=== PATIENT | male | born 1930 | race Caucasian/White ===

== ENCOUNTER 2016-11-14 16:58 | Inpatient (IN) | payer MEDICARE, OTHER ==
[~2016-11-14] VITALS: Ht 170.2 cm; Wt 65.1 kg
[~2016-11-14 16:58] MED LIST: ACETAMINOPHEN325 MG PO; ASPIRIN 81 MG E81 MG PO; ASPIRIN325 MG PO; CALCIUM 600+D T1 TA1 PO; CELEXA20 MG PO; CLARITIN 10 MG10 MG PO; CLARITIN5 MG/5 ML PO; COZAAR25 MG PO; DESYREL50 MG PO; DULCOLAX10 MG/SUPP RC; DUONEB 2.5-0.5 M3 ML UPD; EFFEXOR XR150 MG PO; ELIQUIS2.5 MG PO; FLUTICASONE PRO16 GM NASAL; HYDROCHLOROTHIA25 MG PO; ICAPS AREDS1 TAB.SA PO; KLONOPIN0.5 MG PO; LIPITOR40 MG PO; MIRALAX17 GM PO; MUCUS RELIEF400 MG PO; NITROSTAT0.4 MG SL; NORCO 10/325 TA1 TA1 PO; OYSCO 500+D TAB1 TAB PO; POTASSIUM20 MEQ/11 PO; PREDNISONE5 MG PO; PROAIR HFA8.5 GM INH; PROTONIX I40 MG/VIAL IV; PULMICORT0.5 MG/21 UPD; ROBAXIN500 MG PO; SCOT-TUSSI10 MG/5 ML PO; SENNA8.6 MG PO; SOLU-CORTE100 MG/22 IV; SYMBICORT 80-10.2 GM INH; TYLENOL 325 MG325 MG PO; VITAMIN B-12500 MCG PO; ZOSYN 3.3753.375 G1 IV
[2016-11-14 17:23] LABS: BASOPHILS 0.2 % (0.0-2.0); EOSINOPHILS 0.8 % (0-7); HEMATOCRIT 30.2 % (42.0-54.0); HEMOGLOBIN 10.2 g/dL (13.5-17.5); IMMATURE GRANULOCYTES 0.8 % (0-5); LYMPHOCYTES 18.9 % (15-50); MCH 33.4 pg (26.0-34.0); MCHC 33.8 g/dL (31.0-37.0); MEAN PLATELET VOLUME 10.9 fL (7.4-10.4); MONOCYTES 11.3 % (2-11); RBC 3.05 10x6/uL (4.20-6.10); RDW 13.1 % (11.5-14.5); WBC 11.7 10x3/uL (4.8-10.8)
[2016-11-14 17:30] LABS: PLATELET COUNT 206 10x3/uL (130-400)
[2016-11-14 17:38] LABS: APTT 29.1 SECONDS (22.8-39.4); INR 1.12 (0.85-1.17); PROTIME 14.3 SECONDS (11.6-15.0)
[2016-11-14 17:39] LABS: ALBUMIN 3.1 g/dL (3.4-5.0); ALKALINE PHOSPHATASE 66 U/L (46-116); ALT (SGPT) 18 U/L (10-68); BILIRUBIN - TOTAL 0.47 mg/dL (0.2-1.3); CALC OSMOLALITY 276 mosm/kg (275-300); CALCIUM 8.8 mg/dL (8.5-10.1); CARBON DIOXIDE 26.8 mmol/L (21.0-32.0); CHLORIDE - SERUM 99 mmol/L (98-107); CREATININE - SERUM 1.1 mg/dL (0.6-1.3); GLUCOSE 96 mg/dL (74-106); SODIUM 138 mmol/L (136-145); UREA NITROGEN 14 mg/dL (7-18); eGFR NON AFRICAN AMERICAN 67 mL/min (90-120)
[2016-11-14 17:49] LABS: CKMB 0.4 U/L (0.0-3.6); CREATINE KINASE 59 UL (21-232); MAGNESIUM - SERUM 1.9 mg/dL (1.8-2.4)
[2016-11-14 17:50] LABS: TROPONIN-I < 0.017 ng/mL (0.000-0.060)
[2016-11-14 17:50] LABS: APPEARANCE CLEAR (CLEAR); BILIRUBIN NEGATIVE (NEGATIVE); COLOR YELLOW (YELLOW); GLUCOSE NEGATIVE (NEGATIVE); KETONE NEGATIVE (NEGATIVE); LEUKOCYTE ESTERASE NEGATIVE (NEGATIVE); NITRITE NEGATIVE (NEGATIVE); PROTEIN NEGATIVE (NEGATIVE); SPECIFIC GRAVITY 1.015 (1.005-1.020); UROBILINOGEN NORMAL (NORMAL)
[2016-11-14 17:57] LABS: UDS - AMPHET NEGATIVE QUAL (NEGATIVE); UDS - BARB NEGATIVE QUAL (NEGATIVE); UDS - BENZO POSITIVE QUAL (NEGATIVE); UDS - COCAINE NEGATIVE QUAL (NEGATIVE); UDS - METH NEGATIVE QUAL (NEGATIVE); UDS - OPIATE POSITIVE QUAL (NEGATIVE); UDS - PCP NEGATIVE QUAL (NEGATIVE); UDS - THC NEGATIVE QUAL (NEGATIVE)
[2016-11-14 19:00] VITALS: BP 116/55
--- NOTE | 2016-11-14 19:30 | NUR ---
RECEIVED PATIENT FROM ER VIA BED. PATIENT IS ON VENT AND SEDATED WITH PROPOFOL. SHIFT ASSESSMENT COMPLETE, SEE ASSESSMENT FOR DETAILS. PATIENTS PUPILS ARE FIXED AND 1MM. S1S2 NOTED WITH A RATE OF 77. CRACKLES HEARD IN UPPER LOBES OF LUNGS. BOWEL SOUNDS ACTIVE. YEE INSERTED IN ER WITH YELLOW URINE OUTPUT. NO KINKS NOTED. +2 PULSES BILATERAL. PIV IN RAC INFUSING NS @125 AND PROPOFOL.
[2016-11-14 20:00] VITALS: BP 126/66
[2016-11-14 21:00] VITALS: BP 128/87
--- NOTE | 2016-11-14 21:00 | NUR ---
NG TUBE INSERTED TO LIS. 20G PIV INSERTED INTO RIGHT WRIST. PT TOLERATED WELL. NGT PLACEMENT VERIFIED WITH AIR BOLUS AND AUSCULTATION OF RUQ OF ABDOMEN.
[2016-11-14 21:42] VITALS: BP 186/83; BMI 24.3
[2016-11-14 22:00] VITALS: BP 129/64
[2016-11-14 23:00] VITALS: BP 114/62
--- NOTE | 2016-11-14 23:00 | NUR ---
REASSESSMENT COMPLETE. NO CHANGES.
[2016-11-15] VITALS (24 sets, daily range): BP systolic 113–167; BP diastolic 57–82; Ht 170.2 cm; Wt 65.1 kg
--- NOTE | 2016-11-15 01:00 | NUR ---
PATIENT RESTING COMFORTABLY IN BED. VSS.
--- NOTE | 2016-11-15 03:00 | NUR ---
REASSESSMENT COMPLETE. NO CHANGES AT THIS TIME.
--- NOTE | 2016-11-15 05:00 | NUR ---
CRITICAL LOW POTASSIUM, ELECTROLYTE PROTOCOL FOLLOWED.
[2016-11-15 05:40] LABS: BASOPHILS 0.1 % (0.0-2.0); EOSINOPHILS 0.2 % (0-7); HEMATOCRIT 29.1 % (42.0-54.0); HEMOGLOBIN 9.8 g/dL (13.5-17.5); IMMATURE GRANULOCYTES 0.3 % (0-5); LYMPHOCYTES 10.8 % (15-50); MCH 32.8 pg (26.0-34.0); MCHC 33.7 g/dL (31.0-37.0); MCV 97.3 fL (80.0-100.0); MEAN PLATELET VOLUME 11.2 fL (7.4-10.4); MONOCYTES 10.8 % (2-11); NEUTROPHILS 77.8 % (40-80); PLATELET COUNT 202 10x3/uL (130-400); RBC 2.99 10x6/uL (4.20-6.10); RDW 13.1 % (11.5-14.5); WBC 11.3 10x3/uL (4.8-10.8)
[2016-11-15 06:05] LABS: ALBUMIN 2.9 g/dL (3.4-5.0); ALKALINE PHOSPHATASE 67 U/L (46-116); ALT (SGPT) 20 U/L (10-68); CALC OSMOLALITY 273 mosm/kg (275-300); CALCIUM 8.3 mg/dL (8.5-10.1); CHLORIDE - SERUM 98 mmol/L (98-107); CREATININE - SERUM 0.9 mg/dL (0.6-1.3); GLUCOSE 94 mg/dL (74-106); MAGNESIUM - SERUM 1.7 mg/dL (1.8-2.4); POTASSIUM - SERUM 2.8 mmol/L (3.5-5.1); PROTEIN - SERUM 5.9 g/dL (6.4-8.2); SODIUM 137 mmol/L (136-145); UREA NITROGEN 12 mg/dL (7-18); eGFR NON AFRICAN AMERICAN 85 mL/min (90-120)
--- NOTE | 2016-11-15 08:05 | NUR ---
RESTING QUIETLY IN BED AT THIS TIME. NO DISTRESS NOTED. PT NOTED TO HAVE POTASSIUN LEVEL OF 2.8 THIS MORNING. RECIEVING POTASSIUM RIDERS AT THIS TIME PER ORDERS. WILL CONTINUE PLAN OF CARE.
--- NOTE | 2016-11-15 08:25 | NUR ---
NOTED PT HAS LOW POTASSIUM LEVEL OF 2.8 AND LOW MAGNESIUM LEVEL OF 1.7. ELECTROLYTE PROTOCOL REPLACEMENT IN PLACE AT THIS TIME. WILL CONTINUE PLAN OF CARE.
--- NOTE | 2016-11-15 09:04 | NUR ---
NOTED PT APPEARED UNCOMFORTABLE AND RETLESS, COUGHING OVER MACHINE, MOVING ARMS AND LEGS. BLOOD PRESSURE RAISED FROM 143/65 TO 161/65. PROPIFOL INCREASED FROM 40MCG TO 45MCG. WILL CONTINUE TO OBSERVE.
--- NOTE | 2016-11-15 09:14 | NUR ---
FAMILY AT BEDSIDE AT THIS TIME. REPORT GIVEN. NO FURTHER QUESTIONS AT THIS TIME.
--- NOTE | 2016-11-15 09:23 | NUR ---
NOTED 15ML RESIDUAL TO PEG. WILL CONTINUE TO OBSERVE.
--- NOTE | 2016-11-15 11:35 | NUR ---
SPOKE TO DR EDWARDS TO NOTIFY OF PT CONSULT. DR EDWARDS REQUESTED NURSING STAFF TO CALL HIM AND NOTIFY WHEN CT OF HEAD RESULTS COME IN. WILL FOLLOW THROUGH WITH REQUEST.
--- NOTE | 2016-11-15 11:57 | NUR ---
FAMILY AT BEDSIDE AT THIS TIME SPEAKING TO DR MAHSA ZAYAS UPDATE. NO ACUTE DISTRESS NOTED. WILL CONTINUE PLAN OF CARE.
--- NOTE | 2016-11-15 13:46 | NUR ---
LYING IN BED RESTING QUIETLY, NO ACUTE DISTRESS NOTED. SUCTIONING PROVIDED, NOTED CLEAR SPUTUM WITH SOME REDNESS AT TIMES. FAMILY AT BEDSIDE. WILL CONTINUE PLAN OF CARE.
--- NOTE | 2016-11-15 15:04 | NUR ---
TURNING AND ORAL CARE PROVIDED AT THIS TIME. PROVIDED Q2H. NO ACUTE DISTRESS NOTED. WILL CONTINUE PLAN OF CARE.
--- NOTE | 2016-11-15 15:54 | NUR ---
NOTED PT FAMILY STATED CONCERN THAT PT COULD BE IN DISCOMFORT. FAMILY STATED PT HAD BEEN TAKING ROBAXIN AND NORCO PRN AT [facility] AND WAS CONCERENED PT MIGHT BE EXPERIENCING DISCOMFORT. ALSO BLOOD PRESSURE NOTED AT 160/67, NO FACIAL GRIMACING NOTED. CALLED DR BRAGG TO NOTIFY, NOTED NEW ORDER FOR 12.5MG IV DEMEROL Q6H PRN PAIN. WILL PLACE ORDERS AND NOTIFY FAMILY. WILL CONTINUE PLAN OF CARE.
--- NOTE | 2016-11-15 17:53 | NUR ---
NOTED NS RATE ORDER CHANGE FROM 125ML/HOUR TO 75 ML/HOUR. WILL FOLLOW THROUGH WITH ORDERS AT THIS TIME. NO ACUTE DISTRESS NOTED. FAMILY AT BEDSIDE. WILL CONTINUE PLAN FO CAR.E
--- NOTE | 2016-11-15 18:16 | NUR ---
TEMPORAL TEMP OF 100.0 NOTED AT THIS TIME. ROOM TEMPERATURE ADJUSTED TO A COOLER TEMP, WINDOW OPENED, BLANKETS REMOVED, SHEET IS IN PLACE. WILL CONTINUE TO OBSERVE.
--- NOTE | 2016-11-15 19:00 | NUR ---
1899: Pt rec'd resting HOB 30 degrees with eyes closed. Open briefly to painfull stimuli. Pupils DIONNE+ bilat. Unable to assess pt movement at this time. Pt remains sedated with diprivan. Pt breathing via ETT 8.0/28CM lip line with Vent as per flow sheet. Pt RR 18x with SPO2 98%. Lungs with crackles heard in upper bases and RUL. LLL decreased with auscultation. MMP and no cyanosis. Irregular heart rate. Afib with occasional PVCs seen on CM 78bpm. RUE with x2 PIV patent with Diprivan and NS infusing. ABD soft NT BS hypoactive x4. Right nares NGT to LIS with small amount of clear/yellow sx. Perez to gravity with >30 cc/hr UOP. All alarms are on and intact.
--- NOTE | 2016-11-15 21:00 | NUR ---
2100: Family at bedside. Update provided and verbalized understanding. No change in pt RESP/CV/NV status. Pt grimmaces with movement, has occasional yawning and coughs with sx. Pupils remain DIONNE+ and no seizure activity is seen.
--- NOTE | 2016-11-15 21:45 | NUR ---
2145: CT report rec'd and called to Dr. Keane at this time.
--- NOTE | 2016-11-15 23:00 | NUR ---
2300: Pt repositioned for comfort with extrem off bed with pillow supports. Oral care done per RT. No change in RESP/CV/NV status. Continue to wean Diprivan as per orders.
--- NOTE | 2016-11-15 23:45 | NUR ---
2345: Pt SBP increased at this time. Dr. Wheeler notified. New orders rec'd and noted.
[2016-11-16] VITALS (24 sets, daily range): BP systolic 106–197; BP diastolic 54–801
--- NOTE | 2016-11-16 02:15 | NUR ---
0215: Pt BP increased. SHANI MEDRANO notified and new orders rec'd. Hydralazine admin IVP at this time.
[2016-11-16 03:56] LABS: BASOPHILS 0.1 % (0.0-2.0); EOSINOPHILS 0.2 % (0-7); HEMATOCRIT 32.4 % (42.0-54.0); HEMOGLOBIN 11.1 g/dL (13.5-17.5); IMMATURE GRANULOCYTES 0.5 % (0-5); LYMPHOCYTES 14.9 % (15-50); MCH 33.8 pg (26.0-34.0); MCHC 34.3 g/dL (31.0-37.0); MCV 98.8 fL (80.0-100.0); MEAN PLATELET VOLUME 11.6 fL (7.4-10.4); MONOCYTES 10.4 % (2-11); NEUTROPHILS 73.9 % (40-80); PLATELET COUNT 114 10x3/uL (130-400); RBC 3.28 10x6/uL (4.20-6.10); RDW 13.5 % (11.5-14.5); WBC 17.5 10x3/uL (4.8-10.8)
--- NOTE | 2016-11-16 04:00 | NUR ---
0400: Pt BP 140-150 at this time. No change in IVF/UOP at this time. Pt moves bilateral lower extrem weakly vs gravity at times. Pt continues grimmace with movement or sx, but does not open eyes to verbal. Pt with occasional yawning. Pupils remains = with light stimulus. No seizure activity seen at this time.
[2016-11-16 04:12] LABS: CALC OSMOLALITY 278 mosm/kg (275-300); CALCIUM 8.6 mg/dL (8.5-10.1); CARBON DIOXIDE 28.6 mmol/L (21.0-32.0); CHLORIDE - SERUM 103 mmol/L (98-107); CREATININE - SERUM 0.9 mg/dL (0.6-1.3); GLUCOSE 97 mg/dL (74-106); PHOSPHOROUS 3.9 mg/dL (2.5-4.9); SODIUM 140 mmol/L (136-145); UREA NITROGEN 13 mg/dL (7-18); eGFR NON AFRICAN AMERICAN 85 mL/min (90-120)
[2016-11-16 04:14] LABS: MAGNESIUM - SERUM 2.3 mg/dL (1.8-2.4); POTASSIUM - SERUM 3.8 mmol/L (3.5-5.1)
--- NOTE | 2016-11-16 05:15 | NUR ---
0515: Pt reposition for comfort at this time.
--- NOTE | 2016-11-16 07:19 | NUR ---
DR EDWARDS TO ASSESS PT AT THIS TIME. SEDATION TURNED OFF MOMENTARILY PER ORDERS. PT RESTING IN BED AT THIS TIME. NO ACUTE DISTRESS NOTED. WILL CONTINUE PLAN OF CARE.
--- NOTE | 2016-11-16 07:50 | NUR ---
SEDATION, PROPIFOL, TURNED BACK ON AT THIS TIME TO 10MCG. PT AT THIS TIME MOVING ARMS AND LEGS AND PULLING ARMS UP TOWARDS TUBING. SOFT WRIST RESTRAINTS SECURED. REPOSITIONING PROVIDED. TUBING CONCEALED. WILL CONTINUE TO OBSERVE.
--- NOTE | 2016-11-16 07:55 | NUR ---
PROPIFOL TURNED UP FROM 10MCG TO 20MCG AT THIS TIME. PT NOTED MOVING ARMS AND LEGS, FACIAL GRIMACING. WILL CONTINUE TO OBSERVE.
--- NOTE | 2016-11-16 08:05 | NUR ---
LISA OF 5 STILL NOTED. PROPIFOL TURNED UP FROM 20MCG TO 30MCG. WILL CONTINUE TO OBSERVE.
--- NOTE | 2016-11-16 08:12 | NUR ---
OBSERVED PT AT THIS TIME. NOTED PT APPEARS MORE CALM AT THIS TIME. STILL MOVING ARMS AND LEGS AND TURNING HEAD, HOWEVER NO LONGER ATTEMPTING AT PULL AT LINES AND MOVEMENTS ARE MORE CALM AT THIS TIME. WILL CONTINUE TO OBSERVE.
--- NOTE | 2016-11-16 12:26 | NUR ---
NOTED AXILLARY TEMP OF 100.3. AT THIS TIME WILL DECREASE ROOM TEMP AND TAKE WARM BLANKETS OFF TO SEE IF TEMP DECREASES. WILL CONTINUE TO OBSERVE.
--- NOTE | 2016-11-16 13:53 | NUR ---
NGT PLACEMENT VERIFICATION PERFORMED VIA AUSCULATION.
--- NOTE | 2016-11-16 14:53 | NUR ---
LYING IN BED AT THIS TIME. NO ACUTE DISTRESS NOTED. TURNED Q2H. WILL CONTINUE PLAN FO CARE.
--- NOTE | 2016-11-16 15:44 | NUR ---
LYING IN BED AT THIS TIME. NO ACUTE DISTRESS NOTED. REPOSITIONING PROVIDED. TEMPERATURE 99.4 AT THIS TIME. WILL CONTINUE PLAN FO CARE.
--- NOTE | 2016-11-16 17:48 | NUR ---
Nutrition follow-up: NPO; intubated, sedated Pulmocare started @ 20 ml/hr RDN following.
--- NOTE | 2016-11-16 17:57 | NUR ---
REPOSITIONING AND SUCTIONING PROVIDED TO PT. NOTED CLEAR SECRETIONS. NO ACUTE DISTRESS NOTED. WILL CONTINUE PLAN FOCARE.
--- NOTE | 2016-11-16 21:00 | NUR ---
ASSESSMENT COMPLETE: LATE ENTRY: 192911/16/16. PT SEDATED ON VENT. FIO2 35%. CONTROLLED AFIB SHOWING ON MONITOR. RR CRACKLES BILATERALLY IN UPPER LOBES; DIMINISHED BILATERALLY IN LOWER LOBES. NGT PRESENT; PULMOCARE @ 20ML/HR. PERRLA; 3MM BRISK. YEE IN PLACE. BILATERAL ARM BRUISING. RIGHT ARM SKIN TEAR.
--- NOTE | 2016-11-16 23:15 | NUR ---
REASSESSMENT COMPLETE. NO CHANGES FROM PREVIOUS ASSESSMENT.
[2016-11-17] VITALS (24 sets, daily range): BP systolic 99–146; BP diastolic 53–86
--- NOTE | 2016-11-17 03:00 | NUR ---
REASSESSMENT COMPLETE. NO CHANGES FROM PREVIOUS ASSESSMENT OTHER THAN PT HAS INCREASE IN BOWEL SOUNDS FROM ACTIVE TO HYPERACTIVE IN ALL 4 QUADRANTS. PT ALSO PASSING FLATULANCE.
--- NOTE | 2016-11-17 04:15 | NUR ---
PT HAD MODERATE LOOSE LIGHT BROWN STOOL; DIARRHEA. PT CLEANED. COMPLETE LINEN CHANGE. YEE CARE. PT REPOSITIONED.
[2016-11-17 05:30] LABS: BASOPHILS 0.1 % (0.0-2.0); EOSINOPHILS 0 % (0-7); HEMATOCRIT 30.1 % (42.0-54.0); IMMATURE GRANULOCYTES 0.3 % (0-5); LYMPHOCYTES 6.8 % (15-50); MCH 32.9 pg (26.0-34.0); MCHC 33.2 g/dL (31.0-37.0); MEAN PLATELET VOLUME 11.9 fL (7.4-10.4); MONOCYTES 8.5 % (2-11); NEUTROPHILS 84.3 % (40-80); PLATELET COUNT 177 10x3/uL (130-400); RBC 3.04 10x6/uL (4.20-6.10); RDW 13.7 % (11.5-14.5); WBC 19.9 10x3/uL (4.8-10.8)
[2016-11-17 05:33] LABS: ANION GAP 10.3 mmol/L (8-16); CARBON DIOXIDE 27.9 mmol/L (21.0-32.0)
[2016-11-17 05:34] LABS: APTT 29.6 SECONDS (22.8-39.4); INR 1.16 (0.85-1.17); PROTIME 14.7 SECONDS (11.6-15.0)
[2016-11-17 05:35] LABS: D-DIMER-QUANTITATIVE 3.04 ug/mLFEU (0.20-0.54)
[2016-11-17 05:40] LABS: CREATININE - SERUM 1.3 mg/dL (0.6-1.3); POTASSIUM - SERUM 3.2 mmol/L (3.5-5.1)
--- NOTE | 2016-11-17 07:00 | NUR ---
REPORT RECIEVED, INITIAL ASSESSMENT COMPLETE, PLEASE SEE FLOW SHEETS FOR DETAILS. ORAL CARE AND TURNING PROVIDED. VSS AT THIS TIME, WILL CONTINUE TO MONITOR.
--- NOTE | 2016-11-17 08:04 | NUR ---
BOWEL MOVMEENT CLEANED UP. FULL LINEN CHANGE. YEE CARE PROVIDED. WILL CONTINUE TO MONITOR.
--- NOTE | 2016-11-17 09:04 | NUR ---
DAUGHTER AT BEDSIDE, ORAL CARE AND TURNING PROVIDED. VSS AT THIS TIME, WILL CONTINUE TO MONITOR.
--- NOTE | 2016-11-17 09:53 | NUR ---
INCREASED DIPRIVAN TO 32 MCG/KG/MIN BECAUSE PT COUGHING AGAINST VENT FREQUENTLY AND IS RESTLESS. WILL CONTINUE TO MONITOR.
--- NOTE | 2016-11-17 10:00 | NUR ---
TUBE FEEDING BAG CHANGED OUT. RESIDUAL CHECKED AND YEILDED 8ML, WHICH WAS RETURNED.
--- NOTE | 2016-11-17 10:43 | NUR ---
REASSESSMENT COMPLETE, PLEASE SEE FLOW SHEETS FOR DETAILS. ORAL CARE AND TURNING PROVIDED, VSS AT THIS TIME, PREPARING FOR TRANSPORT TO CT. WILL CONTINUE TO MONITOR.
--- NOTE | 2016-11-17 12:10 | NUR ---
MODERATE SMIE-FORMED STOOL CLEANED UP AND PARTIAL LINEN CHANGE. DIPRIVAN TURNED OFF FOR EEG TO BE PERFORMED. WILL CONTINUE TO MONITOR.
--- NOTE | 2016-11-17 15:41 | NUR ---
LARGE STOOL CLEANED UP. REASSESSMENT COMPLETE, PLEASE SEE FLOW SHEETS FOR DETAILS. ORAL CARE AND TURNING PROVIDED. VSS AT THIS TIME, WILL CONTINUE TO MONITOR.
--- NOTE | 2016-11-17 15:42 | NUR ---
PT RESTLESS, INCREASED DIPRIVAN TO 34 MCG/KG/MIN, WILL CONTINUE TO MONITOR.
--- NOTE | 2016-11-17 18:00 | NUR ---
ORAL CARE AND TURNING PROVIDED. LARGE BM CLEANED UP. FULL LINEN CHANGE. CALLED DR MADRID ABOUT PVC'S AND TACHYCARDIA ON PT CLOCK AND WATCH HANDS PAINTER. HE ORDERED CARDIZEM NG TID (180MG DAILY NG). WILL CONTINUE TO MONITOR.
--- NOTE | 2016-11-17 19:00 | NUR ---
ASSESSMENT COMPLETE. S1S2 IRREGULAR. CRACKLES BILATERALLY IN UPPER LOBES; DIMINISHED BILATERALLY IN LOWER LOBES. PERRLA; 3MM BRISK. PT SEDATED ON VENT. BRUISING BILATERALLY TO UPPER EXTREMITIES. CONTROLLED AFIB SHOWING ON MONITOR. YEE IN PLACE; YELLOW URINE IN COLLECTION BAG. NGT WITH PULMOCARE AT 20ML/HR.
--- NOTE | 2016-11-17 21:15 | NUR ---
FAMILY AT BEDSIDE, UPDATE GIVEN
--- NOTE | 2016-11-17 22:50 | NUR ---
REASSESSMENT COMPLETE. NO CHANGES FROM PREVIOUS ASSESSMENT.
[2016-11-18] VITALS (24 sets, daily range): BP systolic 93–146; BP diastolic 51–91
--- NOTE | 2016-11-18 | NUR ---
REPOSITIONED FOR COMFORT,
--- NOTE | 2016-11-18 02:00 | NUR ---
COMPLETE BATH AND LINEN CHANGE, PT TOLERATED WELL
--- NOTE | 2016-11-18 03:15 | NUR ---
RAD IN ROOM FOR DAILY CXR,
[2016-11-18 03:32] LABS: BASOPHILS 0.1 % (0.0-2.0); EOSINOPHILS 0.1 % (0-7); HEMATOCRIT 30.3 % (42.0-54.0); HEMOGLOBIN 9.9 g/dL (13.5-17.5); IMMATURE GRANULOCYTES 0.3 % (0-5); LYMPHOCYTES 8.8 % (15-50); MCH 32.9 pg (26.0-34.0); MCHC 32.7 g/dL (31.0-37.0); MCV 100.7 fL (80.0-100.0); MEAN PLATELET VOLUME 12.2 fL (7.4-10.4); MONOCYTES 9.1 % (2-11); NEUTROPHILS 81.6 % (40-80); PLATELET COUNT 166 10x3/uL (130-400); RBC 3.01 10x6/uL (4.20-6.10); RDW 13.6 % (11.5-14.5)
[2016-11-18 03:50] LABS: ALBUMIN 2.3 g/dL (3.4-5.0); ANION GAP 13.3 mmol/L (8-16); BILIRUBIN - TOTAL 0.75 mg/dL (0.2-1.3); CALCIUM 8.4 mg/dL (8.5-10.1); CARBON DIOXIDE 24.6 mmol/L (21.0-32.0); CREATININE - SERUM 1.3 mg/dL (0.6-1.3); MAGNESIUM - SERUM 2.2 mg/dL (1.8-2.4); PROTEIN - SERUM 5.5 g/dL (6.4-8.2)
[2016-11-18 04:08] LABS: POTASSIUM - SERUM 3.9 mmol/L (3.5-5.1)
--- NOTE | 2016-11-18 05:20 | NUR ---
REPOSITIONED FOR COMFORT, ORAL CARE PROVIDED
--- NOTE | 2016-11-18 06:10 | NUR ---
FAMILY AT BEDSIDE, UPDATE GIVEN
--- NOTE | 2016-11-18 10:41 | NUR ---
Is the patient Alert and Oriented? No 0 * PCP DR. MADRID 0 * Pharmacy [facility] PROVIDES MEDICATIONS 0 * Preadmission Environment [facility] 0 * Facility Name [facility] 0 * ADLs Independent 0 * Equipment Wheelchair 0 * Other Equipment SUPPLIED BY THE [facility] 0 * List name and contact numbers for known caregivers / representatives who currently or will assist patient after discharge: DAUGHTER: DAVID [phone] DAUGHTER: YOSI: [phone] 0 * Community resources currently utilized None 0 * Additional services required to return to the preadmission environment? No 0 * Can the patient safely return to the preadmission environment? Yes 0 * Has this patient been hospitalized within the prior 30 days at any hospital? No 0 PATIENT IS ON THE VENT AND UNABLE TO ANSWER QUESTIONS. HE LIVES AT THE [facility]. I SPOKE WITH HIS DAUGHTER, DAVID AT THE BEDSIDE. SHE STATES HER FATHER LIVES HERE AND FEELS COMFORTABLE THERE. HE IS LEGALLY BLIND AND KNOWS HIS WAY AROUND THERE. 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 SHE STATES SHE AND HER SISTER HAVE TRIED TO GET HIM TO MOVE CLOSER TO THEM BUT HE HAS NOT WANTED TO IN THE PAST. SHE STATES AFTER THIS THEY MAY TRY AGAIN. CM TO FOLLOW.
--- NOTE | 2016-11-18 14:26 | NUR ---
0800 AM ASSESMENT IS COMPLETE SEE FLOW SHEET FOR FINDINGS.. PT IS ORALLY INTUBATED AND SEDATED ON THE VENT.. 0830 DR EDWARDS IN TO SEE PT.. WITHOUT NEW ORDERES.. 0900 DAUGHTER IN AT BEDSIDE.. UPDATE GIVEN AND DR EDWARDS CALLED FOR EEG REPORT AND UPDATE INFO FOR FAMILY.. EEG NORMAL... 09 DR MARTINO IN TO SEE PT AND FAMILY.. SEDATION IS TURNED OFF AT THIS TIME.. 1000 PT MEDS GIVEN ... PT REMAINS OFF OF SEDATION.. HE IS FOLLOWING COMMANDS WHEN INSTRUCTED TO DO SO.. REMAINS RESTLESS WITH RESPIRATIONS INCREASING TO 27-30 / MIN... 1030 COMPLETE BATH AND PARTIAL LINEN CHANGE DONE PT I INCONTINENET OF DIARRHEA STOOL.. ARREOLA BROWN.. 1130 REMAINS RESTLESS.. PT PLACED BACK ON DIPRIVAN SEDATION... REMAINS ON SIMV VENT SETTINGS.. 1200 FAMILY IN TO SEE PT... UPDATE GIVEN.. 1330 RESPIRATORY TX..
--- NOTE | 2016-11-18 17:16 | NUR ---
1500 FAMILY IN TO SEE PT AND UPDATE IS GIVEN.. 1600 REPOSITIONED AND ORAL CARE DONE PT CONTINUES ON VENT AND SEDATED 1630 I AND O DONE
--- NOTE | 2016-11-18 18:20 | NUR ---
1800 FAMILY AT BEDSIDE UPDATE GIVEN .. PT IS MOVING WXTREMITIES..
--- NOTE | 2016-11-18 19:30 | NUR ---
REPORT RECIEVED, SHIFT ASSESSMENT COMPLETE, PT IS SEDATED ON VENT, AROUSES TO DEEP STIMULI, ON 35% FIO2 WITH 97% O2 SAT. LUNGS CLEAR IN B/L UPPER LOBES, DIMINISHED IN B/L LOWER LOBES, PATENT NGT WITH PULMOCARE INFUSING VIA PUMP, S1S2, CM-NSR, ABDOMEN IS ROUND WITH ACTIVE BS, PATENT F/C WITH CONCENTRATED UOP, ALL PPP, VSS, WILL CON'T TO MONITOR
--- NOTE | 2016-11-18 21:30 | NUR ---
FAMILY AT BEDSIDE, UPDATE GIVEN
--- NOTE | 2016-11-18 23:18 | NUR ---
REASSESSMENT COMPLETE, NO CHANGES NOTED, REPOSITIONED FOR COMFORT, ORAL CARE PROVIDED
[2016-11-19] VITALS (25 sets, daily range): BP systolic 113–164; BP diastolic 55–91
--- NOTE | 2016-11-19 03:27 | NUR ---
REASSESSMENT COMPLETE, NO CHANGES NOTED, PT RESTING AT THIS TIME, REPOSITIONED FOR COMFORT,
[2016-11-19 04:28] LABS: BASOPHILS 0.1 % (0.0-2.0); EOSINOPHILS 0.8 % (0-7); HEMATOCRIT 25.6 % (42.0-54.0); HEMOGLOBIN 8.9 g/dL (13.5-17.5); IMMATURE GRANULOCYTES 0.3 % (0-5); LYMPHOCYTES 9.1 % (15-50); MCH 34.2 pg (26.0-34.0); MCHC 34.8 g/dL (31.0-37.0); MEAN PLATELET VOLUME 11.8 fL (7.4-10.4); MONOCYTES 10.4 % (2-11); NEUTROPHILS 79.3 % (40-80); PLATELET COUNT 154 10x3/uL (130-400); RDW 13.5 % (11.5-14.5)
[2016-11-19 04:38] LABS: MCV 98.5 fL (80.0-100.0); WBC 9.7 10x3/uL (4.8-10.8)
[2016-11-19 04:43] LABS: ANION GAP 8.3 mmol/L (8-16); CALCIUM 8.6 mg/dL (8.5-10.1); CARBON DIOXIDE 27.6 mmol/L (21.0-32.0); CREATININE - SERUM 1.1 mg/dL (0.6-1.3); MAGNESIUM - SERUM 2.1 mg/dL (1.8-2.4)
[2016-11-19 04:44] LABS: POTASSIUM - SERUM 2.9 mmol/L (3.5-5.1)
--- NOTE | 2016-11-19 05:00 | NUR ---
REPOSITIONED FOR COMFORT, ORAL CARE PROVIDED
--- NOTE | 2016-11-19 07:00 | NUR ---
REC'D REPORT AND RESUMED CARE, ETT TO VENTILATION AND SECURED, VENT IN SIMV MOBE WITH 35% FIO2, SAT 99%, RIGTH NARE OGT WITH PULMOCARE INFUAISNG AT 20 CC/HR, RESIDUAL CHECK 0, RIGHT AC PIV WITH PROPOFAL INUSING AT 40 MCG, NS AT 5 CC/HR, YEE TO GRAVITY WITH DARK CONCENTRATED DRAINAGE TO BAG, SCD'S ON B/L, ASSESSMENT COMPLETE PER FLOWSHEET, LOCALIZES PAIN, DOSE NOT FOLLOW COMMANDS, SEDATION IN USE, ORAL CARE AND SUCTION COMPLETED, RESTRAINTS IN USE, WILL CONTINUE WITH POC
--- NOTE | 2016-11-19 08:30 | NUR ---
AM MEDS GIVEN WITHOUT DIFFICULTY
--- NOTE | 2016-11-19 08:58 | NUR ---
Nutrition follow-up: Pulmocare infusing @ 20 ml/hr; pt tolerating at this time. Labs reviewed Wt: 158# Recommend advancing TF to goal rate of 50 ml/hr RDN following.
--- NOTE | 2016-11-19 09:00 | NUR ---
FAMILY AT BEDSIDE, STATUS UPDATED VOICES NO NEEDS AT THIS TIME
--- NOTE | 2016-11-19 11:00 | NUR ---
NO AUCTE CHANGE FROM PREVIOUS ASSESSMENT, VSS, REPOSITONED TO RIGHT SIDE WITH PILLOW PROPPED TO BACK AND HEELS FLOATED, ORAL CARE AND SUCTION COMPLETED
--- NOTE | 2016-11-19 12:30 | NUR ---
FAMILY AT BEDSIDE, REQUESTED TO HAVE EYE DROPS GIVEN FOR PATIENTS MACULAR DEGENERATION, DR. MADRID AT BEDSIDE, DROPS ORDERED
[2016-11-19 12:43] LABS: HEMATOCRIT 30.1 % (42.0-54.0); HEMOGLOBIN 10.1 g/dL (13.5-17.5)
--- NOTE | 2016-11-19 15:00 | NUR ---
FAMILY AT BEDSIDE DISCUSSED LABS PER REQUEST, STATUS UPDATED, VOICES NO NEEDS AT THIS TIME, CONTINUES ON CPAP, VSS, NO ACUTE CHANGE FROM PREVIOUS ASSESSMENT
--- NOTE | 2016-11-19 16:30 | NUR ---
I AND O'S COMPLETED WITHOUT DIFFICULTY
--- NOTE | 2016-11-19 18:12 | NUR ---
MANAGER COMMUNITY DEVELOPMENT HERE FOR BLOOD DRAW OF REPEAT POTASSIUM
--- NOTE | 2016-11-19 18:16 | NUR ---
FAMILY AT BEDSIDE, STATUS UPDATED, AWAITING FOR PATIENT EXTUBATION, NO OTHER NEEDS AT THIS TIME
--- NOTE | 2016-11-19 19:00 | NUR ---
RECEIVED PATIENT IN BED WITH EYES CLOSED ON VENT. EYES PERRLA @ 3MM WITH BRISK RESPONSE, CLEAR DRAINAGE NOTED. BREATHING IS RYTHMIC AND REGULAR ON VENT R-12, V-550, 35%, P-7, PS-10. LUNG SOUNDS ARE CLEAR BILATERAL UPPER AND DIMINISHED LOWER. ETT 8.0 @ 24CM LIPLINE MID, NG-TUBE R NARE SECURED. PATIENT HAS PULMOCARE @ 40ML/HR VIA NGT, 11ML RESIDUAL RECOVERED AND RETURNED. S1/S2 NOTED WITH PAC/PVC NOTED ON TELEMETRY. ABDOMEN IS FLAT AND SOFT, NON-TENDER TO PALPATION. YEE CATH SECURED WITH STATLOCK, CONCENTRATED YELLOW URINE NOTED IN COLLECTION. ALL PULSES PALPABLE, SLIGHT WEAKNESS NOTED IN ALL EXTREMITIES. PASSIVE ROM PERFORMED, SCD IN USE. BRUISING AND SCABS NOTED BILATERAL UPPER EXTREMITIES, 18G IV NOTED R WRIST. PATIENT POTASSIUM 3.2, ELECTROLYTE REPLACEMENT PROTOCOL FOLLOWED. ORAL CARE/SUCTIONING PROVIDED, PATIENT REPOSITIONED FOR COMFORT. BEDTABLE/CALL LIGHT IN REACH, WILL CONTINUE TO MONITOR.
--- NOTE | 2016-11-19 19:10 | NUR ---
PATIENT FAMILY AT BEDSIDE, UPDATED ON PATIENT CONDITION AND ANSWERED QUESTIONS. ORAL CARE/SUCTIONING PERFORMED AND PATIENT REPOSITIONED FOR COMFORT. WILL CONTINUE TO MONITOR.
--- NOTE | 2016-11-19 20:40 | EEG ---
PATIENT:SHANDA THURMAN DATE OF SERVICE: 11/14/16 MEDICAL RECORD: [id number] DATE OF : 32 LOCATION:D.230 D.ICU ADMISSION DATE: 11/14/16 REFERRING PHYSICIAN: INTERPRETING PHYSICIAN: AMI EDWARDS MD DATE OF SERVICE: 11/17/2016 Referred by myself as an inpatient, currently in room 2308. ELECTROENCEPHALOGRAM NUMBER: [id number]. DATE OF EXAMINATION: 11/17/2016 at 12:30 p.m. TECHNICAL DATA: This electroencephalographic recording consists of approximately 25 minutes of data collection utilizing the international 10/20 system of electrode placement and both referential and non-referential montages. Sixteen channels of electrocerebral recording are accompanied by a 17th channel dedicated to the electrocardiographic rhythm and 2 channels of electromyographic recording. Recording is performed in the lethargic state utilizing activation by photic stimulation. The patient has been off a Diprivan drip for approximately 30 minutes prior to the onset of recording. ELECTROENCEPHALOGRAPHIC DATA: The entirety of the recorded electrocerebral activity is performed in the lethargic state. Electromyographic artifact remains prominent at times. Rapid eye movements are not observed. A posterior dominant background has not developed. The study demonstrates primarily 2 to 3 Hz delta slowing that is irregular in morphology, diffuse and symmetric in distribution. Also observed are vertex 15 Hz sleep spindles. Electromyographic artifact becomes progressively worse during the first half of the recording and nursing staff found it necessary to restart Diprivan drip after approximately 12 minutes of recording. This reduces electromyographic artifact. The study remains with primarily generalized irregular symmetric slowing. No focal slowing is identified. No epileptiform discharges are seen. Photic stimulation induces no change in the recorded electrocerebral activity. INTERPRETATION: Continuous slow, generalized (lethargy). This electroencephalographic recording is indicative of a moderately severe diffuse encephalopathy. TRANSINT:[id number] Voice Confirmation ID: [id number] DOCUMENT ID: [id number] AMI EDWARDS MD at 3761 CC: [id number] DICTATION DATE: 11/18/16819 OFFICE RENTAL CLERK: 11/18/16 0839 ADM IN [facility] [address] [place] [address]
--- NOTE | 2016-11-19 23:00 | NUR ---
REASSESSMENT COMPLETE, NO CHANGES FROM PREVIOUS ASSESSMENT. PATIENT IN BED WITH EYES CLOSED ON VENT, BREATHING IS REGULAR AND RYTHMIC. ORAL CARE AND REPOSITIONING PROVIDED FOR COMFORT, ALL VSS. WILL CONTINUE TO MONITOR.
[2016-11-20] VITALS (24 sets, daily range): BP systolic 113–174; BP diastolic 55–85
--- NOTE | 2016-11-20 01:05 | NUR ---
PATIENT RESTING IN BED WITH EYES CLOSED ON VENT. ORAL CARE/SUCTIONING PROVIDED, PATIENT REPOSITIONED FOR COMFORT. NO FURTHER NEEDS AT THIS TIME, WILL CONTINUE TO MONITOR.
--- NOTE | 2016-11-20 03:04 | NUR ---
REASSESSMENT COMPLETE, NO CHANGE FROM PREVIOUS ASSESSMENT. PATIENT HAD SEMI FORMED BROWN BM, SAMPLE COLLECTED AND SENT FOR OCCULT BLOOD. FULL BED BATH/LINEN CHANGE PERFORMED, PATIENT TOLERATED WELL. ALL VSS, NO FURTHER NEEDS AT THIS TIME. WILL CONTINUE TO MONITOR.
[2016-11-20 04:17] LABS: BASOPHILS 0.1 % (0.0-2.0); EOSINOPHILS 1.6 % (0-7); HEMATOCRIT 26.7 % (42.0-54.0); HEMOGLOBIN 8.9 g/dL (13.5-17.5); IMMATURE GRANULOCYTES 0.8 % (0-5); LYMPHOCYTES 14.8 % (15-50); MCH 32.7 pg (26.0-34.0); MCHC 33.3 g/dL (31.0-37.0); MCV 98.2 fL (80.0-100.0); MEAN PLATELET VOLUME 11.7 fL (7.4-10.4); NEUTROPHILS 69.7 % (40-80); RBC 2.72 10x6/uL (4.20-6.10); RDW 13.3 % (11.5-14.5)
[2016-11-20 04:37] LABS: ANION GAP 9.7 mmol/L (8-16); CALCIUM 8.7 mg/dL (8.5-10.1); CARBON DIOXIDE 28.7 mmol/L (21.0-32.0); CREATININE - SERUM 1.2 mg/dL (0.6-1.3); PLATELET COUNT 198 10x3/uL (130-400); POTASSIUM - SERUM 3.4 mmol/L (3.5-5.1)
--- NOTE | 2016-11-20 04:45 | NUR ---
DIPRIVAN D/C ORDERED, PATIENT IS RESTING IN BED WITH ALL VSS. WILL CONTINUE TO MONITOR.
--- NOTE | 2016-11-20 05:50 | NUR ---
PATIENT CAME OUT OF SEDATION VERY QUICKLY AND BEGAN TO TRY TO REMOVE NGT/ETT, WRISTS RESECURED AND PROPOFOL RESTARTED @ 9MCG TO DECREASE AGITATION. WILL NOTIFY DAY SHIFT RN AND CONTINUE TO MONITOR.
--- NOTE | 2016-11-20 07:15 | NUR ---
REPORT RECIEVED FROM CUP TRIMMING MACHINE OPERATOR NURSE. PT RESTING IN BED QUIETLY. FAMILY AT BEDSIDE. PT IS OFF OF SEDATION UNDERGOING CPAP TRIALS FOR EXTUBATION. SOME ANXIETY NOTED. PT REMAINED COOPERATIVE ONCE INSTRUCTED ON WHAT WAS GOING TO OCCUR. WILL LET DAUGHTERS REMAIN AT BEDSIDE TO ASSIST IN KEEPING PT CALM UNTIL EXTUBATION. CALL LIGHT IN REACH. BED IN LOW POSITION. ASSESSMENT COMPLETE PER FLOWSHEET. WILL CONTINUE TO MONITIOR FOR CHANGES.
--- NOTE | 2016-11-20 08:40 | NUR ---
EXTUBATED TO 3LNC. O2 SAT 98%. THICK GONZALEZ SPUTUM NOTED AND SUCTIONED USING YAUNKER. TOLERATED WELL WITH NO SIGNS OF DISTRESS. WILL MONITOR.
--- NOTE | 2016-11-20 10:00 | NUR ---
REPOSITIONED FOR COMFORT. F/C PROVIDED.
--- NOTE | 2016-11-20 12:00 | NUR ---
DAUGHTERS AT BEDSIDE. UPDATE PROVIDED.
--- NOTE | 2016-11-20 14:00 | NUR ---
NO CHANGES NOTED AT THIS TIME, WILL CONTINUE TO ASSESS.
--- NOTE | 2016-11-20 19:00 | NUR ---
RECEIVED PATIENT AWAKE IN BED MOANING AND GRUNTING. PATIENT IS DISORIENTED TO TIME/PLACE/SITUATION. EYES PERRLA @ 4MM WITH BRISK RESPONSE, SCLERA IS REDDENED. PATIENT IS 96% SAT ON RA, ORAL NASAL MUCOSA IS MOIST AND INTACT. S1/S2 NOTED WITH IRREGULAR RYTHM AND PAC/PVC NOTED ON TELEMETRY. BREATHING IS SHALLOW AND IRREGULAR, LUNG SOUNDS ARE CLEAR UPPER LOBES WITH DIMINISHED LOWER LOBES. ABDOMEN IS FLAT AND SOFT, NONTENDER TO PALPATION WITH BOWEL SOUNDS ACTIVE X4. 16FR YEE SECURED BY STATLOCK WITH YELLOW/GREYSON URINE NOTED IN COLLECTION BAG. ALL PULSES PALPABLE WITH WEAKNESS NOTED IN ALL EXTREMITIES. 18G IV NOTED IN R WRIST, SEE FLOW SHEET FOR FLUIDS. PATIENT STATES PAIN 8/10, HURTING "ALL OVER". PRN PAIN MEDS GIVEN, WILL REASSESS. PATIENT REPOSITIONED FOR COMFORT. ALL VSS, WILL CONTINUE TO MONITOR.
--- NOTE | 2016-11-20 21:00 | NUR ---
PATIENT RESTING IN BED WITH EYES OPEN, FAMILY AT BEDSIDE FOR VISITATION. FAMILY STATES THAT "DAD CAN BE A LITTLE DRAMATIC" AND "LIKES ATTENTION" TO EXPLAIN PATIENT GROANING, PATIENT CONTINUES TO DENY PAIN WHEN ASKED. DENIES OTHER NEEDS AT THIS TIME, WILL CONTINUE TO MONITOR.
--- NOTE | 2016-11-20 23:00 | NUR ---
REASSESSMENT COMPLETE, PATIENT LAYING IN BED WITH EYES CLOSED BREATHING SLIGHTLY SHALLOW AND REGULAR. LUNG SOUNDS ARE CLEAR BILATERAL UPPER WITH SLIGHTLY DIMINISHED LOWER. PATIENT DISORIENTED TO PLACE/TIME/SITUATION, BUT RESPONDS APPROPRIATELY TO QUESTIONS. ALL VSS, BED TABLE/CALL LIGHT IN REACH. NO OTHER NEEDS AT THIS TIME, WILL CONTINUE TO MONITOR.
[2016-11-21] VITALS (24 sets, daily range): BP systolic 111–148; BP diastolic 55–78
--- NOTE | 2016-11-21 03:00 | NUR ---
REASSESSMENT COMPLETE, PATIENT RESTING IN BED WITH EYES CLOSED. BREATHING IS SHALLOW AND REGULAR, LUNG SOUNDS ARE CLEAR BILATERAL UPPER WITH DIMINISHED LOWER. PAC/PVC NOTED ON TELEMETRY, RATE IS IRREGULAR. PATIENT REPOSITIONED IN BED FOR COMFORT, ORAL CARE PROVIDED. DARK GREYSON URINE NOTED IN YEE, WILL CONTINUE TO MONITOR FOR WORSENING. PATIENT STATES PAIN 1/10, DOESN'T "NEED ANYTHING RIGHT NOW". VSS AND WILL CONTINUE TO MONITOR.
--- NOTE | 2016-11-21 05:00 | NUR ---
PATIENT RESTING IN BED WITH EYES CLOSED, BREATHING IS SHALLOW AND RYTHMIC. LUNG SOUNDS CLEAR BILATERAL UPPER AND SLIGHTLY DIMINISHED LOWER. PATIENT REPOSITIONED FOR COMFORT, ORAL CARE PROVIDED. DENIES PAIN OR OTHER NEEDS AT THIS TIME, WILL CONTINUE TO MONITOR.
[2016-11-21 05:14] LABS: BASOPHILS 0.3 % (0.0-2.0); EOSINOPHILS 0.8 % (0-7); HEMOGLOBIN 9.5 g/dL (13.5-17.5); IMMATURE GRANULOCYTES 0.8 % (0-5); MCH 32.8 pg (26.0-34.0); MCHC 32.8 g/dL (31.0-37.0); MEAN PLATELET VOLUME 11.6 fL (7.4-10.4); NEUTROPHILS 71.1 % (40-80); PLATELET COUNT 227 10x3/uL (130-400); WBC 7.6 10x3/uL (4.8-10.8)
[2016-11-21 05:22] LABS: ANION GAP 8.5 mmol/L (8-16); CALCIUM 9.4 mg/dL (8.5-10.1); CARBON DIOXIDE 33.1 mmol/L (21.0-32.0); CREATININE - SERUM 1.2 mg/dL (0.6-1.3); MAGNESIUM - SERUM 1.9 mg/dL (1.8-2.4); POTASSIUM - SERUM 3.6 mmol/L (3.5-5.1)
--- NOTE | 2016-11-21 07:20 | NUR ---
LYING IN BED AWAKE AT THIS TIME. NO ACUTE DISTRESS NOTED. NOTED SPOKE WITH PT FAMILY STATING CONCERN THAT PT APPEARS TO BE MORE CONFUSED TODAY THAN WAS YESTERDAY. FAMILY ALSO REQUESTS TO SPEAK WITH DR EDWARDS WHEN HE ROUNDS TODAY. WILL NOTIFY DR EDWARDS AND WILL CONTINUE PLAN OF CARE.
--- NOTE | 2016-11-21 08:00 | NUR ---
PT FAMILY IN ROOM SPEAKING WITH DR EDWARDS AT THIS TIME. NO FURTHER QUESTIONS OR CONCERNS BY FAMILY NOTED. WILL CONTINUE PLAN FO CARE.
--- NOTE | 2016-11-21 09:10 | NUR ---
IV TO RIGHT FOREARM NOTED LEAKING AND NO LONGER USABLE, DC, CATHETER TIP INTACT. NEW IV PLACED TO RIGHT FOREARM TIMES ONE ATTEMPT, 20G. FLUSHES WELL. WILL CONTINUE TO OBSERVE.
--- NOTE | 2016-11-21 09:37 | NUR ---
NOTED OXYGEN SATURATION AT 86% AT ROOM AIR. OXYGEN PLACED TO PT AT 2L NC. OXYGEN SATURATION NOW AT 93%. WILL CONTINUE TO OBSERVE.
--- NOTE | 2016-11-21 10:16 | NUR ---
RESTING QUIETLY AT THIS TIME. RESPIRATIONS AT STEADY AND UNLABORED RATE. NO ACUTE DISTRESS NOTED. IV TO RIGHT FOREARM FLUSHES WELL. WILL CONTINUE TO OBSERVE.
--- NOTE | 2016-11-21 10:36 | NUR ---
Nutrition Follow Up: Pt was sleeping soundly at the time of RD visit. Interview deferred at this time. Chart reviewed. Pt is extubated and diet has advanced to clear liquids. I<O +BM 11/18/16 Wt loss 10# since admit Labs noted - BUN elevated Meds: Lasix Rec continue advancing diet as tolerated. Will send Ensure Clear with meals. RD following.
--- NOTE | 2016-11-21 11:30 | NUR ---
NOTED EPISODES OF AFIB TODAY. VIEWED IN H&P THAT THERE WAS A NOTE WITH INTENTIONS TO CONSULT CARDIOLOGY, BUT WAS NOT DONE. WILL VERIFY FROM DR MADRID WHEN HE ROUNDS IF HE WANTS CARDIOLOGY TO BE CONSULTED OR NOT TODAY. WILL CONTINUE PLAN OF CARE.
--- NOTE | 2016-11-21 13:28 | NUR ---
LYING IN BED RESTING PEACEFULLY AT THIS TIME. NO ACUTE DISTRESS NOTED. PT AWAKENS EASILY TO STAFF VOICE. WILL CONTINUE PLAN OF CARE.
--- NOTE | 2016-11-21 13:29 | NUR ---
SPOKE WITH PRIMARY PHYSICIAN ABOUT NOTE IN H&P BY DR BRAGG TO CONSULY CARDIOLOGY TO SEE IF ROUNDING PHYSICIAN FOR DR BRAGG, DR MADRID, WOULD LIKE CARDIOLOGY CONSULTED. NO NEW ORDERS NOTED. WILL CONTINUE TO OBSERVE.
--- NOTE | 2016-11-21 14:43 | NUR ---
REPOSITIONING PROVIDED TO PT AFTER PHYSICAL THERAPY. PT STATED COMFORT. PT NOTED AWAKE. NO ACUTE DISTRESS NOTED. WILL CONTINUE PLAN OF CARE.
--- NOTE | 2016-11-21 17:05 | NUR ---
LYING IN BED RESTING AT THIS TIME. AWAKENS EASILY WHEN STAFF STATES PT NAME. FOLLOWS SIMPLE COMMANDS. NO ACUTE DISTRESS NOTED. WILL CONTINUE PLAN OF CARE.
--- NOTE | 2016-11-21 19:00 | NUR ---
PT RESTING QUIETLY, VSS, SHALLOW AND EVEN RESPIRATIONS. NASAL CANNULA @ 2L. PERIODS OF CONFUSION NOTED, ABLE TO FOLLOW SIMPLE COMMANDS. PT REPOSITIONED FOR COMFORT. ORAL CARE ADM. PRODUCTIVE COUGH, YELLOW THICK SPUTUM. NO S/S OF ACUTE DISTRESS NOTED. BED ALARM ON. ROOM VISIBLE FROM NURSES STATION. CPOC.
--- NOTE | 2016-11-21 21:05 | NUR ---
NO VISITORS AT THIS TIME. PT REPOSITIONED FOR COMFORT. PARTIAL LINEN CHANGE. FRESH WATER TO BEDSIDE. VOICES NO FURTHER NEEDS AT THIS TIME. BED ALARM ON, ROOM VISIBLE FROM NURSES STATION. CPOC.
--- NOTE | 2016-11-21 23:00 | NUR ---
REASSESSMENT COMPLETE, SEE FLOWSHEET FOR ALL FINDINGS. NO ACUTE CHANGES NOTED AT THIS TIME. PT RESTING QUIETLY WITH VSS. PT REPOSITIONED IN BED WITH BONY PROMINENCES BRIDGED. REMAINS DISORIENTED, REORIENTATION PROVIDED. VOICES NO FURTHER NEEDS AT THIS TIME. BED ALARM ON, ROOM VISIBLE FROM NURSES STATION. CPOC.
[2016-11-22] VITALS (24 sets, daily range): BP systolic 115–156; BP diastolic 49–92
--- NOTE | 2016-11-22 03:00 | NUR ---
REASSESSMENT COMPLETE, SEE FLOWHSEET FOR ALL FINDINGS. PT SLEEPING QUIETLY WITH VSS, NO S/S ACUTE DISTRESS. REPOSITIONED FOR COMFORT. DENIES NEEDS AT THIS TIME. BED ALARM ON, ROOM VISIBLE FROM NURSES STATION. CPOC.
[2016-11-22 04:40] LABS: BASOPHILS 0.3 % (0.0-2.0); EOSINOPHILS 3.5 % (0-7); HEMATOCRIT 31.7 % (42.0-54.0); HEMOGLOBIN 10.4 g/dL (13.5-17.5); IMMATURE GRANULOCYTES 0.8 % (0-5); LYMPHOCYTES 16.9 % (15-50); MCH 32.7 pg (26.0-34.0); MCHC 32.8 g/dL (31.0-37.0); MCV 99.7 fL (80.0-100.0); MEAN PLATELET VOLUME 11.7 fL (7.4-10.4); MONOCYTES 10.1 % (2-11); NEUTROPHILS 68.4 % (40-80); RBC 3.18 10x6/uL (4.20-6.10); RDW 12.9 % (11.5-14.5); WBC 9.3 10x3/uL (4.8-10.8)
[2016-11-22 04:46] LABS: PLATELET COUNT 279 10x3/uL (130-400)
[2016-11-22 04:48] LABS: ANION GAP 7.9 mmol/L (8-16); CALCIUM 9.8 mg/dL (8.5-10.1); CARBON DIOXIDE 34.5 mmol/L (21.0-32.0); CREATININE - SERUM 1.2 mg/dL (0.6-1.3); MAGNESIUM - SERUM 1.9 mg/dL (1.8-2.4); POTASSIUM - SERUM 3.4 mmol/L (3.5-5.1)
--- NOTE | 2016-11-22 05:48 | NUR ---
PT GIVEN PRN PAIN MEDICATION PER REQUEST. REPOSITIONED IN BED FOR COMFORT. VSS. DENIES FURTHER NEEDS. BED ALARM ON, ROOM VISIBLE FROM NURSES STATION. CPOC.
--- NOTE | 2016-11-22 07:56 | NUR ---
LYING IN BED AWAKE AT THIS TIME. NO ACUTE DISTRESS NOTED. PT NOTED TO SAY "OH ME" AND SAY HE IS IN PAIN. WILL SEE WHEN PT CAN HAVE NEXT DOSE OF PRN PAIN MED. OXYGEN AT 2L VIA NC. NO ACUTE DISTRESS NOTED AT THIS TIME. WILL CONTINUE PLAN OF CARE.
--- NOTE | 2016-11-22 09:57 | NUR ---
ASSISTED WITH REPOSITIONING AND TOTAL LINEN CHANGE. NO ACUTE DISTRESS NOTED. WILL CONTINUE PLAN OF CARE.
--- NOTE | 2016-11-22 11:56 | NUR ---
RESTING IN BED AT THIS TIME. AWAKENS EASILY WHEN STAFF STATES PT NAME. NO LABORED BREATHING NOTED. WILL CONTINUE PLAN OF CARE.
--- NOTE | 2016-11-22 13:16 | NUR ---
UP IN CHAIR AT THIS TIME PER PHYSICAL THERAPY. PT DENIES ANY NEEDS AT THIS TIME. WILL CONTINUE PLAN OF CARE.
--- NOTE | 2016-11-22 14:00 | NUR ---
NOTED OLD IV TO RIGHT FOREARM LEAKING AND NO LONGER USABLE. IV DC, CATHETER TIP INTACT. NEW IV PLACED TO LEFT FOREARM, 22G. FLUSHES WELL. WILL CONTINUE PLAN OF CARE.
--- NOTE | 2016-11-22 15:15 | NUR ---
LYING IN BED RESTING AT THIS TIME. NO ACUTE DISTRESS NOTED. AWAKENS EASILY WHEN STAFF STATES PT NAME. RESPIRATIONS UNLABORED. WILL CONTINUE PLAN OF CARE.
--- NOTE | 2016-11-22 15:55 | NUR ---
POTASSIUM REDRAW HAS BEEN SCHEDULED TO 1800 TODAY TO SEE IF POTASSIUM IS NOW WITHIN NORMAL LIMITS AFTER RECIEVING RIDERS FOR POTASSIUM LEVEL OF 3.4 THIS MORNING. WILL CONTINUE PLAN OF CARE.
--- NOTE | 2016-11-22 17:40 | NUR ---
LYING IN BED RESTING AT THIS TIME. AWAKENS EASILY WHEN STAFF STATES PT NAME. NO ACUTE DISTRESS NOTED. WILL CONTINUE PLAN OF CARE.
--- NOTE | 2016-11-22 18:06 | NUR ---
SMALL SKIN TARE NOTED TO RIGHT FORARM, 4X4 GAUZE AND TAPE PLACED. WILL CONTINUE PLAN OF CARE.
--- NOTE | 2016-11-22 18:39 | NUR ---
RESTING QUIETLY AT THIS TIME. AWAKENS EASILY TO STAFF VOICE. NO ACUTE DISTRESS NOTED. WILL CONTINUE PLAN OF CARE.
--- NOTE | 2016-11-22 19:00 | NUR ---
PT CONFUSED, FOLLOWS SOME COMMANDS. ATTEMPTS TO PULL AT LINES/TUBES. REORIENTATION PROVIDED. SHALLOW RESPIRATIONS, NC @ 4L, SPO2 95. DENIES PAIN AT THIS TIME. PT REPOSITIONED IN BED WITH BONY PROMINENCES BRIDGED. VOICES NO FURTHER NEEDS AT THIS TIME. BED ALARM ON, ROOM VISIBLE FROM NURSES STATION. CPOC.
--- NOTE | 2016-11-22 21:40 | NUR ---
PT CONFUSED AND RESTLESS. ATTEMPTING TO PULL YEE OUT, AND PULLING NASAL CANNULA OFF. REORIENTED X 3, UNSUCCESSFUL. BILATERAL WRIST RESTRAINTS PLACED PER ORDER.
--- NOTE | 2016-11-22 23:00 | NUR ---
REASSESSMENT COMPLETE, SEE FLOWSHEET FOR ALL FINDINGS. NO ACUTE CHANGES AT THIS TIME. REMAINS CONFUSED AND RESTLESS. BILATERAL WRIST RESTRAINTS IN PLACE. PT REPOSITIONED IN BED FOR COMFORT. BED ALARM ON, ROOM VISIBLE FROM NURSES STATOIN. CPOC.
[2016-11-23] VITALS (24 sets, daily range): BP systolic 116–178; BP diastolic 53–90
[2016-11-23 05:46] LABS: BASOPHILS 0.3 % (0.0-2.0); EOSINOPHILS 1.9 % (0-7); HEMOGLOBIN 10.4 g/dL (13.5-17.5); IMMATURE GRANULOCYTES 0.7 % (0-5); LYMPHOCYTES 11.5 % (15-50); MCHC 33.5 g/dL (31.0-37.0); MCV 98.4 fL (80.0-100.0); MEAN PLATELET VOLUME 11.4 fL (7.4-10.4); MONOCYTES 10.5 % (2-11); NEUTROPHILS 75.1 % (40-80); RBC 3.15 10x6/uL (4.20-6.10); RDW 12.8 % (11.5-14.5)
[2016-11-23 05:49] LABS: PLATELET COUNT 358 10x3/uL (130-400); WBC 11.8 10x3/uL (4.8-10.8)
[2016-11-23 05:57] LABS: ANION GAP 7.3 mmol/L (8-16); CARBON DIOXIDE 33.8 mmol/L (21.0-32.0); CREATININE - SERUM 1.1 mg/dL (0.6-1.3); MAGNESIUM - SERUM 1.7 mg/dL (1.8-2.4); POTASSIUM - SERUM 3.1 mmol/L (3.5-5.1)
--- NOTE | 2016-11-23 07:53 | NUR ---
PT LYING IN BED AT THIS TIME. RESPIRATIONS UNLABORED. NO ACUTE DISTRESS NOTED. REPOSITIONING PROVIDED TO PT. NOTED PT IS IN SOFT WRIST RESTRAINTS TO HELP NOT PULL AT LINES AND TUBING. PT CONFUSED, ORIENTED TO SELF ONLY. REORIENTATION PROVIDED. WILL CONTINUE PLAN OF CARE.
--- NOTE | 2016-11-23 08:33 | NUR ---
RESTRAINTS DC AT THIS TIME. PT NOT NOTED PULLING AT TUBING OR LINES.
--- NOTE | 2016-11-23 11:09 | NUR ---
SITTING UP IN CHAIR IN ROOM AT THIS TIME. TORRI BARNETT YNECYNTHIA. NO ACUTE DISTRESS NOTED. WILL CONTINUE PLAN OF CARE.
--- NOTE | 2016-11-23 15:11 | NUR ---
REPOSITIONING PROVIDED TO PT. PT FREQUENTLY MOVES AROUND IN BED WHICH REQUIRES REPOSITIONING. PT DENIES ANY NEEDS. NO ACUTE DISTRESS NOTED. WILL CONTINUE PLAN OF CARE.
--- NOTE | 2016-11-23 18:46 | NUR ---
LYING IN BED AT THIS TIME RESTING WITH EYES CLOSED. AWAKENS EASILY TO STAFF VOICE. NO ACUTE DISTRESS NOTED. WILL CONTINUE PLAN FO CARE.
--- NOTE | 2016-11-23 21:00 | NUR ---
ASSESSMENT COMPLETE. S1S2. LUNGS CLEAR BILATERALLY IN UPPER LOBES; DIMINISHED BILATERALLY IN LOWER LOBES. PT CONFUSED; DISORIENTED TO PLACE, TIME, AND SITUATION. LEFT FOREARM PIV; PATENT. NSR SHOWING ON MONITOR WITH PAC/PVC. RADIAL AND PEDAL PULSES PALPATED. PERRLA 4MM; BRISK. PT ABLE TO FOLLOW COMMANDS. SPEECH GARBLED. DENIES PAIN. BOWEL SOUNDS HYPERACTIVE. DENIES ANY FURTHER NEEDS AT THIS TIME.
--- NOTE | 2016-11-23 23:05 | NUR ---
REASSESSMENT COMPLETE. NO CHANGES FROM PREVIOUS ASSESSMENT.
[2016-11-24] VITALS (16 sets, daily range): BP systolic 111–169; BP diastolic 54–111
--- NOTE | 2016-11-24 01:43 | NUR ---
PT RESTING; EYES CLOSED. VSS. NO DISTRESS NOTED. CALL LIGHT IN REACH. WILL CONTINUE TO MONITOR.
--- NOTE | 2016-11-24 02:45 | NUR ---
REASSESSMENT COMPLETE. NO CHANGES FROM PREVIOUS ASSESSMENT. WILL CONTINUE TO MONITOR.
[2016-11-24 05:53] LABS: BASOPHILS 0.2 % (0.0-2.0); EOSINOPHILS 2.1 % (0-7); HEMATOCRIT 31.6 % (42.0-54.0); HEMOGLOBIN 10.5 g/dL (13.5-17.5); IMMATURE GRANULOCYTES 0.8 % (0-5); LYMPHOCYTES 12.3 % (15-50); MCH 32.5 pg (26.0-34.0); MCHC 33.2 g/dL (31.0-37.0); MCV 97.8 fL (80.0-100.0); MEAN PLATELET VOLUME 11.4 fL (7.4-10.4); MONOCYTES 9.7 % (2-11); NEUTROPHILS 74.9 % (40-80); PLATELET COUNT 412 10x3/uL (130-400); RBC 3.23 10x6/uL (4.20-6.10); RDW 12.7 % (11.5-14.5)
[2016-11-24 06:32] LABS: ALBUMIN 2.7 g/dL (3.4-5.0); ANION GAP 7.8 mmol/L (8-16); BILIRUBIN - TOTAL 0.74 mg/dL (0.2-1.3); CALCIUM 9.7 mg/dL (8.5-10.1); CARBON DIOXIDE 33.4 mmol/L (21.0-32.0); CHOL - HDL RATIO 3.4 ratio (2.3-4.9); CREATININE - SERUM 1.1 mg/dL (0.6-1.3); LDL-HDL RATIO 2.1 ratio (1.5-3.5); POTASSIUM - SERUM 3.2 mmol/L (3.5-5.1); PROTEIN - SERUM 6.9 g/dL (6.4-8.2); T4 THYROXIN - FREE 1.26 ng/dL (0.76-1.46); THYROID STIMULATING HORMONE 1.01 uIU/mL (0.36-3.74)
--- NOTE | 2016-11-24 08:36 | NUR ---
0745 LYING IN BED, NC IN PLACE AT 4L. ALL VITALS WNL. INITIAL ASSESSMENT COMPLETED PER FLOWSHEET. BUTTOCK REDDENED BUT INTACT. BEAUDREOUX APPLIED AND ROLLLED TO R HIP WITH PILLOW UNDER BOTTOM. HEELS BRIDGED WITH PILLLOW. 0800 OOB TO BEDSIDE CHAIR WITH ASSIST FROM INGE WITH PT.
--- NOTE | 2016-11-24 09:46 | NUR ---
ALL AM MEDS GIVEN PER MAR. CONTINUES AT BEDSIDE WITH ALL VITALS WNL.
--- NOTE | 2016-11-24 10:04 | NUR ---
Nutrition Follow Up: Chart reviewed. Pt with MS changes. Diet: Clear Liquid; Ensure Clear with meals PO Intake: 26% (7 meal avg) I<O No BM x 5 days Wt loss of 12# since admit Meds: Lasix Labs noted Pt with poor po intake at this time. Pt is not meeting est nutritional needs. Rec advancing diet as tolerated. RD following.
--- NOTE | 2016-11-24 11:12 | NUR ---
BACK TO BED WITH ASSIST FROM PT. INGE LINENS CHANGED. VITALS ALL WNL. DR. MONROY AT BEDSIDE, CALLED AND SPOKE TO PATIENT OLDEST DAUGHTER TERESE REGARDING CT RESULTS FROM THURSDAY. PER DR. MONROY, OK TO TRANSFER TO FLOOR.
--- NOTE | 2016-11-24 11:50 | NUR ---
SPOKE WITH JUAN RAMON ASHLEY APN REGARDING REINSERTING PIV AFTER HE PULLED OUT. ALL MEDS CHANGED TO PO SO NO NEED FOR PIV REINSERTION.
--- NOTE | 2016-11-24 13:03 | NUR ---
ASSISTED PATIENT WITH CLEAR LIQUID LUNCH. CONSUMED APPROX 25% OF LUNCH TRAY.
--- NOTE | 2016-11-24 13:29 | NUR ---
REPORT CALLED TO FRANCES PURVIS ON MED II. TRANSFERRED VIA BED.
--- NOTE | 2016-11-24 13:44 | NUR ---
TRANSFER FROM ICU BY BED. OREINTED TO ROOM. CALL LIGHT IN REACH. BED ALRM ON. WILL CONT. PLAN OF CARE.
--- NOTE | 2016-11-25 03:35 | NUR ---
REC'D. AT [facility]. OF SHIFT LYING ON LEFT SIDE.RESPONDS TO VERBAL STIMULI VERBALLY WHEN NAME CALLED.2/3+ PITTING EDEMA NOTED.ALL 4 EXT. AND ENTIRE BODY.SCD'S ON WELL EGG CRATE MATTRESS.YEE PATENT AND DRAINING DK GREYSON COLORED URINE.BED ARMED WILL CONTINUE TO MONITOR FOR ANY CHGES.AND FOLLOW CURRENT PLAN OF CARE.
[2016-11-25 05:35] VITALS: BP 174/63
[2016-11-25 07:25] VITALS: BP 141/79
[2016-11-25 08:50] LABS: BASOPHILS 0.3 % (0.0-2.0); HEMATOCRIT 29.8 % (42.0-54.0); HEMOGLOBIN 10.2 g/dL (13.5-17.5); IMMATURE GRANULOCYTES 0.8 % (0-5); LYMPHOCYTES 12.1 % (15-50); MCH 33.2 pg (26.0-34.0); MCHC 34.2 g/dL (31.0-37.0); MCV 97.1 fL (80.0-100.0); MEAN PLATELET VOLUME 11.2 fL (7.4-10.4); MONOCYTES 8.8 % (2-11); PLATELET COUNT 401 10x3/uL (130-400); RBC 3.07 10x6/uL (4.20-6.10); RDW 12.9 % (11.5-14.5)
[2016-11-25 09:11] LABS: CALCIUM 9.4 mg/dL (8.5-10.1); CARBON DIOXIDE 33.2 mmol/L (21.0-32.0); CREATININE - SERUM 1.2 mg/dL (0.6-1.3); POTASSIUM - SERUM 3.2 mmol/L (3.5-5.1)
--- NOTE | 2016-11-25 10:00 | NUR ---
ALERT. ORIENTED TO PERSON. REORIENT TO PLACE AND TIME. REPLACE POTASSIUM 3.2 ORALLY PER ELECTROLYTE PROTOCOL. SITTING UP IN CHAIR. SITTER AT BEDSIDE. YEE DRAINING BY GRAVITY SECURED TO LEG WITH STATLOCK. SINUS RHYTHM 67bpm WITH PACs ON TELEMETRY. CONTINUE PLAN OF CARE. CHAIR LOCKED. CALL LIGHT IN REACH. RECIECVES ELIQUIS. NO SCDs.
[2016-11-25 11:21] VITALS: BP 134/82
--- NOTE | 2016-11-25 15:00 | NUR ---
Rehab Note- Prescreen order received. Patient medical record reviewed at this time. Patient with decreased physical mobility noted according to Physical therapy note. Will follow the patient at this time and reeval patient when increased mobility and the patient has the potential to tolerate the required therapy during IRF stay. Thank you for this referral! Medina Maldonado RN Clinical Liaison, [facility]
[2016-11-25 15:33] VITALS: BP 119/77
--- NOTE | 2016-11-25 16:44 | NUR ---
Patient Name: SHANDA THURMAN Encounter No: [id number] : 1930 Primary Insurance: MEDICARE A & B Anticipated DC Date: 11-26-2016 Planned Disposition: Inpatient Rehab External Planned Provider: [facility] INPATIENT [facility] DCP follow-up note: CM MET WITH PT AND CAREGIVER IN THE ROOM AND DISCUSSED INPATIENT REHAB OPTIONS AND PRESCREEN ORDER. PT UNSURE OF WHAT TO DO, CAREGIVER REPORTS PT HAS DEMENTIA AND DIRECTED CM TO CALL PT'S DAUGHTER. CM CALLED YOSI MANCILLA, PT'S DAUGHTER, , WHO REQUESTED PT BE SCREENED FOR INPATIENT REHAB, REPORTS PT HAS HAD INPATIENT LAST YEAR AT [place] WHICH BENEFITED PT GREATLY. PT'S DAUGHTER THINKS PT HAD A STROKE WHILE IN ICU AND WOULD BENEFIT GREATLY AGAIN PRIOR TO RETURNING TO RETIREMENT CARE AT THE [facility]. CM PROVIDED CM CONTACT INFORMATION WELL DISCUSSED IMPORTANT MESSAGE FROM MEDICARE AND PROVIDED MEDICARE CONTACT PHONE NUMBER. YOSI MANCILLA, DAUGHTER, , WOULD LIKE TO BE CONTACTED BY THE [facility] INPATIENT SCREENER. CM WAITING INPATIENT PRESCREENING RESULTS FROM [facility] INPATIENT [facility]. Dmitriy Powell, CASE MANAGEMENT
--- NOTE | 2016-11-25 19:05 | NUR ---
Received patient resting quietly in bed with sitter @bedside. Oxygen on @3L/min, Drowsy but arousable, oriented to person only at this time. Repositioned in bed by sitter and service writer advisor, no voiced complaints at this time and denies any pain or discomfort.
--- NOTE | 2016-11-25 21:53 | NUR ---
Continues resting, turned and repositioned per protocol, complaint with HS medications. security specialist on showing sinus rhythm with occasional PACs. Restless at times, moving frequently in bed. Sitter remains at bedside.
[2016-11-25 22:28] VITALS: BP 144/90
[2016-11-26 00:59] VITALS: BP 130/66
--- NOTE | 2016-11-26 01:20 | NUR ---
Sitter remains at bedside, patient has pulled oxygen off a few times and same reattached via nasal cannula. Perez cath in place and draining well.
--- NOTE | 2016-11-26 02:38 | NUR ---
Extremely restless, pulling off oxygen repeatedly, pulling off linens, moving about frequently changing position in bed. Given Tylenol 65omg po PRN for generalized aches and pains @0231. Given Librium 10mg po PRN for anxiety and restlessness @0231. Sitter remains at bedside.
--- NOTE | 2016-11-26 02:41 | NUR ---
Reports he had a large BM about 20 minutes ago. Mag Citrate effective. States he feels alot better, much less discomfort.
[2016-11-26 05:21] VITALS: BP 130/66
--- NOTE | 2016-11-26 06:25 | NUR ---
Patient has slept for one hour and again for one hour and twenty mins following PRNs of Tylenol and Librium given. Sitter at bedside states patient was less restless after PRNs. Perez output low, only 300mls this shift.
[2016-11-26 07:26] LABS: ANION GAP 9.9 mmol/L (8-16); CALCIUM 8.8 mg/dL (8.5-10.1); CREATININE - SERUM 1.2 mg/dL (0.6-1.3); MAGNESIUM - SERUM 1.6 mg/dL (1.8-2.4); PHOSPHOROUS 3.8 mg/dL (2.5-4.9)
[2016-11-26 07:34] LABS: POTASSIUM - SERUM 3.9 mmol/L (3.5-5.1)
--- NOTE | 2016-11-26 07:54 | NUR ---
Given Magnesium supplement per electrolyte protocol. Mag = 1.6
[2016-11-26 08:00] VITALS: BP 99/55
--- NOTE | 2016-11-26 11:37 | NUR ---
Patient Name: SHANDA THURMAN Encounter No: [id number] : 1930 Primary Insurance: MEDICARE A & B Anticipated DC Date: 11-26-2016 Planned Disposition: Inpatient Rehab External Planned Provider: [facility] INPATIENT REH[facility] DCP follow-up note: CM SPOKE TO KAREN OF INPATIENT REHAB, SHE HAS EVALUATED PT AND SPOKEN TO PT'S DAUGHTER VIA PHONE TODAY WHO IS STILL IN AGREEMENT WITH PT DISCHARGING TO INPATIENT REHAB. INPATIENT REHAB PLANS TO ACCEPT PT TODAY FOR REHAB. CHARLOTTE ASHLEY NOTIFIED. [facility] INPATIENT REHAB TO CONTACT MED 2 NURSE WITH ROOM NUMBER WHEN READY TO ACCEPT PT AND NURSE REPORT. Dmitriy Powell, CASE MANAGEMENT
[2016-11-26 12:00] VITALS: BP 103/50
[2016-11-26] MEDS ORDERED: XOPENEX 0.0.63 MG/3 UPD (14:50)
[2016-11-26] MEDS ORDERED: ATROVENT 0.02%2.5 ML UPD (14:50)
[2016-11-26] MEDS ORDERED: CATAPRES TTS-10.1 MG TRANSDERM (14:51)
[2016-11-26] MEDS ORDERED: CARDIZEM60 MG NG (14:51)
[2016-11-26] MEDS ORDERED: KEPPRA500 MG PO (14:52)
[2016-11-26] MEDS ORDERED: LIBRIUM5 MG PO (14:52)
[2016-11-26] MEDS ORDERED: LASIX40 MG PO (14:53)
[2016-11-26 16:00] VITALS: BP 108/58
--- NOTE | 2016-11-26 16:43 | NUR ---
PER PATIENT FAMILY, FLU VACCINE GIVEN . UNABLE TO EDIT ADMISSION HISTORY
--- NOTE | 2016-11-26 18:05 | NUR ---
SITTING UP IN BED. FAMILY AT BEDSIDE. DISCHARGE PAPERS SIGNED ON CHART. GOING TO REHAB ROOM 8493L. REPORT CALLED TO [facility]. TRANSPORT VIA WHEELCHAIR. YEE DC BULB INTACT. ABLE TO FEEL BLADDER FULL WHEN YEE TUBING CLAMPED.
--- NOTE | 2016-11-27 14:45 | EC ---
PATIENT:SHANDA THURMAN DATE OF SERVICE: 11/14/16 SEX: M MEDICAL RECORD: [id number] DATE OF : [birth year] LOCATION:D.M2 D.211 AGE OF PATIENT: 86 ADMISSION DATE: 11/14/16 REFERRING PHYSICIAN: INTERPRETING PHYSICIAN: BRENNA RODNEY MD ECHOCARDIOGRAM REPORT ECHO CHARGES 4 ECHO COMPLETE CLINICAL DIAGNOSIS: CVA ECHOCARDIOGRAPHIC MEASUREMENTS (adult normal given) AC root (d.<3.7cm) 4.2 LV Septum d (<1.2 cm> 1.2 Valve Excursion 1.6 LV Septum (systole) 1.4 Left Atria (s.<4.0cm> 3.4 LVPW d(<1.2cm) 1.4 RV (d.<2.3cm) 3.4 LVPW (sytole) 1.6 LV diastole(<5.6CM) 5.4 MV E-F(>70mm/sec) LV systole 3.5 LVOT Diameter 2.1 MV exc.(>10mm) 1.0 Est.ejection fraction (50-75%) Pericardial Effusion N DOPPLER: LVIT A 124 E 46.0 LA RVSP 24 LVOT 128 AOP1/2T 314 Asc. Ao 134 RVOT 99 RA PA AV Gradient Peak 7.14 AV Mean 3.6 AV Area 2.9 MV Gradient Peak 6.54 MV Mean 1.8 MV Area COMMENTS: Psychiatric Nurse Practitioner: Siva GUO Pharmacy Operations Specialist:Mervat Burrell TAPE# PACS DATE OF SERVICE: 11/23/2016 Adequate 2D echo, color flow, spectral Doppler and M-Mode. No LVH. LV internal dimensions are normal. Wall motion is normal. EF is greater than 55%. Aortic valve sclerosis without stenosis by Doppler interrogation. Mild AI by color flow imaging. The left atrium is normal at 3.4 cm. Mitral valve shows no prolapse. Trace MR. Right-sided chamber is grossly normal. Trace TR. TRANSINT:[id number] Voice Confirmation ID: [id number] DOCUMENT ID: [id number] 11/27/2016 Edited to correct date of service, dmm. ECHOCARDIOGRAM REPORT [id number] SHANDA THURMAN BRENNA RODNEY MD at [id number] CC: [id number] DICTATION DATE: 11/24/16 0952 MEDICAL TECHNOLOGIST HEMATOLOGY: 11/24/16 1136 DIS IN 11/26/16 [facility] [address] [facility] [facility] [address] [place], [facility]
--- NOTE | 2016-12-23 10:28 | DS ---
PATIENT:SHANDA THURMAN :32 MEDICAL RECORD: [id number] DISCHARGE SUMMARY ADMISSION DATE: 11/14/16 DISCHARGE DATE: 11/26/16 DATE OF ADMISSION: 11/14/2016 DATE OF DISCHARGE: 11/26/2016 DISCHARGE DIAGNOSES: 1. Acute hypoxic respiratory failure. 2. Loss of consciousness. 3. Acute exacerbation of chronic obstructive pulmonary disease. 4. Wgwzo-dz-gtgvevt bronchiectasis. 5. Tracheomalacia. 6. Lower lobe aspiration pneumonia. 7. Coronary artery disease. 8. Hypertension. 9. Hypokalemia. 10. Hypomagnesemia. 11. Hypophosphatemia. 12. Hyperlipidemia. 13. KAREN. 14. Anemia. 15. Chronic atrial fibrillation. CONSULTS: 1. Dr. Salinas. 2. Dr. Keane. IMAGING STUDIES: 1. X-ray of chest which shows persistent bibasilar airspace disease consistent with atelectasis or pneumonia and a small bilateral pleural effusion. 2. CT of the head which shows an old right temporoparietal lobe infarct. There is some left temporal occipital lobe infarct. 3. Ultrasound of the carotids which shows no significant flow-limiting stenosis. 4. CT of the head which shows chronic ischemic changes, but no acute intracranial pathology. 5. A 2D echo which shows an EF of 55% with aortic valve sclerosis without stenosis, mild aortic insufficiency, some trace tricuspid regurgitation. HOSPITAL COURSE: An 86-year-old shelter patient who apparently was found unresponsive and with a presumed seizure. He was noted to be in full arrest. By the time EMS arrived, he was resuscitated, intubated and brought in to our facility. He was placed in the intensive care unit on mechanical ventilation. He had DVT and GI prophylaxis. Several consultations were obtained during this hospitalization, see those above. He required correction of his electrolytes as well as ambulatory support, antibiotic coverage and nutritional support. His CT showed an old right temporal infarct. The patient was successfully weaned off of mechanical ventilation. His antibiotic therapy was deescalated. He did move out to the floor, worked with physical therapy and was thought to be stable for inpatient rehab for strengthening and training. See med rec. TRANSINT:[id number] Voice Confirmation ID: [id number] DOCUMENT ID: [id number] DISCHARGE SUMMARY REPORT [id number] SHANDA THURMAN Dictated By: LEX WEBBER I have interviewed/examined the above patient and agree with these documented findings. ROSE MONROY MD at 1028 at 0948 CC: [id number] DICTATION DATE: 12/18/16 0844 ASSISTANT PROFESSOR OF ECONOMICS: 12/18/162002 DIS IN 11/26/16 [facility] [address] [place] [address]
== END 2016-11-26 18:29 | DRG 207 ==
LOC: D.ER 16:58 → D.ICU 18:38 → D.M2 11-24 13:38
PROVIDERS: Emergency Medicine; Family Medicine; Family Medicine Adult Medicine; Internal Medicine Pulmonary Disease; ADMIT Emergency Medicine
PROC: 0T9B70Z Drainage of Bladder with Drainage Device, Via Natural or Artificial Opening (ICD-10-PCS; principal; 2016-11-14)
PROC: 5A1955Z Respiratory Ventilation, Greater than 96 Consecutive Hours (ICD-10-PCS; 2016-11-14)
DX: J96.01 Acute respiratory failure with hypoxia (principal); I46.9 Cardiac arrest, cause unspecified; J69.0 Pneumonitis due to inhalation of food and vomit; G93.40 Encephalopathy, unspecified; J44.1 Chronic obstructive pulmonary disease with (acute) exacerbation; J47.1 Bronchiectasis with (acute) exacerbation; J98.11 Atelectasis; I50.32 Chronic diastolic (congestive) heart failure; I11.0 Hypertensive heart disease with heart failure; I25.10 Atherosclerotic heart disease of native coronary artery without angina pectoris; E87.6 Hypokalemia; E83.42 Hypomagnesemia; E83.39 Other disorders of phosphorus metabolism; R56.9 Unspecified convulsions; E78.5 Hyperlipidemia, unspecified; N40.0 Benign prostatic hyperplasia without lower urinary tract symptoms; H35.30 Unspecified macular degeneration; H54.0 Blindness, both eyes; D64.9 Anemia, unspecified; I48.2 Chronic atrial fibrillation; D69.6 Thrombocytopenia, unspecified; J32.9 Chronic sinusitis, unspecified; Z85.47 Personal history of malignant neoplasm of testis

== ENCOUNTER 2016-11-26 18:35 | Inpatient (IN) | payer MEDICARE, OTHER ==
[~2016-11-26] VITALS: Ht 170.2 cm; Wt 77.1 kg
[~2016-11-26 18:35] MED LIST changes: +ATROVENT 0.02%2.5 ML UPD; +CARDIZEM60 MG NG; +CATAPRES TTS-10.1 MG TRANSDERM; +KEPPRA500 MG PO; +LASIX40 MG PO; +LIBRIUM5 MG PO; +XOPENEX 0.0.63 MG/3 UPD
--- NOTE | 2016-11-26 19:30 | NUR ---
PT. IN BED WITH HOB UP FOR COMFORT WITH EYES CLOSED AND RESP. EVEN. PT. HAS 24 HOUR SITTERS FROM [facility]. ASSESSMENT COMPLETED. PT. HAS NO VOICED NEEDS AT THIS TIME AND CALL LIGHT IS WITHIN REACH OF PT. AND SITTER.
[2016-11-26 19:45] VITALS: BP 141/53
--- NOTE | 2016-11-27 01:51 | NUR ---
PT. ADMITTED EARLIER AND IS LYING IN BED ON HIS LEFT SIDE WITH EYES CLOSED AND RESP. EVEN. SITTER FROM [facility] PRESENT IN ROOM ALSO. NO VOICED NEEDS AT THIS TIME AND CALL LIGHT IS WITHIN REACH.
[2016-11-27 03:53] VITALS: BP 142/69; BMI 26.7
[2016-11-27 07:47] LABS: BASOPHILS 0.1 % (0.0-2.0); EOSINOPHILS 0.1 % (0-7); HEMATOCRIT 30.9 % (42.0-54.0); HEMOGLOBIN 10.4 g/dL (13.5-17.5); IMMATURE GRANULOCYTES 0.4 % (0-5); LYMPHOCYTES 14.6 % (15-50); MCH 32.8 pg (26.0-34.0); MCHC 33.7 g/dL (31.0-37.0); MCV 97.5 fL (80.0-100.0); MEAN PLATELET VOLUME 11.4 fL (7.4-10.4); MONOCYTES 5.8 % (2-11); PLATELET COUNT 455 10x3/uL (130-400); RBC 3.17 10x6/uL (4.20-6.10); RDW 12.9 % (11.5-14.5); WBC 11.5 10x3/uL (4.8-10.8)
[2016-11-27 07:55] LABS: ANION GAP 8.2 mmol/L (8-16); CALCIUM 8.7 mg/dL (8.5-10.1); CARBON DIOXIDE 33.9 mmol/L (21.0-32.0); CREATININE - SERUM 1.2 mg/dL (0.6-1.3); POTASSIUM - SERUM 4.1 mmol/L (3.5-5.1)
[2016-11-27 08:00] VITALS: BP 150/67
[2016-11-27 10:02] VITALS: Ht 170.2 cm; Wt 77.1 kg
--- NOTE | 2016-11-27 11:00 | NUR ---
PATIENT IN REHAB ROOM. WORKING WITH PHYSICAL THERAPIST. DENIES ANY PAIN/DISC
--- NOTE | 2016-11-27 13:52 | NUR ---
PATIENT BACK IN REHAB ROOM. 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
--- NOTE | 2016-11-27 17:00 | NUR ---
PATIENTS PIE DOUGH ROLLER HERE IN PATIENTS ROOM. HELPING PATIENT EAT SUPPER.
--- NOTE | 2016-11-27 19:00 | NUR ---
PATIENT IN BED, AWAKE. EXTREMELY [place]. CAREGIVER/SITTER AT BEDSIDE WITH PATIENT.
[2016-11-27 21:10] VITALS: BP 124/54
--- NOTE | 2016-11-27 21:15 | NUR ---
IN BED, AWAKE. HIRED SITTER PRESENT WITH PATIENT. PATIENT DENIES NEEDS.
--- NOTE | 2016-11-27 23:00 | NUR ---
ASSESSMENT AND HS MEDS COMPLETE. PATIENT NEEDED TO BE CUED TO TAKE EACH TABLET OF HIS MEDS. APPEARS TO BE UNABLE TO SEQUENCE THE ACTIVITY OF SWALLOWING MEDICATIONS WITH WATER WITHOUT EXTENSIVE CUEING. IN ADDITION PATIENT IS ORIENTED X1 ONLY AND EXTEREMELY LOWER BRULE WHICH FURTHER COMPLICATES THE EFFORT.
--- NOTE | 2016-11-28 00:20 | NUR ---
RESTING IN BED, EYES CLOSED.
--- NOTE | 2016-11-28 02:30 | NUR ---
FOUND PATIENT WITH T-SHIRT PULLED OFF, NASAL CANNULA OUT OF HIS NARES, PLAYING WITH OXYGEN LINE. SITTER AWOKE AND SAID SHE WOULD REDRESS PATIENT AND EMPLACE HIS NASAL CANNULA.
--- NOTE | 2016-11-28 04:25 | NUR ---
RESTING IN BED, EYES CLOSED.
[2016-11-28 07:04] LABS: BASOPHILS 0.1 % (0.0-2.0); EOSINOPHILS 0 % (0-7); HEMOGLOBIN 10.4 g/dL (13.5-17.5); IMMATURE GRANULOCYTES 0.5 % (0-5); LYMPHOCYTES 7.5 % (15-50); MCH 32.8 pg (26.0-34.0); MCHC 33.5 g/dL (31.0-37.0); MCV 97.8 fL (80.0-100.0); MEAN PLATELET VOLUME 11.1 fL (7.4-10.4); MONOCYTES 3.4 % (2-11); NEUTROPHILS 88.5 % (40-80); PLATELET COUNT 484 10x3/uL (130-400); RBC 3.17 10x6/uL (4.20-6.10); RDW 13.1 % (11.5-14.5); WBC 12.5 10x3/uL (4.8-10.8)
[2016-11-28 07:17] LABS: ANION GAP 10.2 mmol/L (8-16); CALCIUM 9.5 mg/dL (8.5-10.1); CREATININE - SERUM 1.3 mg/dL (0.6-1.3); POTASSIUM - SERUM 4.2 mmol/L (3.5-5.1)
--- NOTE | 2016-11-28 07:58 | NUR ---
CAREGIVER HERE WITH PATIENT. HELPING PATIENT EAT BREAKFAST.
[2016-11-28 09:51] VITALS: BP 145/64
--- NOTE | 2016-11-28 10:21 | NUR ---
DR. Dinorah BRAGG INTO SEE PATIENT. NEW ORDERS RECEIVED. PATIENT CONFUSED. ORIENT. TO SELF ONLY. TOOK AM MEDICATIONS CRUSHED WITH APPLESAUCE
--- NOTE | 2016-11-28 13:44 | NUR ---
Pt. was received in room sitting in wheelchair with sitter present. No signs of any discomfort or distress. Alert and oriented to person only. Very hard of hearing. 02 per nc going at 2L/min. Will be monitoring throughout this shift and assisting prn with adl's.
[2016-11-28 19:23] VITALS: BP 146/70
--- NOTE | 2016-11-28 23:54 | NUR ---
PT AWAKE, WATCHING TV, DENIES THE NEED TO GO TO BATHROOM. SITTER PRESENT.
--- NOTE | 2016-11-29 01:41 | NUR ---
pt awake resting, eyes open, watching tv, sitter in room, denies need to urinate.
--- NOTE | 2016-11-29 04:04 | NUR ---
pt missed urinal, partial linen changed, brianne care. buttock no s/s of redness. pt awake, turned off tv to promote sleep. sitter in room.
--- NOTE | 2016-11-29 05:26 | NUR ---
ASSISTED PATIENT TO SIDE OF BED TO USE URINAL, VOIDED 100 CC'S.
--- NOTE | 2016-11-29 06:59 | NUR ---
hospital receptionist left, new sitter arrived, pt resting with eyes closed.
--- NOTE | 2016-11-29 08:15 | NUR ---
PT RESTING IN BED WITH EYES OPEN CAREGIVER AT BEDSIDE ASSISTING PT WITH MEAL NO PROBLEMS WILL MONITER
--- NOTE | 2016-11-29 15:48 | NUR ---
PT RESTING IN BED WITH EYES OPEN CALL LIGHT IN REACH WILL MONITER
--- NOTE | 2016-11-29 17:33 | NUR ---
PT RESTING IN BED WITH EYES OPEN CALL LIGHT IN REACH NO PROBLEMS WILL MONITER
[2016-11-29 19:16] VITALS: BP 121/48
--- NOTE | 2016-11-29 19:20 | NUR ---
CANDY PRESENT, HAS CONCERN THAT PATIENT HAS HIS DAYS AND NIGHTS AND MIXED UP, STATED HAD TO BE REALLY PRODDED TO EAT. AT THE [facility] IS SLEEP PATTERN IS WHERE HE SLEEPS AT 7P THROUGH THE NIGHT AND IS AWAKE DURING THE DAY HOURS.
--- NOTE | 2016-11-30 03:00 | NUR ---
PT STATED HE HAD TO VOID, SCANT AMOUNT OF URINE OUTPUT, DIFFICULTY STARTING STREAM. PT STATES HE COULDN'T VOID, SECOND TIME OF MINIMAL OUTPUT WITH VOID ATTEMPT. SCANNED 518 OUTPUT, IN AND OUT CATH, DIFFICULT TO CATH, URINE SPEWED OUT EXTERNAL CATH AFTER RETURN OBSERVED IN BAG. CLEANED PATIENT READY BATH, CHANGED LINEN. PROVIDED WARM BLANKET AND PT CLOSED EYES.
--- NOTE | 2016-11-30 05:21 | NUR ---
RESTING QUIETLY WITH EYES CLOSED.
--- NOTE | 2016-11-30 08:05 | NUR ---
INTRODUCED SELF TO PT, BREAKFAST SERVED, PT STATES NO NEW NEEDS, STEVE CONTINUE TO MONITOR, CALL LIGHT WITHIN REACH.
[2016-11-30 08:39] VITALS: BP 157/80
--- NOTE | 2016-11-30 10:13 | NUR ---
MORNING MEDICATONS GIVEN, PT TOLERATED WELL, SITTER AT BEDSIDE, NO NEW NEEDS NOTED, WILL CONTINUE TO MONITOR, CALL LIGHT WITHIN REACH.
--- NOTE | 2016-11-30 13:37 | NUR ---
PT EATING LUNCH IN BED, SITTER ASSISTING PT, STATES NO NEW NEEDS AT THIS TIME, WILL CONTINUE TO MONITOR, CALL LIGHT WITHIN REACH.
--- NOTE | 2016-11-30 15:19 | NUR ---
SHAILATER STATED GAVE PT A SHOWER, LINEN CHANGED, GOWN CHANGED, HAIR TRIMMED, PT NOW RESTING IN BED, RESPIRATIONS EVEN. CALL LIGHT WITHIN REACH.
--- NOTE | 2016-11-30 15:21 | NUR ---
NEW SITTER AT BED SIDE, PT STATES NO NEW NEEDS AT THIS TIME, WILL CONTINUE TO MONITOR, CALL LIGHT WITHIN REACH.
--- NOTE | 2016-11-30 17:32 | NUR ---
PT SITTING UP IN BED EATING DINNER WITH SITTER ASSISTANCE, PT STATES NO NEW NEEDS AT THIS TIME, WILL CONTINUE TO MONITOR, CALL LIGHT WITHIN REACH.
--- NOTE | 2016-11-30 17:51 | NUR ---
RESTING QUIETLY IN BED. CALL LIGHT IN REACH
--- NOTE | 2016-11-30 18:36 | NUR ---
PT STATES PAIN AT A 8 IN HIS SHOULDERS, PAIN MEDICATION GIVEN, PT TOLERATED WELL, WILL CONTINUE TO MONITOR, CALL LIGHT WITHIN REACH.
--- NOTE | 2016-11-30 19:20 | NUR ---
PT. IN BED WITH HOB UP FOR COMFORT WITH EYES CLOSED AND RESP. EVEN. BRIGHT STAR SITTER WITH PT. AND ASSISTS HIM NEEDED. ASSESSMENT COMPLETED. PT. VERY YOMBA SHOSHONE. CALL LIGHT IS WITHIN REACH.
[2016-11-30 20:00] VITALS: BP 123/60
--- NOTE | 2016-11-30 22:58 | NUR ---
PT. IN BED WITH HOB UP FOR COMFORT WITH EYES CLOSED AND RESP. EVEN. 24HR PRIVATE CG IN ROOM WITH PT. AND HELPS HIM NEEDED. NO VOICED NEEDS AT THIS TIME. CALL LIGHT WITHIN REACH.
[2016-12-01 06:35] LABS: BASOPHILS 0 % (0.0-2.0); EOSINOPHILS 0 % (0-7); HEMOGLOBIN 10.7 g/dL (13.5-17.5); IMMATURE GRANULOCYTES 0.3 % (0-5); MCH 32.7 pg (26.0-34.0); MCHC 33.4 g/dL (31.0-37.0); MCV 97.9 fL (80.0-100.0); MEAN PLATELET VOLUME 11.5 fL (7.4-10.4); MONOCYTES 5.7 % (2-11); PLATELET COUNT 398 10x3/uL (130-400); RBC 3.27 10x6/uL (4.20-6.10); RDW 13.3 % (11.5-14.5); WBC 14.8 10x3/uL (4.8-10.8)
[2016-12-01 06:57] LABS: ANION GAP 9.6 mmol/L (8-16); CALCIUM 9.1 mg/dL (8.5-10.1); CARBON DIOXIDE 33.6 mmol/L (21.0-32.0); CREATININE - SERUM 1.2 mg/dL (0.6-1.3); POTASSIUM - SERUM 4.2 mmol/L (3.5-5.1)
[2016-12-01 09:42] VITALS: BP 143/70
--- NOTE | 2016-12-01 09:45 | NUR ---
PATIENT HAS A CAREGIVER IN ROOM. PATIENT IS WET DUE TO INCONT OF URINE. OUR NURSE ASST CHANGED PATIENT, AND GAVE OZZIE CARE.
--- NOTE | 2016-12-01 09:57 | NUR ---
PATIENT IN REHAB ROOM. 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 PATIENT IS ALERT/ORIET TO SELF ONLY.
--- NOTE | 2016-12-01 12:30 | NUR ---
PATIENT HELPED INTO BATHROOM BY NURSE ASST. AND CAREGIVER. MAX ASST OF ONE FROM WHEELCHAIR ONTO TOILET. PATIENT UNABLE TO PULL UP PANTS OR DO ANY OZZIE CARE.
--- NOTE | 2016-12-01 14:00 | NUR ---
FAMILY TALKED WITH THIS NURSE. FEELS LIKE PATIENT HAS MORE CONFUSION. STRONG ODOR NOTED WITH URINE. THIS NURSE TALKED WITH DR. BRAGG. NEW ORDER TO OBTAIN URINE FOR POSSIBLE UTI
--- NOTE | 2016-12-01 14:44 | RHP ---
PATIENT: SHANDA THURMAN MEDICAL RECORD: [id number] ACCOUNT: [id number] [facility] [id number] : 31 ADMISSION DATE: 11/26/16 REHABILITATION HISTORY AND PHYSICAL EXAMINATION POST ADMISSION PHYSICIAN EXAMINATION Post-admission Physical Exam and History and Physical DATE OF ADMISSION: 11/26/2016 HISTORY OF PRESENT ILLNESS: The patient is an 86-year-old gentleman who is admitted to the rehab with a working diagnosis of critical illness myopathy complicated by acute hypoxic respiratory failure and exacerbation of COPD. The patient is admitted to the inpatient rehab to critical illness myopathy. He is an 86-year-old gentleman who apparently has been very functional at the care home. Apparently, had loss of consciousness, was found to be unresponsive. The patient had a seizure. EMS was dispatched and the patient was intubated and CPR performed and brought to the Emergency Room. He was placed on mechanical ventilator. He had a prior right temporal infarct, chronic atrial fibrillation, and COPD. He has been placed on Eliquis for this atrial fibrillation in the past, hypertension, coronary artery disease. He spent 6 days on a mechanical ventilator, was in ICU for 11 days. Due to his prolonged immobility, has muscle weakness and difficulty rising from the chair to bed. He is a new O2 patient. He is currently on Keppra, which is a new medication for him to control seizures. Dr. Keane had seen him briefly back in 2014 and again in September 2015. 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 He has been in a wheelchair, but primarily due to unsafe behaviors and falls at the care home. He walks well per family when out in public and under their supervision. In September 2015, he had suffered several episodes of becoming limp and having syncope. He also had some jerking movements while unconscious, but on one with prolonged loss of consciousness due to sitting upright. He had a more generalized seizure once placed on these medications. He was found by nursing staff to be somewhat unresponsive, sitting up in his wheelchair. His vital signs at that time were not available. They thought that he had a seizure per the care home. CT of his head shows his right old temporal infarction. He is doing well and should be placed in rehab, hopefully get him back out to the care home and back to his prior level of functioning. COMORBIDITIES: Include status post cardiac arrest, history of previous CVA, arrhythmia, electrolyte abnormalities, atrial fibrillation, chronic bronchiectasis, tracheomalacia, pneumonia, coronary artery disease, hypertension, hypokalemia, electrolyte abnormalities, history of testicular cancer, BPH, macular degeneration, anemia, and CHF. PAST MEDICAL HISTORY: Significant for chronic atrial fibrillation, tracheomalacia, pneumonia, hypertension, electrolyte abnormalities, history of testicular cancer and BPH. He has also got a history of chronic anxiety, frequent falls, urinary retention, COPD, chronic pain and insomnia. PAST SURGICAL HISTORY: Includes a PTCA in 2008, a right carotid endarterectomy in 1998, prostatectomy in 1981. He has had a TURP in the past and orchiectomy in 2002, coronary artery bypass grafting in 1996. ALLERGIES: ADVAIR. HE IS ALSO ALLERGIC TO AMIODARONE. HE IS ALSO ALLERGIC TO HISTORY AND PHYSICAL [id number] SHANDA THURMAN DRONEDARONE. CURRENT MEDICATIONS: Include a Catapres patch TTS 2. He is on prednisone. He we will be on 20 mg b.i.d., Effexor 150 mg daily, potassium 20 mEq daily, polyethylene glycol 17 grams in 8 ounce of water daily, Protonix 40 mg daily, Cozaar 25 mg daily, Kenzie 60 mg daily, furosemide 40 mg daily, Flonase nasal spray daily. He is on Pulmicort 0.5 mg b.i.d., aspirin 325 mg daily, Senna 1 tab b.i.d., Nitrostat p.r.n., Keppra 500 mg b.i.d., Xopenex p.r.n. shortness of breath. He is on guaifenesin 1200 mg b.i.d., diltiazem 60 mg t.i.d., Librium 10 mg t.i.d. He is on Os-Tre with D daily. He is on Dulcolax p.r.n., Lipitor 40 mg q.h.s., Eliquis 2.5 mg b.i.d. and Tylenol 650 q.4 hours p.r.n. HABITS: No current alcohol or tobacco use. FAMILY HISTORY: Noncontributory. SOCIAL HISTORY: The patient hopes to return back to the care home. 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 His family mostly lives down [place], would love to have him come down there, but he has grown quite fond of the care home here. REVIEW OF SYSTEMS: GENERAL: Does complain of weakness. HEENT: Denies cold, cough, or congestion. CARDIOVASCULAR: Denies chest pain. PHYSICAL EXAMINATION: VITAL SIGNS: Stable, afebrile. GENERAL: A well-developed gentleman in no acute distress, alert upon exam. HEENT: Normocephalic and atraumatic. Mucosa moist. NECK: Supple. No lymphadenopathy. LUNGS: Clear in upper reyna. HEART: Irregular rate and rhythm. ABDOMEN: Benign. EXTREMITIES: No clubbing, cyanosis or edema. NEUROLOGIC: Intact. LABORATORY DATA: His white count is 11.5, his H&H are 10 and 31 and platelet count was noted to be 455. His sodium is 132, potassium 4.1, BUN and creatinine of 24 and 1.2, and blood sugar is noted to be 61. ASSESSMENT: This is an 86-year-old gentleman who is admitted to rehab with a working diagnosis of critical illness myopathy complicated by a long stay on the vent secondary to syncope/cardiac arrest. The patient has potential to make improvement. We instituted the following multidisciplinary therapies including to, but not limited to physical, occupational, respiratory, speech, nutritional services, prosthetics and orthotics. Given his complex condition and risk for more complications, rehabilitation services cannot be provided at a low level of care such as a [place] [facility] facility. PLAN: 1. Admit to [facility] rehab for intensive inpatient therapy to include the following disciplines: A. Physical therapy to improve gait, all transfer skills and bed mobility to a modified independent level. HISTORY AND PHYSICAL [id number] SHANDA THURMAN B. Occupational therapy to improve activities of daily living to a modified independent level. C. Case management to assist with discharge planning and placement options. D. Nutrition to assist with nutritional needs. E. Rehabilitation nursing to assist in monitoring the patient's underlying medical conditions and to assist with any type of bowel or bladder management. 2. The patient's current medications and medical care will be continued. 3. The patient will be placed on standard fall precautions. 4. The patient's estimated length of stay is approximately 10-14 days. 5. Discuss this patient during care team staff meeting this week. TRANSINT:[id number] Voice Confirmation ID: [id number] DOCUMENT ID: [id number] MAINOR BRAGG MD at 1444 CC: [id number] DICTATION DATE: 11/27/16847 ASSISTANT DRAFTER: 11/27/16920 ADM IN [facility] [address] [place] [address]
--- NOTE | 2016-12-01 15:56 | NUR ---
Pt is resting in bed in room with caregiver present. Denies any pain or discomfort. Pt. is given maximum assist with adl's. No signs of any distress. Call light is in reach.
--- NOTE | 2016-12-01 17:28 | NUR ---
CLEAN CATCH URINE COLLECTED AND SENT UP TO LAB
[2016-12-01 17:32] LABS: APPEARANCE CLEAR (CLEAR); BILIRUBIN NEGATIVE (NEGATIVE); COLOR YELLOW (YELLOW); GLUCOSE NEGATIVE (NEGATIVE); KETONE NEGATIVE (NEGATIVE); LEUKOCYTE ESTERASE NEGATIVE (NEGATIVE); NITRITE NEGATIVE (NEGATIVE); PROTEIN NEGATIVE (NEGATIVE); UROBILINOGEN NORMAL (NORMAL)
--- NOTE | 2016-12-01 19:54 | NUR ---
PT IS RESTING IN BED WITH EYES OPEN. ALERT, BUT CONFUSED TO ALL ELSE. HE IS VERY AMBLER. HE HAS A 24 HR SITTER AT THE BEDSIDE. VSS. O2 IS OON @ 2LPM PER NC. PT NOTED TO BE VERY FIDGETTY. SR'S ARE UP X 3 IN BED. CALL LIGHT AND BEDSIDE TABLE ARE WITHIN EASY REACH.
[2016-12-01 20:00] VITALS: BP 136/63
--- NOTE | 2016-12-01 20:20 | NUR ---
PATIENT IN BED, AWAKE. DENIES NEEDS. CAREGIVER AT BEDSIDE.
--- NOTE | 2016-12-01 22:59 | NUR ---
PT IS RESTING IN BED WITH EYES OPEN. FIDGETING WITH HIS SHEETS. NO NEEDS VOICED. SITTER IS AT BEDSIDE. USING URINAL PRN.
--- NOTE | 2016-12-02 01:32 | NUR ---
PT IS RESTING QUIETLY IN BED WITY EYES CLOSED. NO DISTRESS NOTED.
--- NOTE | 2016-12-02 03:12 | NUR ---
RESTING IN BED WITH EYES CLOSED.
--- NOTE | 2016-12-02 07:35 | NUR ---
SLEEPING.NO SIGNS OF ACUTE DISTRESS.LAYING ON LEFT SIDE,RESP REG AND EVEN.SISTER AT BEDSIDE.WILL CONTINUE PLAN OF CARE.CL IN EASY REACH,BED IN LOW POSITION.
[2016-12-02 09:21] VITALS: BP 140/54
--- NOTE | 2016-12-02 15:05 | NUR ---
Pt. is in stable condition. Resting in bed comfortably with sitter at bedside. Call light is in reach. No signs of any discomfort or distress.
--- NOTE | 2016-12-02 21:01 | NUR ---
RESTING IN BED WITH EYES CLOSED. AROUSES TO PHYSICAL STIMULI. ALERT CONVERSANT. SITTER AT BEDSIDE. DENIES NEEDS. NO ACUTE DISTRESS NOTED.
[2016-12-02 21:53] VITALS: BP 146/81
--- NOTE | 2016-12-03 05:32 | NUR ---
ENTERED ROOM TO ADMINISTER PT MEDICATIONS. PT FOUND TO BE REMOVING ALL CLOTHING. PT ROOM WARM UPON ENTERING, ASKED PT IF HE WAS HOT. PT STATED THAT HE WAS NOT. THERMOSTAT FOUND TO BE SET AT 85+ DEGREES, TURNED DOWN TO 75. SITTER PROVIDED PER REQUEST WITH LINENS TO PREFORM BED CHANGE AFTER PROVIDING PT WITH BATH.
[2016-12-03 05:46] LABS: BASOPHILS 0 % (0.0-2.0); EOSINOPHILS 0 % (0-7); HEMATOCRIT 31.9 % (42.0-54.0); IMMATURE GRANULOCYTES 0.7 % (0-5); LYMPHOCYTES 10.8 % (15-50); MCH 33.4 pg (26.0-34.0); MCHC 34.5 g/dL (31.0-37.0); MEAN PLATELET VOLUME 11.7 fL (7.4-10.4); MONOCYTES 10.5 % (2-11); PLATELET COUNT 390 10x3/uL (130-400); RBC 3.29 10x6/uL (4.20-6.10); RDW 13.5 % (11.5-14.5)
[2016-12-03 06:00] LABS: ANION GAP 10.8 mmol/L (8-16); CALCIUM 8.5 mg/dL (8.5-10.1); CARBON DIOXIDE 32.2 mmol/L (21.0-32.0); CREATININE - SERUM 1.2 mg/dL (0.6-1.3)
[2016-12-03 06:01] LABS: WBC 9.9 10x3/uL (4.8-10.8)
--- NOTE | 2016-12-03 07:45 | NUR ---
RESTING IN BED WITH VISITOR IN THE ROOM.
[2016-12-03 07:52] VITALS: BP 148/79
--- NOTE | 2016-12-03 08:20 | NUR ---
INTRODUCED SELF TO PT, SITTER AT BED SIDE, BREAKFAST SERVED, SITTER ASSISTED PT WITH FEEDING, NO NEW NEEDS NOTED AT THIS TIME, WILL CONTINUE TO MONITOR, CALL LIGHT WITHIN REACH.
--- NOTE | 2016-12-03 09:54 | NUR ---
PT RESTING IN BED, RESPIRATIONS EVEN, SITTER AT BEDSIDE, BED IN LOW POSITION, SIDE RAILS UP X'S 2, CALL LIGHT WITHIN REACH.
--- NOTE | 2016-12-03 09:58 | NUR ---
MORNING MEDICATION GIVEN, PT TOLERATED WELL, CALL LIGHT WITHIN REACH.
--- NOTE | 2016-12-03 12:15 | NUR ---
PT SITTING UP IN BED EATING LUNCH, DAUGHTER AND SITTER ASSISTING WITH MEAL, STATES NO NEW NEEDS AT THIS TIME, WILL CONTINUE TO MONITOR, CALL LIGHT WITHIN REACH.
--- NOTE | 2016-12-03 13:30 | NUR ---
SITTING UP IN WC VISITING WITH DAUGHTER.ASSISTED TO BR.TRANSFERS WITH ASSIST OF ONE.SOFT FORMED STOOL OBSERVED .ASSISTED TO BED PER HIS REQUEST.CL PLACED IN EASY REACH.
--- NOTE | 2016-12-03 14:05 | NUR ---
Nutrition Follow Up: Spoke with pt and pt's daughter. Daughter reported that pt is eating well most meals. She said that he is drinking Ensure and prefers a variety of flavors. Diet: AHA; Ensure with meals PO Intake: 64% (9 meal avg) No new wt to assess +BM 11/30/16 Labs noted - Na low Meds noted - Prednisone, Lasix Pt with fair po intake at this time. Will continue to send Ensure with meals. RD following.
--- NOTE | 2016-12-03 17:04 | NUR ---
CARE TEAM MEETING: DAUGHTER ATTENDED MEETING. PATIENT WILL RETURN TO THE THE [place] AND TENATIVE DISCHARGE DATE IS 12/12/16. WILL CONTINUE TO FOLLOW WITH PATIENT UNTIL DISCHARGED
[2016-12-03 20:14] VITALS: BP 120/45
--- NOTE | 2016-12-03 21:27 | NUR ---
LYING IN BED RESTING AT THIS TIME. RESPIRATIONS AT STEADY AND UNLABORED RATE. NO ACUTE DISTRESS NOTED. VSS. SITTER AT BEDSIDE. WILL CONTINUE PLAN OF CARE.
--- NOTE | 2016-12-04 05:06 | NUR ---
RESTING IN BED. SITTER AT BEDSIDE. AROUSES TO VOICE, HARD OF HEARING. ADMINISTERED MEDICATIONS. NO ACUTE DISTRESS NOTED
--- NOTE | 2016-12-04 07:08 | NUR ---
RESTING QUIETLY IN BED BED. CALL LIGHT IN REACH
[2016-12-04 08:19] VITALS: BP 110/63
--- NOTE | 2016-12-04 19:45 | NUR ---
PT. IN BED WITH HOB UP FOR COMFORT LYING ON HIS LEFT SIDE WITH EYES CLOSED AND RESP. EVEN. PT. AWAKENS EASILY FOR ASSESSMENT. PRIVATE DUTY SITTER WITH PT. PT. HAS NO VOICED NEEDS AND CALL LIGHT IS WITHIN REACH.
[2016-12-04 22:54] VITALS: BP 130/62
--- NOTE | 2016-12-05 00:25 | NUR ---
PER PT'S FAMILY MEMBERS REQUEST HIS 0045 ROBAXIN NOT GIVEN PT. IS ASLEEP.
--- NOTE | 2016-12-05 01:17 | NUR ---
PT. IN BED WITH HOB UP FOR COMFORT WITH EYES CLOSED AND RESP. EVEN. PRIVATE PAID CG WITH PT. AND ASSISTS NEEDED. CALL LIGHT WITHIN REACH.
--- NOTE | 2016-12-05 06:23 | NUR ---
PT. HAD AN UNEVENUAL NIGHT AND SLEPT THE ENTIRE NIGHT UNTIL HE SOILED HIS BREIF AND CG BATHED/CHANGED LINENS. CALL LIGHT REMAINS WITHIN REACH AND CG REMAINS WITH PT. AT ALL TIMES TO ASSIST NEEDED.
--- NOTE | 2016-12-05 07:40 | NUR ---
RESTING QUIETLY IN BED.DENIES NEEDS.NO SIGNS OF ACUTE DISTRESS.ASSESSMENT COMPLETED.SITTER AT BEDSIDE.CL IN EASY REACH,BED IN LOW POSITION.
[2016-12-05 08:16] LABS: BASOPHILS 0 % (0.0-2.0); EOSINOPHILS 0 % (0-7); HEMATOCRIT 33.3 % (42.0-54.0); HEMOGLOBIN 11.1 g/dL (13.5-17.5); IMMATURE GRANULOCYTES 0.4 % (0-5); LYMPHOCYTES 9.1 % (15-50); MCH 32.9 pg (26.0-34.0); MCHC 33.3 g/dL (31.0-37.0); MCV 98.8 fL (80.0-100.0); MONOCYTES 7.5 % (2-11); RBC 3.37 10x6/uL (4.20-6.10); RDW 13.8 % (11.5-14.5); WBC 9.7 10x3/uL (4.8-10.8)
[2016-12-05 08:23] LABS: PLATELET COUNT 294 10x3/uL (130-400)
[2016-12-05 08:36] LABS: ANION GAP 9.4 mmol/L (8-16); CALCIUM 9.2 mg/dL (8.5-10.1); CREATININE - SERUM 1.2 mg/dL (0.6-1.3); POTASSIUM - SERUM 4.4 mmol/L (3.5-5.1)
[2016-12-05 10:36] VITALS: BP 147/71
--- NOTE | 2016-12-05 19:42 | NUR ---
PT RESTING, EYES CLSOED. BED LOW. CL IN REACH.
[2016-12-05 21:37] VITALS: BP 126/55
--- NOTE | 2016-12-05 22:15 | NUR ---
PT TOOK HS MEDS WITHOUT DIFFICULYT. PT REQ AND REC'D PRN PAIN MED FOR SHOULDER PAIN. PT CAREGIVER AT BEDSIDE ASSISTING WITH NEEDS. WCTM. BED LOW. CLIN REAHC.
--- NOTE | 2016-12-06 00:45 | NUR ---
PT RESTING, EYES CLOSED. BED LOW. CLIN REACH. CAREGIVER AT BEDSIDE ASSISTING WITH NEEDS.
--- NOTE | 2016-12-06 04:05 | NUR ---
PT RESTING, EYES CLOSED. BED LOW. CLIN REAHC .
[2016-12-06 08:00] VITALS: BP 127/60
--- NOTE | 2016-12-06 08:00 | NUR ---
CAREGIVER IN ROOM WITH PATIENT. HELPED PATIENT WITH BREAKFAST. PATIENT AWAKE/ALERT WITH CONFUSION.
--- NOTE | 2016-12-06 10:00 | NUR ---
PATIENT IN REHAB ROOM. WORKING WITH PHYSICAL THERAPIST. DENIES ANY PAIN/DISC AT THIS TIME
--- NOTE | 2016-12-06 10:07 | NUR ---
PATIENT IN REHAB ROOM. WORKING WITH PHYSICAL THERAPIST. DENIES ANY PAIN/DISC.
--- NOTE | 2016-12-06 13:00 | NUR ---
PATIENT HAS FAMILY IN ROOM. RESTING AFTER THERAPY. CALL LIGHT WITHIN REACH. POSIEY ALARM ON WHILE PATIENT IN BED.
--- NOTE | 2016-12-06 15:20 | NUR ---
PATIENT STATED THAT HE HAD TO USE THE BATHROOM. HELPED UP TO THE BEDSIDE COMMODE. MOD ASST OF ONE.
--- NOTE | 2016-12-06 17:45 | NUR ---
CAREGIVER IN ROOM. HELPED PATIENT WITH SUPPER. PATIENT AT ABOUT 25%.
--- NOTE | 2016-12-06 19:30 | NUR ---
PT IS RESTING IN BED WITH EYES OPEN. ALERT TO SELF. CONFUSED TO ALL ELSE. UNABLE TO ANSWER ORIENTATION QUESTIONS, BUT WILL ANSWER QUESTIONS ABOUT HIMSELF CORRECTLY. VSS. O2 IS ON @ 2LPM PER NC. NO SOB NOTED. SITTER IS AT BEDSIDE. SR'S ARE UP X 3 IN BED. CALL LIGHT AND BEDSIDE TABLE ARE WITHIN EASY REACH.
[2016-12-06 20:30] VITALS: BP 126/58
--- NOTE | 2016-12-06 21:36 | NUR ---
PT IS RESTING IN BED WITH EYES OPEN. NO ACUTE DISTRESS NOTED. NO NEEDS VOICED.
--- NOTE | 2016-12-07 00:01 | NUR ---
RESTING QUIETLY IN BED WITH EYES CLOSED. RESPS ARE EVEN AND UNLABORED. NO ACUTE DISTRESS NOTED.
--- NOTE | 2016-12-07 03:07 | NUR ---
PT IS RESTING IN BED WITH EYES CLOSED.
--- NOTE | 2016-12-07 05:00 | NUR ---
urinal emptied, incontinent or urine, pleasantly confused, is apologetic for incontinence. respirations regular and unlabored. no s/s of acute distress.
--- NOTE | 2016-12-07 05:24 | NUR ---
pt resting, sitter in room, respirations regular and unlabored, no s/s of acute distress.
[2016-12-07 07:00] VITALS: BP 127/60
--- NOTE | 2016-12-07 07:53 | NUR ---
PATIENT SITTING UP IN BED TO EAT BREAKFAST. CAREGIVER IN PATIENTS ROOM. HELPING PATIENT WITH BREAKFAST.
--- NOTE | 2016-12-07 10:34 | NUR ---
PATIENT HELPED UP TO WHEELCHAIR FROM BED. MOD-MAX ASST OF ONE. FAMILY VISITING IN ROOM
--- NOTE | 2016-12-07 12:38 | NUR ---
PATIENTS FAMILY BROUGHT IN FOOD FOR PATIENT FROM HOME. PATIENT AT 50% OF HIS LUNCH.
--- NOTE | 2016-12-07 13:47 | NUR ---
Pt is stable this shift. Family has been in to visit as well as caregiver. No signs of any discomfort or distress. [place] 10mg was given to pt. around 11:55am for shoulder pain while pt was eatting his lunch. Will continue to monitor and assist with adl's.
--- NOTE | 2016-12-07 14:01 | NUR ---
DR. Dinorah BRAGG IN. NEW ORDERS RECEIVED
--- NOTE | 2016-12-07 16:28 | NUR ---
PATIENT HELPED BACK INTO BED. DAUGHTER IN ROOM VISITING
--- NOTE | 2016-12-07 20:15 | NUR ---
PT IS RESTING QUIETLY IN BED WITH EYES OPEN. DENIES ACUTE PAIN OR DISCOMFORT. PT ASSISTED TO REPOSITION IN BED. NO NEEDS VOICED. PTS DAUGHTER IS AT BEDSIDE. SR'S ARE UP X 3 IN BED. CALL LIGHT AND BEDSIDE TABLE ARE WITHIN EASY REACH.
--- NOTE | 2016-12-07 21:56 | NUR ---
PT IS RESTING QUIETLY IN BED. NO DISTRESS NOTED. SITTER IS AT BEDSIDE.
[2016-12-07 22:05] VITALS: BP 170/73
--- NOTE | 2016-12-08 03:59 | NUR ---
RESTING IN BED WITH EYES CLOSED. SITTER AT BEDSIDE.
--- NOTE | 2016-12-08 03:59 | NUR ---
PT IS RESTING QUIETLY IN BED WITH EYES CLOSED. NO ACUTE DISTRESS NOTED.
--- NOTE | 2016-12-08 05:34 | NUR ---
SITTER PRESENT IN ROOM, PT RESTING WITH EYES CLOSED, NO S/S OF ACUTE DISTRESS.
[2016-12-08 06:24] LABS: BASOPHILS 0 % (0.0-2.0); EOSINOPHILS 0 % (0-7); HEMATOCRIT 32.3 % (42.0-54.0); HEMOGLOBIN 10.7 g/dL (13.5-17.5); IMMATURE GRANULOCYTES 0.5 % (0-5); LYMPHOCYTES 6.6 % (15-50); MCH 32.8 pg (26.0-34.0); MCHC 33.1 g/dL (31.0-37.0); MCV 99.1 fL (80.0-100.0); MEAN PLATELET VOLUME 12.2 fL (7.4-10.4); MONOCYTES 5.6 % (2-11); NEUTROPHILS 87.3 % (40-80); RBC 3.26 10x6/uL (4.20-6.10); RDW 14.1 % (11.5-14.5); WBC 9.2 10x3/uL (4.8-10.8)
[2016-12-08 06:33] LABS: CALCIUM 8.2 mg/dL (8.5-10.1); CARBON DIOXIDE 35.2 mmol/L (21.0-32.0); CREATININE - SERUM 1.1 mg/dL (0.6-1.3); POTASSIUM - SERUM 4.2 mmol/L (3.5-5.1)
[2016-12-08 06:37] LABS: PLATELET COUNT 212 10x3/uL (130-400)
--- NOTE | 2016-12-08 07:49 | NUR ---
RESTING QUIETLY IN BED ON HIS SIDE. NO S/S DISTRESS. CALL LIGHT IN REACH
[2016-12-08 09:04] VITALS: BP 163/74
--- NOTE | 2016-12-08 10:44 | NUR ---
DTR IN ROOM WITH PT. HE IS IN W/C
--- NOTE | 2016-12-08 13:08 | NUR ---
DTR IN ROOM WITH PT.
--- NOTE | 2016-12-08 15:32 | NUR ---
RESTING QUIETLY IN BED WHILE LAYING ON SIDE. APPETITE [employer]. NEEDS PROMPTING TO EAT AT TIMES. DTR STILL WITH PT. HE IS [place]
--- NOTE | 2016-12-08 15:46 | NUR ---
WITH WITH MOD ASST TO BATHROOM. DTR STILL WITH PT
--- NOTE | 2016-12-08 21:48 | NUR ---
PT IS RESTING IN BED WATCHING TV. NO NEEDS VOICED. SITTER AT BEDSIDE.
--- NOTE | 2016-12-08 23:20 | NUR ---
PT. IN BED LYING ON HIS BACK WITH EYES CLOSED AND RESP. EVEN. CG PRESENT AND DENIES ANY NEEDS OR PROBLEMS AT THIS TIME. CALL LIGHT IS WITHIN REACH.
--- NOTE | 2016-12-09 01:30 | NUR ---
PT IS RESTING QUIETLY IN BED WITH EYES CLOSED. RESPS ARE EVEN AND UNLABORED. NO ACUTE DISTRESS NOTED.
--- NOTE | 2016-12-09 03:53 | NUR ---
PT RESTING IN BED WITH EYES CLOSED.
--- NOTE | 2016-12-09 06:24 | NUR ---
PT RESTING IN BED WITH EYES OPEN. NO ACUTE DISTRESS NOTED. TOLERATED AM MEDS WITHOUT DIFFICULTY. HIS SITTER STATED SHE HAD JUST CHANGED HIS BED PAD FROM [facility]. URINE EPISODE.
[2016-12-09 08:37] VITALS: BP 129/58
--- NOTE | 2016-12-09 11:45 | NUR ---
SITTING IN WHEELCHAIR WITHOUT ANY FALLS. PT BLIND.
--- NOTE | 2016-12-09 12:53 | NUR ---
Nutrition Follow Up: Chart reviewed. Pt is eating 48% of AHA diet. Pt is receiving Ensure with meals. +BM 12/08/16. No new wt to assess. Labs noted - Na low; BUN, Glucose elevated. Meds: Prednisone, Lasix. Rec liberalizing diet to encourage po intake. Rec continue Ensure with meals. RD following.
--- NOTE | 2016-12-09 13:29 | NUR ---
SITTING IN WHEELCHAIR IN GYM AMBULATING A SHORT DISTANCE WITH GREGORIA THERAPIST.
--- NOTE | 2016-12-09 15:34 | NUR ---
SLEEPING IN BED WITH DAUGHTER IN THE ROOM. DAUGHTER ASKED ABOUT RESTARTED PT ON ARTIFICIAL TEARS AND ORDER RESTARTED.
--- NOTE | 2016-12-09 17:12 | NUR ---
RESTING IN BED WITH SIDERAILS UP X3. DAUGHTER IN THE ROOM.
--- NOTE | 2016-12-09 19:00 | NUR ---
INTRODUCED SELF TO PT AND SITTER, PT STATES NO NEW NEEDS AT THIS TIME, WILL CONTINUE TO MONITOR, CALL LIGHT WITHIN REACH.
--- NOTE | 2016-12-09 20:20 | NUR ---
PT STATES PAIN AT A 10 IN SHOULDER, PAIN MEDICATION GIVEN, WILL CONTINUE TO MONITOR, CALL LIGHT WITHIN REACH.
[2016-12-09 20:21] VITALS: BP 124/57
--- NOTE | 2016-12-09 21:25 | NUR ---
PT RESTING QUIETLY, RESPIRATIONS EVEN, SITTER AT BED SIDE, BED IN LOW POSITION, SIDE RAILS UP X'S 2, CALL LIGHT WITHIN REACH.
--- NOTE | 2016-12-09 23:26 | NUR ---
SITTER AT BEDSIDE.
--- NOTE | 2016-12-09 23:26 | NUR ---
PT RESTING QUIETLY, RESPIRATIONS EVEN, BED IN LOW POSITION, SIDE RAILS UP X'S 2, CALL LIGHT WITHIN REACH.
--- NOTE | 2016-12-10 00:44 | NUR ---
PT RESTING QUIETLY, RESPIRATIONS EVEN, WILL CONTINUE TO MONITOR, CALL LIGHT WITHIN REACH.
--- NOTE | 2016-12-10 02:15 | NUR ---
RESTING IN BED, EYES CLOSED. SITTER REPORTS PATIENT HAS BEEN RESTING QUIETLY.
--- NOTE | 2016-12-10 04:22 | NUR ---
PT RESTING QUIETLY, RESPIRATIONS EVEN, SITTER AT BEDSIDE, WILL CONTINUE TO MONITOR, CALL LIGHT WITHIN REACH.
--- NOTE | 2016-12-10 06:00 | NUR ---
MORNING MEDICATION GIVEN, PT TOLERATED WELL, SITTER INFORMED ME THAT SHE WAS LEAVING, BED ALARM SET, WILL CONTINUE TO MONITOR, CALLL LIGHT WITHIN REACH.
--- NOTE | 2016-12-10 07:00 | NUR ---
Received pt. at the beginnning of this shift. He was in bed awake and oriented to self only. 02 per nc going at 2L/min. Stable condition observed. Vital signs: Temp. 97.7, pulse 79, resp. 15, b/p 132/67, 02Sat. 95%. Pt. is very hard of hearing. Cooperative with staff. Denies any pain or discomfort. Pt. requires total care with all adl's. Will be monitoring him throughout this shift and assisting prn as needed.
[2016-12-10 08:28] VITALS: BP 132/67
--- NOTE | 2016-12-10 16:47 | NUR ---
CARE TEAM MEETING: NETO ATTENDED MEETING AND PATIENT WILL DISCHARGE BACK TO THE [facility] ON 12/12/16 WHERE HE LIVES. WILL CONTINUE TO FOLLOW WITH PATIENT UNTIL DISCHARGED
--- NOTE | 2016-12-10 18:36 | NUR ---
Pt had an uneventful day. His daughter was here most of the day. His sitter is here at this time. His daughter requested pain medication for his shoulder hurting around 2:45pm and he received a [place] 10mg at that time. He had been to therapy and then went back and forth to the bathroom 2 or 3 times having bm's. He is resting in bed comfortably watching tv at this time. No signs of any discomfort or distress.
--- NOTE | 2016-12-10 20:52 | NUR ---
RESTING IN BED. AROUSES TO VOICE. DISORIENTED. PROVIDED PM MEDICATIONS PT DEMONSTRATED NO DIFFICULTY SWALLOWING. SITTER AT BEDSIDE
[2016-12-10 23:00] VITALS: BP 130/58
--- NOTE | 2016-12-11 01:20 | NUR ---
RESTING IN BED EYES CLOSED RESPIRATIONS OBSERVED. EVEN AND UNLABORED. SITTER AT BEDSIDE
--- NOTE | 2016-12-11 02:25 | NUR ---
IN BED, EYES CLOSED. APPEARS COMFORTABLE. SITTER SLEEPING IN RECLINER IN ROOM.
--- NOTE | 2016-12-11 07:56 | NUR ---
PATIENT HAS CAREGIVER IN ROOM. HELPING PATIENT WITH BREAKFAST. PATIENT VERY CONFUSED. ORIENT TO SELF ONLY
[2016-12-11 09:33] VITALS: BP 134/63
--- NOTE | 2016-12-11 10:00 | NUR ---
PATIENT UP IN WHEELCHAIR AND IN REHAB ROOM. 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 VOICES NO PAIN/DISC AT THIS TIME
--- NOTE | 2016-12-11 12:23 | NUR ---
PATIENT SITTING UP IN WHEELCHAIR BY BEDSIDE. OXYGEN ON AT 2L PER N/C. CAREGIVER IN ROOM WITH PATIENT
--- NOTE | 2016-12-11 14:18 | NUR ---
PATIENT UNABLE TO WALK BY SELF. CAN AMBULATE WITH THERAPY A FEW STEPS. MAX ASST OF ONE TRANSFER FROM BED INTO WHEELCHAIR.
--- NOTE | 2016-12-11 15:10 | NUR ---
PATIENT DISCHARGING TO THE [place] (WHERE HE LIVES) [facility]IA [facility] ON 12/12/16. NO HOME HEALTH OR DME NEEDED AT THIS TIME. FAMILY NOTIFIED . WILL CONTNIUE TO FOLLOW WITH PATIENT UNTIL DISCHARGED IN AM. [facility] WILL BE HERE AT 9:00AM
--- NOTE | 2016-12-11 16:25 | NUR ---
RESTING QUIETLY IN BED.CL IN REACH.
--- NOTE | 2016-12-11 16:32 | NUR ---
PATIENT TO BE DISCHARGED TO [facility] TOMORROW. Jose MCFARLANE HAS COMPLETED PATIENTS DISCHARGE PLAN
[2016-12-11 19:00] VITALS: BP 121/60
--- NOTE | 2016-12-11 20:11 | NUR ---
PT TOOK HS MEDS WITHOUT DIFFICULTY. CAREGIVER AT BEDSIDE. DENIES NEEDS AT THIS TIME. BED LOW. CL IN REACH. WCTM.
--- NOTE | 2016-12-11 21:56 | NUR ---
PT RESTING, EYES CLOSED. CAREGIVER AT BEDSIDE ASSISTING WITH NEEDS. WCTM. BED LOW. CL IN REACH.
--- NOTE | 2016-12-12 04:14 | NUR ---
PT RESTING, EYES CLOSED. BED LOW. CL IN REACH. WCTM.
--- NOTE | 2016-12-12 08:00 | NUR ---
RESTING QUIETLY IN BED.
[2016-12-12] MEDS ORDERED: K-DUR20 MEQ PO (08:07)
[2016-12-12] MEDS ORDERED: PROTONIX40 MG PO (08:08)
--- NOTE | 2016-12-12 09:30 | NUR ---
D/C WITH ALL PERSONAL BELONGINGS. DTR AT BEDSIDE. PT MOVED TO W/C FOR TRANSPORT TO [place]. HE REMAINS CONFUSED BUT PLEASANT. DTR DENIES NEEDS OR QUESTIONS AT TIME OF D/C.
[2016-12-12 10:27] VITALS: BP 134/56
== END 2016-12-12 09:30 | DRG 91 ==
LOC: D.REHAB 18:35
PROVIDERS: ADMIT Emergency Medicine
DX: G72.81 Critical illness myopathy (principal); J96.01 Acute respiratory failure with hypoxia; J18.9 Pneumonia, unspecified organism; J44.1 Chronic obstructive pulmonary disease with (acute) exacerbation; I49.9 Cardiac arrhythmia, unspecified; E87.8 Other disorders of electrolyte and fluid balance, not elsewhere classified; I48.91 Unspecified atrial fibrillation; J39.8 Other specified diseases of upper respiratory tract; I25.10 Atherosclerotic heart disease of native coronary artery without angina pectoris; I10 Essential (primary) hypertension; E87.6 Hypokalemia; Z85.47 Personal history of malignant neoplasm of testis; N40.0 Benign prostatic hyperplasia without lower urinary tract symptoms; H35.30 Unspecified macular degeneration; D64.9 Anemia, unspecified; I50.9 Heart failure, unspecified; E83.42 Hypomagnesemia; Z86.74 Personal history of sudden cardiac arrest

== ENCOUNTER 2016-12-18 12:57 | Emergency (ER) | payer MEDICARE, OTHER ==
[2016-11-27 10:02] VITALS: BMI 26.6
[~2016-12-18 12:57] MED LIST changes: +K-DUR20 MEQ PO; +PROTONIX40 MG PO
[2016-12-18 14:25] LABS: BASOPHILS 0.1 % (0.0-2.0); EOSINOPHILS 0.4 % (0-7); HEMATOCRIT 31.7 % (42.0-54.0); HEMOGLOBIN 10.4 g/dL (13.5-17.5); IMMATURE GRANULOCYTES 0.6 % (0-5); LYMPHOCYTES 6.8 % (15-50); MCH 33.1 pg (26.0-34.0); MCHC 32.8 g/dL (31.0-37.0); MONOCYTES 6.8 % (2-11); NEUTROPHILS 85.3 % (40-80); RBC 3.14 10x6/uL (4.20-6.10); RDW 14.6 % (11.5-14.5); WBC 9.3 10x3/uL (4.8-10.8)
[2016-12-18 14:26] LABS: PLATELET COUNT 147 10x3/uL (130-400)
[2016-12-18 14:39] LABS: ANION GAP 10.1 mmol/L (8-16); CALCIUM 8.4 mg/dL (8.5-10.1); CARBON DIOXIDE 32.5 mmol/L (21.0-32.0); CREATININE - SERUM 1.2 mg/dL (0.6-1.3); POTASSIUM - SERUM 3.6 mmol/L (3.5-5.1)
== END 2016-12-18 17:39 | disposition home or self-care (01) ==
LOC: D.ER 12:57
PROVIDERS: Emergency Medicine
DX: G40.909 Epilepsy, unspecified, not intractable, without status epilepticus (principal); F41.9 Anxiety disorder, unspecified; I10 Essential (primary) hypertension; E78.5 Hyperlipidemia, unspecified; G47.00 Insomnia, unspecified; K21.9 Gastro-esophageal reflux disease without esophagitis; N40.0 Benign prostatic hyperplasia without lower urinary tract symptoms; G89.29 Other chronic pain; Z86.73 Personal history of transient ischemic attack (TIA), and cerebral infarction without residual deficits

== ENCOUNTER 2017-01-23 13:20 | Inpatient (IN) | payer MEDICARE, OTHER ==
[~2017-01-23] VITALS: Ht 170.2 cm; Wt 65.8 kg
[2017-01-23 14:21] LABS: HEMATOCRIT 30.2 % (42.0-54.0); HEMOGLOBIN 9.9 g/dL (13.5-17.5); MCH 33.8 pg (26.0-34.0); MCHC 32.8 g/dL (31.0-37.0); MCV 103.1 fL (80.0-100.0); MEAN PLATELET VOLUME 10.8 fL (7.4-10.4); PLATELET COUNT 276 10x3/uL (130-400); RBC 2.93 10x6/uL (4.20-6.10); WBC 20.9 10x3/uL (4.8-10.8)
[2017-01-23 14:46] LABS: LYMPHOCYTES 3 % (15-50); MONOCYTES 4 % (2-11); NEUTROPHILS 93 % (40-80)
[2017-01-23 14:47] LABS: PLATELET ESTIMATE NORMAL
[2017-01-23 14:51] LABS: ALBUMIN 2.6 g/dL (3.4-5.0); ALKALINE PHOSPHATASE 86 U/L (46-116); ALT (SGPT) 18 U/L (10-68); BILIRUBIN - TOTAL 0.74 mg/dL (0.2-1.3); CALC OSMOLALITY 278 mosm/kg (275-300); CALCIUM 8.5 mg/dL (8.5-10.1); CARBON DIOXIDE 32.8 mmol/L (21.0-32.0); CHLORIDE - SERUM 99 mmol/L (98-107); CREATININE - SERUM 1.1 mg/dL (0.6-1.3); GLUCOSE 148 mg/dL (74-106); POTASSIUM - SERUM 3.5 mmol/L (3.5-5.1); PROTEIN - SERUM 6.8 g/dL (6.4-8.2); SODIUM 137 mmol/L (136-145); UREA NITROGEN 18 mg/dL (7-18); eGFR NON AFRICAN AMERICAN 67 mL/min (90-120)
[2017-01-23 15:01] LABS: CREATINE KINASE 36 UL (21-232); MAGNESIUM - SERUM 1.8 mg/dL (1.8-2.4); PRO BNP 2477 pg/mL (0-450)
[2017-01-23 15:03] LABS: TROPONIN-I < 0.017 ng/mL (0.000-0.060)
[2017-01-23 15:09] LABS: APPEARANCE CLEAR (CLEAR); BILIRUBIN NEGATIVE (NEGATIVE); COLOR YELLOW (YELLOW); GLUCOSE NEGATIVE (NEGATIVE); KETONE NEGATIVE (NEGATIVE); LEUKOCYTE ESTERASE TRACE (NEGATIVE); NITRITE NEGATIVE (NEGATIVE); PROTEIN TRACE mg/dL (NEGATIVE); UROBILINOGEN NORMAL (NORMAL)
[2017-01-23 15:10] LABS: BACTERIA MODERATE /hpf (NONE SEEN); EPITHELIAL CELLS 0-5 /hpf (0-5); HYALINE CAST 0-5 /lpf (NONE SEEN); MUCUS <1+ /lpf (NONE SEEN); RED CELLS - URINE 0-5 /hpf (0-5); WHITE CELLS - URINE 0-5 /hpf (0-5)
--- NOTE | 2017-01-23 16:24 | NUR ---
Patient Name: SHANDA THURMAN Admission Status: ER Accout number: [id number] Admission Date: 01-23-2017 : 1930 Admission Diagnosis: CHF, Weakness Attending: RUDOLPH Current LOS: 1 Anticipated DC Date: 01/27/17 Planned Disposition: Long Term Facility Primary Insurance: MEDICARE A & B Discharge Planning Comments: CM met with patient who is not oriented. Patient is a resident at [facility]. He will return there upon discharge. He does not have a PCP. CM spoke to Dr. Nino's office who stated he has never been seen there before as a patient. CM will continue to follow and will assist with dc plans/needs. Paint Mixer: Opal Armstrong RN, [facility] [phone] Is the patient Alert and Oriented? No * How many steps to enter\exit or inside your home? 0 * PCP [facility] * Pharmacy [facility] * Preadmission Environment [facility] * Facility Name [facility] * ADLs Partial Dependent * Partial ADLs (Assistance needed) Medication Management Toileting Transfers * List name and contact numbers for known caregivers / representatives who currently or will assist patient after discharge: Tita Thurman - Daughter - [phone] * Community resources currently utilized None * Additional services required to return to the preadmission environment? No * Can the patient safely return to the preadmission environment? Yes * Has this patient been hospitalized within the prior 30 days at any hospital? No
--- NOTE | 2017-01-23 17:06 | NUR ---
Patient Name: SHANDA THURMAN Admission Status: ER Accout number: [id number] Admission Date: 01-23-2017 : 1930 Admission Diagnosis: CHF, Weakness Attending: RUDOLPH Current LOS: 1 Anticipated DC Date: 01/27/17 Planned Disposition: [facility] Facility Primary Insurance: MEDICARE A & B Discharge Planning Comments: CM met with patient who is not oriented. Patient is a resident at [facility]. He will return there upon discharge. He does not have a PCP. CM spoke to Dr. Nino's office who stated he has never been seen there before as a patient. CM will continue to follow and will assist with dc plans/needs. Loom Doffer: Opal Armstrong RN, [facility] [phone] Is the patient Alert and Oriented? No * How many steps to enter\exit or inside your home? 0 * PCP [facility] * Pharmacy [facility] * Preadmission Environment [facility] * Facility Name [facility] * ADLs Partial Dependent * Partial ADLs (Assistance needed) Medication Management Toileting Transfers * List name and contact numbers for known caregivers / representatives who currently or will assist patient after discharge: Tita Thurman - Daughter - [phone] * Community resources currently utilized None * Additional services required to return to the preadmission environment? No * Can the patient safely return to the preadmission environment? Yes * Has this patient been hospitalized within the prior 30 days at any hospital? No
--- NOTE | 2017-01-23 17:17 | NUR ---
Patient Name: SHANDA THURMAN Admission Status: ER Accout number: [id number] Admission Date: 01-23-2017 : 1930 Admission Diagnosis: CHF, Weakness Attending: RUDOLPH Current LOS: 1 Anticipated DC Date: 01/27/17 Planned Disposition: Long Term Facility Primary Insurance: MEDICARE A & B Discharge Planning Comments: Patient is a resident at [facility]. He will return there upon discharge. He does not have a PCP. CM spoke to Dr. Nino's office who stated he has never been seen there before as a patient. CM will continue to follow and will assist with dc plans/needs. Digester Capper: Opal Armstrong RN, [facility] [phone] Is the patient Alert and Oriented? No * How many steps to enter\exit or inside your home? 0 * PCP [facility] * Pharmacy [facility] * Preadmission Environment [facility] * Facility Name [facility] * ADLs Partial Dependent * Partial ADLs (Assistance needed) Medication Management Toileting Transfers * List name and contact numbers for known caregivers / representatives who currently or will assist patient after discharge: Tita Thurman - [facility] - [phone] * Community resources currently utilized None * Additional services required to return to the preadmission environment? No * Can the patient safely return to the preadmission environment? Yes * Has this patient been hospitalized within the prior 30 days at any hospital? No
[2017-01-23 20:00] VITALS: BP 148/64
[2017-01-23 20:11] VITALS: BP 136/77; BMI 22.7
--- NOTE | 2017-01-23 23:18 | NUR ---
ASSESSED AT THE BEGINNING OF THE SHIFT. PT IS ALERT AND ORIENTED, KEEPS HIS EYES CLOSED BUT ANSWERS QUESTIONS APPROPRIATELY. DAUGHTER REMAINS AT THE BEDSIDE. AT THE FIRST OF SHIFT A YEE CATH WAS PLACED ORDERED AND WAS TOLERATED WELL. ALL BEDTIME MEDS WERE TAKEN ORDERED AND NO PROBLEMS NOTED WITH SWALLOWING. THE DAUGHTER IS SPENDING THE NIGHT AND HE HAS A BED ALARM ON THE BED WITH THE BED LOW, RAILS UP X'S 2 AND CALL LIGHT AT HAND.
[2017-01-24] VITALS: BP 136/62
[2017-01-24 04:00] VITALS: BP 143/69
[2017-01-24 06:45] LABS: BASOPHILS 0.1 % (0.0-2.0); EOSINOPHILS 0 % (0-7); HEMATOCRIT 28.1 % (42.0-54.0); HEMOGLOBIN 9.2 g/dL (13.5-17.5); IMMATURE GRANULOCYTES 0.4 % (0-5); LYMPHOCYTES 6.5 % (15-50); MCH 33.3 pg (26.0-34.0); MCHC 32.7 g/dL (31.0-37.0); MCV 101.8 fL (80.0-100.0); MEAN PLATELET VOLUME 10.7 fL (7.4-10.4); MONOCYTES 7.2 % (2-11); NEUTROPHILS 85.8 % (40-80); PLATELET COUNT 241 10x3/uL (130-400); RBC 2.76 10x6/uL (4.20-6.10); WBC 19.2 10x3/uL (4.8-10.8)
[2017-01-24 07:18] LABS: CALC OSMOLALITY 268 mosm/kg (275-300); CALCIUM 8.6 mg/dL (8.5-10.1); CARBON DIOXIDE 32.3 mmol/L (21.0-32.0); CHLORIDE - SERUM 95 mmol/L (98-107); GLUCOSE 108 mg/dL (74-106); POTASSIUM - SERUM 3.1 mmol/L (3.5-5.1); SODIUM 133 mmol/L (136-145); UREA NITROGEN 17 mg/dL (7-18); eGFR NON AFRICAN AMERICAN 75 mL/min (90-120)
[2017-01-24 08:50] VITALS: BP 152/62
[2017-01-24 09:49] VITALS: Ht 170.2 cm; Wt 65.8 kg
[2017-01-24 12:48] VITALS: BP 133/48
[2017-01-24 16:49] VITALS: BP 136/66
--- NOTE | 2017-01-24 20:15 | NUR ---
REC'D IN BED WITH EYES CLOSED EASILY TO AROUSED WHEN NAME IS CALLED. RESP EVEN AND UNLABORED WITH NO DISTRESS NOTED. ASSESSMENT COMPLETED. C/L IN REACH AT BEDSIDE.
[2017-01-24 20:59] VITALS: BP 136/57
[2017-01-25] VITALS: BP 134/63
--- NOTE | 2017-01-25 03:25 | NUR ---
PATIENT SLEEPING WITH FAMILY AT BEDSIDE. NO VISIBLE SIGNS OF DISTRESS. BED IN LOWEST POSITION AND CALL LIGHT WITHIN REACH.
[2017-01-25 04:00] VITALS: BP 142/61
[2017-01-25 06:09] LABS: BASOPHILS 0 % (0.0-2.0); EOSINOPHILS 0 % (0-7); HEMATOCRIT 27.2 % (42.0-54.0); HEMOGLOBIN 8.9 g/dL (13.5-17.5); IMMATURE GRANULOCYTES 0.3 % (0-5); LYMPHOCYTES 5.8 % (15-50); MCH 33.3 pg (26.0-34.0); MCHC 32.7 g/dL (31.0-37.0); MCV 101.9 fL (80.0-100.0); MEAN PLATELET VOLUME 10.9 fL (7.4-10.4); NEUTROPHILS 86.9 % (40-80); PLATELET COUNT 229 10x3/uL (130-400); RBC 2.67 10x6/uL (4.20-6.10); WBC 21.8 10x3/uL (4.8-10.8)
[2017-01-25 06:18] LABS: ANION GAP 6.9 mmol/L (8-16); CALCIUM 8.5 mg/dL (8.5-10.1); CARBON DIOXIDE 35.1 mmol/L (21.0-32.0); CREATININE - SERUM 1.2 mg/dL (0.6-1.3); MAGNESIUM - SERUM 1.6 mg/dL (1.8-2.4); PHOSPHOROUS 3.3 mg/dL (2.5-4.9)
[2017-01-25 07:48] VITALS: BP 126/74
--- NOTE | 2017-01-25 09:38 | HP ---
PATIENT: SHANDA THURMAN MEDICAL RECORD: [id number] ACCOUNT: [id number] LOCATION:D.[id number] : [birth year] ADMISSION DATE: 01/23/17 HISTORY AND PHYSICAL EXAMINATION REASON FOR ADMISSION: Cough, shortness of breath, and confusion. 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 He is a half-way resident, who has been hospitalized here for an extended period of time in November. His daughter states that he was treated for an outpatient pneumonia, right upper lobe pneumonia with Augmentin at the half-way this week. The chest x-ray yesterday showed him to be somewhat improved, but he was transferred to the Emergency Room this afternoon because of a drop in the sat to 85% on 2 liters. Nursing concerns the patient was jittery, coughing more, that was productive, and congested. PAST MEDICAL HISTORY: CAD post CABG, history of carotid artery disease. He has had multiple strokes, the last 1994, questionable history of seizure in November 2016, essential hypertension, hyperlipidemia, COPD, bronchiectasis, obstructive sleep apnea, tracheomalacia, history of renal artery stenosis, hypertension, testicular cancer, prostate cancer, macular degeneration causing blindness, chronic atrial fibrillation, anxiety, history of CHF, and left lower extremity postherpetic neuralgia. PAST SURGICAL HISTORY: CABG in 1996, left orchiectomy in 2002, TURP, prostatectomy in 1981. He had a right CEA in 1998, PTCA in 2008. Right femoral neck fracture and right hip ORIF. ALLERGIES: None known. SOCIAL HISTORY: He is 2 years ago. 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 He is a nonsmoker, nondrinker, but used to smoke in the past. FAMILY HISTORY: Both of his parents had diabetes. REVIEW OF SYSTEMS: GENERAL: He has been more fatigued and confused in the last 24 hours. He had fever to 103 reported today. HEENT: He has chronic blindness and deafness. Denied headache. RESPIRATORY: He has had increasing cough, congestion with yellow-green sputum for the last week and a half. CARDIAC: Denies chest pain. He has chronic AFib, no recent increasing palpitations or edema. GASTROINTESTINAL: No nausea, vomiting, change in stools or blood per rectum. GENITOURINARY: He has nocturia 2-3 times nightly with small voiding volumes. MUSCULOSKELETAL: Has arthralgias in the lumbar spine and knees. NEUROLOGIC: Has questionable history of seizures, on Keppra currently. Remote history of right posterior cerebral artery CVA. No recent seizures mentioned by the family. INTEGUMENT: No rash or itching. PSYCHIATRIC: Denies depressed mood. PHYSICAL EXAMINATION: GENERAL: An 86-year-old male who appears older than stated age. HISTORY AND PHYSICAL [id number] SHANDA THURMAN VITAL SIGNS: Blood pressure 120/59, temperature 99.7, respirations are 16, and heart rate is 54-60 and irregular. HEENT: Normocephalic. Eyes: Show pinpoint pupils and poor vision. Ears unremarkable. He has poor hearing. Oropharynx unremarkable, he is missing some teeth. NECK: No adenopathy or bruits. CHEST: He has ____ wheezes bilaterally without crackles. Chest shows healed sternotomy scar. HEART: Irregular rate and rhythm without murmur or rub. ABDOMEN: Soft and nontender. 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 EXTREMITIES: No CC and E. NEUROLOGIC: The patient is oriented to person, not to place and time. He can stand and walk with assistance. No localizing neurologic deficits were appreciated. MEDICATIONS: Claritin 10 mg a day, Atrovent updraft 0.5 mg q.4 hours, Xopenex 0.63 mg q.8 hours, Eliquis 2.5 mg p.o. b.i.d., Lipitor 40 mg at bedtime, Cardizem 60 mg p.o. t.i.d., losartan 25 mg daily, Nitrostat 0.4 sublingual p.r.n. chest pain, clonidine transderm TTS 1 patch to skin q. week, Tylenol 325 q.6 hours p.r.n., aspirin 325 mg a day, Effexor XR 150 daily, Keppra 500 mg p.o. b.i.d., calcium carbonate with vitamin D 600 mg p.o. b.i.d., Lasix 40 mg p.o. q.a.m., K-Dur 20 mEq p.o. daily, Pulmicort 0.5 updrafts q.12 hours, guaifenesin 400 mg 2 tabs daily, Flonase nasal spray 1 spray each nostril daily, Dulcolax 10 mg suppository p.r.n. constipation, Protonix 40 mg p.o. daily, MiraLax 17 grams p.o. daily, Senokot 8.6 mg p.o. b.i.d., and prednisone 5 mg p.o. daily. ASSESSMENT: 1. Hospital-acquired pneumonia, currently febrile. 2. Possible sepsis. 3. Chronic atrial fibrillation. 4. Hypertension. 5. History of bronchiectasis. 6. Chronic obstructive pulmonary with exacerbation. 7. History of prostate cancer with bacteriuria. 8. Anemia of chronic disease. 9. Hypoxemia. 10. Positive lactic acidosis. 11. History of congestive heart failure. PLAN: The patient received Rocephin in the ER. Due to his potential hospital-acquired pneumonia, we will place him on vancomycin and broad-spectrum antibiotics. Pulmonary consult as indicated. I discussed his clinical course with his daughter in healthcare associating. TRANSINT:[id number] Voice Confirmation ID: [id number] DOCUMENT ID: [id number] HISTORY AND PHYSICAL [id number] SHANDA THURMAN TIMOTHY MD at 0938 CC: [id number] DICTATION DATE: 01/23/171739 PLASTIC PRESS OPERATOR: 01/23/172019 [facility] [address] [place] [address]
--- NOTE | 2017-01-25 11:40 | NUR ---
AWAKE AND ALERT AT THIS TIME. OXYGEN ON 4L VIA NC. YEE CATHETER PATENT AND DRAINING TO GRAVITY. RESPIRATIONS EVEN AND NON LABORED. CALL LIGHT IN REACH WILL CONTINUE WITH PLAN OF CARE.
[2017-01-25 12:22] VITALS: BP 138/65
[2017-01-25 15:42] VITALS: BP 121/55
[2017-01-25 19:01] LABS: MAGNESIUM - SERUM 1.8 mg/dL (1.8-2.4); POTASSIUM - SERUM 3.4 mmol/L (3.5-5.1)
--- NOTE | 2017-01-25 19:53 | NUR ---
REC'D IN BED AWAKE AND ALERT WITH NOTED CONFUSION. RESP EVEN AND UNLABORED WITH NO DISTRESS NOTED. CAN EXPRESS NEEDS AND WANTS. NO C/O NOTED OR VOICED AT THIS TIME. ASSESSMENT COMPLETED. C/L IN REACHAT BESIDE.
[2017-01-25 21:00] VITALS: BP 106/60
[2017-01-26 04:00] VITALS: BP 141/66
--- NOTE | 2017-01-26 04:30 | NUR ---
EYES CLOSED RESPIRATIONS WITH EASE AND UNLABORED. SR UP X2 CALL LIGHT WITHIN REACH.
[2017-01-26 05:11] LABS: BASOPHILS 0.2 % (0.0-2.0); EOSINOPHILS 0.6 % (0-7); HEMATOCRIT 23.6 % (42.0-54.0); HEMOGLOBIN 7.7 g/dL (13.5-17.5); IMMATURE GRANULOCYTES 0.4 % (0-5); LYMPHOCYTES 9.4 % (15-50); MCHC 32.6 g/dL (31.0-37.0); MCV 101.3 fL (80.0-100.0); MEAN PLATELET VOLUME 11.1 fL (7.4-10.4); MONOCYTES 10.7 % (2-11); NEUTROPHILS 78.7 % (40-80); PLATELET COUNT 222 10x3/uL (130-400); RBC 2.33 10x6/uL (4.20-6.10); RDW 14.7 % (11.5-14.5)
[2017-01-26 05:27] LABS: ANION GAP 7.3 mmol/L (8-16); CALCIUM 8.2 mg/dL (8.5-10.1); CARBON DIOXIDE 34.9 mmol/L (21.0-32.0); CREATININE - SERUM 1.1 mg/dL (0.6-1.3); POTASSIUM - SERUM 3.2 mmol/L (3.5-5.1)
--- NOTE | 2017-01-26 07:30 | NUR ---
PATIENT IS RESTING QUIETLY WITH EYES CLOSED. HE DID NOT AWAKEN TO MY ENTRY OR TO MY CONVERSATION WITH HIS DAUGHTER. HIS RESPIRATIONS ARE EVEN AND UNLABORED. FACE I RELAXED. DAUGHTER DENIES NEEDS. INSTRUCTED HER TO CALL FOR ANY NEEDS/ QUESTIONS.
[2017-01-26 08:38] LABS: % SATURATION 21 % (15-55); IRON 27 ug/dl (35-150); TOTAL IRON BIND CAPACITY 123 ug/dl (260-445); UNSAT IRON BIND CAPACITY 96 ug/dl (150-375)
[2017-01-26 08:40] VITALS: BP 141/65
[2017-01-26 09:02] LABS: FERRITIN 372 ng/mL (3-244); LDH 219 U/L (85-227)
--- NOTE | 2017-01-26 10:30 | NUR ---
PATIENT TOOK MEDICATIONS 1-2 AT A TIME. HE IS PLEASANT, VERY CONFEDERATED SALISH AND BLIND. HE IS ABLE TO SEE SHADOWS THOUGH. HE HAS A VERY LOOSE COUGH THAT IS CURRENTLY UNPRODUCTIVE. ENCOURAGED STRONG COUGHS. KLEENEX AND CUP PROVIDED TO EXPACTORATE IN. SCD'S ARE ON AND PUMPING. DAUGHTER REMAINS AT THE BEDSIDE, PARTICIPATES IN CARE. SHE IS AWARE THAT HE WILL RECEIVE A UNIT OF PRBC THIS MORNING.
[2017-01-26 12:23] VITALS: BP 120/63
[2017-01-26 16:38] VITALS: BP 129/65
--- NOTE | 2017-01-26 18:28 | NUR ---
PRBC INFUSION CONTINUES WITHOUT EVIDENCE OF ADVERSE REACTIONS.
--- NOTE | 2017-01-26 18:41 | NUR ---
PATIENT'S PRBC ALMOST COMPLETE. DAUGHTER REMAINS AT THE BEDSIDE.
--- NOTE | 2017-01-27 03:30 | NUR ---
PATIENT IS LYING IN BED RESTING. WILL WAKE UP AT PERIODS. IS VERY CONFUSED. DAUGHTER IS IN ROOM. WIGGLES AROUND IN BED AND HIS IV IN HIS LEFT AC KEEPS GETTING OCCULDED. TRY TO MAKE SURE HE IS COMFORTABLE POSSIBLE. INSTRUCTED TO CALL IF NEEDED ANYTHING. BED LOW, LOCKED, CALL LIGHT IN REACH.
[2017-01-27 04:00] VITALS: BP 129/59
[2017-01-27 05:37] LABS: BASOPHILS 0.2 % (0.0-2.0); EOSINOPHILS 0.7 % (0-7); IMMATURE GRANULOCYTES 0.5 % (0-5); LYMPHOCYTES 12.2 % (15-50); MCHC 33.6 g/dL (31.0-37.0); MEAN PLATELET VOLUME 11.1 fL (7.4-10.4); MONOCYTES 12.3 % (2-11); NEUTROPHILS 74.1 % (40-80); PLATELET COUNT 241 10x3/uL (130-400); RDW 16.1 % (11.5-14.5); WBC 9.4 10x3/uL (4.8-10.8)
[2017-01-27 05:42] LABS: HEMATOCRIT 28.9 % (42.0-54.0); HEMOGLOBIN 9.7 g/dL (13.5-17.5); MCV 98.3 fL (80.0-100.0); RBC 2.94 10x6/uL (4.20-6.10)
--- NOTE | 2017-01-27 06:14 | NUR ---
PATIENT IS NOW SLEEPING SOUNDLY. TRIED TO WAKE HIM UP FOR HIS MORNING MEDS AND HE REFUSED THEM. DAUGHTER IS STILL IN ROOM WITH HIM INSTRUCTED TO CALL IF NEEDED ANYTHING. BED LOW, LOCKED, CALL LIGHT IN REACH, BED ALARM ON.
--- NOTE | 2017-01-27 07:15 | NUR ---
PATIENT RESTING QUIETLY WITH EYES CLOSED. NO SIGNS OF DISTRESS NOTED. DAUGHTER AT BEDSIDE. BED ALARM ON.
[2017-01-27 08:13] VITALS: BP 139/70
[2017-01-27 09:19] LABS: FOLATE (FOLIC ACID) - SERUM 19.4 ng/mL (>3.0)
[2017-01-27 12:16] LABS: IMMUNOGLOBULIN A 200 mg/dL (61-437); IMMUNOGLOBULIN G 1144 mg/dL (700-1600)
[2017-01-27 12:23] VITALS: BP 136/63
--- NOTE | 2017-01-27 13:00 | NUR ---
NUTRITION MONITORING & EVAL [facility] SOFT DIET. 75% INTAKE RECENT MEALS. WILL CONTINUE TO PROVIDE DIET, MONITOR PO INTAKE. RD FOLLOWING
[2017-01-27 15:28] VITALS: BP 141/75
--- NOTE | 2017-01-27 18:30 | NUR ---
YEE CARE COMPLETED AT THIS TIME.
[2017-01-27 19:00] VITALS: BP 137/74
[2017-01-28 04:00] VITALS: BP 117/62
[2017-01-28 06:36] LABS: BASOPHILS 0.1 % (0.0-2.0); EOSINOPHILS 0.4 % (0-7); HEMATOCRIT 30.9 % (42.0-54.0); HEMOGLOBIN 10.6 g/dL (13.5-17.5); IMMATURE GRANULOCYTES 0.4 % (0-5); LYMPHOCYTES 6.4 % (15-50); MCH 34.2 pg (26.0-34.0); MCHC 34.3 g/dL (31.0-37.0); MCV 99.7 fL (80.0-100.0); MONOCYTES 7.4 % (2-11); NEUTROPHILS 85.3 % (40-80); RDW 15.5 % (11.5-14.5)
[2017-01-28 06:40] LABS: PLATELET COUNT 293 10x3/uL (130-400); WBC 19.6 10x3/uL (4.8-10.8)
[2017-01-28 06:51] LABS: ANION GAP 7.4 mmol/L (8-16); CALCIUM 9.5 mg/dL (8.5-10.1); CARBON DIOXIDE 36.2 mmol/L (21.0-32.0); CREATININE - SERUM 1.2 mg/dL (0.6-1.3); POTASSIUM - SERUM 3.6 mmol/L (3.5-5.1)
[2017-01-28 08:13] VITALS: BP 110/89
--- NOTE | 2017-01-28 10:47 | NUR ---
PATIENT IS SLEEPING, PATIENT AROUSED TO VOCAL STIMULI. VERY DROWSY. HAS BEEN SLEEPING ALL MORNING EXCEPT WHEN WOKE UP, WHICH HE GOES RIGHT BACK TO SLEEP. UNABLE TO GIVE PATIENT PO MEDS AT THIS TIME BECAUSE PATIENT IS NOT ALERT ENOUGH. BED ALARM IS ON.
[2017-01-28 12:10] VITALS: BP 133/60
--- NOTE | 2017-01-28 12:12 | NUR ---
CALLED 'S OFFICE. SPOKE WITH HIS NURSE. GAVE HER THE ABG LAB VALUES. ALSO ASKED HER TO ASK HIM ABOUT D/C THE YEE CATHETER. SHE SAID SHE WILL GIVE THE INFORMATION TO HIM.
[2017-01-28 14:27] LABS: BASOPHILS 0.1 % (0.0-2.0); EOSINOPHILS 0 % (0-7); HEMATOCRIT 29.8 % (42.0-54.0); HEMOGLOBIN 9.7 g/dL (13.5-17.5); IMMATURE GRANULOCYTES 0.6 % (0-5); LYMPHOCYTES 5.5 % (15-50); MCH 33.1 pg (26.0-34.0); MCHC 32.6 g/dL (31.0-37.0); MCV 101.7 fL (80.0-100.0); MEAN PLATELET VOLUME 10.9 fL (7.4-10.4); MONOCYTES 7.1 % (2-11); NEUTROPHILS 86.7 % (40-80); PLATELET COUNT 285 10x3/uL (130-400); RBC 2.93 10x6/uL (4.20-6.10); RDW 15.6 % (11.5-14.5)
[2017-01-28 14:48] LABS: ALBUMIN 1.9 g/dL (3.4-5.0); BILIRUBIN - DIRECT 0.2 mg/dL (0.00-0.30); BILIRUBIN - INDIRECT 0.4 mg/dL (0.00-1.00); BILIRUBIN - TOTAL 0.6 mg/dL (0.2-1.3); PROTEIN - SERUM 5.7 g/dL (6.4-8.2)
--- NOTE | 2017-01-28 16:00 | NUR ---
TEMP 102.5
[2017-01-28 16:36] VITALS: BP 161/87
--- NOTE | 2017-01-28 18:22 | NUR ---
PATIENT IS EXPRESSING PAIN, MOANING. HE IS STILL VERY DROWSY. BUT WAKING UP EASIER. THE SITTER STATED "I KNOW YOU DO NOT WANT TO GIVE HIM PAIN MEDICATION BECAUSE HE IS SO SLEEPY, BUT I DO NOT WANT HIM IN PAIN AND KEEPS WAKING UP AND MOANING." I STATED "OKAY YEAH I UNDERSTAND. I WILL GIVE HIM SOMETHING FOR PAIN." THE ONLY PAIN MEDICATION, OTHER THEN TYLENOL IS NORCO-10. PAGED .
--- NOTE | 2017-01-28 18:36 | NUR ---
WALKED INTO THE ROOM. PATIENT HAS HIS EYES OPEN. SAID HELLO TO HIM AND HE STATED "HEAldo CHEN!"
[2017-01-28 19:00] VITALS: BP 135/65
[2017-01-29] VITALS: BP 124/69
[2017-01-29 04:00] VITALS: BP 170/86
[2017-01-29 06:30] LABS: HEMATOCRIT 30.4 % (42.0-54.0); HEMOGLOBIN 10.3 g/dL (13.5-17.5); MCH 33.9 pg (26.0-34.0); MCHC 33.9 g/dL (31.0-37.0); MEAN PLATELET VOLUME 11.2 fL (7.4-10.4); PLATELET COUNT 297 10x3/uL (130-400); RBC 3.04 10x6/uL (4.20-6.10); RDW 15.4 % (11.5-14.5); WBC 30.8 10x3/uL (4.8-10.8)
[2017-01-29 06:35] LABS: ANION GAP 6.9 mmol/L (8-16); CALCIUM 9.1 mg/dL (8.5-10.1); CARBON DIOXIDE 34.1 mmol/L (21.0-32.0); CREATININE - SERUM 1.1 mg/dL (0.6-1.3)
[2017-01-29 07:42] LABS: LYMPHOCYTES 7 % (15-50); MONOCYTES 1 % (2-11); NEUTROPHILS 90 % (40-80)
[2017-01-29 07:43] LABS: PLATELET ESTIMATE NORMAL
[2017-01-29 07:44] LABS: POLYCHROMASIA OCC
[2017-01-29 07:46] LABS: TEAR DROP CELLS OCC
[2017-01-29 07:48] LABS: SPHEROCYTES 1+
--- NOTE | 2017-01-29 07:55 | NUR ---
PATIENT ALERT IN HIGH GONZALES POSITION WITH FAMILY AT BEDSIDE. RESPIRATIONS EVEN AND UNLABORED. SIDE RAILS UP X2. BED IN LOW POSITION. CALL LIGHT IN REACH.
--- NOTE | 2017-01-29 08:07 | NUR ---
RECIEVED ON WALKING ROUNDS RESTING QUIETLY IN BED NO ACUTE DISTRESS NTOED CAREGIVER AT BEDSIDE. RECIEVING UPDRAFT FROM RESPIRATORY AT THIS TIME. LUNDS NOTED TO HAVE DIMINSHED BASES WITH SPARSE INSIRATORY WHEEZES NOTED TO UPPER LOBES BILATERALLY. BSA X 4 QUADS BUT VERY HYPOACTIVE. YEE PATENT TO CLEAR YELOW URINE TO GRAVITY FLOW. CALL IGHT INREACH SIDE RAILS UP X 2 BED ALARM ON AND ACTIVE SCDS NOTED TO BILATERAL LEGS.
[2017-01-29 08:47] VITALS: BP 170/81
--- NOTE | 2017-01-29 10:30 | NUR ---
PT TO GO FOR CT OF ABD AND PELVIS NPO
[2017-01-29 13:06] VITALS: BP 165/70
--- NOTE | 2017-01-29 15:00 | NUR ---
PT BACK FROM CT SCAN VERBAL REPORT WAS CONSTIPATION, WILL TREAT.
[2017-01-29 16:23] VITALS: BP 154/71
[2017-01-29 17:13] LABS: APPEARANCE CLEAR (CLEAR); BILIRUBIN NEGATIVE (NEGATIVE); COLOR DK YELLOW (YELLOW); GLUCOSE NEGATIVE (NEGATIVE); KETONE NEGATIVE (NEGATIVE); LEUKOCYTE ESTERASE NEGATIVE (NEGATIVE); NITRITE NEGATIVE (NEGATIVE); PROTEIN 1+ mg/dL (NEGATIVE); SPECIFIC GRAVITY 1.015 (1.005-1.020); UROBILINOGEN NORMAL (NORMAL)
[2017-01-29 17:16] LABS: BACTERIA FEW /hpf (NONE SEEN); GRANULAR CAST 0-5 /lpf (NONE SEEN); WHITE CELLS - URINE 0-5 /hpf (0-5)
[2017-01-29 18:46] LABS: CKMB 0.3 U/L (0.0-3.6); CREATINE KINASE 7 UL (21-232); TROPONIN-I 0.016 ng/mL (0.000-0.060)
--- NOTE | 2017-01-29 19:00 | NUR ---
NEW ORDER PER DR EL FOR SS ENEMA AND MAGNESIUM CITRATE.
[2017-01-29 20:00] VITALS: BP 130/62
--- NOTE | 2017-01-29 20:00 | NUR ---
PATIENT RESTING WITH EYES CLOSED. AROUSES TO VOICE. DENIES PAIN. RR EVEN AND UNLABORED. O2 @ 5L VIA NC. 0 S/S OF DISTRESS. IV TO LEFT FA PATENT WITH NO REDNESS OR SWELLING. YEE SECURED WITH STATLOCK AND DRAINING TO GRAVITY. TELEMETRY ON. B/A ON. SITTER AT BEDSIDE. SRX2. BED LOW. CALL LIGHT WITHIN REACH.
--- NOTE | 2017-01-29 21:00 | NUR ---
ASSESSMENT COMPLETE. NIGHTTIME MEDS GIVEN. SITTER ASSISTING PATIENT TO DRINK MAG CITRATE.
[2017-01-29 23:19] LABS: CREATINE KINASE 12 UL (21-232); TROPONIN-I 0.043 ng/mL (0.000-0.060)
[2017-01-30] VITALS (8 sets, daily range): BP systolic 123–164; BP diastolic 66–90
--- NOTE | 2017-01-30 00:05 | NUR ---
PATIENT VERY FIDGETY AND PULLING AT LINES. XANAX GIVEN PER ORDER.
--- NOTE | 2017-01-30 02:30 | NUR ---
INITIATED SOAP SUDS ENEMA PER ORDER. USED 3/4 OF THE BAG. PATIENT HAD VERY LARGE BM. SAMPLE OBTAINED.
[2017-01-30 05:14] LABS: BASOPHILS 0.1 % (0.0-2.0); EOSINOPHILS 0 % (0-7); HEMATOCRIT 29.5 % (42.0-54.0); HEMOGLOBIN 9.8 g/dL (13.5-17.5); IMMATURE GRANULOCYTES 0.7 % (0-5); LYMPHOCYTES 4.9 % (15-50); MCH 33.1 pg (26.0-34.0); MCHC 33.2 g/dL (31.0-37.0); MCV 99.7 fL (80.0-100.0); MEAN PLATELET VOLUME 11.7 fL (7.4-10.4); MONOCYTES 4.7 % (2-11); NEUTROPHILS 89.6 % (40-80); PLATELET COUNT 286 10x3/uL (130-400); RBC 2.96 10x6/uL (4.20-6.10); RDW 15.3 % (11.5-14.5); WBC 30.8 10x3/uL (4.8-10.8)
[2017-01-30 05:59] LABS: ALBUMIN 1.8 g/dL (3.4-5.0); ALKALINE PHOSPHATASE 579 U/L (46-116); BILIRUBIN - INDIRECT 0.49 mg/dL (0.00-1.00); BILIRUBIN - TOTAL 1.29 mg/dL (0.2-1.3); CALCIUM 9.4 mg/dL (8.5-10.1); CARBON DIOXIDE 32.2 mmol/L (21.0-32.0); CHLORIDE - SERUM 95 mmol/L (98-107); CKMB 0.5 U/L (0.0-3.6); CREATINE KINASE 36 UL (21-232); PROTEIN - SERUM 6.9 g/dL (6.4-8.2); SODIUM 132 mmol/L (136-145); UREA NITROGEN 24 mg/dL (7-18); eGFR NON AFRICAN AMERICAN 75 mL/min (90-120)
--- NOTE | 2017-01-30 07:00 | NUR ---
REPORT RECIEVED ASSUMED CARE. PATIENT IN BED WITH IV INTACT. NO COMPLAINTS AT THIS TIME. CALL LIGHT WITHIN REACH.
[2017-01-30 07:05] LABS: ALT (SGPT) 496 U/L (10-68); CALC OSMOLALITY 268 mosm/kg (275-300); GLUCOSE 106 mg/dL (74-106)
[2017-01-30 11:23] LABS: INR 1.29 (0.85-1.17)
--- NOTE | 2017-01-30 13:58 | NUR ---
Nutrition Follow Up: Pt was asleep at the time of RD visit. Chart reviewed. Pt is eating 42% meal avg on a regular mech soft with thin liquids. +BM 01/30/17. Labs noted - Na low. Meds noted including Lasix, D5 1/2 NS KCl @ 75 ml/hr. Pt with poor po intake at this time. Rec continue current diet. Will send Ensure with meals. RD following.
--- NOTE | 2017-01-30 16:15 | NUR ---
PATIENT BACK TO ROOM AT THSI TIME. VS STABLE BILI DRAIN INTACT. NO COMPLAINTS OR SIGNS OF DISTRESS. SITTER AT BEDSIDE. CALL LIGHTW ITHIN REACH.
--- NOTE | 2017-01-30 16:30 | NUR ---
PATIENT IV LEAKING. REMOVED WITH CATH TIP INTACT. NEW IV STARTED IN RIGHT HAND X 1 STICK. 22 G. TOLERATED WITH SMALL AMOUNT OF PAIN. CALL LIGHT WITHIN REACH.
--- NOTE | 2017-01-30 18:45 | NUR ---
PATIENT IN BED WITH IV INTACT. NO COMPLAINTS. VS STABLE. SITTER AT BEDSIDE, CALL LIGHTW ITHIN REACH.
--- NOTE | 2017-01-30 20:48 | NUR ---
PATIENT RESTING IN BED WITH EYES CLOSED. NO SIGNS OF DISTRESS NOTED. RESPIRATIONS EVEN AND UNLABORED. AROUSES TO VOICE. CAREGIVER AT BEDSIDE. SCHEDULED MEDS GIVEN AND ASSESSMENT COMPLETED. DENIES ANY NEEDS AT THIS TIME. BED LOW. CALL LIGHT IN REACH
[2017-01-31] VITALS: BP 150/70
--- NOTE | 2017-01-31 02:25 | NUR ---
RESTING WITH EYES CLOSED, NO DISTRESS NOTED, FALL PRECAUTIONS IN PLACE, CL IN REACH
[2017-01-31 04:00] VITALS: BP 163/78
--- NOTE | 2017-01-31 07:00 | NUR ---
REPORT RECIEVED ASSUMED CARE. PATIENT IN BED WITH IV INTACT. NO COMPLAINTS AT THIS TIME. SITTER AT BEDSIDE. BA ON. CALL LIGHT WITHIN REACH.
[2017-01-31 07:27] LABS: BASOPHILS 0.1 % (0.0-2.0); EOSINOPHILS 0.8 % (0-7); HEMATOCRIT 29.6 % (42.0-54.0); HEMOGLOBIN 9.7 g/dL (13.5-17.5); IMMATURE GRANULOCYTES 0.7 % (0-5); LYMPHOCYTES 10.8 % (15-50); MCH 32.6 pg (26.0-34.0); MCHC 32.8 g/dL (31.0-37.0); MCV 99.3 fL (80.0-100.0); MEAN PLATELET VOLUME 11.2 fL (7.4-10.4); MONOCYTES 5.6 % (2-11); PLATELET COUNT 340 10x3/uL (130-400); RBC 2.98 10x6/uL (4.20-6.10); RDW 15.1 % (11.5-14.5)
[2017-01-31 07:30] LABS: WBC 12.4 10x3/uL (4.8-10.8)
[2017-01-31 07:53] LABS: ALBUMIN 1.7 g/dL (3.4-5.0); ALKALINE PHOSPHATASE 847 U/L (46-116); CALC OSMOLALITY 265 mosm/kg (275-300); CALCIUM 8.7 mg/dL (8.5-10.1); CARBON DIOXIDE 35.2 mmol/L (21.0-32.0); CHLORIDE - SERUM 96 mmol/L (98-107); CREATININE - SERUM 0.9 mg/dL (0.6-1.3); GLUCOSE 86 mg/dL (74-106); POTASSIUM - SERUM 3.5 mmol/L (3.5-5.1); PROTEIN - SERUM 6.6 g/dL (6.4-8.2); SODIUM 132 mmol/L (136-145); UREA NITROGEN 19 mg/dL (7-18); eGFR NON AFRICAN AMERICAN 85 mL/min (90-120)
[2017-01-31 08:18] LABS: ALT (SGPT) 657 U/L (10-68)
[2017-01-31 09:32] VITALS: BP 164/63
[2017-01-31 13:46] VITALS: BP 135/69
--- NOTE | 2017-01-31 18:45 | NUR ---
PATIENT IN BED WITH IV INTACT. NO COMPLAINTS. DRAINS INTACT. YEE INTACT. BSCDS ON AND WORKING. SITTER AT BEDSIDE. BA ON. CALL LIGHT WITHIN REACH.
[2017-01-31 19:18] VITALS: BP 129/56
[2017-01-31 20:00] VITALS: BP 138/86
--- NOTE | 2017-01-31 23:40 | NUR ---
PT LAYING IN BED NO DISTRESS OBSERVED CALL LIGHT IN REACH SRX2 BED LOW AND LOCKED RESPERATIONS EVEN AND UNLABORED SITTER IN ROOM AT BED SIDE WILL MONITOR
[2017-02-01] VITALS: BP 155/88
[2017-02-01 04:00] VITALS: BP 139/79
[2017-02-01 06:58] LABS: BASOPHILS 0.2 % (0.0-2.0); EOSINOPHILS 0.6 % (0-7); HEMATOCRIT 31.3 % (42.0-54.0); HEMOGLOBIN 10.1 g/dL (13.5-17.5); IMMATURE GRANULOCYTES 1.3 % (0-5); LYMPHOCYTES 10.2 % (15-50); MCH 32.3 pg (26.0-34.0); MCHC 32.3 g/dL (31.0-37.0); MEAN PLATELET VOLUME 11.2 fL (7.4-10.4); MONOCYTES 7.1 % (2-11); NEUTROPHILS 80.6 % (40-80); PLATELET COUNT 404 10x3/uL (130-400); RBC 3.13 10x6/uL (4.20-6.10); RDW 15.1 % (11.5-14.5); WBC 12.5 10x3/uL (4.8-10.8)
[2017-02-01 07:26] LABS: ALBUMIN 1.9 g/dL (3.4-5.0); ALKALINE PHOSPHATASE 734 U/L (46-116); BILIRUBIN - DIRECT 0.18 mg/dL (0.00-0.30); BILIRUBIN - INDIRECT 0.51 mg/dL (0.00-1.00); BILIRUBIN - TOTAL 0.69 mg/dL (0.2-1.3); CALC OSMOLALITY 272 mosm/kg (275-300); CALCIUM 9.2 mg/dL (8.5-10.1); CARBON DIOXIDE 36.4 mmol/L (21.0-32.0); CHLORIDE - SERUM 96 mmol/L (98-107); CREATININE - SERUM 0.9 mg/dL (0.6-1.3); GLUCOSE 98 mg/dL (74-106); POTASSIUM - SERUM 3.7 mmol/L (3.5-5.1); PROTEIN - SERUM 7.1 g/dL (6.4-8.2); SODIUM 135 mmol/L (136-145); UREA NITROGEN 20 mg/dL (7-18); eGFR NON AFRICAN AMERICAN 85 mL/min (90-120)
[2017-02-01 07:27] LABS: ALT (SGPT) 436 U/L (10-68)
[2017-02-01 09:00] VITALS: BP 135/76
--- NOTE | 2017-02-01 11:00 | NUR ---
SITTING UP IN CHAIR AT PRESENT.
--- NOTE | 2017-02-01 13:00 | NUR ---
INCONT OF STOOL PULLING AT TUBES AT PRESENT.
--- NOTE | 2017-02-01 15:00 | NUR ---
REPOSITIONED FOR COMFORT SITTER AT BEDSIDE.
[2017-02-01 16:34] VITALS: BP 158/74
--- NOTE | 2017-02-01 16:55 | NUR ---
SLEEPING QUIETLY AT PRESENT N/C AT PRESENT.
--- NOTE | 2017-02-01 19:25 | NUR ---
RECIEVED SHIFT REPORT. PT IS LYING IN BED. PT IS CONFUSED AT THIS TIME. IV IS PATENT AND FLUIDS ARE RUNNING PER ORDER. O2 @ 2 PER NASAL CANNULA. SCD'S ON. YEE IS DRAINING URINE BY GRAVITY. PT IS AMBULATORY WITH ASSISTANCE. PT DENIES ANY PAIN AT THIS TIME. NO NEEDS ARE VERBALIZED AT THIS TIME. WILL CONTINUE TO MONITOR. SITTER IS AT BEDSIDE. SIDE RAILS ARE UP X 2. BED IS IN LOWEST POSITION. BED ALARM IS ON FOR SAFETY. CALL LIGHT IS WITHIN REACH.
--- NOTE | 2017-02-01 21:27 | NUR ---
SHIFT ASSESSMENT COMPLETED. NIGHT MEDS GIVEN WITH NO PROBLEMS. NO NEEDS ARE VOICED. SITTER AT BEDSIDE. WILL MONITOR. SIDE RAILS X 2. BED LOW. BED ALARM ON. CALL LIGHT IN REACH.
[2017-02-01 23:13] VITALS: BP 153/60
[2017-02-02] VITALS (12 sets, daily range): BP systolic 142–170; BP diastolic 60–84
[2017-02-02 05:34] LABS: BASOPHILS 0.2 % (0.0-2.0); HEMATOCRIT 28.3 % (42.0-54.0); HEMOGLOBIN 9.2 g/dL (13.5-17.5); IMMATURE GRANULOCYTES 2.3 % (0-5); MCH 32.2 pg (26.0-34.0); MCHC 32.5 g/dL (31.0-37.0); MEAN PLATELET VOLUME 11.3 fL (7.4-10.4); MONOCYTES 8.1 % (2-11); NEUTROPHILS 76.4 % (40-80); PLATELET COUNT 416 10x3/uL (130-400); RBC 2.86 10x6/uL (4.20-6.10); RDW 14.8 % (11.5-14.5); WBC 13.2 10x3/uL (4.8-10.8)
[2017-02-02 05:55] LABS: ALBUMIN 1.8 g/dL (3.4-5.0); ALKALINE PHOSPHATASE 614 U/L (46-116); BILIRUBIN - TOTAL 0.74 mg/dL (0.2-1.3); CALC OSMOLALITY 267 mosm/kg (275-300); CALCIUM 8.7 mg/dL (8.5-10.1); CARBON DIOXIDE 31.9 mmol/L (21.0-32.0); CHLORIDE - SERUM 96 mmol/L (98-107); GLUCOSE 88 mg/dL (74-106); POTASSIUM - SERUM 4.3 mmol/L (3.5-5.1); PROTEIN - SERUM 6.1 g/dL (6.4-8.2); SODIUM 133 mmol/L (136-145); UREA NITROGEN 20 mg/dL (7-18); eGFR NON AFRICAN AMERICAN 75 mL/min (90-120)
[2017-02-02 05:56] LABS: ALT (SGPT) 315 U/L (10-68)
--- NOTE | 2017-02-02 07:30 | NUR ---
REPORT RECEIVED FROM AUTO REPAIR SHOP MANAGER NURSE. CALL LIGHT IN REACH.
--- NOTE | 2017-02-02 09:17 | NUR ---
CONSENT FORMS FOR SURGERY SIGNED PER DAUGHTER AND WITNESSED.
--- NOTE | 2017-02-02 10:48 | NUR ---
ASSESSMENT COMPLETED. KEPPRA AND HEART MEDS ADMINISTERED. SCDs TO BLE. BED ALARM ON. VISITOR IN ROOM. CALL LIGHT IN REACH. WILL CONTINUE WITH PLAN OF CARE.
--- NOTE | 2017-02-02 11:42 | NUR ---
AWAKE AND ALERT. ORIENTED TO SELF ONLY. LUNGS HAVE CRACKLES AND WHEEZES, NO COUGH NOTED. SKIN IS INTACT WITHOUT REDNESS. GIVEN PREOP MEDS. OFF FLOOR VIA BED TO SURGERY.
--- NOTE | 2017-02-02 12:56 | NUR ---
PT HAD DRAIN PLACED IN GALLBLADDER IN RADIOLOGY 01/29/17.
--- NOTE | 2017-02-02 13:05 | NUR ---
STILL IN OR AT THIS TIME.
--- NOTE | 2017-02-02 14:05 | NUR ---
ANESTHESIA ADVISED THE PATIENT WAS CONFUSED PROIR TO PROCEEDURE. THE PATIENT IS NOW AROUSABLE BUT FALLS BACK TO SLEEP
--- NOTE | 2017-02-02 14:35 | NUR ---
RECEIVED BACK TO ROOM FROM RECOVERY ROOM. OXYMIZER @ 12L. CALL LIGHT IN REACH.
--- NOTE | 2017-02-02 14:57 | NUR ---
MEDS ADMINISTERED PER ORDERS. WILL GIVE BLOOD AFTER IV ABX COMPLETED.
--- NOTE | 2017-02-02 16:38 | NUR ---
PRBC UNIT 1 INITIATED @ 125 CC/HR VIA PUMP. VSS. CALL LIGHT IN REACH.
--- NOTE | 2017-02-02 16:40 | NUR ---
OXYMIZER DECREASED TO 11 LITERS. O2 SAT 96%. WILL CONTINUE TO MONITOR.
--- NOTE | 2017-02-02 17:53 | NUR ---
IV TO RIGHT HAND LEAKING. DC'D WITH TIP INTACT. RESITED TO LEFT ARM WITH 22 GA X1 STICK.
--- NOTE | 2017-02-02 18:50 | NUR ---
NO CHANGES IN INITIAL ASSESSMENT. SCDs TO BLE. BED ALARM ON. SITTER AT BEDSIDE. CALL LIGHT IN REACH. WILL CONTINUE WITH PLAN OF CARE.
--- NOTE | 2017-02-02 19:52 | NUR ---
UNIT OF BLOOD COMPLETED. VSS. DAUGHTERS IN ROOM. CALL LIGHT IN REACH.
[2017-02-03] VITALS: BP 184/87
[2017-02-03 04:00] VITALS: BP 158/86
--- NOTE | 2017-02-03 06:35 | NUR ---
PATIENT IS RESTING IN BED. PATIENT IS RESTLESS. WAS PULLING ON CATHETER EARLIER AND STRIPPING OUT OF CLOTHES WHILE ASLEEP, HELPED STRAIGHTEN HIM UP. DAUGHTERS ARE IN THE ROOM. PATIENT REFUSED SOME PO MEDS SPIT THEM BACK OUT AT ME. DAUGHTER IS WANTING TO SEE IF WE CAN GET PILLS CRUSHED INTO APPLESAUCE. TOLD HER I WOULD TELL THE ONCOMING NURSE. BED LOW, LOCKED, BED ALARM ON, CALL LIGHT IN REACH.
[2017-02-03 07:04] LABS: ALBUMIN 1.9 g/dL (3.4-5.0); ALKALINE PHOSPHATASE 550 U/L (46-116); ALT (SGPT) 241 U/L (10-68); CALC OSMOLALITY 264 mosm/kg (275-300); CALCIUM 8.3 mg/dL (8.5-10.1); CARBON DIOXIDE 25.6 mmol/L (21.0-32.0); CHLORIDE - SERUM 93 mmol/L (98-107); GLUCOSE 110 mg/dL (74-106); MAGNESIUM - SERUM 1.8 mg/dL (1.8-2.4); PHOSPHOROUS 4.5 mg/dL (2.5-4.9); POTASSIUM - SERUM 4.2 mmol/L (3.5-5.1); PROTEIN - SERUM 6.4 g/dL (6.4-8.2); SODIUM 130 mmol/L (136-145); UREA NITROGEN 21 mg/dL (7-18); eGFR NON AFRICAN AMERICAN 75 mL/min (90-120)
[2017-02-03 07:56] LABS: HEMATOCRIT 35.5 % (42.0-54.0); HEMOGLOBIN 11.8 g/dL (13.5-17.5); MCHC 33.2 g/dL (31.0-37.0); MCV 96.2 fL (80.0-100.0); MEAN PLATELET VOLUME 10.9 fL (7.4-10.4); PLATELET COUNT 487 10x3/uL (130-400); RBC 3.69 10x6/uL (4.20-6.10); RDW 16.7 % (11.5-14.5); WBC 38.7 10x3/uL (4.8-10.8)
[2017-02-03 08:10] LABS: ANISOCYTOSIS OCC; ELLIPTOCYTES 1+; LYMPHOCYTES 6 % (15-50); MONOCYTES 2 % (2-11); NEUTROPHILS 90 % (40-80); SPHEROCYTES OCC
[2017-02-03 08:11] LABS: PLATELET ESTIMATE INCREASED; TEAR DROP CELLS OCC
[2017-02-03 08:20] VITALS: BP 131/83
--- NOTE | 2017-02-03 10:20 | NUR ---
SCHEDULED MEDICATIONS ADMINSITERED CRUSHED IN APPLESAUCE AT THIS TIME WELL PRN NORCO FOR PAIN. PT HAD MODERATE DIFFICULTY WITH INITIATING SWALLOW. FAMILY AND SITTER AT BEDSIDE. ASSESSMENT PERFORMED PER FLOWSHEET. CALL LIGHT IN REACH AND SCD'S ON. BED ALARM ON. WILL CONTINUE WITH PLAN OF CARE.
[2017-02-03 12:30] VITALS: BP 139/81
--- NOTE | 2017-02-03 13:50 | NUR ---
UP TO CHAIR PER PHYSICAL THERAPY AT THIS TIME. CALLED TO ROOM BY MERNA BURKETT. INITIATED RAPID RESPONSE. BP 123/71, PULSE 89 NORMAL SINUS RHYTHM. PT TRANSFERRED BACK TO BED. HE IS UNRESPONSIVE AND FLACCID X4 EXTREMETIES. PUPILS ARE 3MM AND FIXED. RESPIRATIONS LABORED AND SHALLOW. OXYGEN ON 10L VIA OXYMIZER. ICU NURSES AT BEDSIDE. DAUGHTERS NOTIFIED BY PT'S PRIVATE SITTER AND FAMILY WANTS TO KEEP FULL CODE STATUS.
--- NOTE | 2017-02-03 14:00 | NUR ---
BP 137/79 AND HEART RATE 101. PT REMAINS NON RESPONSIVE AND FLACCID.
--- NOTE | 2017-02-03 14:05 | NUR ---
DR TINAJERO AND DR EL PAGED AND NOTIFIED AT THIS TIME. WILL TRANSPORT PT TO CT FOR AR SAVES.
--- NOTE | 2017-02-03 14:15 | NUR ---
IN CT AT THIS TIME. PT DISPLAYING JERKING MOVEMENTS OF BILATERAL UPPER EXTREMETIES. LOWER EXTREMETIES REMAIN FLACCID. PT MOANING AT THIS TIME, BUT UNABLE TO FORM WORDS. WILL CONTINUE TO MONITOR PT.
--- NOTE | 2017-02-03 14:20 | NUR ---
PT TRANSPORTED TO ER AT THIS TIME. VITAL SIGNS REMAIN STABLE. WILL REMAINS WITH PT UNTIL A DECISION IS DETERMINED REGARDING PLAN OF CARE.
--- NOTE | 2017-02-03 15:35 | NUR ---
TRANSFERRED BACK TO ROOM 2228 AT THIS TIME VIA BED. FAMILY AT BEDSIDE, WILL CONTINUE WITH PLAN OF CARE.
[2017-02-03 16:36] VITALS: BP 177/95
--- NOTE | 2017-02-03 19:15 | NUR ---
RECIEVED SHIFT REPORT. PT IS LYING IN BED. ALERT BUT PT IS CONFUSED. O2 @ 10 PER OXIMIZER. SCD'S ON. IV IS PATENT AND FLUIDS ARE RUNNING PER ORDER. LAP SITES TO ABDOMEN C/D/I. DRESSING TO RIGHT SIDE C/D/I. PT FACE SHOW GRIMACING 4/10 ON FARIA SUERO SCALE. PT REQUIRES ASSISTANCE TURNING IN BED FOR COMFORT AND SKIN CARE. NO NEEDS ARE VERBALIZED AT THIS TIME. VISITOR AND SITTER AT BEDSIDE. WILL CONTINUE TO MONITOR. SIDE RAILS ARE UP X 2. BED IS IN LOWEST POSITION. BED ALARM IS ON FOR SAFETY. CALL LIGHT IS WITHIN REACH.
[2017-02-03 20:00] VITALS: BP 148/76
--- NOTE | 2017-02-03 21:34 | NUR ---
SHIFT ASSESSMENT COMPLETED. NIGHT MEDS GIVEN CRUSHED WITH NO PROBLEMS. NO NEEDS ARE VOICED. SITTER AT BEDSIDE. WILL MONITOR. SIDE RAILS X 2. BED LOW. BED ALARM ON. CALL LIGHT IN REACH.
[2017-02-04] VITALS (7 sets, daily range): BP systolic 119–169; BP diastolic 62–86
[2017-02-04 06:14] LABS: HEMATOCRIT 30.5 % (42.0-54.0); HEMOGLOBIN 10.3 g/dL (13.5-17.5); MCH 32.5 pg (26.0-34.0); MCHC 33.8 g/dL (31.0-37.0); MCV 96.2 fL (80.0-100.0); MEAN PLATELET VOLUME 11.3 fL (7.4-10.4); PLATELET COUNT 466 10x3/uL (130-400); RBC 3.17 10x6/uL (4.20-6.10); RDW 16.5 % (11.5-14.5)
[2017-02-04 06:57] LABS: ALBUMIN 1.8 g/dL (3.4-5.0); ALKALINE PHOSPHATASE 407 U/L (46-116); ALT (SGPT) 170 U/L (10-68); BILIRUBIN - DIRECT 0.29 mg/dL (0.00-0.30); BILIRUBIN - INDIRECT 0.52 mg/dL (0.00-1.00); BILIRUBIN - TOTAL 0.81 mg/dL (0.2-1.3); CALC OSMOLALITY 271 mosm/kg (275-300); CALCIUM 8.4 mg/dL (8.5-10.1); CARBON DIOXIDE 30.2 mmol/L (21.0-32.0); CHLORIDE - SERUM 96 mmol/L (98-107); GLUCOSE 152 mg/dL (74-106); POTASSIUM - SERUM 3.5 mmol/L (3.5-5.1); PROTEIN - SERUM 6.1 g/dL (6.4-8.2); SODIUM 133 mmol/L (136-145); UREA NITROGEN 22 mg/dL (7-18); eGFR NON AFRICAN AMERICAN 75 mL/min (90-120)
--- NOTE | 2017-02-04 07:15 | NUR ---
ASLEEP AT THIS TIME. FAMILY AND CAREGIVER AT BEDSIDE. RESPIRATIONS EVEN AND NON LABORED. SCD'S OFF AT THIS TIME. BED ALARM ON AND CALL LIGHT IN REACH, WILL CONTINUE WITH PLAN OF CARE.
[2017-02-04 08:09] LABS: LYMPHOCYTES 4 % (15-50); MONOCYTES 6 % (2-11); NEUTROPHILS 89 % (40-80)
[2017-02-04 08:11] LABS: ANISOCYTOSIS 1+; ELLIPTOCYTES OCC
[2017-02-04 08:12] LABS: HYPOCHROMASIA OCC
[2017-02-04 08:14] LABS: PLATELET ESTIMATE INCREASED
--- NOTE | 2017-02-04 10:30 | NUR ---
MEDICATIONS GIVEN WHOLE AT THIS TIME. PT DID WELL WITH THIS, HOWEVER D/T THE AMOUNT OF MEDICATIONS IT APPEARS THAT PATIENT BECOMES TIRED. LAST FEW MEDICATIONS CRUSHED AND PROVIDED TO PT IN APPLESAUCE. PT DID WELL WITH THIS WELL. SPEECH THERAPY AT BEDSIDE TO EVALUATE. CALL LIGHT IN REACH, FAMILY REMAINS AT BEDSIDE. WILL CONTINUE WITH PLAN OF CARE.
--- NOTE | 2017-02-04 11:00 | NUR ---
PHYSICAL THERAPY AT BEDSIDE WITH PT. WAS DECIDED THAT SINCE PT HAD AN EPISODE WITH THERAPY YESTERDAY WE WOULD MONITOR ORTHOSTATIC VITAL SIGNS ON PT. PT ASSISTED TO SITTING POSITION ON BEDSIDE. OXYGEN SATURATION IMMEDIATELY DROPPED TO 72% ON 9L OXYMIZER. PT STARTED TO EXPERIECE TACHYPNEA AND BECAME PALE AND CLAMMY. PT ASSISTED BACK TO BED AND OXYGEN INCREASED TO 15L OXYMIZER, SO THAT HE MAY COMPENSATE. RESPIRATIONS BEGAN TO SLOW AND OXYGEN SATURATION RETURNED TO BASELINE, SO OXYGEN DECREASED TO 10L OXYMIZER. NOTIFIED DR COPELAND SHE WAS PASSING THE ROOM. WILL PAGE DR MONTEMAYOR TO NOTIFY.
--- NOTE | 2017-02-04 14:04 | NUR ---
NUTRITION MONITORING & EVAL CHART REVIEWED. PT CURRENTLY ON CLEAR LIQUID DIET. SPEECH THERAPY REC'S NOTED. WILL CONTINUE TO MONITOR DIET ADVANCEMENT, PT PROGRESS. RD FOLLOWING
--- NOTE | 2017-02-04 15:58 | NUR ---
IV ACCESS-20 GAUGE INSERTED IN RIGHT HAND AREA. Vamshi LEBLANC RN
--- NOTE | 2017-02-04 16:40 | NUR ---
TAKEN TO CT SCAN AT THIS TIME. WILL MONITOR PT WHEN HE RETURNS TO THE ROOM.
--- NOTE | 2017-02-04 17:44 | NUR ---
SCHEDULED KCL LIQUID MIXED WITH ORANGE JUICE AND PROVIDED TO PT'S CAREGIVER. PT SLEEPING AT THIS TIME, BUT INSTRUCTED PRIVATE SITTER TO ASSIST PT WITH DRINK WHEN HE WAKES UP. DAUGHTER AT BEDSIDE. CALL LIGHT IN REACH, WILL CONTINUE WITH PLAN OF CARE.
--- NOTE | 2017-02-05 01:45 | NUR ---
REC'D PATIENT LYING SEMI FOWLERS IN BED. ALERT AND ORIENTED X1. DENIED PAIN @ THIS TIME. MUCUS MEMBRANES PINK AND MOIST. EGEGIK IN BOTH EARS, POOR VISION IN BOTH EYES. HAVING DIFFCULTIES SWALLOWING MEDS. ON TELEMETRY RUNNING 92 SINUS WITH PAC/PVC. ABDOMEN IS FIRM NON DISTENDED NON TENDER TO TOUCH. HAS YEE. URINE IS CLEAR, STRAW-COLORED, DRAINING TO GRAVITY. FULL ROM IN UPPER AND LOWER EXTREMITIES. CAP REFILL <3 SECS IN UPPER AND LOWER EXTREMITIES. HAS DRESSING TO ABDOMEN FROM A LAP COL DONE 2 DAYS AGO. DAUGHTER WILL SPEND THE NIGHT WITH HIM. DENIED ANY FURTHER NEEDS. INTRUCTED TO CALL IF NEEDED ANYTHING. BED LOW, LOCKED, CALL LIGHT IN REACH.
--- NOTE | 2017-02-05 04:09 | NUR ---
EYES CLOSED RESPIRATIONS WITH EASE AND UNLABORED.
[2017-02-05 05:41] LABS: ANION GAP 8.3 mmol/L (8-16); CALCIUM 8.8 mg/dL (8.5-10.1); CARBON DIOXIDE 33.7 mmol/L (21.0-32.0); CREATININE - SERUM 1.2 mg/dL (0.6-1.3)
[2017-02-05 05:47] LABS: BASOPHILS 0 % (0.0-2.0); EOSINOPHILS 0.2 % (0-7); HEMATOCRIT 30.4 % (42.0-54.0); HEMOGLOBIN 10.1 g/dL (13.5-17.5); IMMATURE GRANULOCYTES 1.6 % (0-5); MCH 32.2 pg (26.0-34.0); MCHC 33.2 g/dL (31.0-37.0); MCV 96.8 fL (80.0-100.0); MEAN PLATELET VOLUME 11.3 fL (7.4-10.4); MONOCYTES 7.7 % (2-11); NEUTROPHILS 83.5 % (40-80); PLATELET COUNT 449 10x3/uL (130-400); RBC 3.14 10x6/uL (4.20-6.10); RDW 16.4 % (11.5-14.5); WBC 24.3 10x3/uL (4.8-10.8)
--- NOTE | 2017-02-05 06:59 | NUR ---
PATIENT IS LYING IN BED RESTING. DENIED PAIN @ THIS TIME. JUST HOOKED HER UP TO FLUIDS. STATED SHE WAS COLD, HEAT IN ROOM NOT WORKING. WILL TELL ONCOMING NURSE. BED LOW, LOCKED, CALL LIGHT IN REACH. ALERT AND ORIENT X4. SPEECH IS CLEAR. WEARS GLASSES BUT DOESNT HAVE THEM WITH HER. IS [place].
--- NOTE | 2017-02-05 08:16 | NUR ---
PT LYING IN BED RESTING, DENIES NEEDS, FAMILY AT BEDSIDE, CALL LIGHT IN REACH, BED LOWEST POSITION, WILL CONTINUE TO MONITOR
[2017-02-05 08:29] VITALS: BP 157/80
[2017-02-05 12:43] VITALS: BP 161/82
[2017-02-05 15:48] VITALS: BP 166/73
--- NOTE | 2017-02-05 16:00 | NUR ---
PATIENT IN BED WITH IV INTACT. NO COMPLAINTS AT THIS TIME. IV INTACT. SITTER AT BEDSIDE. CALL LIGHT WITHIN REACH.
--- NOTE | 2017-02-05 20:00 | NUR ---
AROUSES TO VERBAL STIMULI. PATIENT IS [place]. OXIMIZER ON AT 10 LITERS WITH NO DISTRESS NOTED. IV INTACT TO RIGHT HAND WITHOUT REDNESS OR EDEMA. CL IN REACH. SITTER AT BEDSIDE.
[2017-02-05 21:54] VITALS: BP 141/68
--- NOTE | 2017-02-06 01:55 | NUR ---
RESTING QUIETLY. NO DISTRESS NOTED. FAMILY AT BEDSIDE.
--- NOTE | 2017-02-06 02:46 | NUR ---
RN NOTE: PT LYING IN SUPINE POSITION WITH EYES CLOSED AND UNLABORED BREATHING. O2 IN USE AT 2L VIA NC. YEE CATHETER DRAINING TO GRAVITY WITH YELLOW URINE IN COLLECTION BAG. IV IN RIGHT HAND PATENT WITH D5 1/2 NS W/ 10 K INFUSING AT 75 ML / HR. CAREGIVER IN ROOM. WILL CONTINUE TO MONITOR FOR NEEDS.
--- NOTE | 2017-02-06 05:52 | NUR ---
NO CHANGE IN ASSESSMENT. SITTER REMAINS AT BEDSIDE
[2017-02-06 06:10] LABS: BASOPHILS 0.1 % (0.0-2.0); EOSINOPHILS 0.3 % (0-7); HEMATOCRIT 30.3 % (42.0-54.0); HEMOGLOBIN 9.9 g/dL (13.5-17.5); IMMATURE GRANULOCYTES 1.6 % (0-5); LYMPHOCYTES 8.7 % (15-50); MCH 31.7 pg (26.0-34.0); MCHC 32.7 g/dL (31.0-37.0); MCV 97.1 fL (80.0-100.0); MEAN PLATELET VOLUME 11.4 fL (7.4-10.4); MONOCYTES 9.9 % (2-11); NEUTROPHILS 79.4 % (40-80); PLATELET COUNT 470 10x3/uL (130-400); RBC 3.12 10x6/uL (4.20-6.10); RDW 15.9 % (11.5-14.5); WBC 18.6 10x3/uL (4.8-10.8)
[2017-02-06 06:30] LABS: CALCIUM 8.7 mg/dL (8.5-10.1); CARBON DIOXIDE 34.8 mmol/L (21.0-32.0); CREATININE - SERUM 1.2 mg/dL (0.6-1.3); MAGNESIUM - SERUM 1.8 mg/dL (1.8-2.4); PHOSPHOROUS 2.8 mg/dL (2.5-4.9)
[2017-02-06 06:32] LABS: ANION GAP 7.2 mmol/L (8-16)
--- NOTE | 2017-02-06 06:32 | NUR ---
NO CHANGE IN ASSESSMENT. CL IN REACH.
--- NOTE | 2017-02-06 07:35 | NUR ---
WALKING ROUNDS,PT WITHOUT DISTRESS.CAREGIVER AT BEDSIDE.CALL LIGHT IN REACH
--- NOTE | 2017-02-06 09:00 | NUR ---
ASSESSMENT PER FLOW SHEET.PT WITHOUT DISTRESS.CALL LIGHT IN REACH
[2017-02-06 11:49] VITALS: BP 141/78
[2017-02-06 15:37] VITALS: BP 155/76
--- NOTE | 2017-02-06 16:04 | NUR ---
REMAINS WITHOUT DISTRESS.CAREGIVER REMAINS AT BEDSIDE.DENIES NEEDS.
--- NOTE | 2017-02-06 19:04 | NUR ---
REMAINS WITHOUT NEEDS.CAREGIVER AT SIDE.PT WITHOUT DISTRESS.CONT PLAN OF CARE
--- NOTE | 2017-02-06 19:22 | NUR ---
Received patient in bed resting, caregiver at bedside, patient is alert and oriented x 4 at this time. Reported he has periods of confusion. Telemetry on, rhythm SR. One inch Lap sites x 4 covered with clear tape/steristrip are all well approximated, dry, no drainage, and scabbed over. PIV in right hand infusing IV solution as ordered at 75ml/hr. Asking to receive pain medication with HS medications to promote sleep. No other requests or complaints at this time.
--- NOTE | 2017-02-06 20:30 | NUR ---
Continues on oxygen at 2L/min. Perez catheter in place, draining well.
--- NOTE | 2017-02-06 21:02 | NUR ---
Given [place] tab PRN for complaints of bilateral shoulder pain.
--- NOTE | 2017-02-06 22:00 | NUR ---
Resting quietly at this time, analgesic effective, caregiver remains at bedside.
[2017-02-06 22:05] VITALS: BP 125/66
[2017-02-07] VITALS: BP 107/72
--- NOTE | 2017-02-07 04:40 | NUR ---
Patient restless, pulling at oxygen tubing, removing nasal cannula several times and same put back on each time by nursing staff and caregiver at bedside. Agitated, unable to state what is bothering him. Given [place] tab at this time for generalized aches and pains. Will monitor for effectiveness.
[2017-02-07 05:26] VITALS: BP 150/71
--- NOTE | 2017-02-07 05:30 | NUR ---
Resting quietly at this time, analgesic deemed effective.
[2017-02-07 06:43] LABS: BASOPHILS 0.1 % (0.0-2.0); EOSINOPHILS 1.1 % (0-7); HEMATOCRIT 29.8 % (42.0-54.0); HEMOGLOBIN 9.8 g/dL (13.5-17.5); IMMATURE GRANULOCYTES 2.5 % (0-5); LYMPHOCYTES 10.6 % (15-50); MCH 31.7 pg (26.0-34.0); MCHC 32.9 g/dL (31.0-37.0); MCV 96.4 fL (80.0-100.0); MEAN PLATELET VOLUME 11.1 fL (7.4-10.4); MONOCYTES 9.3 % (2-11); NEUTROPHILS 76.4 % (40-80); PLATELET COUNT 437 10x3/uL (130-400); RBC 3.09 10x6/uL (4.20-6.10); RDW 15.6 % (11.5-14.5)
--- NOTE | 2017-02-07 07:11 | NUR ---
BMP not resulted yet in computer for electrolyte protocol.
[2017-02-07 07:27] LABS: ALBUMIN 1.8 g/dL (3.4-5.0); ANION GAP 7.3 mmol/L (8-16); BILIRUBIN - DIRECT 0.16 mg/dL (0.00-0.30); BILIRUBIN - INDIRECT 0.35 mg/dL (0.00-1.00); BILIRUBIN - TOTAL 0.51 mg/dL (0.2-1.3); CALCIUM 8.3 mg/dL (8.5-10.1); CARBON DIOXIDE 33.9 mmol/L (21.0-32.0); CREATININE - SERUM 1.1 mg/dL (0.6-1.3); MAGNESIUM - SERUM 1.8 mg/dL (1.8-2.4); PHOSPHOROUS 2.8 mg/dL (2.5-4.9); POTASSIUM - SERUM 3.2 mmol/L (3.5-5.1)
[2017-02-07 08:57] VITALS: BP 91/70
--- NOTE | 2017-02-07 09:00 | NUR ---
ASSESSMENT PER FLOW SHEET.PT WITHOUT DISTRESS.CAREGIVER AT BEDSIDE.
[2017-02-07 12:24] VITALS: BP 154/85
[2017-02-07 16:02] VITALS: BP 129/60
--- NOTE | 2017-02-07 18:00 | NUR ---
REMAINS WITHOUT DISTRESS.WITHOUT CHANGE.CONT PLAN OF CARE
--- NOTE | 2017-02-07 19:45 | NUR ---
ASSISTED GURWINDER WITH ENEMA. PATIENT RESTING IN SEMI-FOWLERS POSITION WITH CAREGIVER AT BEDSIDE. NO VISIBLE SIGNS OF DISTRESS. BED IN LOWEST POSITION AND CALL LIGHT WITHIN REACH.
[2017-02-07 20:00] VITALS: BP 147/79
[2017-02-08 00:52] VITALS: BP 127/66
[2017-02-08 05:33] LABS: BASOPHILS 0.1 % (0.0-2.0); EOSINOPHILS 1.3 % (0-7); HEMATOCRIT 28.9 % (42.0-54.0); HEMOGLOBIN 9.5 g/dL (13.5-17.5); LYMPHOCYTES 11.2 % (15-50); MCH 31.8 pg (26.0-34.0); MCHC 32.9 g/dL (31.0-37.0); MCV 96.7 fL (80.0-100.0); MEAN PLATELET VOLUME 11.1 fL (7.4-10.4); MONOCYTES 10.1 % (2-11); NEUTROPHILS 75.3 % (40-80); PLATELET COUNT 463 10x3/uL (130-400); RBC 2.99 10x6/uL (4.20-6.10); RDW 15.4 % (11.5-14.5); WBC 15.5 10x3/uL (4.8-10.8)
[2017-02-08 05:40] VITALS: BP 148/68
[2017-02-08 05:53] LABS: ANION GAP 6.7 mmol/L (8-16); CALCIUM 8.4 mg/dL (8.5-10.1); CARBON DIOXIDE 33.7 mmol/L (21.0-32.0); CREATININE - SERUM 1.1 mg/dL (0.6-1.3); MAGNESIUM - SERUM 2.1 mg/dL (1.8-2.4); POTASSIUM - SERUM 3.4 mmol/L (3.5-5.1)
--- NOTE | 2017-02-08 08:00 | NUR ---
WALKING ROUNDS,WITHOUT DISTRESS.CAREGIVER AT BEDSIDE.FALL PREVENTION IN PLACE.
[2017-02-08 08:06] VITALS: BP 138/75
--- NOTE | 2017-02-08 09:00 | NUR ---
ASSESSMENT PER FLOW SHEET.PT WITHOUT DISTRESS.CAREGIVER AT BEDSIDE.FALL PREVENTION IN PLACE
[2017-02-08 12:40] VITALS: BP 149/73
--- NOTE | 2017-02-08 15:10 | NUR ---
IV LEFT FOREARM LEAKING.IV RESITED TO LEFT UPPER ARM X1 STICK USING ASEPTIC TECH 22G.TOLERATED WELL.IV ABX RESUMED ORDERED
[2017-02-08 16:02] VITALS: BP 114/66
--- NOTE | 2017-02-08 18:32 | NUR ---
HAS REMAINED WITHOUT CHANGE FROM INITIAL ASSESSMENT THIS AM.HE HAS BEEN TAKING MEDS TODAY AND MORE TALKATIVE.CONT PLAN OF CARE
[2017-02-08 19:00] VITALS: BP 143/96
--- NOTE | 2017-02-08 19:34 | NUR ---
CAREGIVER AT BEDSIDE. PATIENT DENIES NEEDS AT THIS TIME. BED IN LOWEST POSITION, CALL LIGHT WITHIN REACH, AND BED ALARM ON. ENCOURAGED PATIENT AND CAREGIVER TO CALL IF PATIENT HAS NEEDS.
[2017-02-09] VITALS: BP 124/65
[2017-02-09 04:00] VITALS: BP 149/74
[2017-02-09 06:41] LABS: ANION GAP 6.5 mmol/L (8-16); CALCIUM 8.8 mg/dL (8.5-10.1); CARBON DIOXIDE 35.3 mmol/L (21.0-32.0); CREATININE - SERUM 1.1 mg/dL (0.6-1.3); POTASSIUM - SERUM 3.8 mmol/L (3.5-5.1)
[2017-02-09 08:14] VITALS: BP 151/75
--- NOTE | 2017-02-09 08:54 | NUR ---
PT ASLEEP AWAKENS EASILY TO VERBAL STIMULI AND TOUCH RESP EVEN AND NONLABORED PT DENIES NEEDS AT THIS TIME WILL CONTINUE TO MONITOR BED AT LOWEST SETTING CALL LIGHT WITHIN REACH. CAREGIVER AT BEDSIDE
[2017-02-09 12:07] VITALS: BP 145/70
--- NOTE | 2017-02-09 14:22 | NUR ---
PT MOVED TO CHAIR BY PT AND DESATURATED O2 LEVELS BELOW 89% OCCURRED PT PLACED BACK IN BED BY PT AND O2 SAT 92% ON 3L/NC WILL CONTINUE TO MONITOR
--- NOTE | 2017-02-09 14:49 | NUR ---
NUTRITION MONITORING & EVAL CHART REVIEWED, PT SLEEPING. CAREGIVER REPORTS POOR PO INTAKE LUNCH. WILL CONTINUE TO PROVIDE SOFT DIET, MONITOR PT PROGRESS. RD FOLLOWING
[2017-02-09 15:29] VITALS: BP 127/62
[2017-02-10 04:00] VITALS: BP 137/70
[2017-02-10 08:41] VITALS: BP 160/78
--- NOTE | 2017-02-10 10:25 | NUR ---
Assessment complete, caregiver at bedside. No distress assessed. Perez catheter patent.Bed alarm on.
[2017-02-10 12:57] VITALS: BP 131/70
[2017-02-10 17:10] VITALS: BP 138/90
[2017-02-10 20:00] VITALS: BP 148/76
[2017-02-11] VITALS: BP 144/71
[2017-02-11 04:00] VITALS: BP 161/77; BP 161/84
[2017-02-11 09:09] VITALS: BP 138/81
[2017-02-11 13:06] VITALS: BP 114/64
[2017-02-11 16:32] VITALS: BP 140/71
[2017-02-11 19:00] VITALS: BP 130/68
--- NOTE | 2017-02-12 00:50 | NUR ---
ASSESSED AT THE BEGINNING OF THE SHIFT. PT IS ALERT AND ORIENTED, BUT VERY HARD OF HEARING. HE HAS A SITTER WITH HIM AT THE BEDSIDE WHICH SWITCHED AT 2200. ALL BEDTIME MEDS AND A PAIN PILL WERE GIVEN BEFOR BEDTIME. HE HAD NO PROBLEMS SWALLOWING ONE AT A TIME. HE IS WEARING O2 AT 3 LITERS AND HAS TELEMETRY IN PLACE. THERE IS A YEE IN PLACE AND THE SITES ON HIS LAP MOE FROM THE 13TH LOOK GOOD. THE BED IS LOW, RAILS UP X'S 2 WITH THE CALL LIGHT AND J2EE ANDROID DEVELOPER AT THE BEDSIDE.
[2017-02-12 04:00] VITALS: BP 114/55
[2017-02-12 05:34] LABS: BASOPHILS 0.4 % (0.0-2.0); EOSINOPHILS 0.9 % (0-7); HEMATOCRIT 31.8 % (42.0-54.0); HEMOGLOBIN 10.4 g/dL (13.5-17.5); IMMATURE GRANULOCYTES 2.4 % (0-5); LYMPHOCYTES 15.3 % (15-50); MCH 32.1 pg (26.0-34.0); MCHC 32.7 g/dL (31.0-37.0); MCV 98.1 fL (80.0-100.0); MEAN PLATELET VOLUME 10.9 fL (7.4-10.4); MONOCYTES 12.3 % (2-11); NEUTROPHILS 68.7 % (40-80); PLATELET COUNT 521 10x3/uL (130-400); RBC 3.24 10x6/uL (4.20-6.10); RDW 15.3 % (11.5-14.5); WBC 13.3 10x3/uL (4.8-10.8)
[2017-02-12 06:00] LABS: CALCIUM 9.1 mg/dL (8.5-10.1); CARBON DIOXIDE 36.5 mmol/L (21.0-32.0); CREATININE - SERUM 1.1 mg/dL (0.6-1.3); POTASSIUM - SERUM 3.5 mmol/L (3.5-5.1)
[2017-02-12] MEDS ORDERED: NYSTATIN ORAL SU5 ML PO (07:51)
[2017-02-12 08:46] VITALS: BP 122/69
--- NOTE | 2017-02-12 09:51 | NUR ---
AWAKE AND ALERT. ATE A GOOD BREAKFAST PER CAREGIVER. LUNGS HAVE CRACKLES THROUGHOUT LUNG BONNER, OCCASSIONAL DRY COUGH NOTED. SKIN IS INTACT WITHOUT REDNEES. IV TO LEFT UPPER ARM PATENT WITHOUT REDNESS AT INSERTION SITE. YEE PATENT WITH CLEAR YELLOW URINE. NO NEEDS NOTED.
--- NOTE | 2017-02-12 09:52 | NUR ---
02/12/2017 9:47 DCP: Discharge Planning Patient Name: SHANDA THURMAN Encounter No: [id number] : 1930 Primary Insurance: MEDICARE A & B Anticipated DC Date: 01-27-2017 Planned Disposition: [facility] Facility External Planned Provider: [facility] follow-up note: DC order rec'd. Patient and family in agreement with discharge plan. No changes to plan. Waiting warehouse order picker time from [facility]. Nursing to call report to [phone]. Riri Gallagher
[2017-02-12 11:30] VITALS: BP 127/72
--- NOTE | 2017-02-12 12:15 | NUR ---
DISCHARGE ORDERS RECEIVED. REPORT CALLED TO MAT BRANCH LPN AT THE [facility]. ALL QUESTIONS ANSWERED.
--- NOTE | 2017-02-12 12:30 | NUR ---
SL TO LEFT UPPER ARM D/C WITH CATHETER INTACT. YEE D/C WITH TIP INTACT WITHOUT DIFFICULTY PER CAREGIVERS REQUEST. DISCHARGE INSTRUCTIONS GIVEN BOTH VERBALLY AND WRITTEN TO CAREGIVER. ALL QUESTIONS ANSWRED. NO NEW PRESCRIPTIONS NEEDED. D/C PER TRANSPORT FROM THE [facility].
--- NOTE | 2017-02-15 20:25 | DS ---
PATIENT:SHANDA THURMAN :[birth year] MEDICAL RECORD: [id number] DISCHARGE SUMMARY ADMISSION DATE: 01/23/17 DISCHARGE DATE: 02/12/17 DISCHARGE DIAGNOSES: Hospital-acquired pneumonia, chronic atrial fibrillation, acute cholecystitis, abdominal pain, bronchiectasis, chronic obstructive pulmonary disease with exacerbation, anemia of chronic disease, possible lactic acidosis, kvmar-[id number] diastolic congestive heart failure, tracheomalacia, amlnl-yy-[id number] bronchiectasis, metabolic encephalopathy, seizure disorder, dementia, chronic atrial fibrillation with controlled ventricular response, essential hypertension. HOSPITAL COURSE: An 86-year-old male with history of bronchiectasis, COPD, has been hospitalized several weeks ago with respiratory issues. He resides in a [facility] where he developed increasing symptoms of cough, congestion, and altered mental status. He was admitted on January 23 for these symptoms and concern for hospital-acquired pneumonia. Initial chest x-ray revealed atelectasis in the lung bases and after hydration, subsequent x-ray revealed left pleural effusion. CT abdomen and pelvis was performed. The patient's leukocytosis initially improved on broad-spectrum antibiotics and then medically mane over 30,000. He had some trouble with constipation as well. CT showed gallbladder markedly distended, containing sludge and stones and moderate amount of ascites around the liver. He also had severe constipation. His constipation was relieved. He had surgical and ID consultation as well as pulmonary consult. Of note, the patient improved from a pulmonary standpoint. He underwent laparoscopic cholecystectomy with gangrenous gallbladder found on pathology. The patient's white count remained high at over 30,000 for 2 days and was gradually decreased now down to 13,000. He has finished 7 days of IV antibiotics for pneumonia and ID and pulmonary have signed off the case as well as surgery. The patient is now back to his baseline. He is eating with the help of his design drafter. His white count is down to 13,000; previous, it was 30,000. His H&H is 10.4 and 31.8, BUN and creatinine are 19 and 1.1, potassium 3.5. Temperature is 96.4 Fahrenheit orally, pulse 74, respirations 18, blood pressure 114/55, O2 sat 93% on 2 L. The patient will be discharged back to the [facility] today once he is accepted. He is currently off antibiotics for 48 hours without signs of fever or leukocytosis. DISCHARGE MEDICATIONS: Guaifenesin suspension 10 cc p.o. b.i.d., Voltaren gel q.i.d. topical to shoulders as needed for pain, Mcgee 5/325 one q.6 hours p.r.n. pain, Flonase nasal spray 1 spray each nostril daily, milk of magnesia 30 cc p.o. b.i.d. p.r.n. constipation, nystatin oral 5 cc p.o. a.c. and h.s. for 1 week and discontinue, Xanax 0.25 mg p.o. q.8 hours p.r.n. anxiety, potassium chloride 20 mEq p.o. daily, Lasix 20 mg p.o. daily, lactobacillus 2 tabs p.o. b.i.d., Effexor XR 150 mg p.o. daily, MiraLax 17 g p.o. daily, losartan 25 mg p.o. daily, Protonix 40 mg p.o. daily, Senokot tab 1 p.o. b.i.d., Keppra 500 mg p.o. b.i.d., Pulmicort 0.5 updrafts q.12 hours, Tylenol 650 mg q.6 hours p.r.n. fever, diltiazem 60 mg p.o. t.i.d., Zofran 4 mg tablet p.o. q.4 hours p.r.n. nausea, DuoNeb updrafts q.6 hours and q.4 p.r.n., Eliquis 2.5 mg p.o. b.i.d., NitroQuick 0.4 mg sublingual p.r.n. chest pain. DIET: Soft, mechanical. ACTIVITY: Progress as tolerated. TRANSINT:[id number] Voice Confirmation ID: [id number] DOCUMENT ID: [id number] DISCHARGE SUMMARY REPORT [id number] SHANDA THURMAN TIMOTHY MD at 2025 CC: [id number] DICTATION DATE: 02/12/17751 ADMIN ASSISTANT: 02/12/17 1546 DIS IN 02/12/17 [id number] [place] [address]
--- NOTE | 2017-02-15 20:25 | DS ---
PATIENT:SHANDA THURMAN :[birth year] MEDICAL RECORD: [id number] DISCHARGE SUMMARY ADMISSION DATE: 01/23/17 DISCHARGE DATE: 02/12/17 Addendum MEDICATIONS: Eliquis 2.5 mg p.o. b.i.d. and NitroQuick 0.4 mg sublingual p.r.n. chest pain. TRANSINT:[id number] Voice Confirmation ID: [id number] DOCUMENT ID: [id number] SIVA EL MD at 2025 CC: [id number] DICTATION DATE: 02/12/17 0753 POULTRY FARMWORKER: 02/12/17 2327 DIS IN 02/12/[address] [facility] [address] [place] [address]
--- NOTE | 2017-02-20 13:21 | OP ---
PATIENT NAME: SHANDA THURMAN MEDICAL RECORD: [id number] :31 LOCATION:D.MS [id number] ADMISSION DATE:01/23/17 SURGEON: FRENCH TINAJERO MD DATE OF OPERATION: 02/02/2017 PREOPERATIVE DIAGNOSES: 1. Acute cholecystitis. 2. Coronary artery disease. 3. Hypertension. 4. Hyperlipidemia. 5. Chronic obstructive pulmonary disease. 6. Obstructive sleep apnea. 7. Atrial fibrillation. POSTOPERATIVE DIAGNOSES: 1. Acute cholecystitis. 2. Coronary artery disease. 3. Hypertension. 4. Hyperlipidemia. 5. Chronic obstructive pulmonary disease. 6. Obstructive sleep apnea. 7. Atrial fibrillation. PROCEDURE: Laparoscopic cholecystectomy. SURGEON: French Tinajero MD. REPORT OF PROCEDURE: The patient's abdomen was prepped and draped in sterile fashion. A cutdown was made on the superior aspect of the umbilicus, 0 Vicryls were placed on the fascia bilaterally and the fascia was incised with 15-blade. I bluntly entered the peritoneal cavity and placed a 12-mm Debbie port. Under direct visualization, a 5 mm trocar was placed in the epigastrium and 2 more 5-mm trocars were placed in the right subcostal region. The gallbladder was elevated. There were a lot of inflammatory adhesions present around this and these were teased down carefully with blunt dissection. The gallbladder was diffusely distended and swollen with acute changes of inflammation. The inferior aspect of the gallbladder actually looked like it was gangrenous. We dissected down. We were able to dissect out the cystic artery and cystic duct and these structures were clipped proximally and distally and ligated in standard fashion. The cystic duct was very small like we may believe there was no chance or could have been a distal obstruction. The gallbladder was just peeled off of the liver bed. The patient had had a previous cholecystostomy tube placed. This was transected internally. The gallbladder was then placed into an EndoCatch bag. Any bleeding from the liver bed was then treated with electrocautery. After we irrigated out the right upper quadrant, we instilled a wrist into the liver bed. We do not see any sign of any surgical bleeding. At this point, the ports and insufflation were then removed and the gallbladder was taken out through the umbilicus. The umbilical fascia was closed with interrupted 0 Vicryls times 4. The wounds were irrigated out with normal saline and infused with 10 mL of 0.25% Marcaine with epinephrine. The skin incisions were all closed with subcutaneous 5-0 Monocryl and dressed appropriately. COMPLICATIONS: None. CONDITION: Stable. OPERATIVE REPORT [id number] SHANDA THURMAN ANESTHESIA: General endotracheal and local. BLOOD LOSS: 50 mL. TRANSINT:[id number] Voice Confirmation ID: [id number] DOCUMENT ID: [id number] FRENCH TINAJERO MD at 1321 CC: [id number] DICTATION DATE: 02/02/17 1338 SPINNER OPERATOR: 02/02/17 2207 DIS IN 02/12/17 [facility] [address] [place] [address]
== END 2017-02-12 12:30 | DRG 853 ==
LOC: D.ER 13:20 → D.MS 15:48
PROVIDERS: Emergency Medicine; Internal Medicine Pulmonary Disease; Student in an Organized Health Care Education/Training Program; Surgery; ADMIT Family Medicine
PROC: 0T9B70Z Drainage of Bladder with Drainage Device, Via Natural or Artificial Opening (ICD-10-PCS; 2017-01-23)
PROC: 0F9430Z Drainage of Gallbladder with Drainage Device, Percutaneous Approach (ICD-10-PCS; 2017-01-30)
PROC: 0FT44ZZ Resection of Gallbladder, Percutaneous Endoscopic Approach (ICD-10-PCS; principal; 2017-02-02 12:00)
DX: A41.9 Sepsis, unspecified organism (principal); J96.01 Acute respiratory failure with hypoxia; G93.41 Metabolic encephalopathy; I50.33 Acute on chronic diastolic (congestive) heart failure; J18.9 Pneumonia, unspecified organism; J44.1 Chronic obstructive pulmonary disease with (acute) exacerbation; E87.2 Acidosis; R18.8 Other ascites; K80.00 Calculus of gallbladder with acute cholecystitis without obstruction; I11.0 Hypertensive heart disease with heart failure; Y95 Nosocomial condition; R65.20 Severe sepsis without septic shock; E87.6 Hypokalemia; I25.10 Atherosclerotic heart disease of native coronary artery without angina pectoris; I48.2 Chronic atrial fibrillation; N40.0 Benign prostatic hyperplasia without lower urinary tract symptoms; H35.30 Unspecified macular degeneration; D75.82 Heparin induced thrombocytopenia (HIT); D63.8 Anemia in other chronic diseases classified elsewhere; G40.909 Epilepsy, unspecified, not intractable, without status epilepticus; F03.90 Unspecified dementia, unspecified severity, without behavioral disturbance, psychotic disturbance, mood disturbance, and anxiety; R40.2412 Glasgow coma scale score 13-15, at arrival to emergency department

== ENCOUNTER → 2017-02-03 | Emergency (ER) | payer MEDICARE, OTHER ==
[2017-01-24 09:49] VITALS: BMI 22.7
[~2017-02-03] MED LIST changes: +CEFUROXIME250 MG PO; +EFFEXOR XR75 MG PO; +FERROUS SULFAT325 MG PO; +FLORAJEN3 CAPS460 MG PO; +GUAIFENESI100 MG/5 M PO; +MELATONIN 3 MG1 TAB PO; +NITROQUICK0.4 MG SL; +NYSTATIN ORAL SU5 ML PO; +OS-CAL 500+D TA1 TAB PO; +VIBRAMYCIN 100100 MG PO
[2017-02-03 15:05] LABS: BASOPHILS 0.1 % (0.0-2.0); EOSINOPHILS 0 % (0-7); HEMATOCRIT 35.6 % (42.0-54.0); HEMOGLOBIN 11.7 g/dL (13.5-17.5); IMMATURE GRANULOCYTES 1.4 % (0-5); LYMPHOCYTES 6.2 % (15-50); MCH 31.7 pg (26.0-34.0); MCHC 32.9 g/dL (31.0-37.0); MCV 96.5 fL (80.0-100.0); MEAN PLATELET VOLUME 11.5 fL (7.4-10.4); MONOCYTES 5.6 % (2-11); NEUTROPHILS 86.7 % (40-80); PLATELET COUNT 548 10x3/uL (130-400); RBC 3.69 10x6/uL (4.20-6.10); WBC 46.6 10x3/uL (4.8-10.8)
[2017-02-03 15:15] LABS: APTT 31.7 SECONDS (22.8-39.4); INR 1.15 (0.85-1.17); PROTIME 14.6 SECONDS (11.6-15.0)
[2017-02-03 15:19] LABS: ANION GAP 18.3 mmol/L (8-16); BILIRUBIN - TOTAL 1.06 mg/dL (0.2-1.3); CALCIUM 8.7 mg/dL (8.5-10.1); POTASSIUM - SERUM 4.3 mmol/L (3.5-5.1); PROTEIN - SERUM 6.7 g/dL (6.4-8.2)
[2017-02-03 15:21] LABS: CREATININE - SERUM 1.3 mg/dL (0.6-1.3)
[2017-02-03 15:23] LABS: TROPONIN-I 0.057 ng/mL (0.000-0.060)
== END ==
LOC: D.ER 14:32
PROVIDERS: Family Medicine
DX: R53.1 Weakness (principal); R41.82 Altered mental status, unspecified; N40.0 Benign prostatic hyperplasia without lower urinary tract symptoms; I50.9 Heart failure, unspecified; G89.29 Other chronic pain; J44.9 Chronic obstructive pulmonary disease, unspecified; Z86.73 Personal history of transient ischemic attack (TIA), and cerebral infarction without residual deficits; K21.9 Gastro-esophageal reflux disease without esophagitis; I10 Essential (primary) hypertension; E78.5 Hyperlipidemia, unspecified; G47.00 Insomnia, unspecified; Z99.81 Dependence on supplemental oxygen

== ENCOUNTER 2017-02-14 11:34 | Inpatient (IN) | payer MEDICARE, OTHER ==
[~2017-02-14] VITALS: Ht 170.2 cm; Wt 59.0 kg
[~2017-02-14 11:34] MED LIST changes: -CEFUROXIME250 MG PO; -EFFEXOR XR75 MG PO; -FERROUS SULFAT325 MG PO; -FLORAJEN3 CAPS460 MG PO; -GUAIFENESI100 MG/5 M PO; -MELATONIN 3 MG1 TAB PO; -NITROQUICK0.4 MG SL; -OS-CAL 500+D TA1 TAB PO; -VIBRAMYCIN 100100 MG PO
[2017-02-14 12:40] LABS: BASOPHILS 0.2 % (0.0-2.0); EOSINOPHILS 0.1 % (0-7); LYMPHOCYTES 6.7 % (15-50); MCH 31.7 pg (26.0-34.0); MCHC 32.3 g/dL (31.0-37.0); MCV 98.4 fL (80.0-100.0); MEAN PLATELET VOLUME 10.8 fL (7.4-10.4); PLATELET COUNT 432 10x3/uL (130-400); RBC 3.15 10x6/uL (4.20-6.10); RDW 15.8 % (11.5-14.5); WBC 19.7 10x3/uL (4.8-10.8)
[2017-02-14 13:48] LABS: ALBUMIN 2.4 g/dL (3.4-5.0); ANION GAP 10.4 mmol/L (8-16); BILIRUBIN - TOTAL 0.5 mg/dL (0.2-1.3); CALCIUM 9.5 mg/dL (8.5-10.1); CARBON DIOXIDE 32.6 mmol/L (21.0-32.0); CREATININE - SERUM 1.2 mg/dL (0.6-1.3); PROTEIN - SERUM 7.9 g/dL (6.4-8.2)
[2017-02-14 13:56] LABS: TROPONIN-I 0.048 ng/mL (0.000-0.060)
[2017-02-14 15:19] LABS: MAGNESIUM - SERUM 2.3 mg/dL (1.8-2.4); THYROID STIMULATING HORMONE 4.08 uIU/mL (0.36-3.74)
[2017-02-14 15:41] LABS: APPEARANCE CLEAR (CLEAR); BACTERIA FEW /hpf (NONE SEEN); BILIRUBIN NEGATIVE (NEGATIVE); COLOR DK YELLOW (YELLOW); EPITHELIAL CELLS 0-5 /hpf (0-5); GLUCOSE NEGATIVE (NEGATIVE); KETONE NEGATIVE (NEGATIVE); LEUKOCYTE ESTERASE NEGATIVE (NEGATIVE); MUCUS <1+ /lpf (NONE SEEN); NITRITE NEGATIVE (NEGATIVE); PROTEIN TRACE mg/dL (NEGATIVE); RED CELLS - URINE 0-5 /hpf (0-5); UROBILINOGEN NORMAL (NORMAL); WHITE CELLS - URINE 0-5 /hpf (0-5)
[2017-02-14 20:00] VITALS: BP 167/76
[2017-02-15] VITALS (7 sets, daily range): BP systolic 124–172; BP diastolic 51–88; BMI 20.4
[2017-02-15 06:12] LABS: BASOPHILS 0.1 % (0.0-2.0); EOSINOPHILS 0.4 % (0-7); HEMATOCRIT 30.1 % (42.0-54.0); HEMOGLOBIN 9.5 g/dL (13.5-17.5); LYMPHOCYTES 10.8 % (15-50); MCH 31.4 pg (26.0-34.0); MCHC 31.6 g/dL (31.0-37.0); MCV 99.3 fL (80.0-100.0); MEAN PLATELET VOLUME 11.3 fL (7.4-10.4); MONOCYTES 9.5 % (2-11); NEUTROPHILS 78.2 % (40-80); PLATELET COUNT 416 10x3/uL (130-400); RBC 3.03 10x6/uL (4.20-6.10); RDW 15.7 % (11.5-14.5); WBC 16.2 10x3/uL (4.8-10.8)
[2017-02-15 06:23] LABS: CALC OSMOLALITY 273 mosm/kg (275-300); CALCIUM 8.9 mg/dL (8.5-10.1); CHLORIDE - SERUM 98 mmol/L (98-107); GLUCOSE 78 mg/dL (74-106); POTASSIUM - SERUM 3.5 mmol/L (3.5-5.1); SODIUM 136 mmol/L (136-145); eGFR NON AFRICAN AMERICAN 75 mL/min (90-120)
[2017-02-15 06:33] LABS: UREA NITROGEN 20 mg/dL (7-18)
--- NOTE | 2017-02-15 07:30 | NUR ---
PATIENT RESTING IN BED WITH HIS SITTER AT THE BEDSIDE. PATIENT DENIES ANY PAIN AT PRESENT TIME. PATIENT IS BLIND. PATIENT'S IV SITE IS PATENT IN HIS LEFT FOREARM WITH KERLEX WRAPPED AROUND IT TO HOLD INTO PLACE. NS INFUSING AT 100 ML/HR. OXYGEN IN PLACE AT 2.5L PER NC. PATIENT DENIES ANY NEEDS AT PRESENT TIME. CALL LIGHT IN REACH. WILL MONITOR.
--- NOTE | 2017-02-15 11:01 | NUR ---
NEW ORDERS RECEIVED. SCHEDULED MORNING MEDICATIONS GIVEN TO PATIENT. PATIENT TOLERATED WELL WITH APPLE JUICE. HAD TO PROMPT AND REMIND PATIENT TO FULLY SWALLOW ALL OF HIS MEDICATIONS. PATIENT VERBALIZED UNDERSTANDING AND SWALLOWED MEDICATIONS WITHOUT ANY PROBLEMS NOTED. CALL LIGHT I PATIENT'S REACH. SITTER AT PATIENT'S BEDSIDE.
--- NOTE | 2017-02-15 16:16 | NUR ---
PATIENT RESTING QUIETLY WITH EYES CLOSED. PATIENT AWAKENS TO VERBAL STIMULI. ASSESSMENT COMPLETED. SEE FLOWSHEET FOR DETAILS. NO COMPLAINTS OF PAIN AT PRESENT TIME. PATIENT IS BLIND AND [place]. TELEMETRY IN PLACE AND SHOWING NORMAL SINUS RHYTHM WITH A RATE OF 76. OXYGEN IN PLACE AT 2.5 L PER NC. IV SITE PATENT WITHOUT ANY S/S OF INFECTION IN PATIENT'S LEFT FOREARM. CALL LIGHT IN PATIENT'S REACH. WILL CONTINUE TO MONITOR.
--- NOTE | 2017-02-15 16:28 | NUR ---
Patient Name: SHANDA THURMAN Admission Status: ER Accout number: [id number] Admission Date: 02-14-2017 : 1930 Admission Diagnosis: Syncope, dehydration Attending: RIMA Current LOS: 1 Anticipated DC Date: 02-18-2017 Planned Disposition: [facility] Primary Insurance: MEDICARE A & B Discharge Planning Comments: Patient is a resident at the [facility]. He will return there at discharge. CM will continue to follow and assist with dc plans/needs. Physician Office Clin Asst: Opal Armstrong RN, [facility] [phone] Is the patient Alert and Oriented? Yes * How many steps to enter\exit or inside your home? none * PCP [facility] * Pharmacy [facility] * Preadmission Environment [facility] * Facility Name [facility] * ADLs Partial Dependent * Partial ADLs (Assistance needed) Ambulation Bathing Medication Management Transfers * Equipment Rolling Walker Wheelchair * List name and contact numbers for known caregivers / representatives who currently or will assist patient after discharge: Tita Thurman - daughter - [phone] * Community resources currently utilized None * Additional services required to return to the preadmission environment? No * Can the patient safely return to the preadmission environment? Yes * Has this patient been hospitalized within the prior 30 days at any hospital? Yes
--- NOTE | 2017-02-15 17:56 | NUR ---
PATIENT'S SITTER STATES THAT PATIENT IS IN PAIN. PATIENT UNABLE TO VERBALIZE HIS PAIN LEVEL. PRN TYLENOL GIVEN TO PATIENT FOR GENERALIZED PAIN. PATIENT TOLERATED WELL WITH HIS VANILLA ENSURE. PATIENT INCONTINENT OF BOWEL AND BLADDER. BED LINENS CHANGED WITHOUT ANY DIFFICULTIES. NO SKIN BREAKDOWN NOTED. CALL LIGHT IN REACH. SITTER (ROCÍO) AT PATIENT'S BEDSIDE. WILL CONTINUE TO MONITOR.
--- NOTE | 2017-02-15 19:26 | NUR ---
REC'D IN BED LYING ON LEFT SIDE.EYES CLOSED RESP' DEEP AND EVEN. SITTER AT BEDSIDE.WILL CONTINUE TO MONITOR FOR ANY CHGES. AND FOLLOW CURRENT PLAN OF CARE.
--- NOTE | 2017-02-16 00:30 | NUR ---
PT IN BED WITH NO DISTRESS. RESPIRATIONS EVEN AND UNLABORED. CAREGIVER AT BEDSIDE. SIDE RAILS ARE UP X 2. BED IS LOW. CALL LIGHT IN REACH.
[2017-02-16 04:00] VITALS: BP 165/69
[2017-02-16 07:47] VITALS: BP 174/76
--- NOTE | 2017-02-16 08:07 | NUR ---
AWAKE AND ALERT. ORIENTED TO SELF ONLY. NOT TALKING MUCH SO DIFFICULT TO ASSESS ORIENTATION. RESPONDS TO YES NO QUESTIONS APPROPRIATLY. LUNGS WITH INSPIRATORY WHEEZES THROUGHOUT LUNG BONNER, CAREGIVER REPORTS OCCASSIONAL PRODUCTIVE COUGH. SKIN IS INTACT WITHOUT REDNESS. IV SITED TO RIGHT WRIST AFTER ONE ATTEMPT WITH 22G. BREAKFAST SERVED IN ROOM.
--- NOTE | 2017-02-16 09:30 | NUR ---
TOOK AM MEDS WHOLE WITH WATER. ATE PART OF BREAKFAST WITH ASSIST FROM CAREGIVER. NO NEEDS EXPRESSED.
[2017-02-16 10:45] LABS: BASOPHILS 0.4 % (0.0-2.0); EOSINOPHILS 0.7 % (0-7); HEMATOCRIT 29.8 % (42.0-54.0); HEMOGLOBIN 9.6 g/dL (13.5-17.5); IMMATURE GRANULOCYTES 1.1 % (0-5); LYMPHOCYTES 14.1 % (15-50); MCH 31.5 pg (26.0-34.0); MCHC 32.2 g/dL (31.0-37.0); MCV 97.7 fL (80.0-100.0); MEAN PLATELET VOLUME 10.7 fL (7.4-10.4); MONOCYTES 11.4 % (2-11); NEUTROPHILS 72.3 % (40-80); PLATELET COUNT 357 10x3/uL (130-400); RBC 3.05 10x6/uL (4.20-6.10); RDW 15.3 % (11.5-14.5)
[2017-02-16 10:59] LABS: WBC 10.3 10x3/uL (4.8-10.8)
[2017-02-16 11:09] LABS: ALKALINE PHOSPHATASE 181 U/L (46-116); BILIRUBIN - TOTAL 0.39 mg/dL (0.2-1.3); CALCIUM 8.4 mg/dL (8.5-10.1); CARBON DIOXIDE 31.6 mmol/L (21.0-32.0); CHLORIDE - SERUM 100 mmol/L (98-107); CREATININE - SERUM 0.8 mg/dL (0.6-1.3); GLUCOSE 102 mg/dL (74-106); POTASSIUM - SERUM 3.6 mmol/L (3.5-5.1); SODIUM 136 mmol/L (136-145); eGFR NON AFRICAN AMERICAN > 90 mL/min (90-120)
[2017-02-16 11:10] LABS: ALT (SGPT) 32 U/L (10-68); CALC OSMOLALITY 270 mosm/kg (275-300); UREA NITROGEN 11 mg/dL (7-18)
[2017-02-16 12:41] VITALS: Ht 170.2 cm; Wt 59.0 kg
[2017-02-16 13:32] VITALS: BP 161/81
[2017-02-16 16:09] VITALS: BP 162/80
--- NOTE | 2017-02-16 19:37 | NUR ---
CAREGIVER IN ROOM AND IS KEEPING PATIENT CLEAN AND DRY. NO CHANGES NOTED AT THIS TIME.
[2017-02-16 20:00] VITALS: BP 147/70
--- NOTE | 2017-02-16 20:14 | NUR ---
CAREGIVER AT BEDSIDE REQUESTED PAIN MEDICATION FOR MR. THURMAN WITH HIS EVENING MEDS. PATIENT DENIES OTHER NEEDS AT THIS TIME. BED IN LOWEST POSITION AND CALL LIGHT WITHIN REACH. PATIENT AND CAREGIVER ENCOURAGED TO CALL IF PATIENT HAS NEEDS.
[2017-02-17] VITALS (7 sets, daily range): BP systolic 132–173; BP diastolic 68–80
[2017-02-17 05:00] LABS: BASOPHILS 0.3 % (0.0-2.0); EOSINOPHILS 0.7 % (0-7); HEMOGLOBIN 9.5 g/dL (13.5-17.5); IMMATURE GRANULOCYTES 1.4 % (0-5); LYMPHOCYTES 19.6 % (15-50); MCH 32.3 pg (26.0-34.0); MCHC 32.8 g/dL (31.0-37.0); MCV 98.6 fL (80.0-100.0); MEAN PLATELET VOLUME 11.1 fL (7.4-10.4); MONOCYTES 11.6 % (2-11); NEUTROPHILS 66.4 % (40-80); PLATELET COUNT 341 10x3/uL (130-400); RBC 2.94 10x6/uL (4.20-6.10); RDW 15.3 % (11.5-14.5); WBC 9.5 10x3/uL (4.8-10.8)
[2017-02-17 05:58] LABS: ALBUMIN 1.9 g/dL (3.4-5.0); ALKALINE PHOSPHATASE 166 U/L (46-116); ALT (SGPT) 30 U/L (10-68); CALC OSMOLALITY 271 mosm/kg (275-300); CALCIUM 8.3 mg/dL (8.5-10.1); CARBON DIOXIDE 30.1 mmol/L (21.0-32.0); CHLORIDE - SERUM 101 mmol/L (98-107); CREATININE - SERUM 0.8 mg/dL (0.6-1.3); GLUCOSE 81 mg/dL (74-106); POTASSIUM - SERUM 3.7 mmol/L (3.5-5.1); PROTEIN - SERUM 6.7 g/dL (6.4-8.2); SODIUM 136 mmol/L (136-145); eGFR NON AFRICAN AMERICAN > 90 mL/min (90-120)
[2017-02-17 05:59] LABS: UREA NITROGEN 14 mg/dL (7-18)
--- NOTE | 2017-02-17 08:13 | NUR ---
AWAKE AND ALERT. ORIENTED TO SELF. UNABLE TO ASSESS ORIENTATION PATIENT IS NON VERBAL THIS AM. CAREGIVER AT BEDSIDE. LUNGS WITH INSPIRATORY WHEEZES THROUGHOUT LUNG BONNER, OCCASSIONALLY PRODUCTIVE COUGH NOTED. SKIN IS INTACT WITHOUT REDNESS. IV TO RIGHT WRIST PATENT WITHOUT REDNESS AT INSERTION SITE. NO NEEDS NOTED AT THIS TIME.
--- NOTE | 2017-02-17 09:14 | NUR ---
CM REASSESSMENT NOTE: PATIENT HAS A CAREGIVER (ROCÍO OLMSTEAD) THAT IS WITH HIM 10-16 HRS A DAY - HE IS AT BEDSIDE. CAREGIVER STATED PATIENT IS USUALLY IN THE BED OR A WHEELCHAIR. PATIENT FAMILY IS OUT OF TOWN PER CAREGIVER. CM WILL CONTINUE TO FOLLOW PATIENT WITH D/C NEEDS AND PLANS. ROCÍO OLMSTEAD (CAREGIVER) [phone]
--- NOTE | 2017-02-17 10:00 | NUR ---
TOOK AM MEDS WHOLE WITHOUT DIFFICULTY. CAREGIVER IN ROOM.
--- NOTE | 2017-02-17 16:11 | NUR ---
SITTING UP IN BED TALKING WITH DAUGHTER. DENIES NEEDS.
--- NOTE | 2017-02-17 18:43 | NUR ---
ATE ABOUT 25% OF SUPPER WITH DAUGHTERS ASSISTANCE. DENIES NEEDS. NO CHANGES NOTED. SITTING UP IN BED TALKING WITH DAUGHTER.
--- NOTE | 2017-02-17 19:52 | NUR ---
PATIENT RESTING IN SEMI-FOWLERS POSITION. BED IN LOWEST POSITION AND CALL LIGHT WITHIN REACH. ENCOURAGED PATIENT TO CALL IF SHE HAS NEEDS.
[2017-02-18 02:04] VITALS: BP 154/88
[2017-02-18 05:37] LABS: BASOPHILS 0.3 % (0.0-2.0); EOSINOPHILS 1.1 % (0-7); HEMATOCRIT 28.7 % (42.0-54.0); HEMOGLOBIN 9.5 g/dL (13.5-17.5); IMMATURE GRANULOCYTES 0.7 % (0-5); LYMPHOCYTES 18.9 % (15-50); MCH 32.1 pg (26.0-34.0); MCHC 33.1 g/dL (31.0-37.0); MEAN PLATELET VOLUME 10.9 fL (7.4-10.4); MONOCYTES 8.8 % (2-11); NEUTROPHILS 70.2 % (40-80); PLATELET COUNT 344 10x3/uL (130-400); RBC 2.96 10x6/uL (4.20-6.10); RDW 15.2 % (11.5-14.5); WBC 10.2 10x3/uL (4.8-10.8)
[2017-02-18 06:15] VITALS: BP 137/89
[2017-02-18 06:36] LABS: ALKALINE PHOSPHATASE 172 U/L (46-116); ALT (SGPT) 30 U/L (10-68); CALC OSMOLALITY 263 mosm/kg (275-300); CALCIUM 8.9 mg/dL (8.5-10.1); CARBON DIOXIDE 27.4 mmol/L (21.0-32.0); CHLORIDE - SERUM 98 mmol/L (98-107); CREATININE - SERUM 0.8 mg/dL (0.6-1.3); GLUCOSE 87 mg/dL (74-106); POTASSIUM - SERUM 3.6 mmol/L (3.5-5.1); PROTEIN - SERUM 6.6 g/dL (6.4-8.2); SODIUM 133 mmol/L (136-145); eGFR NON AFRICAN AMERICAN > 90 mL/min (90-120)
[2017-02-18 06:42] LABS: UREA NITROGEN 10 mg/dL (7-18)
--- NOTE | 2017-02-18 08:12 | NUR ---
AWAKE AND ALERT. ORIENTED X3. FAMILY AT BEDSIDE. LUNGS ARE IMPROVED, WITH CRACKLES ON LEFT SIDE MOSTLY, CONTINUES WITH OCCASSIONAL PRODUCTIVE COUGH. SKIN IS INTACT WITHOUT REDNESS. IV TO RIGHT WRIST PATENT WITHOUT REDNESS AT INSERTION SITE.
[2017-02-18 08:46] VITALS: BP 171/77
--- NOTE | 2017-02-18 10:02 | NUR ---
ATE A GOOD AMOUNT OF BREAKFAST WITH HELLP FROM CAREGIVER. DENIES NEEDS.
[2017-02-18 12:45] VITALS: BP 124/57
--- NOTE | 2017-02-18 12:59 | NUR ---
NUTRITION MONITORING & EVAL CHART REVIEWED, PT VISIT. PT TOLERATING AHA DIET WITH 25 TO 100% INTAKE RECENT MEALS. WILL CONTINUE TO PROVIDE DIET, HONOR FOOD PREFERENCES. RD FOLLOWING
--- NOTE | 2017-02-18 15:00 | NUR ---
RESTING QUIETLY IN BED. DAUGHTER AT BEDSIDE.
[2017-02-18 16:43] VITALS: BP 147/68
--- NOTE | 2017-02-18 18:19 | NUR ---
ROCÍO ASSISTE WITH MEAL. ATE ABOUT HALF. DENIES NEEDS. NO CHANGES NOTED.
--- NOTE | 2017-02-18 20:32 | NUR ---
PATIENT RESTING IN BED WITH CAREGIVER AT BEDSIDE. NO VISIBLE SIGNS OF DISTRESS. ADMINISTERED MEDICATIONS. PATIENT AND CAREGIVER DENY OTHER NEEDS AT THIS TIME. BED IN LOWEST POSITION AND CALL LIGHT WITHIN REACH. ENCOURAGED PATIENT AND CAREGIVER TO CALL IF PATIENT HAS NEEDS.
[2017-02-19] VITALS: BP 146/74
[2017-02-19 04:00] VITALS: BP 168/64
[2017-02-19 05:36] LABS: BASOPHILS 0.1 % (0.0-2.0); EOSINOPHILS 1.3 % (0-7); HEMATOCRIT 28.6 % (42.0-54.0); HEMOGLOBIN 9.3 g/dL (13.5-17.5); LYMPHOCYTES 15.2 % (15-50); MCH 31.1 pg (26.0-34.0); MCHC 32.5 g/dL (31.0-37.0); MCV 95.7 fL (80.0-100.0); MEAN PLATELET VOLUME 10.7 fL (7.4-10.4); MONOCYTES 12.6 % (2-11); NEUTROPHILS 69.8 % (40-80); PLATELET COUNT 323 10x3/uL (130-400); RBC 2.99 10x6/uL (4.20-6.10); RDW 15.1 % (11.5-14.5); WBC 10.4 10x3/uL (4.8-10.8)
[2017-02-19 05:57] LABS: ALBUMIN 2.1 g/dL (3.4-5.0); ALKALINE PHOSPHATASE 163 U/L (46-116); ALT (SGPT) 28 U/L (10-68); BILIRUBIN - TOTAL 0.36 mg/dL (0.2-1.3); CALC OSMOLALITY 269 mosm/kg (275-300); CALCIUM 8.6 mg/dL (8.5-10.1); CARBON DIOXIDE 29.7 mmol/L (21.0-32.0); CHLORIDE - SERUM 99 mmol/L (98-107); CREATININE - SERUM 0.8 mg/dL (0.6-1.3); GLUCOSE 86 mg/dL (74-106); POTASSIUM - SERUM 3.5 mmol/L (3.5-5.1); PROTEIN - SERUM 6.8 g/dL (6.4-8.2); SODIUM 136 mmol/L (136-145); UREA NITROGEN 11 mg/dL (7-18); eGFR NON AFRICAN AMERICAN > 90 mL/min (90-120)
--- NOTE | 2017-02-19 07:10 | NUR ---
REPORT RECIEVED ASSUMED CARE. PATIENT IN BED WITH IV INTACT. NO COMPLAINTS AT THIS TIME. EYES CLOSED RESTING QUIETLY. CAREGIVER AT BEDSIDE. CALL LIGHT WITHIN REACH.
--- NOTE | 2017-02-19 08:15 | NUR ---
PATIENT IN BED WITH EYES CLOSED AT THIS TIME. ASSESSMENT COMPLETE, VS STABLE. NO COMPLAINTS. CAREGIVER AT BEDSIDE. CALL LIGHT WITHIN REACH.
[2017-02-19 08:41] VITALS: BP 169/80
--- NOTE | 2017-02-19 10:50 | NUR ---
Rehab Prescreen Consult recieved on 02/18/17. Called to discuss with the CM Ana Pool and was told he would be discharging back to the [place]. Abena Lugo RN Clinical Liaison, Rehab
--- NOTE | 2017-02-19 11:00 | NUR ---
PATIENT RECIEVED TYLENOL FOR PAIN. COMPLAINTS OF STACEY SHOULDER PAIN. CHRONIC. CAREGIVER AT BEDSIDE. CALL LIGHT WITHIN REACH.
[2017-02-19 13:03] VITALS: BP 162/88
--- NOTE | 2017-02-19 15:29 | NUR ---
PATIENT IN BED WITH EYES CLOSED RESTING QUIETLY. IV INTACT. FAMILY AT BEDSIDE. CALL LIGHT WITHIN REACH.
[2017-02-19 16:32] VITALS: BP 107/80
--- NOTE | 2017-02-19 17:29 | NUR ---
OT NOTE: PT APPARENTLY VERY TIRED TODAY; REQUIRED MAX ASSIST FOR SUPINE TO SIT ON EDGE OF BED; MAX ASSIST FOR STATIC SITTING ON EDGE OF BED; MAX ASSIST X 2 FOR SIT TO STAND AND TO MAINTAIN STANDING FOR APPROX 1 MIN
--- NOTE | 2017-02-19 19:06 | NUR ---
OT NOTE: PT COMPLETED BED MOB WITH MAX/MOD A. PT COMPLETED SIMPLE GROOMING WITH SET UP. PT COMPLETED BUE AROM FOR INCREASED AX TOLERANCE. THANK YOU, JAMAL BARBOSA/Gosia
[2017-02-19 21:33] VITALS: BP 158/78
[2017-02-20] VITALS (7 sets, daily range): BP systolic 144–177; BP diastolic 69–84; BMI 31.4
[2017-02-20 05:24] LABS: BASOPHILS 0.3 % (0.0-2.0); EOSINOPHILS 0.8 % (0-7); HEMATOCRIT 29.8 % (42.0-54.0); HEMOGLOBIN 9.8 g/dL (13.5-17.5); IMMATURE GRANULOCYTES 0.9 % (0-5); LYMPHOCYTES 19.6 % (15-50); MCH 31.9 pg (26.0-34.0); MCHC 32.9 g/dL (31.0-37.0); MCV 97.1 fL (80.0-100.0); MEAN PLATELET VOLUME 10.8 fL (7.4-10.4); MONOCYTES 12.1 % (2-11); NEUTROPHILS 66.3 % (40-80); PLATELET COUNT 306 10x3/uL (130-400); RBC 3.07 10x6/uL (4.20-6.10); RDW 15.3 % (11.5-14.5); WBC 9.6 10x3/uL (4.8-10.8)
[2017-02-20 05:53] LABS: ALBUMIN 2.2 g/dL (3.4-5.0); ALKALINE PHOSPHATASE 175 U/L (46-116); ALT (SGPT) 26 U/L (10-68); BILIRUBIN - TOTAL 0.37 mg/dL (0.2-1.3); CALC OSMOLALITY 271 mosm/kg (275-300); CALCIUM 8.8 mg/dL (8.5-10.1); CARBON DIOXIDE 31.2 mmol/L (21.0-32.0); CHLORIDE - SERUM 100 mmol/L (98-107); CREATININE - SERUM 0.9 mg/dL (0.6-1.3); GLUCOSE 93 mg/dL (74-106); POTASSIUM - SERUM 3.6 mmol/L (3.5-5.1); PRO BNP 4017 pg/mL (0-450); PROTEIN - SERUM 6.5 g/dL (6.4-8.2); SODIUM 136 mmol/L (136-145); UREA NITROGEN 12 mg/dL (7-18); eGFR NON AFRICAN AMERICAN 85 mL/min (90-120)
--- NOTE | 2017-02-20 10:48 | NUR ---
Reviewed patient's chart this AM with the acute rehab therapist. He is well known from a previous visit. During his last stay he was to low level to participate in the required 3 hrs a day 5 days a week therapy. His notes for this stay indicate that currently he remains to low level at this time to actively participate in the required therapy. Recommend a skilled level of therapy. Discussed with the CM Riri Gallagher RN. Abena Lugo RN Clinical Liaison, Rehab
--- NOTE | 2017-02-20 18:45 | NUR ---
PATIENT IN BED WITH IV INTACT. NO COMPLAINTS AT THIS TIME. CAREGIVER AT BEDSIDE.
--- NOTE | 2017-02-20 19:02 | NUR ---
OT NOTE: PT COMPLETED BUE AAROM EXS FOR INCREASED AX TOLERANCE. PT COMPLETED BED MOB WITH MAX/MOD A. PT COMPLETED HYGIENE TASK WITH MAX VCS FOR INCREASED I. THANK YOU, JAMAL BARBOSA/Gosia
--- NOTE | 2017-02-20 19:15 | NUR ---
RECIEVED SHIFT REPORT. PT IS LYING IN BED. ALERT AND ORIENTED AND ABLE TO VERBALIZE NEEDS. IV IS PATENT AND FLUIDS ARE RUNNING PER ORDER. PT IS UP WITH ASSISTANCE. PT DENIES ANY PAIN AT THIS TIME. NO NEEDS ARE VERBALIZED AT THIS TIME. CAREGIVER AT THE BEDSIDE. WILL CONTINUE TO MONITOR. SIDE RAILS ARE UP X 2. BED IS IN LOWEST POSITION. BOX ALARM IS ON FOR SAFETY. CALL LIGHT IS WITHIN REACH.
--- NOTE | 2017-02-20 21:35 | NUR ---
SHIFT ASSESSMENT COMPLETED. NIGHT MEDS GIVEN WITH NO PROBLEMS. PT C/O PAIN 01/02 AND REQUESTING SLEEP MEDICATION. ADMINISTERED PRESCRIBED PRN NORCO AND MELATONIN PER ORDER. DENIES FURTHER NEEDS. CAREGIVER AT BEDSIDE. WILL MONITOR. SIDE RAILS X 2. BED LOW. BOX ALARM ON. CALL LIGHT IN REACH.
[2017-02-21 06:47] LABS: BASOPHILS 0.2 % (0.0-2.0); EOSINOPHILS 0.5 % (0-7); HEMATOCRIT 31.1 % (42.0-54.0); HEMOGLOBIN 10.1 g/dL (13.5-17.5); IMMATURE GRANULOCYTES 0.8 % (0-5); LYMPHOCYTES 16.6 % (15-50); MCH 31.7 pg (26.0-34.0); MCHC 32.5 g/dL (31.0-37.0); MCV 97.5 fL (80.0-100.0); MONOCYTES 8.5 % (2-11); NEUTROPHILS 73.4 % (40-80); PLATELET COUNT 269 10x3/uL (130-400); RBC 3.19 10x6/uL (4.20-6.10); RDW 15.3 % (11.5-14.5)
[2017-02-21 07:06] LABS: ALBUMIN 2.1 g/dL (3.4-5.0); ALKALINE PHOSPHATASE 164 U/L (46-116); ALT (SGPT) 26 U/L (10-68); BILIRUBIN - TOTAL 0.35 mg/dL (0.2-1.3); CALC OSMOLALITY 266 mosm/kg (275-300); CALCIUM 8.5 mg/dL (8.5-10.1); CARBON DIOXIDE 33.4 mmol/L (21.0-32.0); CHLORIDE - SERUM 97 mmol/L (98-107); CREATININE - SERUM 0.8 mg/dL (0.6-1.3); GLUCOSE 92 mg/dL (74-106); POTASSIUM - SERUM 3.7 mmol/L (3.5-5.1); PROTEIN - SERUM 6.6 g/dL (6.4-8.2); SODIUM 133 mmol/L (136-145); UREA NITROGEN 15 mg/dL (7-18); eGFR NON AFRICAN AMERICAN > 90 mL/min (90-120)
--- NOTE | 2017-02-21 07:48 | NUR ---
SLEEPING AT THIS TIME. RESPIRATIONS EVEN AND NON LABORED. CAREGIVER AT BEDSIDE. OXYGEN ON 2.5L VIA NC. IV TO RIGHT WRIST PATENT. BED ALARM ON, SRX2 WITH BED IN LOWEST POSITION AND WHEELS LOCKED. CALL LIGHT IN REACH, WILL CONTINUE WITH PLAN OF CARE.
[2017-02-21 08:40] VITALS: BP 151/71
--- NOTE | 2017-02-21 09:04 | NUR ---
SCHEDULED MEDICATIONS ADMINISTERED AT THIS TIME, WELL PRN NORCO FOR BILATERAL SHOULDER PAIN WHICH IS CHRONIC. ASSESSMENT PERFORMED PER FLOWSHEET. CALL LIGHT IN REACH AND CAREGIVER AT BEDSIDE. WILL CONTINUE WITH PLAN OF CARE.
--- NOTE | 2017-02-21 11:13 | NUR ---
PRN DULCOLAX SUPPOSITORY ADMINISTERED FOR CONSTIPATION AT THIS TIME.
[2017-02-21 12:34] VITALS: BP 134/71
[2017-02-21 16:34] VITALS: BP 138/68
--- NOTE | 2017-02-21 17:35 | NUR ---
HAD SOFT, FORMED BOWEL MOVEMENT AT THIS TIME WITHOUT DIFFICULTY. CAREGIVER REMAINS AT BEDSIDE. DENIES NEEDS AT THIS TIME. CALL LIGHT IN REACH. WILL CONTINUE WITH PLAN OF CARE.
[2017-02-21 21:36] VITALS: BP 128/68
--- NOTE | 2017-02-22 04:05 | NUR ---
PT CONFUSED, INCONT.OF BOWEL, ANESTHESIA TECH PERFORMING GOWN/LINEN CHANGE AND CLEANING PATIENT, PT FERMIN WELL, NO DISTRESS NOTED
--- NOTE | 2017-02-22 07:40 | NUR ---
INCONTINENCE CARE BEING PROVIDED BY PRIVATE CAREGIVER AT THIS TIME. PT ALERT WITH RESPIRATIONS EVEN AND NON LABORED. DENIES NEEDS AT THIS TIME. CALL LIGHT IN REACH, WILL CONTINUE WITH PLAN OF CARE.
[2017-02-22 07:53] VITALS: BP 129/75
--- NOTE | 2017-02-22 08:19 | NUR ---
SCHEDULED MEDICATIONS ADMINISTERED AT THIS TIME. ASSESSMENT PERFORMED PER FLOWSHEET. PRIVATE CAREGIVER REMAINS AT BEDSIDE. DENIES NEEDS AT PRESENT TIME. CALL LIGHT IN REACH, WILL CONTINUE WITH PLAN OF CARE.
[2017-02-22 12:36] VITALS: BP 104/55
--- NOTE | 2017-02-22 15:30 | NUR ---
INCONTINENCE CARE PROVIDED AT THIS TIME. NO CHANGES SINCE INITIAL ASSESSMENT. PRIVATE CAREGIVER REMAINS AT BEDSIDE. WILL CONTINUE WITH PLAN OF CARE.
[2017-02-22 15:34] VITALS: BP 130/64
--- NOTE | 2017-02-22 20:06 | NUR ---
REC'D IN BED AWAKE AND ALERT TO SELF ONLY. RESP EVEN AND UNLABORED WITH NO DISTRESS NOTED. HAS O2 IN USE VIA N/C @ 2.5 L/M. NO C/O NOTED OR VOICED AT THIS TIME. CAREGIVER AT BEDSIDE. C/L IN REACH.
[2017-02-22 22:19] VITALS: BP 163/86
--- NOTE | 2017-02-23 02:06 | NUR ---
EYES CLOSED RESPIRATIONS WITH EASE AND UNLABORED.
[2017-02-23 03:29] VITALS: BP 163/74
[2017-02-23 05:38] LABS: BASOPHILS 0.3 % (0.0-2.0); EOSINOPHILS 0.7 % (0-7); HEMATOCRIT 27.4 % (42.0-54.0); IMMATURE GRANULOCYTES 0.6 % (0-5); LYMPHOCYTES 19.7 % (15-50); MCH 31.8 pg (26.0-34.0); MCHC 32.8 g/dL (31.0-37.0); MCV 96.8 fL (80.0-100.0); MEAN PLATELET VOLUME 11.6 fL (7.4-10.4); MONOCYTES 10.8 % (2-11); NEUTROPHILS 67.9 % (40-80); PLATELET COUNT 221 10x3/uL (130-400); RBC 2.83 10x6/uL (4.20-6.10); RDW 15.4 % (11.5-14.5)
[2017-02-23 06:18] LABS: CALC OSMOLALITY 265 mosm/kg (275-300); CALCIUM 8.6 mg/dL (8.5-10.1); CARBON DIOXIDE 29.7 mmol/L (21.0-32.0); CHLORIDE - SERUM 97 mmol/L (98-107); CREATININE - SERUM 0.8 mg/dL (0.6-1.3); GLUCOSE 87 mg/dL (74-106); MAGNESIUM - SERUM 1.8 mg/dL (1.8-2.4); PHOSPHOROUS 3.1 mg/dL (2.5-4.9); POTASSIUM - SERUM 3.9 mmol/L (3.5-5.1); SODIUM 132 mmol/L (136-145); UREA NITROGEN 18 mg/dL (7-18); eGFR NON AFRICAN AMERICAN > 90 mL/min (90-120)
--- NOTE | 2017-02-23 07:00 | NUR ---
REPORT RECIEVED ASSUMED CARE. PATIENT IN BED WITH EYES OPEN. NO COMPLAINTS. CAREGIVER AT BEDSIDE. CALL LIGHT WITHIN REACH.
[2017-02-23 07:52] VITALS: BP 174/86
--- NOTE | 2017-02-23 08:15 | NUR ---
PATIENT IN BED WITH NO COMPLAINTS. ASSESSMENT COMPLETE, VS STABLE. IV INTACT. NO PROBLEMS AT THIS TIME. CAREGIVER AT BEDSIDE. CALL LIGHT WITHIN REACH.
[2017-02-23 11:23] VITALS: BP 161/73
--- NOTE | 2017-02-23 12:45 | NUR ---
PATIENT SITTING UP IN BED EATING LUNCH. IV INTACT. NO COMPLAINTS. CALL LIGHT WITHIN REACH.
[2017-02-23 16:17] VITALS: BP 130/67
--- NOTE | 2017-02-23 16:27 | NUR ---
PATIENT IN BED EYES CLOSED RESTING QUIETLY AT THIS TIME. NO COMPLAINTS OR SIGNS OF DISTRESS. CALL LIGHT WITHIN REACH. CAREGIVER AT BEDSIDE.
--- NOTE | 2017-02-23 18:37 | NUR ---
PATIENT IN BED WITH IV INTACT. SITTING UP EATING PUDDING. CAREGIVER ASSISTING. NO COMPLAINTS OR SIGNS OF DISTRESS. CALL LIGHT WITHIN REACH.
[2017-02-23 19:00] VITALS: BP 145/72
--- NOTE | 2017-02-23 19:00 | NUR ---
PATIENT RESTING WITH EYES CLOSED. HOB 30 DEGREES. AROUSES TO VOICE. RR EVEN AND UNLABORED. O2 @ 2.5L VIA NC. 0 S/S OF DISTRESS. DENIES PAIN AT THIS TIME. IV TO RIGHT WRIST PATENT WITH NO REDNESS OR SWELLING. TELEMETRY ON. CARRIE ALARM ON. HOSPITAL SALES REPRESENTATIVE AT BEDSIDE. SRX3. BED LOW. CALL LIGHT WITHIN REACH.
--- NOTE | 2017-02-23 21:40 | NUR ---
ASSESSMENT COMPLETE. NIGHTTIME MEDS GIVEN. [place] HELD PER REQUEST. MELATONIN GIVEN FOR SLEEP.
[2017-02-24] VITALS: BP 161/75
--- NOTE | 2017-02-24 | NUR ---
PATIENT HAD INCONTINENT EPISODE OF BLADDER. LINENS AND GOWN CHANGED.
--- NOTE | 2017-02-24 03:31 | NUR ---
PATIENT SLEEPING WITH NO DISTRESS NOTED. STILL DRY AT THIS TIME.
[2017-02-24 04:00] VITALS: BP 112/75
[2017-02-24 05:53] LABS: BASOPHILS 0.2 % (0.0-2.0); EOSINOPHILS 1.2 % (0-7); HEMATOCRIT 30.4 % (42.0-54.0); IMMATURE GRANULOCYTES 0.9 % (0-5); LYMPHOCYTES 20.6 % (15-50); MCH 31.9 pg (26.0-34.0); MCHC 32.9 g/dL (31.0-37.0); MCV 97.1 fL (80.0-100.0); MEAN PLATELET VOLUME 11.5 fL (7.4-10.4); MONOCYTES 10.5 % (2-11); NEUTROPHILS 66.6 % (40-80); RBC 3.13 10x6/uL (4.20-6.10); RDW 15.4 % (11.5-14.5); WBC 9.7 10x3/uL (4.8-10.8)
[2017-02-24 06:20] LABS: PLATELET COUNT 274 10x3/uL (130-400)
[2017-02-24 06:30] LABS: ALBUMIN 2.2 g/dL (3.4-5.0); ALKALINE PHOSPHATASE 136 U/L (46-116); ALT (SGPT) 26 U/L (10-68); BILIRUBIN - TOTAL 0.38 mg/dL (0.2-1.3); CALC OSMOLALITY 272 mosm/kg (275-300); CALCIUM 8.5 mg/dL (8.5-10.1); CARBON DIOXIDE 29.3 mmol/L (21.0-32.0); CHLORIDE - SERUM 98 mmol/L (98-107); CREATININE - SERUM 0.8 mg/dL (0.6-1.3); GLUCOSE 83 mg/dL (74-106); POTASSIUM - SERUM 3.6 mmol/L (3.5-5.1); PROTEIN - SERUM 6.5 g/dL (6.4-8.2); SODIUM 136 mmol/L (136-145); UREA NITROGEN 17 mg/dL (7-18); eGFR NON AFRICAN AMERICAN > 90 mL/min (90-120)
--- NOTE | 2017-02-24 07:00 | NUR ---
REPORT RECIEVED ASSUMED CARE. PATIENT IN BED WITH IV INTACT. NO COMPLAINTS. CALL LIGHT WITHIN REACH.
[2017-02-24 08:05] VITALS: BP 147/57
[2017-02-24 12:15] VITALS: BP 174/94
--- NOTE | 2017-02-24 12:36 | NUR ---
NUTRITION MONITORING & EVAL CHART REVIEWED. PT TOLERATING AHA DIET. ~75% INTAKE RECENT MEALS WITH ASSIST. WILL CONTINUE TO PROVIDE DIET, MONITOR PT PROGRESS. RD FOLLOWING
--- NOTE | 2017-02-24 14:14 | NUR ---
OT NOTE: PERFORMED BED MOB WITH MAX ASSIST..MAX ASSIST FOR ROLLING AND SUPINE TO SIT.
[2017-02-24 16:01] VITALS: BP 161/71
--- NOTE | 2017-02-24 18:27 | NUR ---
OT NOTE: PT COMPLETED BUE PROM EXS TO INCREASE BLOOD FLOW AND DECREASE RISK OF SKIN BREAKDOWN. PT COMPLETED HYGIENE TASK WITH TAMARA Estevez. PT REQUIRED EXTENSIVE ASSIST. THANK YOU, BANDAR BARBOSA
--- NOTE | 2017-02-24 18:45 | NUR ---
PATIENT IN BED WITH IV INTACT. EYES CLOSED RESTING QUIETLY. NO COMPLAINTS OR SIGNS OF DISTRESS. CAREGIVER AT BEDSIDE.
--- NOTE | 2017-02-24 19:00 | NUR ---
PATIENT SLEEPING WITH NO DISTRESS NOTED. HOB 40 DEGREES. RR EVEN AND UNLABORED. O2 @ 2.5L VIA NC. IV TO RIGHT WRIST PATENT WITH NO REDNESS OR SWELLING. TELEMETRY ON. BOX ALARM ON. CAREGIVER AT BEDSIDE.
[2017-02-24 20:00] VITALS: BP 144/67
--- NOTE | 2017-02-24 22:00 | NUR ---
ASSESSMENT COMPLETE. PATIENT LETHARGIC BUT DID WAKE UP ENOUGH TO TAKE MEDICATION. LINENS AND GOWN CHANGED BY CAREGIVER.
[2017-02-25] VITALS: BP 133/68
--- NOTE | 2017-02-25 | NUR ---
PATIENT SLEEPING WITH NO DISTRESS NOTED. DRY AT THIS TIME.
--- NOTE | 2017-02-25 02:00 | NUR ---
PATIENT HAD INCONTINENT EPISODE OF BLADDER AND VERY SMALL BM. LINENS AND GOWN CHANGED. REPOSITIONED PATIENT TO LEFT SIDE.
--- NOTE | 2017-02-25 04:29 | NUR ---
PATIENT DRY AT THIS TIME. REPOSITIONED TO RIGHT SIDE.
[2017-02-25 06:09] LABS: BASOPHILS 0.2 % (0.0-2.0); EOSINOPHILS 1.2 % (0-7); HEMATOCRIT 28.2 % (42.0-54.0); HEMOGLOBIN 9.3 g/dL (13.5-17.5); IMMATURE GRANULOCYTES 0.7 % (0-5); LYMPHOCYTES 22.9 % (15-50); MCH 31.7 pg (26.0-34.0); MCV 96.2 fL (80.0-100.0); MEAN PLATELET VOLUME 10.9 fL (7.4-10.4); MONOCYTES 9.3 % (2-11); NEUTROPHILS 65.7 % (40-80); PLATELET COUNT 269 10x3/uL (130-400); RBC 2.93 10x6/uL (4.20-6.10); RDW 15.3 % (11.5-14.5); WBC 9.5 10x3/uL (4.8-10.8)
[2017-02-25 06:29] LABS: ALKALINE PHOSPHATASE 127 U/L (46-116); ALT (SGPT) 27 U/L (10-68); CALC OSMOLALITY 263 mosm/kg (275-300); CALCIUM 8.9 mg/dL (8.5-10.1); CARBON DIOXIDE 30.6 mmol/L (21.0-32.0); CHLORIDE - SERUM 97 mmol/L (98-107); CREATININE - SERUM 0.8 mg/dL (0.6-1.3); GLUCOSE 92 mg/dL (74-106); POTASSIUM - SERUM 3.3 mmol/L (3.5-5.1); PROTEIN - SERUM 6.5 g/dL (6.4-8.2); SODIUM 131 mmol/L (136-145); UREA NITROGEN 14 mg/dL (7-18); eGFR NON AFRICAN AMERICAN > 90 mL/min (90-120)
[2017-02-25 08:29] VITALS: BP 139/67
--- NOTE | 2017-02-25 09:24 | NUR ---
SCHEDULED MEDICATIONS ADMINISTERED AT THIS TIME WITHOUT DIFFICULTY. PT POSITIONED AT 90 DEGREE ANGLE FOR SAFE PO INTAKE. PRIVATE CAREGIVER AT BEDSIDE. ASSESSMENT PERFORMED PER FLOWSHEET. INCONTINENCE CARE PROVIDED AT THIS TIME. PRN TYLENOL ADMINISTERED FOR CHRONIC SHOULDER PAIN. SRX3 WITH BED IN LOWEST POSITION AND WHEELS LOCKD. BOX ALARM IN USE FOR FALL PRECAUTIONS. DENIES NEEDS AT PRESENT TIME. CALL LIGHT IN REACH, WILL CONTINUE WITH PLAN OF CARE.
[2017-02-25] MEDS ORDERED: KEPPRA500 MG PO (10:50)
[2017-02-25] MEDS ORDERED: FLORAJEN3 CAPS460 MG PO (10:51)
[2017-02-25] MEDS ORDERED: CEFUROXIME250 MG PO (10:54)
--- NOTE | 2017-02-25 11:45 | NUR ---
UP IN CHAIR PER PHYSICAL THERAPY. PRIVATE CAREGIVER REMAINS AT BEDSIDE. PT LETHARGIC, BUT AROUSES TO VOICE. CALL LIGHT IN REACH, WILL CONTINUE WITH PLAN OF CARE.
--- NOTE | 2017-02-25 13:15 | NUR ---
REPORTED TO ME FROM ANTHONY WITH PHYSICAL THERAPY THAT PT HAD ANOTHER "EPISODE" OF SYNCOPE UPON TRANSFER FROM THE CHAIR TO THE BED. IT WAS REPORTED THAT PT'S BREATHING BECAME TACHYPNIC, BUT HE DIDN'T FULLY LOSE CONSCIOUSNESS. PT LYING SUPINE IN BED NOW. BP 140/64, PULSE 88 AND OXYGEN SATURATION 97% ON 2.5L VIA NC. RESPIRATIONS 18, EVEN AND UNLABORED.
--- NOTE | 2017-02-25 13:35 | NUR ---
NOTIFIED MARIANELA TIMMONS OF PT'S SYNCOPAL EPISODE. NO NEW ORDERS GIVEN AT THIS TIME.
--- NOTE | 2017-02-25 15:12 | NUR ---
OT NOTE: PT VERY LETHARGIC UPON ENTERING ROOM; CAREGIVER AT BEDSIDE; ATTEMPTED BED MOB, HOWEVER, REQUIRES EXT ASSIST BUT PT PROVIDED LITTLE EFFORT DUE TO LETHARGY. HE AROUSED TO HIS NAME BUT CONT TO FALL ASLEEP
[2017-02-25 15:23] LABS: AEROBE ID Final report (()); RESULT 1 Escherichia coli (())
[2017-02-25 16:28] VITALS: BP 142/68
[2017-02-26 06:08] LABS: BASOPHILS 0.3 % (0.0-2.0); EOSINOPHILS 0.8 % (0-7); HEMATOCRIT 28.4 % (42.0-54.0); HEMOGLOBIN 9.2 g/dL (13.5-17.5); LYMPHOCYTES 21.8 % (15-50); MCH 31.6 pg (26.0-34.0); MCHC 32.4 g/dL (31.0-37.0); MCV 97.6 fL (80.0-100.0); MEAN PLATELET VOLUME 11.4 fL (7.4-10.4); MONOCYTES 11.6 % (2-11); NEUTROPHILS 64.5 % (40-80); PLATELET COUNT 275 10x3/uL (130-400); RBC 2.91 10x6/uL (4.20-6.10); RDW 15.2 % (11.5-14.5); WBC 9.1 10x3/uL (4.8-10.8)
[2017-02-26 06:31] LABS: ALBUMIN 2.3 g/dL (3.4-5.0); ALKALINE PHOSPHATASE 129 U/L (46-116); ALT (SGPT) 26 U/L (10-68); BILIRUBIN - TOTAL 0.37 mg/dL (0.2-1.3); CALC OSMOLALITY 265 mosm/kg (275-300); CALCIUM 8.3 mg/dL (8.5-10.1); CHLORIDE - SERUM 98 mmol/L (98-107); CREATININE - SERUM 0.9 mg/dL (0.6-1.3); GLUCOSE 87 mg/dL (74-106); POTASSIUM - SERUM 3.4 mmol/L (3.5-5.1); PROTEIN - SERUM 6.3 g/dL (6.4-8.2); SODIUM 133 mmol/L (136-145); UREA NITROGEN 15 mg/dL (7-18); eGFR NON AFRICAN AMERICAN 85 mL/min (90-120)
--- NOTE | 2017-02-26 07:53 | NUR ---
AWAKE AND ALERT. ORIENTED TO SELF. NON VERBAL THIS AM SO DIFFICULT TO ASSESS ORIENTATION. LUNGS ARE CLEAR BUT DIMINISHED. SKIN IS INTACT WITHOUT REDNESS. IV TO RIGHT WRIST IS LEAKING. WILL RESITE. DENIES NEEDS. CAREGIVER AT BEDSIDE.
[2017-02-26 09:52] VITALS: BP 171/88
--- NOTE | 2017-02-26 10:30 | NUR ---
TOOK AM MEDS WITHOUT DIFFICULTY. ATTEMPTS TO SITE NEW IV WITHOUT SUCCESS. JESU DANIELS IN ROOM ATTEMPTING PLACEMENT AT THIS TIME.
--- NOTE | 2017-02-26 11:25 | NUR ---
IV ACCESS-20 GAUGE INSERTED IN LEFT UPPER ARM. JESU LEBLANC RN
[2017-02-26 11:48] VITALS: BP 133/82
--- NOTE | 2017-02-26 12:30 | NUR ---
SITTING UP IN BED EATING PER CAREGIVER. NO C/O AT THIS TIME.
--- NOTE | 2017-02-26 14:58 | NUR ---
RESTING QUIETLY WITH EYES CLOSED. DENIES NEEDS.
--- NOTE | 2017-02-26 15:14 | NUR ---
REQUESTED AND GIVEN ONE HYDROCODONE PO FOR C/O SHOULDER PAIN LEVEL 5. WILL MONITOR.
[2017-02-26 15:49] VITALS: BP 134/61
--- NOTE | 2017-02-26 19:18 | NUR ---
NO CHANGES NOTED. DENIES NEEDS.
[2017-02-26 20:00] VITALS: BP 153/69
[2017-02-27 04:49] LABS: BASOPHILS 0.4 % (0.0-2.0); EOSINOPHILS 0.4 % (0-7); HEMATOCRIT 28.5 % (42.0-54.0); HEMOGLOBIN 9.3 g/dL (13.5-17.5); MCHC 32.6 g/dL (31.0-37.0); MCV 97.9 fL (80.0-100.0); MEAN PLATELET VOLUME 11.2 fL (7.4-10.4); MONOCYTES 10.9 % (2-11); NEUTROPHILS 74.3 % (40-80); PLATELET COUNT 310 10x3/uL (130-400); RBC 2.91 10x6/uL (4.20-6.10); RDW 15.2 % (11.5-14.5)
--- NOTE | 2017-02-27 05:06 | NUR ---
ASSESSED AT THE [facility] OF THE SHIFT. PT IS ALERT AND ABLE TO FOLLOW SIMPLE INSTRUCTIONS. HE IS VERY [place]. UNTILL ABOUT 2200 HE HAS A SITTER THAT STAYS WITH HIM AND GIVES PERSONAL CARE. WE HAVE TURNED HIM PER PROTOCOL AFTER HIS SITTER LEAVES AND MADE SURE HE STAYS DRY. HIS TELEMETRY IS SHOWING SINUS RHYTHM AND WE ARE GIVING HIM ELIQUIS FOR PREVENTION OF CLOTS. THE BED IS LOW, RAILS UP X'S 2 WITH THE CALL LIGHT AT HAND. DURING THE RECORDING OF VITAL SIGNS THE FIBER HEEL PIECE SHAPER PUT A PULSE OF 40 IN AND THIS WAS INCORRECT. HIS PULSE WAS ACTUALLY 79 AT THE TIME OF RECHECK WHEN THIS WAS CAUGHT.
[2017-02-27 05:11] LABS: ALBUMIN 2.2 g/dL (3.4-5.0); ALKALINE PHOSPHATASE 131 U/L (46-116); ALT (SGPT) 28 U/L (10-68); CALC OSMOLALITY 271 mosm/kg (275-300); CALCIUM 8.9 mg/dL (8.5-10.1); CARBON DIOXIDE 31.2 mmol/L (21.0-32.0); CHLORIDE - SERUM 98 mmol/L (98-107); CREATININE - SERUM 0.9 mg/dL (0.6-1.3); GLUCOSE 110 mg/dL (74-106); POTASSIUM - SERUM 3.6 mmol/L (3.5-5.1); SODIUM 135 mmol/L (136-145); UREA NITROGEN 16 mg/dL (7-18); eGFR NON AFRICAN AMERICAN 85 mL/min (90-120)
--- NOTE | 2017-02-27 07:20 | NUR ---
PATIENT RECEIVED IN HIGH GONZALES POSITION RESTING WITH EYES CLOSED. RESPIRATIONS EVEN AND UNLABORED. SIDE RAILS UP X2. BED IN LOW POSITION. CALL LIGHT IN REACH. CAREGIVER AT BEDSIDE.
--- NOTE | 2017-02-27 07:25 | NUR ---
COSMETOLOGISTBRITTON GODWIN RN REPORTS PATIENT ON TELEMETRY SHOWING 82 WITH A JUNCTIONAL RHYTHM. STATES THAT AT 0712 THE PATIENT HAD A RUN OF 13 VTACH. MARIANELA TIMMONS PAGED. WILL AWAIT CALLBACK
[2017-02-27 08:03] VITALS: BP 143/56
--- NOTE | 2017-02-27 08:57 | NUR ---
PATIENT ALERT IN HIGH GONZALES POSITION. RESPIRATIONS EVEN AND UNLABORED. SCHEDULED MEDICATION ADMINISTERED. CAREGIVER PRESENT AT BEDSIDE. SIDE RAILS UP X2. BED IN LOW POSITION. CALL LIGHT IN REACH. CARRIE ALARM ON.
--- NOTE | 2017-02-27 10:19 | NUR ---
SITTING UP IN CHAIR AT BEDSIDE PER PT. CAREGIVER AT BEDSIDE. DENIES NEEDS. CALL LIGHT IN REACH.
[2017-02-27 12:23] VITALS: BP 134/56
--- NOTE | 2017-02-27 14:27 | NUR ---
PATIENT IN LOW GONZALES POSITION RESTING WITH EYES CLOSED. RESPIRATIONS EVEN AND UNLABORED. WAKES EASY. SCHEDULED MEDICATION ADMINISTERED. SIDE RAILS UP X2. BED IN LOW POSITION. CALL LIGHT IN REACH.
[2017-02-27 15:24] VITALS: BP 120/62
[2017-02-27 20:00] VITALS: BP 116/58
[2017-02-28] VITALS: BP 116/58; BP 126/69
[2017-02-28 04:00] VITALS: BP 123/62
[2017-02-28 05:24] LABS: BASOPHILS 0.2 % (0.0-2.0); EOSINOPHILS 0.1 % (0-7); HEMATOCRIT 29.8 % (42.0-54.0); HEMOGLOBIN 9.7 g/dL (13.5-17.5); IMMATURE GRANULOCYTES 0.5 % (0-5); LYMPHOCYTES 12.5 % (15-50); MCH 32.1 pg (26.0-34.0); MCHC 32.6 g/dL (31.0-37.0); MCV 98.7 fL (80.0-100.0); MONOCYTES 10.1 % (2-11); NEUTROPHILS 76.6 % (40-80); PLATELET COUNT 291 10x3/uL (130-400); RBC 3.02 10x6/uL (4.20-6.10); RDW 15.8 % (11.5-14.5); WBC 15.7 10x3/uL (4.8-10.8)
[2017-02-28 05:27] LABS: ALBUMIN 2.5 g/dL (3.4-5.0); ANION GAP 11.1 mmol/L (8-16); BILIRUBIN - TOTAL 0.59 mg/dL (0.2-1.3); CALCIUM 9.1 mg/dL (8.5-10.1); CARBON DIOXIDE 29.8 mmol/L (21.0-32.0); CREATININE - SERUM 1.1 mg/dL (0.6-1.3); POTASSIUM - SERUM 3.9 mmol/L (3.5-5.1); PROTEIN - SERUM 6.7 g/dL (6.4-8.2)
--- NOTE | 2017-02-28 07:30 | NUR ---
PATIENT SITTING UP IN THE BED WITH HIS EYES CLOSED. ROCÍO, PATIENT'S SITTER, AT HIS BEDSIDE. PATIENT AWAKENS TO VERBAL STIMULI. PATIENT DENIES ANY PAIN AT PRESENT TIME. LEFT UPPER ARM SALINE LOCK PATENT AND WRAPPED IN KERLIX. PATIENT DENIES ANY NEEDS AT PRESENT TIME. CALL LIGHT IN PATIENT'S REACH. WILL MONITOR.
[2017-02-28 08:25] VITALS: BP 180/79
--- NOTE | 2017-02-28 08:35 | NUR ---
PATIENT RESTING QUIETLY IN THE BED. SITTER AT HIS BEDSIDE. PATIENT IS ALERT AND ORIENTED TO PERSON ONLY. ASSESSMENT COMPLETED. SEE FLOWSHEET FOR ANY DETAILS. PATIENT IS VERY [place] AND BLIND WITH POOR VISION NOTED. TELEMETRY IN PLACE AND SHOWING NORMAL SINUS RHYTHM WITH PAC'S AT A RATE OF 85. PATIENT IS INCONTINENT OF BOWEL AND BLADDER. PATIENT COMPLAINS OF PAIN IN HIS RIGHT SHOULDER AREA. PAIN LEVEL A "7" ON A 0-10 SCALE. PRN NORCO GIVEN TO PATIENT FOR PAIN. SCHEDULED MORNING MEDICATIONS GIVEN TO PATIENT. PATIENT TOLERATED ALL OF HIS MEDICATIONS WELL WITH A VANILLA ENSURE. PATIENT DENIES ANY FURTHER NEEDS AT THIS TIME. CALL LIGHT IN PATIENT'S REACH. WILL MONITOR PATIENT.
--- NOTE | 2017-02-28 10:40 | NUR ---
PATIENT RESTING QUIETLY WITH HIS EYES CLOSED. PATIENT AWAKENS TO VERBAL STIMULI. SCHEDULAED MEDICATION GIVEN TO PATIENT. PATIENT TOLERATED WELL WITH ORANGE JUICE. ROCÍO, PATIENT'S SITTER, AT THE BEDSIDE. CALL LIGHT IN PATIENT'S REACH. WILL CONTINUE TO MONITOR PATIENT.
[2017-02-28 12:32] VITALS: BP 142/73
--- NOTE | 2017-02-28 14:34 | NUR ---
PATIENT RESTING IN BED WITH EYES CLOSED. SON-IN-LAW AT PATIENT'S BEDSIDE. PATIENT AWAKENS TO VERBAL STIMULI. PATIENT IS VERY [place]. SCHEDULED MEDICATION GIVEN TO PATIENT IN APPLESAUCE. ORANGE JUICE PROVIDED TO PATIENT. PATIENT DENIES ANY FURTHER NEEDS AT PRESENT TIME. CALL LIGHT IN PATIENT'S REACH. BOX ALARM IN PLACE. WILL MONITOR PATIENT.
[2017-02-28 17:31] VITALS: BP 121/54
[2017-02-28 19:01] VITALS: BP 133/72
--- NOTE | 2017-02-28 19:27 | NUR ---
PATIENT RESTING WITH EYES CLOSED AND CAREGIVER AT BEDSIDE. NO VISIBLE SIGNS OF DISTRESS. BED IN LOWEST POSITION, CALL LIGHT WITHIN REACH, AND BED ALARM ON AND FUNCTIONING PROPERLY. ENCOURAGED CAREGIVER TO CALL IF PATIENT HAS NEEDS.
[2017-03-01] VITALS: BP 157/74
[2017-03-01 04:00] VITALS: BP 158/77
[2017-03-01 08:16] VITALS: BP 157/96
--- NOTE | 2017-03-01 10:49 | NUR ---
SPOKE WITH ABOUT ORDER TO GET SPUTUM BEFORE STARTING ANTIBIOTICS. EXPLAINED THAT PATIENT HAS NOT COUGHED UP ANY SPUTUM SINCE YESTERDAY AND I TRIED THIS MORNING HAVING PATIENT COUGH, USE FLUTTER AND INCENTIVE SPIROMETER AND PATIENT STILL DID NOT COUGH OUT ANY SPUTUM. SHE STATED "WELL PUT THE SPECIMEN CUP IN THERE AND WAIT A COUPLE HOURS BEFORE STARTING THE ANTIBIOTIC TO SEE IF PATIENT IS ABLE TO COUGH UP A SPUTUM BEFORE THEN BECAUSE I WOULD LIKE TO GET THE SPUTUM BEFORE WE START THE ANTIBIOTIC." PUT SPECIMEN CUP IN ROOM, EXPLAINED TO CAREGIVER THAT WE NEED A SPUTUM SAMPLE. CALLED PHARMACY, SPOKE WITH SYLWIA ASKED HER TO RETIME THE MAXIPIME FOR 1300.
[2017-03-01 11:21] VITALS: BP 162/77
[2017-03-01 16:30] VITALS: BP 117/81
--- NOTE | 2017-03-01 19:33 | NUR ---
PATIENT AND CAREGIVER AT BEDSIDE DENY NEEDS AT THIS TIME. BED IN LOWEST POSITION AND CALL LIGHT WITHIN REACH. ENCOURAGED PATIENT AND CAREGIVER TO CALL IF THEY HAVE NEEDS.
[2017-03-01 20:00] VITALS: BP 171/73
[2017-03-02 00:30] VITALS: BP 166/62
[2017-03-02 04:39] VITALS: BP 149/80
[2017-03-02 05:24] LABS: BASOPHILS 0.2 % (0.0-2.0); EOSINOPHILS 0.9 % (0-7); HEMATOCRIT 28.9 % (42.0-54.0); HEMOGLOBIN 9.5 g/dL (13.5-17.5); IMMATURE GRANULOCYTES 0.9 % (0-5); LYMPHOCYTES 15.6 % (15-50); MCH 32.3 pg (26.0-34.0); MCHC 32.9 g/dL (31.0-37.0); MCV 98.3 fL (80.0-100.0); MONOCYTES 10.6 % (2-11); NEUTROPHILS 71.8 % (40-80); PLATELET COUNT 298 10x3/uL (130-400); RBC 2.94 10x6/uL (4.20-6.10); RDW 15.8 % (11.5-14.5); WBC 12.7 10x3/uL (4.8-10.8)
--- NOTE | 2017-03-02 05:30 | NUR ---
PATIENT IS RESTING IN BED WITH EYES CLOSED. NO VISIBLE SIGNS OF DISTRESS. BED IN LOWEST POSITION, CALL LIGHT WITHIN REACH, AND BOX ALARM ATTACHED TO PATIENT. PATIENT IS CLEAN AND DRY.
[2017-03-02 06:05] LABS: CALC OSMOLALITY 275 mosm/kg (275-300); CARBON DIOXIDE 30.9 mmol/L (21.0-32.0); CHLORIDE - SERUM 100 mmol/L (98-107); CREATININE - SERUM 0.9 mg/dL (0.6-1.3); GLUCOSE 88 mg/dL (74-106); POTASSIUM - SERUM 3.5 mmol/L (3.5-5.1); SODIUM 138 mmol/L (136-145); UREA NITROGEN 16 mg/dL (7-18); eGFR NON AFRICAN AMERICAN 85 mL/min (90-120)
--- NOTE | 2017-03-02 07:12 | NUR ---
FRANCES PHAM FROM NIGHTSHIFT IN ROOM ADMINISTERING MEDICATION TO PATIENT, CRUSHED IN APPLE SAUCE. PATIENT IS COOPERATING TAKING HIS MEDICATION. PATIENT STATED "THANK YOU DARLING." BED IN LOWEST POSITION, CALL LIGHT IN REACH. BED RIALS UP X'S 2. NO SIGNS OF DISTRESS NOTED.
[2017-03-02 07:49] VITALS: BP 171/84
[2017-03-02 11:40] VITALS: BP 154/80
--- NOTE | 2017-03-02 13:10 | CN ---
PATIENT NAME:SHANDA THURMAN MEDICAL RECORD: [id number] : 31 LOCATION:D.MS Bro2 ADMIT DATE: 02/15/17 ACCOUNT: [id number] CONSULTING PHYSICIAN: BRENNA RODNEY MD REFERRING PHYSICIAN: LUIS FERNANDO ABARCA MD DATE OF CONSULTATION: 02/27/2017 HISTORY OF PRESENT ILLNESS: An 86-year-old gentleman with history of multi-infarct dementia, coronary artery disease, status post coronary bypass grafting and has had multiple syncopal episodes. He has a history of seizure, was noted to have arrhythmia on telemetry, this is consistent with aberrant AFib. He has been in sinus during this admission except for this one episode, is currently not complaining though. Most of the history is from caregivers with the patient. He has remained on Eliquis from previous atrial fibrillation. We are asked to see him concerning his cardiovascular status. PAST MEDICAL HISTORY: Includes: 1. History of multi-infarct dementia. 2. Seizure disorder. 3. Hypertension. 4. Gastroesophageal reflux disease. 5. Coronary artery disease as described above. 6. Cerebrovascular disease, status post endarterectomy. ALLERGIES: INCLUDE ADVAIR, AMIODARONE AND MULTAQ. MEDICATIONS PRIOR TO ADMISSION: Claritin 10 mg p.o. q. day, nystatin swish and swallow 5 ____ a.c. and q.h.s., Atrovent 0.5 q.4, Eliquis 2.5 b.i.d., losartan 25 q. day, diltiazem 60 mg t.i.d., Effexor 150 q.day, Keppra 500 mg b.i.d., Protonix 40 q. day. 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 REVIEW OF SYSTEMS: Unable to obtain due to the patient factors. PHYSICAL EXAMINATION: GENERAL: Somnolent elderly gentleman, in no acute distress. VITAL SIGNS: 153/56, pulse is 84 and regular. HEENT: Normocephalic and atraumatic. NECK: Soft, left carotid bruit. HEART: Regular. LUNGS: Fair air excursion. ABDOMEN: Soft, nontender. EXTREMITIES: Pulse 2+. No edema. DIAGNOSTIC DATA: ECG shows normal sinus rhythm, LVH. IMPRESSION: Nonsustained atrial fibrillation with aberrancy in his rhythms. Given underlying illness, recent cholecystectomy, etc, rhythm has been remarkably stable. He is already on Eliquis for cerebrovascular accident prophylaxis. No contraindication to rehabilitation or long-term care from a cardiovascular standpoint. TRANSINT:[id number] Voice Confirmation ID: [id number] DOCUMENT ID: [id number] CONSULT REPORT [id number] SHANDA THURMAN,BRENNA Estevez MD at 1310 CC: [id number] DICTATION DATE: 02/27/171127 GUSSET STITCHER: 02/27/17 210 ADM IN [facility] [address] [place] [id number]
[2017-03-02 14:58] VITALS: BP 139/73
--- NOTE | 2017-03-02 19:30 | NUR ---
CAREGIVER AT BEDSIDE AND PATIENT DENIES NEEDS AT THIS TIME. BED IN LOWEST POSITION, CALL LIGHT WITHIN REACH, AND BOX ALARM ON AND ATTACHED TO PATIENT. ENCOURAGED PATIENT AND CAREGIVER TO CALL IF THEY HAVE NEEDS.
[2017-03-02 20:00] VITALS: BP 89/68
[2017-03-03] VITALS: BP 109/68
[2017-03-03 04:00] VITALS: BP 169/82
[2017-03-03 05:54] LABS: BASOPHILS 0.1 % (0.0-2.0); EOSINOPHILS 1.1 % (0-7); HEMATOCRIT 28.9 % (42.0-54.0); HEMOGLOBIN 9.3 g/dL (13.5-17.5); IMMATURE GRANULOCYTES 0.4 % (0-5); LYMPHOCYTES 16.8 % (15-50); MCH 31.5 pg (26.0-34.0); MCHC 32.2 g/dL (31.0-37.0); MEAN PLATELET VOLUME 11.1 fL (7.4-10.4); MONOCYTES 10.4 % (2-11); NEUTROPHILS 71.2 % (40-80); PLATELET COUNT 331 10x3/uL (130-400); RBC 2.95 10x6/uL (4.20-6.10); RDW 15.4 % (11.5-14.5); WBC 12.3 10x3/uL (4.8-10.8)
[2017-03-03 05:55] LABS: CALC OSMOLALITY 273 mosm/kg (275-300); CALCIUM 8.9 mg/dL (8.5-10.1); CARBON DIOXIDE 30.3 mmol/L (21.0-32.0); CHLORIDE - SERUM 100 mmol/L (98-107); CREATININE - SERUM 0.9 mg/dL (0.6-1.3); GLUCOSE 88 mg/dL (74-106); POTASSIUM - SERUM 3.5 mmol/L (3.5-5.1); SODIUM 137 mmol/L (136-145); UREA NITROGEN 15 mg/dL (7-18); eGFR NON AFRICAN AMERICAN 85 mL/min (90-120)
--- NOTE | 2017-03-03 07:19 | NUR ---
PATIENT ALERT IN HIGH GONZALES POSITION. RESPIRATIONS EVEN AND UNLABORED. CAREGIVER AT BEDSIDE. SIDE RAILS UP X2. BED IN LOW POSITION. CALL LIGHT IN REACH.
--- NOTE | 2017-03-03 07:37 | NUR ---
SITTING IN BED EATING BREAKFAST, DENIES NEEDS, NO DISTRESS NOTED, CALL LIGHT IN REACH, BED LOWEST POSITION, WILL CONTINUE TO MONITOR
[2017-03-03 07:38] VITALS: BP 168/89
[2017-03-03 11:54] VITALS: BP 166/90
--- NOTE | 2017-03-03 12:36 | NUR ---
NUTRITION MONITORING & EVAL CHART REVIEWED. PT VISIT. UP IN CHAIR, CAREGIVER ASSISTING WITH LUNCH. ~50% INTAKE BREAKFAST. WILL CONTINUE TO PROVIDE DIET, MONITOR PT PROGRESS. RD FOLLOWING
[2017-03-03 15:49] VITALS: BP 164/84
--- NOTE | 2017-03-03 17:27 | NUR ---
SITTING IN BED, SITTER AT BEDSIDE, DENIES NEEDS
[2017-03-03 20:00] VITALS: BP 86/44
[2017-03-04 04:00] VITALS: BP 100/52
[2017-03-04 08:48] LABS: CALC OSMOLALITY 270 mosm/kg (275-300); CALCIUM 8.4 mg/dL (8.5-10.1); CARBON DIOXIDE 28.3 mmol/L (21.0-32.0); CHLORIDE - SERUM 99 mmol/L (98-107); CREATININE - SERUM 0.8 mg/dL (0.6-1.3); GLUCOSE 93 mg/dL (74-106); SODIUM 135 mmol/L (136-145); UREA NITROGEN 15 mg/dL (7-18); eGFR NON AFRICAN AMERICAN > 90 mL/min (90-120)
[2017-03-04 08:50] LABS: POTASSIUM - SERUM 4.2 mmol/L (3.5-5.1)
[2017-03-04 09:00] VITALS: BP 110/71
[2017-03-04 09:00] LABS: BASOPHILS 0.2 % (0.0-2.0); EOSINOPHILS 1.5 % (0-7); HEMOGLOBIN 9.5 g/dL (13.5-17.5); IMMATURE GRANULOCYTES 0.6 % (0-5); LYMPHOCYTES 19.8 % (15-50); MCH 31.9 pg (26.0-34.0); MCHC 32.8 g/dL (31.0-37.0); MCV 97.3 fL (80.0-100.0); MEAN PLATELET VOLUME 11.6 fL (7.4-10.4); MONOCYTES 11.3 % (2-11); NEUTROPHILS 66.6 % (40-80); PLATELET COUNT 298 10x3/uL (130-400); RBC 2.98 10x6/uL (4.20-6.10); RDW 15.3 % (11.5-14.5); WBC 10.1 10x3/uL (4.8-10.8)
[2017-03-04 17:16] VITALS: BP 135/85
--- NOTE | 2017-03-04 19:00 | NUR ---
PATIENT SITTING UP IN BED. HOB 40 DEGREES. EYES CLOSED BUT RESPONDS TO VOICE. RR EVEN AND UNLABORED. O2 @ 4L VIA NC. 0 S/S OF DISTRESS. DENIES PAIN. IV TO RIGHT UPPER ARM PATENT WITH NO REDNESS OR SWELLING. TELEMETRY ON. B/A ON. CAREGIVER AT BEDSIDE. SRX3. BED LOW. CALL LIGHT WITHIN REACH.
[2017-03-04 20:00] VITALS: BP 156/82
--- NOTE | 2017-03-04 22:00 | NUR ---
ASSESSMENT COMPLETE. NIGHTTIME MEDS GIVEN CRUSHED IN APPLESAUCE. TYLENOL GIVE FOR PAIN AND MELATONIN GIVEN FOR SLEEP.
[2017-03-05] VITALS: BP 142/79
--- NOTE | 2017-03-05 | NUR ---
PATIENT SLEEPING WITH NO DISTRESS NOTED. TURNED TO LEFT SIDE.
--- NOTE | 2017-03-05 02:00 | NUR ---
REPOSITIONED PATIENT TO RIGHT SIDE.
[2017-03-05 04:00] VITALS: BP 138/81
--- NOTE | 2017-03-05 04:23 | NUR ---
REPOSITIONED PATIENT TO BACK. NO NEEDS AT THIS TIME.
[2017-03-05 06:38] LABS: BASOPHILS 0.2 % (0.0-2.0); EOSINOPHILS 2.8 % (0-7); HEMATOCRIT 28.8 % (42.0-54.0); HEMOGLOBIN 9.3 g/dL (13.5-17.5); IMMATURE GRANULOCYTES 0.8 % (0-5); LYMPHOCYTES 24.8 % (15-50); MCH 31.5 pg (26.0-34.0); MCHC 32.3 g/dL (31.0-37.0); MCV 97.6 fL (80.0-100.0); MONOCYTES 10.7 % (2-11); NEUTROPHILS 60.7 % (40-80); PLATELET COUNT 332 10x3/uL (130-400); RBC 2.95 10x6/uL (4.20-6.10); RDW 15.1 % (11.5-14.5); WBC 8.5 10x3/uL (4.8-10.8)
[2017-03-05 06:41] LABS: CALC OSMOLALITY 266 mosm/kg (275-300); CARBON DIOXIDE 31.9 mmol/L (21.0-32.0); CHLORIDE - SERUM 97 mmol/L (98-107); CREATININE - SERUM 0.9 mg/dL (0.6-1.3); GLUCOSE 111 mg/dL (74-106); POTASSIUM - SERUM 3.6 mmol/L (3.5-5.1); SODIUM 132 mmol/L (136-145); UREA NITROGEN 16 mg/dL (7-18); eGFR NON AFRICAN AMERICAN 85 mL/min (90-120)
[2017-03-05 07:50] VITALS: BP 174/93
[2017-03-05 11:41] VITALS: BP 173/96
[2017-03-05 15:09] VITALS: BP 164/78
--- NOTE | 2017-03-05 19:00 | NUR ---
PATIENT SITTING UP IN BED AWAKE AND ALERT, BUT CONFUSED. RR EVEN AND UNLABORED. O2 @ 4L VIA NC. 0 S/S OF DISTRESS. DENIES PAIN. IV TO RIGHT UPPER ARM S/L WITH NO REDNESS OR SWELLING. TELEMETRY ON. CARRIE MAT ON. CAREGIVER AT BEDSIDE. DOOR OPEN.
--- NOTE | 2017-03-05 21:00 | NUR ---
ASSESSMENT COMPLETE. NIGHTTIME MEDS CRUSHED AND GIVEN IN APPLESAUCE. MELATONIN GIVEN FOR SLEEP AND TYLENOL GIVEN FOR SHOULDER PAIN.
[2017-03-05 23:39] VITALS: BP 104/85
--- NOTE | 2017-03-06 | NUR ---
PATIENT DRY AT THIS TIME. REPOSITIONED TO RIGHT SIDE.
--- NOTE | 2017-03-06 02:00 | NUR ---
PATIENT HAD INCONTINENT EPISODE OF BLADDER. BATH GIVEN AND LINENS AND GOWN CHANGED. REPOSITIONED PATIENT TO LEFT SIDE.
[2017-03-06 05:04] LABS: BASOPHILS 0.3 % (0.0-2.0); EOSINOPHILS 2.7 % (0-7); HEMATOCRIT 28.6 % (42.0-54.0); HEMOGLOBIN 9.4 g/dL (13.5-17.5); IMMATURE GRANULOCYTES 0.5 % (0-5); LYMPHOCYTES 24.6 % (15-50); MCHC 32.9 g/dL (31.0-37.0); MCV 97.3 fL (80.0-100.0); MONOCYTES 11.5 % (2-11); NEUTROPHILS 60.4 % (40-80); PLATELET COUNT 334 10x3/uL (130-400); RBC 2.94 10x6/uL (4.20-6.10); RDW 15.2 % (11.5-14.5); WBC 9.5 10x3/uL (4.8-10.8)
[2017-03-06 05:15] LABS: CALC OSMOLALITY 266 mosm/kg (275-300); CALCIUM 9.1 mg/dL (8.5-10.1); CARBON DIOXIDE 33.7 mmol/L (21.0-32.0); CHLORIDE - SERUM 97 mmol/L (98-107); CREATININE - SERUM 0.9 mg/dL (0.6-1.3); GLUCOSE 97 mg/dL (74-106); POTASSIUM - SERUM 3.7 mmol/L (3.5-5.1); SODIUM 133 mmol/L (136-145); UREA NITROGEN 16 mg/dL (7-18); eGFR NON AFRICAN AMERICAN 85 mL/min (90-120)
--- NOTE | 2017-03-06 07:00 | NUR ---
PT WAS RECEIVED IN BED AT THE BEGINING OF THIS SHIFT. EYES WERE CLOSED AND HE WAS RESTING COMFORTABLY WITH HIS CAREGIVER AT THE BEDSIDE. VITAL SIGNS; TEMP. 97.9, PULSE 75, RESP. 18, B/P 180/91, 02SAT. 9%. TELEMENTRY IS ON. PT. 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 CARRIE BED ALARM ON. 02 PER NC GOING AT 4L/MIN. IV IS IN RT. UPER ARM. STEVE BE MONITORING HIM AND ASISTING PRN WITH ADL'S. STABLE CONDITION OBSERVED.
[2017-03-06 08:18] VITALS: BP 180/91
--- NOTE | 2017-03-06 11:30 | NUR ---
Rehab Prescreening Consult recieved and the chart was reviewed. This patient is well know from previous stays in the rehab unit. He is a very pleasant man that resides in a NH with a 24hr caregiver. The PT notes indicate he has only been out of the bed to a chair or had active ROM. The previous time this patient was in the rehab he made little or no FIM gains and discharged back to a skilled unit. He was either unable or unwilling to participate in the therapy that Medicare requires 3hrs a day 5 days a week. Recommend he return to a skilled facility with his caregiver. Relayed to Riri Gallagher RN CM. Abena Lugo RN Clinical Liaison, Rehab
[2017-03-06 13:02] VITALS: BP 166/91
--- NOTE | 2017-03-06 13:51 | NUR ---
PT IS HAVING AN UNEVENTFUL DAY. NO CHANGES IN HEALTH CONDITION TO REPORT. PT REMAINS CONFUSED. VERY [place]. IV TO RT. UPPER ARM INTACT AND PATENT. MEDICATIONS ARE CRUSHED AND GIVEN IN APPLESAUCE. PT. IS ON BED ALARM DEVICE FOR SAFETY. CAREGIVER AT BEDSIDE.
--- NOTE | 2017-03-06 15:26 | NUR ---
OT NOTE: PERFORMED PROM TO B UES TODAY; PT VERY LETHARGIC AND DIFFICULT TO AROUSE
[2017-03-06 16:31] VITALS: BP 149/63
--- NOTE | 2017-03-06 18:34 | NUR ---
PT HAS BEEN STABLE THIS DAY. HE DID COMPLAIN OF A HEADACHE TO HIS DAUGHTER AND SHE ASKED THAT HE BE GIVEN A TYLENOL AND HE WAS GIVEN 650MG AT 6PM. SITTER IS BACK WITH HIM FOR THE NIGHT AND THE DAUGHTER HAS GONE BACK OUT OF STATE WHERE HER MOTHER IS DYING. WILL CONTINUE TO MONITOR.
--- NOTE | 2017-03-06 19:36 | NUR ---
PT RECEIVED LYING IN BED RESTING QUIETLY WITH EYES CLOSED. CAREGIVER AT BEDSIDE. PT AROUSED EASILY. PT CONFUSED TO PLACE AT THIS TIME. S/L NOTED TO RIGHT UPPER ARM. DRESSING CDI. HEART RRR. HEART RATE 75 ON TELEMETRY. CRACKLES NOTED TO BILATERAL LUNG SOUNDS. PT ON 4 L O2 VIA NC. PT ON DROPLET PRECAUTIONS. BOWEL SOUNDS ACTIVE X4 QUADRENTS. ABDOMEN SOFT NON-DISTENDED. PEDAL PULSES EQUAL BILATERALLY. PT BED ALARM ON AND FUNCTIONING PROPERLY. PT RATES PAIN 0/10 AT THIS TIME. DENIES NEEDS. BED LOW. PHONE AND CALL LIGHT IN REACH. SRX2.
--- NOTE | 2017-03-06 20:41 | NUR ---
PM MEDS GIVEN AT THIS TIME. PT AND CAREGIVER DENIES NEEDS. BED LOW. PHONE AND CALL LIGHT IN REACH. SRX2.
[2017-03-06 22:00] VITALS: BP 147/74
--- NOTE | 2017-03-06 22:40 | NUR ---
PT RESTING QUIETLY AT THIS TIME WITH EYES CLOSED. RESPIRATIONS EVEN, NON-LABORED. NO ACUTE DISTRESS NOTED AT THIS TIME. RESPIRATORY IN ROOM GIVING BREATHING TREATMENT AT THIS TIME. NO NEEDS NOTED. BED LOW. PHONE AND CALL LIGHT IN REACH. SRX2.
--- NOTE | 2017-03-07 00:37 | NUR ---
PT RESTING QUIETLY AT THIS TIME WITH EYES CLOSED. RESPIRATIONS EVEN, NON-LABORED. NO ACUTE DISTRESS NOTED AT THIS TIME. BED LOW. PHONE AND CALL LIGHT IN REACH. SRX2.
[2017-03-07 03:55] VITALS: BP 143/65
--- NOTE | 2017-03-07 04:39 | NUR ---
PT RESTING QUIETLY WITH EYES CLOSED. AROUSED EASILY. CEFEPIME IVPB INITIATED AT THIS TIME. PT DENIES NEEDS. BED LOW. PHONE AND CALL LIGHT IN REACH. SRX2.
--- NOTE | 2017-03-07 06:55 | NUR ---
AM MEDS GIVEN AT THIS TIME. PT DENIES OTHER NEEDS. BED LOW. PHONE AND CALL LIGHT IN REACH. SRX2.
--- NOTE | 2017-03-07 07:15 | NUR ---
PT REC'D FROM [facility]. COMPLETE BED BATH AND LINEN CHANGE PROVIDED DUE TO INCONT. OF URINE. REPOSITIONED UP IN BED. RED DEVIL. ALERT TO SELF, TIME, AND PLACE ONLY. EXPIRATORY WHEEZES HEARD BILAT TO ALL LUNG BONNER. BOWEL SOUNDS ACTIVE X4. BED LOW, CALL LIGHT IN REACH, VALUE ANALYST AT BEDSIDE. CPOC.
[2017-03-07 07:40] LABS: BASOPHILS 0.2 % (0.0-2.0); EOSINOPHILS 2.2 % (0-7); HEMATOCRIT 29.7 % (42.0-54.0); HEMOGLOBIN 9.9 g/dL (13.5-17.5); IMMATURE GRANULOCYTES 0.7 % (0-5); MCH 32.2 pg (26.0-34.0); MCHC 33.3 g/dL (31.0-37.0); MCV 96.7 fL (80.0-100.0); MEAN PLATELET VOLUME 10.9 fL (7.4-10.4); MONOCYTES 11.6 % (2-11); NEUTROPHILS 64.3 % (40-80); PLATELET COUNT 321 10x3/uL (130-400); RBC 3.07 10x6/uL (4.20-6.10); WBC 8.8 10x3/uL (4.8-10.8)
[2017-03-07 08:02] LABS: ALBUMIN 2.3 g/dL (3.4-5.0); ALKALINE PHOSPHATASE 426 U/L (46-116); ALT (SGPT) 57 U/L (10-68); BILIRUBIN - TOTAL 0.48 mg/dL (0.2-1.3); CALC OSMOLALITY 270 mosm/kg (275-300); CALCIUM 8.6 mg/dL (8.5-10.1); CARBON DIOXIDE 31.4 mmol/L (21.0-32.0); CHLORIDE - SERUM 99 mmol/L (98-107); CREATININE - SERUM 0.9 mg/dL (0.6-1.3); GLUCOSE 87 mg/dL (74-106); POTASSIUM - SERUM 3.4 mmol/L (3.5-5.1); PROTEIN - SERUM 7.1 g/dL (6.4-8.2); SODIUM 136 mmol/L (136-145); UREA NITROGEN 12 mg/dL (7-18); eGFR NON AFRICAN AMERICAN 85 mL/min (90-120)
[2017-03-07 09:05] VITALS: BP 134/83
--- NOTE | 2017-03-07 09:45 | NUR ---
ATTEMPTED TO PASS MORNING MEDS IN PUDDING, BUT PT WOULD NOT OPEN MOUTH. ATTEMPTED TO COAX PT WITH PUDDING, DRINKS, A WARM WET TOWEL TO HIS MOUTH, BUT NOTHING WORKED. WILL ATTEMPT LATER. SILICA FILTER OPERATOR AT BEDSIDE. BED LOW, CALL LIGHT IN REACH, CPOC.
--- NOTE | 2017-03-07 11:45 | NUR ---
PATIENT IN LOW GONZALES POSITION RESTING QUIETLY. RESPIRATIONS EVEN AND UNLABORED. SIDE RAILS UP X2. BED IN LOW POSITION. CALL LIGHT IN REACH.
[2017-03-07 11:59] VITALS: BP 140/80
[2017-03-07 15:40] VITALS: BP 137/77
[2017-03-07 22:24] VITALS: BP 150/85
--- NOTE | 2017-03-07 23:52 | NUR ---
Recieved patient and report at 1900, friend at bedside, arrouses to name, CONRADO, Right upper arm IV SL, O2 at 4 L via NC, patient pulls at NC at times, bed in low position, water and call light in reach, siderails up X 2, wheezing with expiration bilaterally, CPOC.
[2017-03-08 07:33] LABS: BASOPHILS 0.4 % (0.0-2.0); HEMATOCRIT 30.4 % (42.0-54.0); HEMOGLOBIN 10.1 g/dL (13.5-17.5); IMMATURE GRANULOCYTES 0.2 % (0-5); LYMPHOCYTES 21.6 % (15-50); MCHC 33.2 g/dL (31.0-37.0); MCV 96.2 fL (80.0-100.0); MEAN PLATELET VOLUME 11.1 fL (7.4-10.4); MONOCYTES 9.8 % (2-11); PLATELET COUNT 335 10x3/uL (130-400); RBC 3.16 10x6/uL (4.20-6.10); RDW 15.1 % (11.5-14.5); WBC 8.2 10x3/uL (4.8-10.8)
[2017-03-08 07:52] LABS: ALBUMIN 2.3 g/dL (3.4-5.0); ALKALINE PHOSPHATASE 410 U/L (46-116); ALT (SGPT) 48 U/L (10-68); BILIRUBIN - TOTAL 0.61 mg/dL (0.2-1.3); CALC OSMOLALITY 272 mosm/kg (275-300); CALCIUM 8.6 mg/dL (8.5-10.1); CARBON DIOXIDE 28.8 mmol/L (21.0-32.0); CHLORIDE - SERUM 100 mmol/L (98-107); CREATININE - SERUM 0.9 mg/dL (0.6-1.3); GLUCOSE 85 mg/dL (74-106); POTASSIUM - SERUM 3.7 mmol/L (3.5-5.1); PROTEIN - SERUM 6.5 g/dL (6.4-8.2); SODIUM 137 mmol/L (136-145); UREA NITROGEN 12 mg/dL (7-18); eGFR NON AFRICAN AMERICAN 85 mL/min (90-120)
[2017-03-08 08:40] VITALS: BP 147/75
--- NOTE | 2017-03-08 10:00 | NUR ---
PATIENT ALERT IN BED. RESPIRATIONS EVEN AND UNLABORED. CAREGIVER AND PRIMARY NURSE KASSIE HAYNES AT BEDSIDE. SIDE RAILS UP X2. BED IN LOW POSITION. CALL LIGHT IN REACH.
[2017-03-08 12:44] VITALS: BP 149/85
[2017-03-08 15:50] VITALS: BP 147/88
[2017-03-08 20:00] VITALS: BP 144/70
--- NOTE | 2017-03-08 22:00 | NUR ---
PT IN BED RESTING QUIETLY, SITTER IN ROOM, BED IN LOWEST POSITION AND CALL LIGHT WITHIN REACH.
[2017-03-09] VITALS: BP 129/65
--- NOTE | 2017-03-09 01:36 | NUR ---
PT LYIN IN BED, EYES CLOSED CHEST RISING AND FALLING. SITTER IN ROOM. BED IN LOWEST PSOITION AND CALL LIGHT WIHTIN REACH.
[2017-03-09 04:00] VITALS: BP 133/66
--- NOTE | 2017-03-09 05:35 | NUR ---
PT LYING IN BED, EYES CLOSED, RESPIRATIONS EVEN AND UNLABORED, BED IN LOWEST POSITION AND CALL LIGHT WITHIN REACH. SITTER IN ROOM.
[2017-03-09 06:13] LABS: BASOPHILS 0.4 % (0.0-2.0); EOSINOPHILS 0.7 % (0-7); HEMATOCRIT 30.3 % (42.0-54.0); HEMOGLOBIN 10.2 g/dL (13.5-17.5); IMMATURE GRANULOCYTES 0.5 % (0-5); LYMPHOCYTES 25.9 % (15-50); MCH 32.7 pg (26.0-34.0); MCHC 33.7 g/dL (31.0-37.0); MCV 97.1 fL (80.0-100.0); MEAN PLATELET VOLUME 11.3 fL (7.4-10.4); MONOCYTES 12.1 % (2-11); NEUTROPHILS 60.4 % (40-80); PLATELET COUNT 367 10x3/uL (130-400); RBC 3.12 10x6/uL (4.20-6.10); RDW 15.3 % (11.5-14.5); WBC 8.1 10x3/uL (4.8-10.8)
[2017-03-09 06:37] LABS: ALBUMIN 2.3 g/dL (3.4-5.0); ALKALINE PHOSPHATASE 374 U/L (46-116); ALT (SGPT) 40 U/L (10-68); CALC OSMOLALITY 273 mosm/kg (275-300); CALCIUM 8.9 mg/dL (8.5-10.1); CARBON DIOXIDE 29.5 mmol/L (21.0-32.0); CHLORIDE - SERUM 100 mmol/L (98-107); CREATININE - SERUM 0.9 mg/dL (0.6-1.3); GLUCOSE 86 mg/dL (74-106); MAGNESIUM - SERUM 1.6 mg/dL (1.8-2.4); PHOSPHOROUS 3.3 mg/dL (2.5-4.9); POTASSIUM - SERUM 3.4 mmol/L (3.5-5.1); PRE-ALBUMIN 16.9 mg/dL (18.0-35.7); SODIUM 137 mmol/L (136-145); UREA NITROGEN 16 mg/dL (7-18); eGFR NON AFRICAN AMERICAN 85 mL/min (90-120)
[2017-03-09 08:26] VITALS: BP 169/80
--- NOTE | 2017-03-09 10:30 | NUR ---
03/09/2017 10:28 DCP: Discharge Planning Call placed to Debbi with [facility] regarding their ability to accept patient back on IV Abx (Maxipime Q 8hrs & Vanc Q 12hrs). Waiting determination. CM will follow.
[2017-03-09 11:39] VITALS: BP 131/69
--- NOTE | 2017-03-09 12:01 | NUR ---
IV SITE RED AND WILL NOT FLUSH. D/C IV WITH CATH INTACT.
--- NOTE | 2017-03-09 14:37 | NUR ---
TRIED TO GET PATIENT TO URINATE IN THE URINAL, UNSUCCESSFUL.
[2017-03-09 15:26] VITALS: BP 128/62
--- NOTE | 2017-03-09 16:08 | NUR ---
PATIENT HAS MIDLINE CATHETER. CALLING PHARMACY TO RETIME ANTIBIOTICS.
[2017-03-09 20:00] VITALS: BP 124/64
--- NOTE | 2017-03-09 21:03 | NUR ---
PATIENT RESTING IN BED. NO SIGNS OF DISTRESS NOTED. SITTER AT BED SIDE. SCHEDULED MEDS GIVEN. SHIFT ASSESSMENT COMPLETED. DENIES ANY NEEDS AT THIS TIME. BED LOW. CALL LIGHT IN REACH
[2017-03-09 22:11] LABS: UDS - AMPHET NEGATIVE QUAL (NEGATIVE); UDS - BARB NEGATIVE QUAL (NEGATIVE); UDS - BENZO NEGATIVE QUAL (NEGATIVE); UDS - COCAINE NEGATIVE QUAL (NEGATIVE); UDS - METH NEGATIVE QUAL (NEGATIVE); UDS - OPIATE NEGATIVE QUAL (NEGATIVE); UDS - PCP NEGATIVE QUAL (NEGATIVE); UDS - THC NEGATIVE QUAL (NEGATIVE)
[2017-03-10] VITALS: BP 130/66
[2017-03-10 06:59] LABS: BASOPHILS 0.3 % (0.0-2.0); EOSINOPHILS 0.9 % (0-7); HEMATOCRIT 28.2 % (42.0-54.0); HEMOGLOBIN 9.6 g/dL (13.5-17.5); IMMATURE GRANULOCYTES 0.5 % (0-5); LYMPHOCYTES 21.3 % (15-50); MCH 32.8 pg (26.0-34.0); MCV 96.2 fL (80.0-100.0); MEAN PLATELET VOLUME 11.3 fL (7.4-10.4); MONOCYTES 13.5 % (2-11); NEUTROPHILS 63.5 % (40-80); PLATELET COUNT 304 10x3/uL (130-400); RBC 2.93 10x6/uL (4.20-6.10); RDW 15.1 % (11.5-14.5)
[2017-03-10 07:00] LABS: WBC 10.2 10x3/uL (4.8-10.8)
[2017-03-10 07:51] LABS: ALBUMIN 2.4 g/dL (3.4-5.0); ALKALINE PHOSPHATASE 342 U/L (46-116); ALT (SGPT) 34 U/L (10-68); BILIRUBIN - TOTAL 0.47 mg/dL (0.2-1.3); CALC OSMOLALITY 280 mosm/kg (275-300); CALCIUM 8.9 mg/dL (8.5-10.1); CARBON DIOXIDE 30.9 mmol/L (21.0-32.0); CHLORIDE - SERUM 101 mmol/L (98-107); GLUCOSE 98 mg/dL (74-106); POTASSIUM - SERUM 3.3 mmol/L (3.5-5.1); PROTEIN - SERUM 6.2 g/dL (6.4-8.2); SODIUM 139 mmol/L (136-145); UREA NITROGEN 20 mg/dL (7-18); eGFR NON AFRICAN AMERICAN 75 mL/min (90-120)
[2017-03-10 08:19] VITALS: BP 137/70
--- NOTE | 2017-03-10 11:21 | NUR ---
03/10/2017 11:16 DCP: Discharge Planning Late Entry: Rec'd call yesterday afternoon from Marnie with [facility]. [facility] will be able to provide IV Vanc & Maxipime. Notified Dr. Mcghee - he states patient is not ready to transfer due to issues with his caregivers. Explained patient will be returning to facility - No dc orders given. Notified Marnie that patient would not be discharging.
[2017-03-10 12:16] VITALS: BP 116/61
--- NOTE | 2017-03-10 12:30 | NUR ---
PATIENT IS SITTING UP IN THE CHAIR, PATIENT'S SALES REPRESENTATIVE PUBLIC UTILITIES, ROCÍO, IS FEEDING PATIENT. BOTH DENY NEEDS.
[2017-03-10] MEDS ORDERED: MIRALAX17 GM PO (12:33)
[2017-03-10] MEDS ORDERED: OS-CAL 500+D TA1 TAB PO (12:33)
[2017-03-10] MEDS ORDERED: GUAIFENESI100 MG/5 M PO (12:33)
[2017-03-10] MEDS ORDERED: DULCOLAX10 MG/SUPP RC (12:33)
[2017-03-10] MEDS ORDERED: MELATONIN 3 MG1 TAB PO (12:33)
[2017-03-10] MEDS ORDERED: COZAAR25 MG PO (12:33)
[2017-03-10] MEDS ORDERED: NITROQUICK0.4 MG SL (12:33)
[2017-03-10] MEDS ORDERED: SENNA8.6 MG PO (12:33)
[2017-03-10] MEDS ORDERED: ELIQUIS2.5 MG PO (12:33)
[2017-03-10] MEDS ORDERED: NYSTATIN ORAL SU5 ML PO (12:33)
[2017-03-10] MEDS ORDERED: ACETAMINOPHEN325 MG PO (12:33)
[2017-03-10] MEDS ORDERED: PROTONIX40 MG PO (12:33)
[2017-03-10] MEDS ORDERED: ATROVENT 0.02%2.5 ML UPD (12:33)
[2017-03-10] MEDS ORDERED: CARDIZEM60 MG NG (12:33)
[2017-03-10] MEDS ORDERED: KEPPRA500 MG PO (12:33)
[2017-03-10] MEDS ORDERED: PULMICORT0.5 MG/21 UPD (12:33)
[2017-03-10] MEDS ORDERED: VIBRAMYCIN 100100 MG PO (12:33)
[2017-03-10] MEDS ORDERED: EFFEXOR XR75 MG PO (12:33)
[2017-03-10] MEDS ORDERED: FERROUS SULFAT325 MG PO (12:33)
--- NOTE | 2017-03-10 13:29 | NUR ---
CM REASSESSMENT NOTE: CM NOTIFIED JEFFREY (LIASON) AT [facility] THAT PATIENT COULD BE DISCHARGED TODAY. PATIENT IS GOING BY [facility] AND WILL BE PICKED UP AFTER 5PM TODAY AND WILL BE PLACED IN A SKILLED BED. CAREGIVER AT BEDSIDE. IMM SERVED
--- NOTE | 2017-03-10 13:56 | NUR ---
PATIENT IN BED. HOB 90 DEGREES. PATIENT IS ALERT. NO SIGNS OF DISTRESS NOTED. PATIENT IS RECIEVING OXYGEN VIA NASAL CANNULA AT 2L/MIN. BED IN LOWEST POSITION, CALL LIGHT IN REACH. BED RAILS UP X'S 2.
[2017-03-10 16:44] VITALS: BP 79/36
--- NOTE | 2017-03-10 17:15 | NUR ---
D/C MIDLINE CATHETER, THE CATHETER LENGTH 16CM, HELD PRESSURE FOR 5 MINUTES.
--- NOTE | 2017-03-10 17:30 | NUR ---
PATIENT LEFT VIA WHEELCHAIR WITH STAFF FROM THE [facility].
--- NOTE | 2017-03-10 17:46 | NUR ---
CALLED REPORT TO FRANCES NELSON AT THE [facility]. NOTIFIED HER THAT THERE IS A DUPLICATE ORDER FOR KEPPRA, AND THE CORRECT ORDER IS KEPPRA 500MG TWICE A DAY. SHE STATED SHE WILL CORRECT IT.
== END 2017-03-10 19:58 | DRG 190 ==
LOC: D.ER 11:34 → D.MS 17:36 → OBSVTIME 17:36 → D.MS 17:36
PROVIDERS: Emergency Medicine; Family Medicine; Internal Medicine Pulmonary Disease; ADMIT Family Medicine
PROC: 05HB33Z Insertion of Infusion Device into Right Basilic Vein, Percutaneous Approach (ICD-10-PCS; principal; 2017-03-09)
PROC: B54MZZA Ultrasonography of Right Upper Extremity Veins, Guidance (ICD-10-PCS; 2017-03-09)
DX: J44.0 Chronic obstructive pulmonary disease with (acute) lower respiratory infection (principal); J96.21 Acute and chronic respiratory failure with hypoxia; J15.6 Pneumonia due to other Gram-negative bacteria; G93.41 Metabolic encephalopathy; E43 Unspecified severe protein-calorie malnutrition; J98.11 Atelectasis; I50.32 Chronic diastolic (congestive) heart failure; Z99.81 Dependence on supplemental oxygen; R53.1 Weakness; R55 Syncope and collapse; E86.0 Dehydration; D64.9 Anemia, unspecified; I25.10 Atherosclerotic heart disease of native coronary artery without angina pectoris; H40.9 Unspecified glaucoma; Z95.1 Presence of aortocoronary bypass graft; Z86.73 Personal history of transient ischemic attack (TIA), and cerebral infarction without residual deficits; Y95 Nosocomial condition; I11.0 Hypertensive heart disease with heart failure; J44.9 Chronic obstructive pulmonary disease, unspecified; I48.2 Chronic atrial fibrillation; N28.9 Disorder of kidney and ureter, unspecified; J32.9 Chronic sinusitis, unspecified; K21.9 Gastro-esophageal reflux disease without esophagitis; E78.5 Hyperlipidemia, unspecified; N40.0 Benign prostatic hyperplasia without lower urinary tract symptoms; G47.33 Obstructive sleep apnea (adult) (pediatric); F01.50 Vascular dementia, unspecified severity, without behavioral disturbance, psychotic disturbance, mood disturbance, and anxiety; Z85.47 Personal history of malignant neoplasm of testis; Z85.46 Personal history of malignant neoplasm of prostate; Z68.20 Body mass index [BMI] 20.0-20.9, adult

== ENCOUNTER 2017-03-24 19:09 | Inpatient (IN) | payer MEDICARE, OTHER ==
[~2017-03-24] VITALS: Ht 170.2 cm; Wt 56.7 kg
--- NOTE | ~2017-03-24 | CN ---
PATIENT NAME:SHANDA THURMAN MEDICAL RECORD: [id number] : 32 LOCATION:D[address] [id number] ADMIT DATE: 03/25/17 ACCOUNT: [id number] CONSULTING PHYSICIAN: BOBBI MARTINO MD REFERRING PHYSICIAN: ROBERT MADDOX DO DATE OF CONSULTATION: 03/25/2017 CONSULT REQUESTING PHYSICIAN: Dr. Robert Maddox. HISTORY OF PRESENT ILLNESS: Mr. Thurman is an 86-year-old gentleman, very well known to us from the previous hospitalization. The patient has history of dementia. According to the caregiver, he has abdominal pain and the patient was brought into the ER. He has a CT scan of the abdomen as well as the CT scan of the chest. His pneumonia is improving, but the patient has diverticulitis and bowel wall thickening. He is also having significant leukocytosis with it. REVIEW OF SYSTEMS: Mainly in the history of present illness. PAST MEDICAL HISTORY: 1. Pneumonia. 2. History of diverticulitis. 3. History of ileus. 4. COPD. 5. Chronic hypoxic respiratory failure. 6. History of glaucoma. 7. History of CVA and TIAs. 8. Benign prostatic hypertrophy. PAST SURGICAL HISTORY: Nonsignificant. ALLERGIES: HE IS ALLERGIC TO AMIODARONE, MULTAQ AND ADVAIR. PRESENT MEDICATIONS: He is on Levaquin. His all other medications were reviewed. PERSONAL AND SOCIAL HISTORY: The patient is an ex-smoker. He is a nondrinker. 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 FAMILY HISTORY: Noncontributory. PHYSICAL EXAMINATION: GENERAL: Now, the patient is lying comfortably in bed. He is not in acute distress. VITAL SIGNS: The blood pressure is 149/55, pulse is 78, respirations 18, temperature 97.5 and SPO2 is 97% on 2 liters nasal cannula. HEENT: Conjunctivae are pink. Sclerae nonicteric. NECK: Supple. No JVD. CHEST: The chest excursion is minimal. On both sides, there are basal crackles. No wheezing. HEART: Rhythm regular, normal sound, no murmur. ABDOMEN: Soft. Bowel sounds present. No hepatosplenomegaly. The abdomen is tender on deep palpation. There is no guarding and no rigidity. RECTAL: Deferred. EXTREMITIES: No cyanosis, no clubbing and no pedal edema. CENTRAL NERVOUS SYSTEM: The patient is awake, but he is confused and very hard CONSULT REPORT [id number] CUCASHANDA of [facility]. LABORATORY DATA: CBC: The WBC is 24.9, hemoglobin 10.6, hematocrit 32.3 and the platelet count is 221. Chemistry: Sodium 139, potassium is 4.2, BUN is 39, creatinine 1.8. IMAGING: CT scan of the chest, the pleural effusion and the infiltrate is improving. Abdominal CT showed diverticulitis and bowel wall thickening. RECOMMENDATION: 1. Continue the Levaquin. I will add Brovana and budesonide nebulizer. Continue albuterol and ipratropium nebulizer. 2. Supplemental oxygen. 3. Start him on Flagyl IV. 4. Follow labs and chest radiograph. Dr. Maddox, once again, thank you for involving me in the care of Mr. Thurman. TRANSINT:[id number] Voice Confirmation ID: [id number] DOCUMENT ID: [id number] BOBBI MARTINO MD CC: ROBERT MADDOX DO [id number] DICTATION DATE: 03/25/17 1315 RESTAURANT MANAGER: 03/25/17 2110 ADM IN [facility] [address] [place] [address]
[~2017-03-24 19:09] MED LIST changes: +CEFUROXIME250 MG PO; +EFFEXOR XR75 MG PO; +FERROUS SULFAT325 MG PO; +FLORAJEN3 CAPS460 MG PO; +GUAIFENESI100 MG/5 M PO; +MELATONIN 3 MG1 TAB PO; +NITROQUICK0.4 MG SL; +OS-CAL 500+D TA1 TAB PO; +VIBRAMYCIN 100100 MG PO
[2017-03-24 20:11] LABS: APPEARANCE CLEAR (CLEAR); COLOR YELLOW (YELLOW); SPECIFIC GRAVITY 1.015 (1.005-1.020)
[2017-03-24 20:12] LABS: BILIRUBIN NEGATIVE (NEGATIVE); GLUCOSE NEGATIVE (NEGATIVE); KETONE NEGATIVE (NEGATIVE); LEUKOCYTE ESTERASE NEGATIVE (NEGATIVE); NITRITE NEGATIVE (NEGATIVE); PROTEIN TRACE mg/dL (NEGATIVE)
[2017-03-24 20:20] LABS: ALBUMIN 2.6 g/dL (3.4-5.0); ALKALINE PHOSPHATASE 261 U/L (46-116); ALT (SGPT) 20 U/L (10-68); BILIRUBIN - TOTAL 0.86 mg/dL (0.2-1.3); CALC OSMOLALITY 288 mosm/kg (275-300); CALCIUM 8.7 mg/dL (8.5-10.1); CHLORIDE - SERUM 101 mmol/L (98-107); CREATININE - SERUM 1.8 mg/dL (0.6-1.3); GLUCOSE 134 mg/dL (74-106); POTASSIUM - SERUM 4.2 mmol/L (3.5-5.1); SODIUM 139 mmol/L (136-145); UREA NITROGEN 39 mg/dL (7-18); eGFR NON AFRICAN AMERICAN 38 mL/min (90-120)
[2017-03-24 20:30] LABS: AMYLASE - SERUM 24 U/L (25-115); CKMB 0.5 U/L (0.0-3.6); CREATINE KINASE 23 UL (21-232); PRO BNP 1666 pg/mL (0-450); TROPONIN-I 0.025 ng/mL (0.000-0.060)
[2017-03-24 20:35] LABS: LIPASE 42 U/L (73-393)
[2017-03-24 20:51] LABS: HEMATOCRIT 32.3 % (42.0-54.0); HEMOGLOBIN 10.6 g/dL (13.5-17.5); MCHC 32.8 g/dL (31.0-37.0); MCV 100.6 fL (80.0-100.0); RBC 3.21 10x6/uL (4.20-6.10); RDW 16.2 % (11.5-14.5); WBC 24.9 10x3/uL (4.8-10.8)
[2017-03-24 20:52] LABS: MEAN PLATELET VOLUME 11.7 fL (7.4-10.4); PLATELET COUNT 221 10x3/uL (130-400)
[2017-03-24 21:46] LABS: LYMPHOCYTES 10 % (15-50); MONOCYTES 9 % (2-11); NEUTROPHILS 81 % (40-80); PLATELET ESTIMATE NORMAL
--- NOTE | 2017-03-25 02:25 | NUR ---
RECIEVED TO ROOM 2000 VIA DEAN FROM ER ACCOMPAINED BY STAFF. ALERT ORIENTED WIHT CONFUSION NOTED. PATIENT IS PORT GAM[place]. SL TO RAC INTACT WIHTOUT REDNESS OR EDEMA NOTED.YEE PATENT WIHT DARK GREYSON URINE.COMPLAINS OF WEAKNESS AND "NOT FEELING GOOD". BOX ALARM INTACT.CL IN REACH.
[2017-03-25 02:58] VITALS: BP 129/55; BMI 22.1
--- NOTE | 2017-03-25 06:29 | NUR ---
POSITIONED FOR COMFORT. NO CHANGE IN ASSESSMENT
--- NOTE | 2017-03-25 09:27 | NUR ---
AWAKE AND ALERT. ORIENTED TO SELF THIS AM. ANSWERS QUESTIONS APPROPRIATELY. LUNGS HAVE CRACKLES THROUGHOUT LUNG BONNER, OCCASSIONAL DRY COUGH NOTED. SKIN IS INTACT WITHOUT REDNESS. SCD'S PLACED. IV TO RIGHT AC IS PATENT WITHOUT REDNESS AT INSERTION SITE. NO NEEDS NOTED. CAREGIVER AT BEDSIDE.
--- NOTE | 2017-03-25 11:00 | NUR ---
RESTING QUIETLY IN BED. NO NEEDS NOTED.
[2017-03-25 12:00] VITALS: BP 137/57
[2017-03-25 12:40] VITALS: Ht 170.2 cm; Wt 56.7 kg
--- NOTE | 2017-03-25 13:00 | NUR ---
ATE ABOUT HALF OF LUNCH WITH ASSIST FROM CAREGIVER. NO C/O AT THIS TIME. NO NEEDS NOTED.
[2017-03-25 17:12] VITALS: BP 142/59
[2017-03-25 20:02] VITALS: BP 141/65
--- NOTE | 2017-03-25 20:42 | NUR ---
AROUSE TO VERBAL STIMULI. NO DISTRESS NOTED. O2 @ 3 l PER NC ON. LUNG SOUNDS DIMINISHED TO LOWER BONNER. IV TO RIGHT AC INFUSING WITHOUT REDNESS OR EDEMA AT SITE. YEE PATENT AND DRAINING DARK GREYSON URINE. CL IN REACH.
--- NOTE | 2017-03-25 21:10 | NUR ---
DAUGHTER CALLED THIS NURSE ASKING WHY MEDS HAVENT BEEN GIVEN ALL DAY AND WHY DOCTOR HAS NOT BEEN IN TO SEE HER DAD. INFORMED DAUGHTER THAT PULMONARY DOCTOR HAD BEEN IN BUT MEDS HAVE NOT BEEN RESTARTED AND THIS NURSE WOULD CALL DR ALCALA ABOUT MEDS..CALL PLACED TO DR ALCALA OFFICE. JUAN RAMON MARIANELA RETURNED CALL STATING THIS PATINET WAS NOT ONE OF THEIRS, SHOULD HAVE BEEN ADMITTED TO DR SANTO. THIS NURSE THEN PLACED CALL TO DR MADDOX. WILL WAIT FOR RETURN CALL.
--- NOTE | 2017-03-25 22:00 | NUR ---
SECOND CALL PLACED TO DR SANTO REGARDING MED.AWAITNIG RETURN CALL.
--- NOTE | 2017-03-25 23:40 | NUR ---
DAUGHTER CALLS THIS NURSE TO INQUIRY ABOUT MEDS AND IF DR SANTO HAD BEEN NOTIFIED. INFORMED DAUGHTER YES, CALL WAS PLACED TO DR SANTO BUT HAVENT HAD RETURN CALL AT THIS TIME. DAUGHTER BECAME VERY AGITATED AND BEGAN TO CURSE AT THIS NURSE STATING" I DONT GIVE A DAM WHO YOU HAVE TO CALL.I WANT SOMETHING DONE AND I WANT TO TALK TO YOUR PUBLICATION EDITOR. PLACED DAUGHTER ON HOLD AND SPOKE [facility] C S S REPRESENTATIVE. INFORMED DAUGHTER PUBLICATION EDITOR WOULD RETURN HER CALL.
[2017-03-25 23:48] VITALS: BP 145/70
--- NOTE | 2017-03-26 02:16 | NUR ---
RESTING QUIETLY. NO DISTRESS NOTED. POSITIONED FOR COMFORT.
[2017-03-26 04:00] VITALS: BP 163/79
[2017-03-26 05:30] LABS: BASOPHILS 0 % (0-2); EOSINOPHILS 0.2 % (0-7); HEMATOCRIT 27.7 % (42.0-54.0); HEMOGLOBIN 9.1 g/dL (13.5-17.5); IMMATURE GRANULOCYTES 0.3 % (0-5); LYMPHOCYTES 23.3 % (15-50); MCH 33.2 pg (26.0-34.0); MCHC 32.9 g/dL (31.0-37.0); MCV 101.1 fL (80.0-100.0); MEAN PLATELET VOLUME 11.6 fL (7.4-10.4); MONOCYTES 12.5 % (2-11); NEUTROPHILS 63.7 % (40-80); RBC 2.74 10x6/uL (4.20-6.10); RDW 15.8 % (11.5-14.5)
--- NOTE | 2017-03-26 05:31 | NUR ---
POSITIONED FOR COMFORT. NO DISTRESS NOTED. CL IN REACH.
[2017-03-26 05:41] LABS: PLATELET COUNT 173 10x3/uL (130-400); WBC 8.7 10x3/uL (4.8-10.8)
[2017-03-26 06:11] LABS: BILIRUBIN - TOTAL 0.41 mg/dL (0.2-1.3); CALCIUM 8.2 mg/dL (8.5-10.1); CARBON DIOXIDE 30.3 mmol/L (21.0-32.0); MAGNESIUM - SERUM 1.8 mg/dL (1.8-2.4); PROTEIN - SERUM 5.5 g/dL (6.4-8.2)
[2017-03-26 06:32] LABS: ANION GAP 7.6 mmol/L (8-16); CREATININE - SERUM 1.1 mg/dL (0.6-1.3); POTASSIUM - SERUM 2.9 mmol/L (3.5-5.1)
--- NOTE | 2017-03-26 06:39 | NUR ---
RESTING QUIETLY NO CHANGES IN ASSESSMENT
--- NOTE | 2017-03-26 08:00 | NUR ---
AWAKE AND ALERT. ORIENTED TO SELF ONLY. ATTEMPTS TO REORIENT WITHOUT SUCCESS. LUNGS CONTINUE TO HAVE CRACKLES THROUGHOUT BUT IMPROVED FROM YESTERDAY. SKIN IS INTACT WITHOUT REDNESS. SCD'S IN PLACE. IV TO RIGHT ARM PATENT WITHOUT REDNESS AT INSERTION SITE. YEE PATENT WITH CLEAR TEA COLORED URINE. NO NEEDS NOTED.
[2017-03-26 08:21] VITALS: BP 144/89
--- NOTE | 2017-03-26 10:00 | NUR ---
GIVEN BATH AND LINENS CHANGED PER STAFF.
--- NOTE | 2017-03-26 11:00 | NUR ---
TOOK ALL OF AM MEDS WITH JUICE. NO NEEDS NOTED. CAREGIVER IN ROOM.
--- NOTE | 2017-03-26 12:30 | NUR ---
ATE LUNCH WITH ASSISTANCE FROM CAREGIVER. NO NEEDS NOTED.
[2017-03-26 12:46] VITALS: BP 196/74
[2017-03-26 16:47] VITALS: BP 161/66
--- NOTE | 2017-03-26 19:26 | NUR ---
DAUGHTER ASSISTED WITH SUPPER. NO CHANGES NOTED.
[2017-03-26 20:00] VITALS: BP 167/78
--- NOTE | 2017-03-26 21:19 | NUR ---
PATIENT RESTING IN BED WITH EYES CLOSED. AROUSES TO VOICE. CONFUSED. MEDS GIVEN WITH SITTER ASSIST. SHIFT ASSESSMENT COMPLETED. NO SIGNS OF DISTRESS NOTED. DENIES ANY NEEDS AT THIS TIME. BED LOW. CALL LIGHT IN REACH
--- NOTE | 2017-03-26 23:57 | NUR ---
PATIENT ALERT. VERY CONFUSED. YELLING OUT. UNABLE TO REORIENT AT THIS TIME. BED LOW. CALL LIGHT IN REACH. BED ALARM ON .
[2017-03-27] VITALS: BP 185/87
[2017-03-27 04:00] VITALS: BP 145/65
--- NOTE | 2017-03-27 04:40 | NUR ---
PATIENT RESTING IN BED WITH NO VISIBLE SIGNS OF DISTRESS. ADJUSTED THE PATIENT'S NASAL CANULA AND CLEARED AIR IN IV LINE. PATIENT DENIES OTHER NEEDS AT THIS TIME. BED IN LOWEST POSITION, CALL LIGHT WITHIN REACH, AND BED ALARM ON. ENCOURAGED THE PATIENT TO CALL IF HE HAS FURTHER NEEDS.
[2017-03-27 05:17] LABS: BASOPHILS 0.1 % (0-2); EOSINOPHILS 0.6 % (0-7); HEMATOCRIT 27.1 % (42.0-54.0); HEMOGLOBIN 8.9 g/dL (13.5-17.5); IMMATURE GRANULOCYTES 0.4 % (0-5); LYMPHOCYTES 23.1 % (15-50); MCH 32.8 pg (26.0-34.0); MCHC 32.8 g/dL (31.0-37.0); MEAN PLATELET VOLUME 11.1 fL (7.4-10.4); MONOCYTES 10.7 % (2-11); NEUTROPHILS 65.1 % (40-80); PLATELET COUNT 169 10x3/uL (130-400); RBC 2.71 10x6/uL (4.20-6.10); RDW 15.6 % (11.5-14.5)
[2017-03-27 05:47] LABS: ALBUMIN 2.1 g/dL (3.4-5.0); ALKALINE PHOSPHATASE 127 U/L (46-116); ALT (SGPT) 14 U/L (10-68); BILIRUBIN - TOTAL 0.51 mg/dL (0.2-1.3); CARBON DIOXIDE 31.1 mmol/L (21.0-32.0); CHLORIDE - SERUM 102 mmol/L (98-107); CREATININE - SERUM 0.9 mg/dL (0.6-1.3); GLUCOSE 78 mg/dL (74-106); MAGNESIUM - SERUM 1.4 mg/dL (1.8-2.4); PROTEIN - SERUM 5.5 g/dL (6.4-8.2); SODIUM 138 mmol/L (136-145); eGFR NON AFRICAN AMERICAN 85 mL/min (90-120)
[2017-03-27 05:49] LABS: CALC OSMOLALITY 274 mosm/kg (275-300); UREA NITROGEN 13 mg/dL (7-18)
[2017-03-27 05:58] LABS: POTASSIUM - SERUM 2.9 mmol/L (3.5-5.1)
--- NOTE | 2017-03-27 06:09 | NUR ---
CRITICAL LAB VALUE RECEIVED. K 2.9. ELECTOLYTE PROTOCOL FOLLOWED. FIRST DOSE PO K GIVEN. NO SIGNS OF DISTRESS NOTED AT THIS TIME. BED LOW. CALL LIGHT IN REACH. BED ALARM ON.
[2017-03-27 08:05] VITALS: BP 151/66
[2017-03-27 11:51] VITALS: BP 146/72
--- NOTE | 2017-03-27 12:15 | NUR ---
NUTRITION MONITORING & EVAL CHART REVIEWED. CAREGIVER REPORTS PT WITH GOOD PO INTAKE THIS AM. WILL CONTINUE TO PROVIDE DIET, MONITOR PT PROGRESS. RD FOLLOWING
[2017-03-27] MEDS ORDERED: FLAGYL500 MG PO (13:25)
[2017-03-27 15:48] VITALS: BP 146/70
--- NOTE | 2017-03-27 16:00 | NUR ---
STAFF MEMBER FROM THE [facility] HERE TO GET PATIENT. RN TRANSITIONAL CARE AND WASTEWATER PLANT OPERATOR GETTING PATIENT DRESSING. D/C IV WITH CATHETER INTACT.
--- NOTE | 2017-03-27 16:15 | NUR ---
CALLED PATIENT'S DAUGHTER, VIJAYA, NOTIFIED HER THE PATIENT IS GOING BACK TO THE [facility].
--- NOTE | 2017-03-27 16:24 | NUR ---
CALLED REPORT TO THE [facility]. SPOKE WITH OMAR. PATIENT LEFT VIA WHEELCHAIR WITH STAFF FROM THE [facility].
== END 2017-03-27 16:30 | DRG 190 ==
LOC: D.ER 19:09 → D.MS 03-25 00:52
PROVIDERS: Family Medicine; Internal Medicine Pulmonary Disease; ADMIT Family Medicine Adult Medicine
PROC: 0T9B70Z Drainage of Bladder with Drainage Device, Via Natural or Artificial Opening (ICD-10-PCS; principal; 2017-03-24)
DX: J44.0 Chronic obstructive pulmonary disease with (acute) lower respiratory infection (principal); J18.9 Pneumonia, unspecified organism; J96.11 Chronic respiratory failure with hypoxia; J98.11 Atelectasis; K57.92 Diverticulitis of intestine, part unspecified, without perforation or abscess without bleeding; E87.1 Hypo-osmolality and hyponatremia; J44.9 Chronic obstructive pulmonary disease, unspecified; Y95 Nosocomial condition; F03.90 Unspecified dementia, unspecified severity, without behavioral disturbance, psychotic disturbance, mood disturbance, and anxiety; E87.6 Hypokalemia; R53.1 Weakness; K52.9 Noninfective gastroenteritis and colitis, unspecified; N30.90 Cystitis, unspecified without hematuria; G72.9 Myopathy, unspecified; Z95.1 Presence of aortocoronary bypass graft; H40.9 Unspecified glaucoma; Z86.73 Personal history of transient ischemic attack (TIA), and cerebral infarction without residual deficits

== ENCOUNTER 2017-03-31 17:58 | Inpatient (IN) | payer MEDICARE, OTHER ==
[~2017-03-31] VITALS: Ht 170.2 cm; Wt 59.7 kg
--- NOTE | ~2017-03-31 | CN ---
PATIENT NAME:SHANDA THURMAN MEDICAL RECORD: [id number] : 32 LOCATION:D. D.2129 ADMIT DATE: 03/31/17 ACCOUNT: [id number] CONSULTING PHYSICIAN: BOBBI MARTINO MD REFERRING PHYSICIAN: JAMAAL WHEELER MD DATE OF CONSULTATION: 04/02/2017 CONSULT REQUESTING PHYSICIAN: Jamaal Wheeler MD. REASON FOR CONSULTATION: Pneumonia, left lower lobe. Left pleural effusion HISTORY OF PRESENT ILLNESS: Mr. Thurman is an 86-year-old gentleman, very well known to me. The patient was recently hospitalized for possible diverticulitis and fever and the patient was discharged back to the [facility]. He was readmitted with fever and hematuria as well as abdominal pain. The CT scan of the abdomen showed the lower part, he has a left pleural effusion and left lower lobe infiltrate. The chest x-ray was looking unchanged. REVIEW OF SYSTEMS: Mainly in the history of present illness. PAST MEDICAL HISTORY: 1. Recurrent pneumonia. 2. COPD. 3. Chronic hypoxic respiratory failure. 4. History of diverticulitis. 5. History of ileus. 6. History of glaucoma. 7. History of CVA and TIA. 8. Benign prostatic hypertrophy. 10. Dementia. PAST SURGICAL HISTORY: Nonsignificant. ALLERGIES: HE IS ALLERGIC TO MULTAQ, ADVAIR, AND AMIODARONE. PRESENT MEDICATIONS: He is on Rocephin and Zithromax. PERSONAL AND SOCIAL HISTORY: The patient is a snf resident. He is a nonsmoker, nondrinker. FAMILY HISTORY: Noncontributory. PHYSICAL EXAMINATION: GENERAL: Now, the patient is lying comfortably in bed. He is wearing nasal cannula oxygen. He is not in acute distress. VITAL SIGNS: The blood pressure is 114/50, pulse is 60, respirations 17, temperature 99.1, and SpO2 of 95% on 2 L nasal cannula. HEENT: Conjunctivae are pink. Sclerae nonicteric. NECK: Supple, no JVD. CHEST: The chest excursion is minimal on both sides. There is no wheezing. There are crackles at the left base. HEART: Rhythm regular, normal sound, no murmur. ABDOMEN: Soft. Bowel sounds present. No hepatosplenomegaly. RECTAL: Deferred. EXTREMITIES: No cyanosis, no clubbing, no pedal edema. CONSULT REPORT [id number] SHANDA THURMAN SKIN: Warm. Normal turgor. CENTRAL NERVOUS SYSTEM: The patient is awake, but he is confused. There are no obvious cranial nerve abnormalities. His speech is normal. IMAGING: CT scan of the abdomen and pelvis, the lower part showed that he has a left pleural effusion and left lower lobe infiltrate. OTHER LABORATORY DATA: CBC: WBC 13.1, hemoglobin 9.5, hematocrit 28.3, the platelet count 269. Chemistry: Sodium 133, potassium 3.5, BUN is 13, creatinine 0.9. IMPRESSION: 1. Left lower lobe pneumonia, most likely hospital-acquired pneumonia. 2. Left pleural effusion, most likely parapneumonic. 3. Chronic hypoxic respiratory failure. 4. Chronic obstructive pulmonary disease without exacerbation. 5. Leukocytosis secondary to pneumonia. 6. Diverticulitis. 7. Hematuria, possible cystitis. RECOMMENDATION: 1. Start him on Levaquin and cefepime IV to cover for Gram-negative adonay, atypical and hospital-acquired pneumonia. 2. Budesonide and Brovana nebulizer. 3. Xopenex and ipratropium nebulizer. 4. Methylprednisolone IV. 5. Check the CT scan of the chest. Continue Robitussin cough syrup. Dr. Jamaal Wheeler, once again, thanks for involving me in the care of Mr. Thurman. TRANSINT:[id number] Voice Confirmation ID: [id number] DOCUMENT ID: [id number] BOBBI MARTINO MD CC: JAMAAL WHEELER MD [id number] DICTATION DATE: 04/02/17 1459 SCIENCE TEACHER: 04/02/17 2349 ADM IN [facility] [address] [place] [address]
[~2017-03-31 17:58] MED LIST changes: +FLAGYL500 MG PO
[2017-03-31 18:47] LABS: APPEARANCE TURBID (CLEAR); BILIRUBIN NEGATIVE (NEGATIVE); COLOR RED (YELLOW); GLUCOSE NEGATIVE (NEGATIVE); KETONE NEGATIVE (NEGATIVE); LEUKOCYTE ESTERASE TRACE (NEGATIVE); NITRITE NEGATIVE (NEGATIVE); PROTEIN 1+ mg/dL (NEGATIVE); UROBILINOGEN NORMAL (NORMAL)
[2017-03-31 18:48] LABS: BACTERIA MODERATE /hpf (NONE SEEN); RED CELLS - URINE >50 /hpf (0-5)
[2017-03-31 20:21] LABS: BASOPHILS 0.2 % (0-2); EOSINOPHILS 0.3 % (0-7); HEMATOCRIT 30.1 % (42.0-54.0); HEMOGLOBIN 9.9 g/dL (13.5-17.5); IMMATURE GRANULOCYTES 0.5 % (0-5); LYMPHOCYTES 14.7 % (15-50); MCH 32.7 pg (26.0-34.0); MCHC 32.9 g/dL (31.0-37.0); MCV 99.3 fL (80.0-100.0); MEAN PLATELET VOLUME 10.7 fL (7.4-10.4); MONOCYTES 10.5 % (2-11); NEUTROPHILS 73.8 % (40-80); RBC 3.03 10x6/uL (4.20-6.10); RDW 15.2 % (11.5-14.5); WBC 13.2 10x3/uL (4.8-10.8)
[2017-03-31 20:31] LABS: PLATELET COUNT 266 10x3/uL (130-400)
[2017-03-31 20:40] LABS: ALBUMIN 2.6 g/dL (3.4-5.0); ALKALINE PHOSPHATASE 108 U/L (46-116); ALT (SGPT) 23 U/L (10-68); BILIRUBIN - TOTAL 0.39 mg/dL (0.2-1.3); CARBON DIOXIDE 36.2 mmol/L (21.0-32.0); CHLORIDE - SERUM 101 mmol/L (98-107); POTASSIUM - SERUM 3.6 mmol/L (3.5-5.1); SODIUM 138 mmol/L (136-145); UREA NITROGEN 14 mg/dL (7-18); eGFR NON AFRICAN AMERICAN 75 mL/min (90-120)
[2017-03-31 21:00] LABS: AMYLASE - SERUM 30 U/L (25-115); CALCIUM 8.1 mg/dL (8.5-10.1); CREATINE KINASE 32 UL (21-232); LIPASE 83 U/L (73-393); PRO BNP 3362 pg/mL (0-450)
[2017-03-31 21:04] LABS: CALC OSMOLALITY 277 mosm/kg (275-300); GLUCOSE 122 mg/dL (74-106)
[2017-03-31 21:05] LABS: PROTEIN - SERUM 5.8 g/dL (6.4-8.2)
[2017-03-31 21:08] LABS: TROPONIN-I 0.079 ng/mL (0.000-0.060)
[2017-03-31 21:24] LABS: APTT 30.2 SECONDS (22.8-39.4); INR 1.35 (0.85-1.17); PROTIME 16.6 SECONDS (11.6-15.0)
[2017-04-01] MEDS ORDERED: HYDROCODONE-APA1 TAB PO (02:37)
[2017-04-01] MEDS ORDERED: XANAX0.25 MG PO (02:39)
[2017-04-01] MEDS ORDERED: PULMICORT0.25 MG/1 INH (02:46)
[2017-04-01 03:34] VITALS: BMI 20.4
[2017-04-01 04:16] VITALS: BP 154/74
[2017-04-01 08:33] VITALS: BP 144/62
[2017-04-01 12:31] VITALS: BP 120/75
[2017-04-01 12:38] LABS: BASOPHILS 0.1 % (0-2); EOSINOPHILS 0.2 % (0-7); HEMATOCRIT 29.9 % (42.0-54.0); IMMATURE GRANULOCYTES 0.7 % (0-5); LYMPHOCYTES 15.6 % (15-50); MCH 33.4 pg (26.0-34.0); MCHC 33.4 g/dL (31.0-37.0); MONOCYTES 9.6 % (2-11); NEUTROPHILS 73.8 % (40-80); PLATELET COUNT 228 10x3/uL (130-400); RBC 2.99 10x6/uL (4.20-6.10); RDW 15.2 % (11.5-14.5); WBC 12.5 10x3/uL (4.8-10.8)
[2017-04-01 12:55] LABS: ALBUMIN 2.4 g/dL (3.4-5.0); ALKALINE PHOSPHATASE 100 U/L (46-116); ALT (SGPT) 19 U/L (10-68); BILIRUBIN - TOTAL 0.48 mg/dL (0.2-1.3); CALC OSMOLALITY 275 mosm/kg (275-300); CALCIUM 8.3 mg/dL (8.5-10.1); CHLORIDE - SERUM 101 mmol/L (98-107); CREATININE - SERUM 0.9 mg/dL (0.6-1.3); GLUCOSE 95 mg/dL (74-106); POTASSIUM - SERUM 3.6 mmol/L (3.5-5.1); PROTEIN - SERUM 6.1 g/dL (6.4-8.2); SODIUM 138 mmol/L (136-145); UREA NITROGEN 12 mg/dL (7-18); eGFR NON AFRICAN AMERICAN 85 mL/min (90-120)
[2017-04-01 13:45] VITALS: Ht 170.2 cm; Wt 59.7 kg
[2017-04-01 16:55] VITALS: BP 155/74
[2017-04-01 19:00] VITALS: BP 136/70
[2017-04-02 00:20] VITALS: BP 100/46
[2017-04-02 04:37] VITALS: BP 151/68
[2017-04-02 06:55] LABS: BASOPHILS 0.2 % (0-2); EOSINOPHILS 0.5 % (0-7); HEMATOCRIT 28.3 % (42.0-54.0); HEMOGLOBIN 9.5 g/dL (13.5-17.5); IMMATURE GRANULOCYTES 0.5 % (0-5); LYMPHOCYTES 18.8 % (15-50); MCH 33.1 pg (26.0-34.0); MCHC 33.6 g/dL (31.0-37.0); MCV 98.6 fL (80.0-100.0); MEAN PLATELET VOLUME 10.6 fL (7.4-10.4); MONOCYTES 10.4 % (2-11); NEUTROPHILS 69.6 % (40-80); PLATELET COUNT 269 10x3/uL (130-400); RBC 2.87 10x6/uL (4.20-6.10); RDW 15.3 % (11.5-14.5); WBC 13.1 10x3/uL (4.8-10.8)
[2017-04-02 07:16] LABS: ALBUMIN 2.2 g/dL (3.4-5.0); ALKALINE PHOSPHATASE 88 U/L (46-116); ALT (SGPT) 19 U/L (10-68); BILIRUBIN - TOTAL 0.39 mg/dL (0.2-1.3); CALC OSMOLALITY 264 mosm/kg (275-300); CALCIUM 8.1 mg/dL (8.5-10.1); CARBON DIOXIDE 36.7 mmol/L (21.0-32.0); CHLORIDE - SERUM 98 mmol/L (98-107); CREATININE - SERUM 0.9 mg/dL (0.6-1.3); GLUCOSE 84 mg/dL (74-106); POTASSIUM - SERUM 3.5 mmol/L (3.5-5.1); PROTEIN - SERUM 5.4 g/dL (6.4-8.2); SODIUM 133 mmol/L (136-145); UREA NITROGEN 13 mg/dL (7-18); eGFR NON AFRICAN AMERICAN 85 mL/min (90-120)
[2017-04-02 08:20] VITALS: BP 162/68
[2017-04-02 12:28] VITALS: BP 114/50
[2017-04-02 16:54] VITALS: BP 131/59
[2017-04-02 22:47] VITALS: BP 151/62
[2017-04-03 01:51] VITALS: BP 128/57
[2017-04-03 05:07] LABS: BASOPHILS 0.1 % (0-2); EOSINOPHILS 0.5 % (0-7); HEMATOCRIT 27.2 % (42.0-54.0); IMMATURE GRANULOCYTES 0.7 % (0-5); LYMPHOCYTES 19.1 % (15-50); MCH 32.5 pg (26.0-34.0); MCHC 33.1 g/dL (31.0-37.0); MCV 98.2 fL (80.0-100.0); MEAN PLATELET VOLUME 10.8 fL (7.4-10.4); MONOCYTES 10.9 % (2-11); NEUTROPHILS 68.7 % (40-80); PLATELET COUNT 274 10x3/uL (130-400); RBC 2.77 10x6/uL (4.20-6.10); RDW 15.4 % (11.5-14.5); WBC 12.4 10x3/uL (4.8-10.8)
[2017-04-03 05:13] VITALS: BP 136/58
[2017-04-03 05:23] LABS: ALBUMIN 2.1 g/dL (3.4-5.0); ALKALINE PHOSPHATASE 75 U/L (46-116); ALT (SGPT) 15 U/L (10-68); BILIRUBIN - TOTAL 0.49 mg/dL (0.2-1.3); CALC OSMOLALITY 271 mosm/kg (275-300); CALCIUM 8.2 mg/dL (8.5-10.1); CARBON DIOXIDE 36.4 mmol/L (21.0-32.0); CHLORIDE - SERUM 100 mmol/L (98-107); GLUCOSE 95 mg/dL (74-106); POTASSIUM - SERUM 3.5 mmol/L (3.5-5.1); PROTEIN - SERUM 5.7 g/dL (6.4-8.2); SODIUM 135 mmol/L (136-145); eGFR NON AFRICAN AMERICAN 75 mL/min (90-120)
[2017-04-03 05:30] LABS: UREA NITROGEN 17 mg/dL (7-18)
[2017-04-03 08:00] VITALS: BP 148/74
[2017-04-03 12:00] VITALS: BP 160/73
[2017-04-03 16:47] VITALS: BP 141/64
[2017-04-04 01:14] VITALS: BP 133/60
[2017-04-04 06:06] VITALS: BP 162/71
[2017-04-04 06:58] LABS: BASOPHILS 0.1 % (0-2); EOSINOPHILS 1.6 % (0-7); HEMATOCRIT 29.2 % (42.0-54.0); HEMOGLOBIN 9.6 g/dL (13.5-17.5); IMMATURE GRANULOCYTES 0.7 % (0-5); LYMPHOCYTES 17.3 % (15-50); MCH 32.2 pg (26.0-34.0); MCHC 32.9 g/dL (31.0-37.0); MEAN PLATELET VOLUME 11.1 fL (7.4-10.4); MONOCYTES 9.7 % (2-11); NEUTROPHILS 70.6 % (40-80); PLATELET COUNT 311 10x3/uL (130-400); RBC 2.98 10x6/uL (4.20-6.10); RDW 15.1 % (11.5-14.5); WBC 10.7 10x3/uL (4.8-10.8)
[2017-04-04 07:23] LABS: ALBUMIN 2.2 g/dL (3.4-5.0); ALKALINE PHOSPHATASE 86 U/L (46-116); ALT (SGPT) 16 U/L (10-68); BILIRUBIN - TOTAL 0.46 mg/dL (0.2-1.3); CALC OSMOLALITY 269 mosm/kg (275-300); CALCIUM 8.7 mg/dL (8.5-10.1); CARBON DIOXIDE 36.7 mmol/L (21.0-32.0); CHLORIDE - SERUM 100 mmol/L (98-107); GLUCOSE 86 mg/dL (74-106); POTASSIUM - SERUM 3.7 mmol/L (3.5-5.1); PROTEIN - SERUM 5.7 g/dL (6.4-8.2); SODIUM 135 mmol/L (136-145); UREA NITROGEN 15 mg/dL (7-18); eGFR NON AFRICAN AMERICAN 75 mL/min (90-120)
[2017-04-04 08:54] VITALS: BP 150/75
[2017-04-04 12:20] VITALS: BP 118/55
[2017-04-04 17:16] VITALS: BP 118/51
[2017-04-04 20:00] VITALS: BP 112/55
[2017-04-05] VITALS: BP 149/62
[2017-04-05 04:00] VITALS: BP 122/59
[2017-04-05 06:36] LABS: BASOPHILS 0.1 % (0-2); EOSINOPHILS 1.2 % (0-7); HEMATOCRIT 28.1 % (42.0-54.0); HEMOGLOBIN 9.2 g/dL (13.5-17.5); IMMATURE GRANULOCYTES 0.9 % (0-5); LYMPHOCYTES 21.8 % (15-50); MCH 32.3 pg (26.0-34.0); MCHC 32.7 g/dL (31.0-37.0); MCV 98.6 fL (80.0-100.0); PLATELET COUNT 296 10x3/uL (130-400); RBC 2.85 10x6/uL (4.20-6.10); RDW 15.2 % (11.5-14.5); WBC 10.3 10x3/uL (4.8-10.8)
[2017-04-05 06:53] LABS: ALBUMIN 2.2 g/dL (3.4-5.0); ALKALINE PHOSPHATASE 77 U/L (46-116); ALT (SGPT) 17 U/L (10-68); CALC OSMOLALITY 275 mosm/kg (275-300); CALCIUM 8.6 mg/dL (8.5-10.1); CARBON DIOXIDE 35.1 mmol/L (21.0-32.0); CHLORIDE - SERUM 99 mmol/L (98-107); GLUCOSE 95 mg/dL (74-106); POTASSIUM - SERUM 3.7 mmol/L (3.5-5.1); PROTEIN - SERUM 5.6 g/dL (6.4-8.2); SODIUM 136 mmol/L (136-145); eGFR NON AFRICAN AMERICAN 75 mL/min (90-120)
[2017-04-05 06:56] LABS: UREA NITROGEN 23 mg/dL (7-18)
[2017-04-05 08:38] VITALS: BP 161/69
[2017-04-05 12:24] VITALS: BP 116/57
[2017-04-05 16:11] VITALS: BP 130/77
[2017-04-05 20:00] VITALS: BP 142/64
[2017-04-06] VITALS (7 sets, daily range): BP systolic 118–152; BP diastolic 55–77
[2017-04-06 06:10] LABS: ALKALINE PHOSPHATASE 74 U/L (46-116); ALT (SGPT) 18 U/L (10-68); BILIRUBIN - TOTAL 0.38 mg/dL (0.2-1.3); CALC OSMOLALITY 268 mosm/kg (275-300); CALCIUM 8.5 mg/dL (8.5-10.1); CARBON DIOXIDE 34.1 mmol/L (21.0-32.0); CHLORIDE - SERUM 98 mmol/L (98-107); CREATININE - SERUM 0.9 mg/dL (0.6-1.3); GLUCOSE 88 mg/dL (74-106); PROTEIN - SERUM 5.3 g/dL (6.4-8.2); SODIUM 134 mmol/L (136-145); UREA NITROGEN 19 mg/dL (7-18); eGFR NON AFRICAN AMERICAN 85 mL/min (90-120)
[2017-04-06 06:17] LABS: BASOPHILS 0.2 % (0-2); EOSINOPHILS 0.9 % (0-7); HEMATOCRIT 26.1 % (42.0-54.0); HEMOGLOBIN 8.6 g/dL (13.5-17.5); IMMATURE GRANULOCYTES 1.1 % (0-5); MCH 32.2 pg (26.0-34.0); MCV 97.8 fL (80.0-100.0); MEAN PLATELET VOLUME 11.1 fL (7.4-10.4); MONOCYTES 12.4 % (2-11); NEUTROPHILS 65.4 % (40-80); PLATELET COUNT 258 10x3/uL (130-400); RBC 2.67 10x6/uL (4.20-6.10); RDW 15.3 % (11.5-14.5); WBC 10.7 10x3/uL (4.8-10.8)
[2017-04-07 04:05] VITALS: BP 126/49
[2017-04-07 05:46] LABS: BASOPHILS 0.1 % (0-2); EOSINOPHILS 0.5 % (0-7); HEMATOCRIT 26.9 % (42.0-54.0); HEMOGLOBIN 8.9 g/dL (13.5-17.5); IMMATURE GRANULOCYTES 1.2 % (0-5); LYMPHOCYTES 21.4 % (15-50); MCH 32.4 pg (26.0-34.0); MCHC 33.1 g/dL (31.0-37.0); MCV 97.8 fL (80.0-100.0); MEAN PLATELET VOLUME 11.1 fL (7.4-10.4); MONOCYTES 12.4 % (2-11); NEUTROPHILS 64.4 % (40-80); RBC 2.75 10x6/uL (4.20-6.10); RDW 15.2 % (11.5-14.5); WBC 10.2 10x3/uL (4.8-10.8)
[2017-04-07 06:01] LABS: CALC OSMOLALITY 273 mosm/kg (275-300); CALCIUM 8.7 mg/dL (8.5-10.1); CARBON DIOXIDE 34.3 mmol/L (21.0-32.0); CHLORIDE - SERUM 99 mmol/L (98-107); GLUCOSE 86 mg/dL (74-106); SODIUM 136 mmol/L (136-145); UREA NITROGEN 20 mg/dL (7-18); eGFR NON AFRICAN AMERICAN 75 mL/min (90-120)
[2017-04-07 06:16] LABS: PLATELET COUNT 329 10x3/uL (130-400)
[2017-04-07 08:16] VITALS: BP 140/70
[2017-04-07 11:51] VITALS: BP 187/79
[2017-04-07] MEDS ORDERED: BROVANA15 MCG/2 M INH (12:35)
[2017-04-07] MEDS ORDERED: XOPENEX 0.0.63 MG/3 UPD (12:35)
[2017-04-07] MEDS ORDERED: MINERAL OIL25 ML PO (12:37)
[2017-04-07] MEDS ORDERED: LEVAQUIN500 MG PO (15:59)
--- NOTE | 2017-04-08 17:02 | DS ---
PATIENT:SHANDA THURMAN :32 MEDICAL RECORD: [id number] DISCHARGE SUMMARY ADMISSION DATE: 03/31/17 DISCHARGE DATE: 04/07/17 ADMITTING DIAGNOSES: 1. Weakness. 2. Leukocytosis. 3. Hypokalemia. 4. Hyponatremia. 5. Myopathy. 6. Pneumonia. 7. Anemia. 8. Hypertension. 9. Abdominal pain and hematuria. HISTORY OF PRESENT ILLNESS: This is a gentleman admitted from [facility] and admitted with diagnoses as outlined above. Details are well outlined in the history of the present illness, H&P. All events, lab procedures and diagnostic testing are well documented in the records. The patient was admitted, appropriate home medicines continued. CONSULTANTS: Dr. Dsouza with urology. His recommendations were followed. He was felt to have a hemorrhagic cystitis exacerbated by Eliquis. He has chronic AFib and is on Eliquis for that. Urine culture and cytology from the Perez catheter ordered by Dr. Dsouza. We then discontinue the Perez and he has not had any trouble with voiding since then. He did have an abnormal CT scan. Dr. Adkins consulted for pulmonary management. His recommendations followed as well. He was felt to have a left lower lobe pneumonia, most likely hospital acquired, left pleural effusion, most likely parapneumonic. He does have a history of chronic hypoxic respiratory failure, he was felt to have COPD without exacerbation this admission and leukocytosis secondary to pneumonia. He was put on scheduled breathing treatments, nebulized meds, IV antibiotics with cefepime and Levaquin. Dr. Santos was consulted for elevation of troponin and his recommendations were followed. The patient was continued on telemetry monitoring and remained in controlled atrial fib on Cardizem and he was on his Eliquis. Overall, he improved. He is stable today for dismissal home back to [facility]. He lost his peripheral IV. This was discussed with Dr. Adkins. He had had 5 days of IV antibiotics and he was felt stable to go on 2 more days of Levaquin. He is afebrile, pulse 64, respirations 16, blood pressure 140/70 and O2 sat 97% on 2 liters. He is dismissed home. DISCHARGE DIAGNOSES: Weakness, leukocytosis, hypokalemia, hyponatremia, myopathy, pneumonia, abdominal pain resolved, hospital-acquired/healthcare-acquired pneumonia, chronic obstructive pulmonary disease without exacerbation, hemorrhagic cystitis Improved and chronic atrial fibrillation on Eliquis and Cardizem. Urine has no growth. Urine cytology showed only inflammatory cells. He is dismissed back to [facility]. He has follow up with Dr. Dsouza as an outpatient. Follow up with Dr. Salinas, his vat packer. Greater than 30 minutes was spent on this discharge. DISCHARGE SUMMARY REPORT [id number] SHANDA THURMAN TRANSINT:[id number] Voice Confirmation ID: [id number] DOCUMENT ID: [id number] Dictated By: JUAN RAMON ASHLEY RN I have interviewed/examined the above patient and agree with these documented findings. SHUKRI MONTALVO DO at 1702 CC: [id number] DICTATION DATE: 04/07/17 160 TURPENTINER: 04/08/17 0351 DIS IN 04/07/17 [facility] [address] [place] [address]
== END 2017-04-07 16:16 | DRG 190 ==
LOC: D.ER 17:58 → D.M2 23:38
PROVIDERS: Emergency Medicine; Family Medicine; Internal Medicine Pulmonary Disease; ADMIT Emergency Medicine
DX: J44.0 Chronic obstructive pulmonary disease with (acute) lower respiratory infection (principal); J18.9 Pneumonia, unspecified organism; J96.11 Chronic respiratory failure with hypoxia; J98.11 Atelectasis; E87.1 Hypo-osmolality and hyponatremia; I24.8 Other forms of acute ischemic heart disease; N30.91 Cystitis, unspecified with hematuria; E87.6 Hypokalemia; I10 Essential (primary) hypertension; G72.9 Myopathy, unspecified; I48.2 Chronic atrial fibrillation; D64.9 Anemia, unspecified; N40.0 Benign prostatic hyperplasia without lower urinary tract symptoms; F03.90 Unspecified dementia, unspecified severity, without behavioral disturbance, psychotic disturbance, mood disturbance, and anxiety; Z86.73 Personal history of transient ischemic attack (TIA), and cerebral infarction without residual deficits

== ENCOUNTER 2017-04-16 13:54 | Inpatient (IN) | payer MEDICARE, OTHER ==
[~2017-04-16] VITALS: Ht 170.2 cm; Wt 63.5 kg
[~2017-04-16 13:54] MED LIST changes: +BROVANA15 MCG/2 M INH; +HYDROCODONE-APA1 TAB PO; +LEVAQUIN500 MG PO; +MINERAL OIL25 ML PO; +PULMICORT0.25 MG/1 INH; +XANAX0.25 MG PO
[2017-04-16 15:45] LABS: BASOPHILS 0.1 % (0-2); EOSINOPHILS 0.1 % (0-7); HEMATOCRIT 25.4 % (42.0-54.0); HEMOGLOBIN 8.3 g/dL (13.5-17.5); IMMATURE GRANULOCYTES 0.4 % (0-5); LYMPHOCYTES 12.3 % (15-50); MCH 33.5 pg (26.0-34.0); MCHC 32.7 g/dL (31.0-37.0); MCV 102.4 fL (80.0-100.0); MEAN PLATELET VOLUME 11.5 fL (7.4-10.4); MONOCYTES 9.3 % (2-11); NEUTROPHILS 77.8 % (40-80); RBC 2.48 10x6/uL (4.20-6.10); WBC 14.7 10x3/uL (4.8-10.8)
[2017-04-16 15:53] LABS: PLATELET COUNT 207 10x3/uL (130-400)
[2017-04-16 16:00] LABS: ALBUMIN 2.2 g/dL (3.4-5.0); ANION GAP 7.7 mmol/L (8-16); BILIRUBIN - TOTAL 0.39 mg/dL (0.2-1.3); CALCIUM 8.6 mg/dL (8.5-10.1); CREATININE - SERUM 1.2 mg/dL (0.6-1.3); POTASSIUM - SERUM 3.7 mmol/L (3.5-5.1); PROTEIN - SERUM 6.3 g/dL (6.4-8.2)
[2017-04-16 19:00] VITALS: BP 165/91
[2017-04-16 19:43] LABS: % SATURATION 11 % (15-55); IRON 21 ug/dl (35-150); TOTAL IRON BIND CAPACITY 183 ug/dl (260-445); UNSAT IRON BIND CAPACITY 162 ug/dl (150-375)
[2017-04-17] VITALS: BP 145/68
[2017-04-17 01:05] VITALS: BMI 26.0
--- NOTE | 2017-04-17 03:22 | NUR ---
TRACK PRODUCTION ENGINEER INCONTINENT OF URINE, BRIEF AND LINENS CHANGED, REPOSITIONED IN BED FOR COMFORT.
[2017-04-17 04:00] VITALS: BP 175/77
[2017-04-17 06:31] LABS: CALC OSMOLALITY 276 mosm/kg (275-300); CALCIUM 8.8 mg/dL (8.5-10.1); CARBON DIOXIDE 30.3 mmol/L (21.0-32.0); CHLORIDE - SERUM 101 mmol/L (98-107); GLUCOSE 133 mg/dL (74-106); POTASSIUM - SERUM 4.2 mmol/L (3.5-5.1); SODIUM 136 mmol/L (136-145); UREA NITROGEN 22 mg/dL (7-18); eGFR NON AFRICAN AMERICAN 75 mL/min (90-120)
[2017-04-17 08:04] LABS: BASOPHILS 0.2 % (0-2); EOSINOPHILS 0 % (0-7); HEMATOCRIT 25.4 % (42.0-54.0); HEMOGLOBIN 8.5 g/dL (13.5-17.5); LYMPHOCYTES 12.3 % (15-50); MCH 32.7 pg (26.0-34.0); MCHC 33.5 g/dL (31.0-37.0); MEAN PLATELET VOLUME 11.3 fL (7.4-10.4); NEUTROPHILS 81.5 % (40-80); PLATELET COUNT 211 10x3/uL (130-400); RDW 15.5 % (11.5-14.5)
[2017-04-17 08:06] LABS: MCV 97.7 fL (80.0-100.0); WBC 9.3 10x3/uL (4.8-10.8)
[2017-04-17 08:52] VITALS: BP 169/74
--- NOTE | 2017-04-17 12:00 | NUR ---
SITTING UP IN BED VISITING WITH DTR. SIDE RAILS UP X2 CALL LIGHT WITHIN REACH. DENIES NEEDS
[2017-04-17 13:11] VITALS: BP 136/63
--- NOTE | 2017-04-17 14:08 | NUR ---
IV INFILTRATED, REMOVED WITH CATH INTACT. 22 GAUGE INSERTED IN LEFT HAND FOR ACCESS. JESU LEBLANC RN
[2017-04-17 14:35] VITALS: Ht 170.2 cm; Wt 63.5 kg
[2017-04-17 17:59] VITALS: BP 94/55
[2017-04-17 19:28] LABS: APPEARANCE CLEAR (CLEAR); BILIRUBIN NEGATIVE (NEGATIVE); COLOR YELLOW (YELLOW); GLUCOSE NEGATIVE (NEGATIVE); KETONE NEGATIVE (NEGATIVE); LEUKOCYTE ESTERASE TRACE (NEGATIVE); NITRITE NEGATIVE (NEGATIVE); PROTEIN TRACE mg/dL (NEGATIVE); SPECIFIC GRAVITY 1.015 (1.005-1.020); UROBILINOGEN NORMAL (NORMAL)
[2017-04-17 19:31] LABS: RED CELLS - URINE OCC /hpf (0-5); WHITE CELLS - URINE 0-5 /hpf (0-5)
[2017-04-17 19:34] LABS: BACTERIA FEW /hpf (NONE SEEN)
--- NOTE | 2017-04-17 19:53 | NUR ---
PT PULLING AT O2 AND IV TUBING ALSO TRYING TO CLIMB OUT OF BED, XANAX 0.25 GIVEN PO FOR S/S AGITATION. CEO AT BED SIDE.
[2017-04-18] VITALS: BP 184/97
[2017-04-18 04:00] VITALS: BP 162/80
[2017-04-18 06:05] LABS: BASOPHILS 0 % (0-2); EOSINOPHILS 0 % (0-7); HEMATOCRIT 28.3 % (42.0-54.0); HEMOGLOBIN 9.3 g/dL (13.5-17.5); IMMATURE GRANULOCYTES 0.4 % (0-5); LYMPHOCYTES 11.4 % (15-50); MCH 33.2 pg (26.0-34.0); MCHC 32.9 g/dL (31.0-37.0); MEAN PLATELET VOLUME 11.5 fL (7.4-10.4); MONOCYTES 8.8 % (2-11); NEUTROPHILS 79.4 % (40-80); PLATELET COUNT 253 10x3/uL (130-400); RDW 15.8 % (11.5-14.5)
[2017-04-18 06:08] LABS: MCV 101.1 fL (80.0-100.0); WBC 14.1 10x3/uL (4.8-10.8)
[2017-04-18 06:23] LABS: CALC OSMOLALITY 276 mosm/kg (275-300); CALCIUM 8.5 mg/dL (8.5-10.1); CARBON DIOXIDE 31.3 mmol/L (21.0-32.0); CHLORIDE - SERUM 101 mmol/L (98-107); GLUCOSE 97 mg/dL (74-106); POTASSIUM - SERUM 3.9 mmol/L (3.5-5.1); SODIUM 137 mmol/L (136-145); UREA NITROGEN 22 mg/dL (7-18); eGFR NON AFRICAN AMERICAN 75 mL/min (90-120)
--- NOTE | 2017-04-18 07:24 | NUR ---
AM ROUNDS- PT IN BED, DENIES ANY NEEDS AT THIS TIME. CAREGIVER AT BEDSIDE, NAD NOTED, WILL CONTINUE TO MONITOR.
[2017-04-18 08:54] VITALS: BP 157/77
--- NOTE | 2017-04-18 09:17 | NUR ---
ADMINISTERED MORNING MEDICATIONS, NO TROUBLE SWALLOWING. ALSO GAVE 650MG OF TYLENOL FOR PAIN LEVEL OF 8/10 TO HEAD. PT DENIES ANY OTHER NEEDS AT THIS TIME, CAREGIVER AT BEDSIDE, NAD NOTED, WILL CONTINUE TO MONITOR.
--- NOTE | 2017-04-18 11:27 | NUR ---
RECOVERY ROOM NURSE AT BEDSIDE TO GET VITALS, NAD NOTED, CAREGIVER AT BEDSIDE, WILL CONTINUE TO MONITOR.
[2017-04-18 12:48] VITALS: BP 157/76
--- NOTE | 2017-04-18 14:10 | NUR ---
PT PULLING AT EVERYTHING, TOOK OFF HEART MONITOR. TRYING TO PULL IV OUT. COVERED IV WITH KERLEX AND WILL ADMINISTERED 0.25 XANAX. 1412- ADMINISTED MEDS SCHEDULED AND GAVE 0.25MG OF XANAX FOR ANXIETY, NAD NOTED, CAREGIVER AT BEDSIDE, WILL CONTINUE TO MONITOR.
[2017-04-18 16:00] VITALS: BP 121/72
[2017-04-18 19:00] VITALS: BP 134/67
--- NOTE | 2017-04-18 19:33 | NUR ---
ASSESSMENT COMPLETE, PT ALERT BUT CONFUSED. 02 AT 2 LITER VIA NC. RESPERATIONS UNALBORED. IV TO LEFT FOREARM SL, SITE CLEAN AND DRY. WRAPPED IN GAUZE IN HOPES THAT PT WILL AVOID PULLING OUT IT. PT DENIES NEEDS, SITTER AT BED SIDE. BED LOW, SR UP X3, BED ALARM ON, WILL CONT TO MONITOR.
--- NOTE | 2017-04-18 20:15 | NUR ---
HS MEDS GIVEN WITH THICKEND ORANGE JUICE. NORCO 1 TAB GIVEN FOR C/O PAIN. REPOSITIONED IN BED FOR COMFORT, BED LOW, CL IN REACH, BED ALARM IN USE FOR PT SAFETY.
[2017-04-19] VITALS: BP 129/61
--- NOTE | 2017-04-19 02:06 | NUR ---
PT PULLING OFF GOWN AND PULLING AT IV TUBING, XANAX 0.25 MG GIVEN FOR S/S AGITAION. HAMPER MAKER MACHINE AT BED SIDE, BATH AND LINEN CHANGE COMPLETE.
--- NOTE | 2017-04-19 03:55 | NUR ---
RESTING WITH EYES CLOSED, RESPERATIONS EVEN, NO S/S DISTRESS NOTED.
[2017-04-19 06:58] LABS: BASOPHILS 0 % (0-2); EOSINOPHILS 0 % (0-7); HEMATOCRIT 26.7 % (42.0-54.0); HEMOGLOBIN 8.9 g/dL (13.5-17.5); IMMATURE GRANULOCYTES 0.5 % (0-5); LYMPHOCYTES 21.9 % (15-50); MCH 33.7 pg (26.0-34.0); MCHC 33.3 g/dL (31.0-37.0); MCV 101.1 fL (80.0-100.0); MEAN PLATELET VOLUME 11.1 fL (7.4-10.4); MONOCYTES 16.6 % (2-11); PLATELET COUNT 240 10x3/uL (130-400); RBC 2.64 10x6/uL (4.20-6.10); RDW 15.6 % (11.5-14.5)
[2017-04-19 07:02] LABS: WBC 7.9 10x3/uL (4.8-10.8)
[2017-04-19 07:19] LABS: CALC OSMOLALITY 269 mosm/kg (275-300); CALCIUM 8.6 mg/dL (8.5-10.1); CARBON DIOXIDE 31.2 mmol/L (21.0-32.0); CHLORIDE - SERUM 100 mmol/L (98-107); CREATININE - SERUM 0.9 mg/dL (0.6-1.3); GLUCOSE 80 mg/dL (74-106); SODIUM 135 mmol/L (136-145); eGFR NON AFRICAN AMERICAN 85 mL/min (90-120)
[2017-04-19 07:20] LABS: UREA NITROGEN 16 mg/dL (7-18)
--- NOTE | 2017-04-19 09:04 | NUR ---
ADMINISTERED MORNING MEDICATIONS, NO TROUBLE SWALLOWING. PT DENIES ANY NEEDS AT THIS TIME. CALL LIGHT IN REACH, CAREGIVER AT BEDSIDE, NAD NOTED, WILL CONTINUE TO MONITOR.
[2017-04-19 09:09] VITALS: BP 144/69
--- NOTE | 2017-04-19 12:02 | NUR ---
ASSISTANT ADMINISTRATOR AT BEDSIDE TO PROVIDED INCONT CARE TO PT. CAREGIVER AT BEDSIDE, NAD NOTED, CALL LIGHT IN [facility], WILL CONTINUE TO MONITOR.
[2017-04-19 13:20] VITALS: BP 139/72
--- NOTE | 2017-04-19 17:12 | NUR ---
CAREGIVER AT BEDSIDE FEEDING PT. PT DENIES ANY NEEDS AT THIS TIME. CALL LIGHT IN REACH, NAD NOTED, WILL CONTINUE TO MONITOR.
[2017-04-19 17:16] VITALS: BP 120/87
--- NOTE | 2017-04-19 19:28 | NUR ---
SHIFT ASSESSMENT COMPLETE LUNG SOUNDS OF EXPIRATORY WHEEZING NOTED WITH 02 AT 3 LITERS NASAL. TELEMETRY READING OF SINUS AT 83 IV SALINE LOCK TO THE L/ARM WITH DRESSING CDI. CAREGIVER AT BEDSIDE WILL MONITOR
[2017-04-19 20:34] VITALS: BP 135/58
[2017-04-19 23:34] VITALS: BP 119/66
--- NOTE | 2017-04-20 00:06 | NUR ---
2100 ORAL MEDICATION GIVEN WITH SIPS OF WATER. IV ANTIOBIOTICS UP TO INFUES DIRECTED. 0015 RESTING QUIELTY WITH NO DISTRESS NOTED
[2017-04-20 04:24] VITALS: BP 143/69
[2017-04-20 06:24] LABS: BASOPHILS 0.1 % (0-2); EOSINOPHILS 0.4 % (0-7); HEMATOCRIT 27.5 % (42.0-54.0); IMMATURE GRANULOCYTES 0.7 % (0-5); MCH 33.1 pg (26.0-34.0); MCHC 32.7 g/dL (31.0-37.0); MCV 101.1 fL (80.0-100.0); MEAN PLATELET VOLUME 11.4 fL (7.4-10.4); NEUTROPHILS 59.8 % (40-80); PLATELET COUNT 239 10x3/uL (130-400); RBC 2.72 10x6/uL (4.20-6.10); RDW 15.3 % (11.5-14.5); WBC 9.6 10x3/uL (4.8-10.8)
[2017-04-20 06:43] LABS: ANION GAP 9.8 mmol/L (8-16); CALCIUM 8.8 mg/dL (8.5-10.1); CARBON DIOXIDE 31.8 mmol/L (21.0-32.0); CREATININE - SERUM 1.1 mg/dL (0.6-1.3); POTASSIUM - SERUM 3.6 mmol/L (3.5-5.1)
--- NOTE | 2017-04-20 07:30 | NUR ---
RECEIVED PT IN BED EYES CLOSED RESP UNLABORED NAD NOTED
[2017-04-20 08:13] VITALS: BP 155/70
[2017-04-20 13:24] VITALS: BP 148/53
[2017-04-20 17:06] VITALS: BP 158/77
--- NOTE | 2017-04-20 19:24 | NUR ---
SHIFT ASSESSMENT COMPLETE WITH EDGING MACHINE FEEDER AT BEDSIDE. EXPIRATORY WHEEZING NOTED IN LOWER LOBES WITH O2 AT 2L NC. TELEMETRY READING OF SINUS AT 87. PATINET DENIED PAIN FOR NOW. RESPIRATORY AT BEDSIDE FOR TREATMENT
[2017-04-20 19:46] VITALS: BP 152/72
--- NOTE | 2017-04-20 20:30 | NUR ---
IV LEVAQUIN INFUSING ON PUMP ORDERED. PLANT SUPERINTENDENT AT SIDE. STOOL SPECIMEN COLLECTED AND TRANSPORTED TO LAB
--- NOTE | 2017-04-20 21:10 | NUR ---
ORAL MEDICATION GIVEN WITH SIPS OF WATER. PAIN MEDICATION GIVEN FOR BACK PAIN RATED AT 8 ON SCALE.
[2017-04-20 23:38] VITALS: BP 119/97
--- NOTE | 2017-04-21 02:37 | NUR ---
IV ANTIOBIOTICS UP TO INFUSE ORDERED. PATIENT RESTING QUIELTY WITH EYES CLOSED
[2017-04-21 03:48] VITALS: BP 134/65
[2017-04-21 05:17] LABS: BASOPHILS 0.1 % (0-2); EOSINOPHILS 0.9 % (0-7); HEMATOCRIT 26.3 % (42.0-54.0); HEMOGLOBIN 8.8 g/dL (13.5-17.5); IMMATURE GRANULOCYTES 1.4 % (0-5); LYMPHOCYTES 20.2 % (15-50); MCH 33.2 pg (26.0-34.0); MCHC 33.5 g/dL (31.0-37.0); MCV 99.2 fL (80.0-100.0); MEAN PLATELET VOLUME 10.8 fL (7.4-10.4); MONOCYTES 11.9 % (2-11); NEUTROPHILS 65.5 % (40-80); PLATELET COUNT 228 10x3/uL (130-400); RBC 2.65 10x6/uL (4.20-6.10); RDW 14.8 % (11.5-14.5); WBC 8.5 10x3/uL (4.8-10.8)
[2017-04-21 05:25] LABS: CALC OSMOLALITY 273 mosm/kg (275-300); CALCIUM 8.8 mg/dL (8.5-10.1); CARBON DIOXIDE 32.6 mmol/L (21.0-32.0); CHLORIDE - SERUM 100 mmol/L (98-107); CREATININE - SERUM 0.9 mg/dL (0.6-1.3); GLUCOSE 91 mg/dL (74-106); POTASSIUM - SERUM 3.7 mmol/L (3.5-5.1); SODIUM 136 mmol/L (136-145); UREA NITROGEN 18 mg/dL (7-18); eGFR NON AFRICAN AMERICAN 85 mL/min (90-120)
--- NOTE | 2017-04-21 07:30 | NUR ---
RECEIVED PT IN BED EYES CLOSED RESP UNLABORED NAD NOTED
[2017-04-21 08:19] VITALS: BP 134/67
[2017-04-21 11:52] VITALS: BP 145/76
[2017-04-21] MEDS ORDERED: Levaquin PO (12:13)
--- NOTE | 2017-04-21 14:42 | NUR ---
Patient Name: SHANDA THURMAN Encounter No: [id number] : 1930 Primary Insurance: MEDICARE A & B Anticipated DC Date: 04-21-2017 Planned Disposition: Nursing Home Care Fac MCR External Planned Provider: [facility], MEDICARE REHAB BED DISCHARGE PLANNING NOTE: * Is the patient Alert and Oriented? Yes 0 * How many steps to enter\exit or inside your home? NONE 0 * PCP DR. GARCAI 0 * Pharmacy [facility] 0 * Preadmission Environment Nursing Home Residential 0 * Facility Name [facility] 0 * ADLs Total Dependent 0 * Equipment Other 0 * Other Equipment ALL EQUIPMENT PROVIDED BY INTERMEDIATE FACILITY 0 * List name and contact numbers for known caregivers / representatives who currently or will assist patient after discharge: ROCÍO OLMSTEAD, CAREGIVER, 0 * Community resources currently utilized None 0 * Please name any agencies selected above. NONE 0 * Additional services required to return to the preadmission environment? No 0 * Can the patient safely return to the preadmission environment? Yes 0 * Has this patient been hospitalized within the prior 30 days at any hospital? Yes 0 CM MET WITH PT AND CAREGIVER, ROCÍO, IN ROOM TO DISCUSS DISCHARGE PLANNING AND NEEDS. PT LIVESE AT THE [facility] IN [facility] AND WILL RETURN THERE AT DISCHARGE. ALL MEDICAL EQUIPMENT AND ASSISTANCE TO PT PROVIDED BY FACILITY AND PRIVATE DUTY CAREGIVER. ROCÍO WOULD LIKE TO SPEAK TO THE DOCTOR PRIOR TO DISCHARGE TODAY; PT TO TRANSPORT VIA [facility]. IMPORTANT MESSAGE FROM MEDICARE PROVIDED AND EXPLAINED. CM NOTIFIED JEFFREY, CLINICAL LIAISON FOR THE [facility], , FAXED DISCHARGE INFORMATION TO THE [facility] VIA JEFFREY AT [phone]. NURSE REPORT TO BE CALLED TO THE [facility] AT [phone]. [facility] TO CURTAIN CUTTER HAND PT FOR TRANSPORT BACK AT DISCHARGE. Dmitriy Powell, CASE MANAGEMENT
[2017-04-21 16:05] VITALS: BP 145/69
--- NOTE | 2017-04-21 17:23 | NUR ---
REPORT CALLED TO OMAR FERNANDO AT [facility]
--- NOTE | 2017-04-21 17:42 | NUR ---
SALINE LOCK DCD TO LT HAND WITH IV CATHETER INTACT SITE FREE OF REDNESS OR EDEMA
--- NOTE | 2017-04-21 18:36 | NUR ---
PT DISCHARGED BACK TO [facility] IN STABLE CONDITION LEFT UNIT WITH ALL PERSONAL BELONGING WITH [facility] STAFF
== END 2017-04-21 18:36 | DRG 178 ==
LOC: D.ER 13:54 → D.M2 18:33 → D.SDCHOLD 18:33 → D.M2 04-21 18:36
PROVIDERS: Emergency Medicine; ADMIT Family Medicine
DX: J69.0 Pneumonitis due to inhalation of food and vomit (principal); I50.32 Chronic diastolic (congestive) heart failure; J98.11 Atelectasis; J44.9 Chronic obstructive pulmonary disease, unspecified; I25.10 Atherosclerotic heart disease of native coronary artery without angina pectoris; D50.9 Iron deficiency anemia, unspecified; I11.0 Hypertensive heart disease with heart failure; E78.5 Hyperlipidemia, unspecified; J32.9 Chronic sinusitis, unspecified; Z99.81 Dependence on supplemental oxygen; F01.50 Vascular dementia, unspecified severity, without behavioral disturbance, psychotic disturbance, mood disturbance, and anxiety; I48.2 Chronic atrial fibrillation; H35.30 Unspecified macular degeneration; H54.0 Blindness, both eyes; N40.0 Benign prostatic hyperplasia without lower urinary tract symptoms; Z86.73 Personal history of transient ischemic attack (TIA), and cerebral infarction without residual deficits; Z95.1 Presence of aortocoronary bypass graft

== ENCOUNTER 2017-05-05 21:36 | Inpatient (IN) | payer MEDICARE, OTHER ==
[~2017-05-05] VITALS: Ht 170.2 cm; Wt 58.5 kg
[~2017-05-05 21:36] MED LIST changes: +Levaquin PO
[2017-05-05 22:41] LABS: BASOPHILS 0 % (0-2); EOSINOPHILS 0.1 % (0-7); HEMATOCRIT 28.4 % (42.0-54.0); HEMOGLOBIN 9.4 g/dL (13.5-17.5); IMMATURE GRANULOCYTES 0.3 % (0-5); LYMPHOCYTES 10.2 % (15-50); MCH 34.1 pg (26.0-34.0); MCHC 33.1 g/dL (31.0-37.0); MCV 102.9 fL (80.0-100.0); MEAN PLATELET VOLUME 11.2 fL (7.4-10.4); MONOCYTES 8.7 % (2-11); NEUTROPHILS 80.7 % (40-80); PLATELET COUNT 243 10x3/uL (130-400); RBC 2.76 10x6/uL (4.20-6.10); RDW 14.8 % (11.5-14.5); WBC 14.1 10x3/uL (4.8-10.8)
[2017-05-05 23:12] LABS: ALBUMIN 2.9 g/dL (3.4-5.0); ANION GAP 11.3 mmol/L (8-16); BILIRUBIN - TOTAL 0.44 mg/dL (0.2-1.3); CARBON DIOXIDE 30.2 mmol/L (21.0-32.0); CREATININE - SERUM 1.1 mg/dL (0.6-1.3); POTASSIUM - SERUM 3.5 mmol/L (3.5-5.1); PROTEIN - SERUM 6.8 g/dL (6.4-8.2)
[2017-05-06] VITALS (7 sets, daily range): BP systolic 150–156; BP diastolic 64–84; Ht 170.2 cm; Wt 58.5 kg
--- NOTE | 2017-05-06 02:06 | NUR ---
RECIEVED PT TO FLOOR FROM ED VIA STRETCHER. PT IS ALERT BUT IS ONLY ORIENTED TO SELF AT THIS TIME. 02 @ 2 PER NASAL CANNULA. CARRIE MAT PLACED ON PT FOR SAFETY. IV PATENT AND ANTIBIOTIC RUNNING FROM ED. PT DENIES ANY PAIN OR NEEDS AT THIS TIME. WILL CONTINUE TO MONITOR. SIDE RAILS ARE UP X 2. BED IS IN LOWEST POSITION. CARRIE ON FOR SAFETY. CALL LIGHT IS WITHIN REACH.
[2017-05-06] MEDS ORDERED: OMNICEF300 MG PO (03:59)
[2017-05-06 05:41] LABS: BASOPHILS 0 % (0-2); EOSINOPHILS 0.1 % (0-7); HEMOGLOBIN 10.2 g/dL (13.5-17.5); IMMATURE GRANULOCYTES 0.2 % (0-5); LYMPHOCYTES 10.3 % (15-50); MCH 33.4 pg (26.0-34.0); MCHC 32.9 g/dL (31.0-37.0); MCV 101.6 fL (80.0-100.0); MEAN PLATELET VOLUME 11.4 fL (7.4-10.4); MONOCYTES 8.7 % (2-11); NEUTROPHILS 80.7 % (40-80); PLATELET COUNT 217 10x3/uL (130-400); RBC 3.05 10x6/uL (4.20-6.10); RDW 14.4 % (11.5-14.5); WBC 11.7 10x3/uL (4.8-10.8)
[2017-05-06 06:08] LABS: ANION GAP 15.1 mmol/L (8-16); CALCIUM 8.8 mg/dL (8.5-10.1); CARBON DIOXIDE 26.7 mmol/L (21.0-32.0); CREATININE - SERUM 1.1 mg/dL (0.6-1.3); POTASSIUM - SERUM 3.8 mmol/L (3.5-5.1)
--- NOTE | 2017-05-06 07:30 | NUR ---
RECIEVED PT DURING WALKING ROUNDS, PT RESTING IN BED WITH NO COMPLAINTS OF PAIN. PT WAS ASKING ABOUT "IV NURSE" COMING TO START HER IV, INFORMED PT THAT THE NURSE WOULD BE BY TO START IT WHEN SHE IS ABLE TO. ASSESSMENT DONE PER FLOWSHEET. BED IN LOW POSITION AND CALL LIGHT WITHIN REACH. WILL CONTINUE TO MONITOR.
--- NOTE | 2017-05-06 07:30 | NUR ---
RECIEVED PT DURING WALKING ROUNDS. PT RESTING IN BED WITH NO COMPLAINTS OF PAIN OR DISCOMFORT AT THIS TIME. ASSESSMENT DONE PER FLOWSHEET. BED IN LOW POSITION AND CALL LIGHT WITHIN REACH. WILL CONTINUE TO MONITOR.
--- NOTE | 2017-05-06 08:07 | NUR ---
Patient Name: SHANDA THURMAN Admission Status: ER Accout number: [id number] Admission Date: 05-06-2017 : 1930 Admission Diagnosis: Attending: LITO Current LOS: 1 Anticipated DC Date: 05-08-2017 Planned Disposition: Nursing Facility NIKI Cert Primary Insurance: MEDICARE A & B Discharge Planning Comments: CM MET WITH PATIENT AND DRAPERY INSTALLER (ROCÍO OLMSTEAD) REGARDING PATIENTS PLANS AND NEEDS FOR DISCHARGE. PATIENT IS A RESIDENT AT THE [facility]. ROCÍO OLMSTEAD IS HIS STOVE FITTER DURING THE DAY. PATIENT WILL RETURN THERE AT DISCHARGE. PATIENT IS TRANSFERRED TO A WHEELCHAIR AT FACILITY ON GOOD DAYS PER ROCÍO. PATIENT USES OXYGEN 24/7 ON 2L AND HAS A NEBULIZER. PATIENTS PCP IS DR. GÓMEZ AND PHARMACY IS IN HOUSE. CM WILL CONTINUE TO FOLLOW PATIENT WITH D/C NEEDS AND PLANS. PCP DR. GÓMEZ PHARMACY IN HOUSE AT [facility] YOSI (DAUGHTER) [phone] ROCÍOTHERON OLMSTEAD (DRAPERY INSTALLER) [phone] Build Master: Ana Segura How many steps to enter\exit or inside your home? 0 0 * PCP DR. BHATT 0 * Pharmacy IN HOUSE AT THE [facility] 0 * Preadmission Environment [facility] 0 * Facility Name [facility] 0 * ADLs Total Dependent 0 * Equipment Hospital Bed Wheelchair 0 * Other Equipment FACILITY HAS EQUIPMENT NEEDED 0 * List name and contact numbers for known caregivers / representatives who currently or will assist patient after discharge: YOSI (DAUGHTER) [phone] ROCÍO OLMSTEAD (DRAPERY INSTALLER) [phone] 0 * Community resources currently utilized None 0 * Additional services required to return to the preadmission environment? Yes 0 * Can the patient safely return to the preadmission environment? Yes 0 * Has this patient been hospitalized within the prior 30 days at any hospital? Yes 0 Grand Total: 0
--- NOTE | 2017-05-06 20:36 | NUR ---
AWAKE,ALERT.SKIN WARM DRY. RESP EVEN AND UNALBORED. O2 @ 2 L VIA NC INTACT. LUNG SOUNDS WIHT CRACKES NOTED. SL TO LEFT ARM WIHTOUT REDNESS OR EDEMA NOTED. SITTER AT BEDSIDE.
[2017-05-07] VITALS: BP 142/76
--- NOTE | 2017-05-07 01:07 | NUR ---
RESTING WITH EYES CLOSED, NO DISTRESS NOTED, FALL PRECAUTIONS IN PLACE, CAREGIVER AT BEDSIDE CL IN REACH
--- NOTE | 2017-05-07 01:21 | NUR ---
RESTING QUIETLY. NO DISTRESS NOTED. CL IN REACH. SITTER AT BEDSIDE.
[2017-05-07 04:00] VITALS: BP 135/70
--- NOTE | 2017-05-07 06:16 | NUR ---
RESTING QUIETLY. NO DISTRESS NOTED. CL IN REACH. SITTER AT BEDSIDE.
--- NOTE | 2017-05-07 07:30 | NUR ---
RECIEVED PT DURING WALKING ROUNDS, PT RESTING IN BED WITH NO COMPLAINTS OF PAIN OR DISCOMFORT AT THIS TIME. ASSESSMENT DONE PER FLOWSHEET. CAREGIVER AT BEDSIDE. BED IN LOW POSITION AND CALL LIGHT WITHIN REACH. WILL CONTINUE TO MONITOR.
[2017-05-07 08:04] VITALS: BP 153/96
[2017-05-07 08:31] LABS: BASOPHILS 0 % (0-2); EOSINOPHILS 0 % (0-7); HEMATOCRIT 26.5 % (42.0-54.0); HEMOGLOBIN 8.9 g/dL (13.5-17.5); IMMATURE GRANULOCYTES 0.3 % (0-5); LYMPHOCYTES 5.8 % (15-50); MCH 33.6 pg (26.0-34.0); MCHC 33.6 g/dL (31.0-37.0); MEAN PLATELET VOLUME 11.1 fL (7.4-10.4); MONOCYTES 5.9 % (2-11); PLATELET COUNT 222 10x3/uL (130-400); RBC 2.65 10x6/uL (4.20-6.10); RDW 14.1 % (11.5-14.5)
[2017-05-07 09:16] LABS: CALC OSMOLALITY 286 mosm/kg (275-300); CARBON DIOXIDE 29.8 mmol/L (21.0-32.0); CHLORIDE - SERUM 102 mmol/L (98-107); GLUCOSE 137 mg/dL (74-106); POTASSIUM - SERUM 3.4 mmol/L (3.5-5.1); PRO BNP 14629 pg/mL (0-450); SODIUM 141 mmol/L (136-145); UREA NITROGEN 25 mg/dL (7-18); eGFR NON AFRICAN AMERICAN 75 mL/min (90-120)
--- NOTE | 2017-05-07 10:20 | NUR ---
PT HAS COMPLAINTS OF A HEADACHE AT THIS TIME, MEDICATION TO BE ADMINISTERED PER ORDER, CAREGIVER AT BEDSIDE. BED IN LOW POSITION AND CALL LIGHT WITHIN REACH. WILL CONTINUE TO MONITOR.
[2017-05-07 12:26] VITALS: BP 142/74
[2017-05-07 15:47] VITALS: BP 138/70
[2017-05-07 20:00] VITALS: BP 147/90
[2017-05-08] VITALS: BP 128/78
--- NOTE | 2017-05-08 02:46 | NUR ---
ASSESSED AT THE BEGINNING OF THE SHIFT. PT IS CONFUSED AND HAS A SITTER WHO STAYS WITH HIM AT ALL TIMES. HE IS ABLE TO SWALLOW HIS MEDS AND HAS HIS FLUIDS THICKENED. TELEMETRY IS IN PLACE AND IT SHOWS 90'S CONTROLLED A-FIB. HE IS A TURN Q 2 HR PATIENT AND HE CAN TURN SOME BY HIMSELF. THERE IS A URINAL AT THE BEDSIDE AND SOMETINES HE IS INCONT. O2 IS AT 3 LITERS AND HE HAS BEEN RESTING WELL TONIGHT. HIS IV SITE WAS MOVED DUE TO REDNESS AT THE SITE AND IT IS NOW ON THE RIGHT A/C. THE BED IS LOW, RAILS UP X'S 2 WITH THE CALL LIGHT AT HAND. THE SITTER REMAINS BESIDE THE BED.
[2017-05-08 04:00] VITALS: BP 147/60
--- NOTE | 2017-05-08 07:30 | NUR ---
RECIEVED PT DURING WALKING ROUNDS. PT RESTING IN BED WITH CAREGIVER AT BEDSIDE, NO VISABLE SIGNS OF PAIN OR DISCOMFORT AT THIS TIME. ASSESSMENT DONE PER FLOWSHEET. BED IN LOW POSITION AND CALL LIGHT WITHIN REACH. WILL CONTINUE TO MONITOR.
[2017-05-08 07:35] LABS: BASOPHILS 0 % (0-2); EOSINOPHILS 0 % (0-7); HEMATOCRIT 26.3 % (42.0-54.0); HEMOGLOBIN 8.7 g/dL (13.5-17.5); IMMATURE GRANULOCYTES 0.3 % (0-5); LYMPHOCYTES 3.5 % (15-50); MCH 33.2 pg (26.0-34.0); MCHC 33.1 g/dL (31.0-37.0); MCV 100.4 fL (80.0-100.0); MEAN PLATELET VOLUME 11.4 fL (7.4-10.4); MONOCYTES 5.4 % (2-11); NEUTROPHILS 90.8 % (40-80); PLATELET COUNT 230 10x3/uL (130-400); RBC 2.62 10x6/uL (4.20-6.10); RDW 14.3 % (11.5-14.5); WBC 15.8 10x3/uL (4.8-10.8)
[2017-05-08 07:52] VITALS: BP 148/59
[2017-05-08 07:58] LABS: ANION GAP 12.8 mmol/L (8-16); CALCIUM 9.2 mg/dL (8.5-10.1); CARBON DIOXIDE 28.2 mmol/L (21.0-32.0); MAGNESIUM - SERUM 1.8 mg/dL (1.8-2.4)
[2017-05-08 08:01] LABS: CREATININE - SERUM 1.4 mg/dL (0.6-1.3)
[2017-05-08 12:03] VITALS: BP 130/65
[2017-05-08 16:10] VITALS: BP 146/73
[2017-05-08 20:00] VITALS: BP 130/71
[2017-05-09] VITALS: BP 110/68
--- NOTE | 2017-05-09 01:32 | NUR ---
PT IS ASLEEP WITH NO DISTRESS NOTED. HE IS WITHOUT A SITTER AT THIS TIME BUT THERE IS A BED ALARM IN PLACE. THE BED IS LOW, RAILS UP X'S 2 WITH THE CALL LIGHT AT HAND AND DOOR OPEN.
[2017-05-09 04:00] VITALS: BP 117/82
[2017-05-09 06:42] LABS: BASOPHILS 0 % (0-2); EOSINOPHILS 0 % (0-7); HEMATOCRIT 29.1 % (42.0-54.0); HEMOGLOBIN 9.5 g/dL (13.5-17.5); IMMATURE GRANULOCYTES 0.6 % (0-5); LYMPHOCYTES 4.3 % (15-50); MCH 33.2 pg (26.0-34.0); MCHC 32.6 g/dL (31.0-37.0); MCV 101.7 fL (80.0-100.0); MEAN PLATELET VOLUME 11.7 fL (7.4-10.4); MONOCYTES 4.8 % (2-11); NEUTROPHILS 90.3 % (40-80); PLATELET COUNT 261 10x3/uL (130-400); RBC 2.86 10x6/uL (4.20-6.10); RDW 14.6 % (11.5-14.5); WBC 12.3 10x3/uL (4.8-10.8)
[2017-05-09 06:55] LABS: ANION GAP 13.6 mmol/L (8-16); CALCIUM 9.6 mg/dL (8.5-10.1); CARBON DIOXIDE 29.7 mmol/L (21.0-32.0); CREATININE - SERUM 1.3 mg/dL (0.6-1.3); POTASSIUM - SERUM 3.3 mmol/L (3.5-5.1)
--- NOTE | 2017-05-09 07:40 | NUR ---
PT AOX1 RESP EVEN AND NONLABORED CAREGIVER AT BEDSIDE PT [place] AND CONFUSED MOST OF THE TIME. IV IN RIGHT FOREARM PATENT AND INTACT AT THIS TIME. PT DENIES NEEDS AT THIS TIME SRX2 BED AT LOWEST SETTING CALL LIGHT WITHIN REACH WILL CONTINUE TO MONITOR
[2017-05-09 10:08] VITALS: BP 141/67
[2017-05-09 13:13] VITALS: BP 128/81
[2017-05-09 17:37] VITALS: BP 107/71
[2017-05-09 20:00] VITALS: BP 148/77
--- NOTE | 2017-05-09 23:29 | NUR ---
pt resting quietly on left side. no complaints of pain. dry clothes and linen at present. bed alarm on for safety. scds on bilat. call light in reach
[2017-05-10 00:35] VITALS: BP 110/77
--- NOTE | 2017-05-10 00:36 | NUR ---
iv leaking at site. resited to right upper arm with 22ga x 2
[2017-05-10 04:00] VITALS: BP 134/70
--- NOTE | 2017-05-10 07:00 | NUR ---
PT REC'D FROM [facility]. RESTING IN BED WITH ROCÍO, [employer] MACHINE TENDER, AT BEDSIDE. AAOX3. DISORIENTED TO SITUATION. EASILY REORIENTED. PIV TO R UPPER ARM FREE OF REDNESS AND SWELLING. LUNG SOUNDS CLEAR AND EQUAL BILAT. BOWEL SOUNDS ACTIVE X4 QUADRANTS. DRESSING TO L HAND CDI. +2 PEDAL PULSES BILAT. RATING CURRENT PAIN IN BACK AND ABD 7/10. WILL ADMINSTER PAIN MEDICATION IF ABLE. BED LOW, CALL LIGHT IN REACH, DENIES NEEDS. CPOC.
[2017-05-10 07:59] LABS: BASOPHILS 0 % (0-2); EOSINOPHILS 0 % (0-7); HEMATOCRIT 27.7 % (42.0-54.0); HEMOGLOBIN 9.2 g/dL (13.5-17.5); IMMATURE GRANULOCYTES 0.8 % (0-5); LYMPHOCYTES 5.1 % (15-50); MCH 33.3 pg (26.0-34.0); MCHC 33.2 g/dL (31.0-37.0); MCV 100.4 fL (80.0-100.0); MEAN PLATELET VOLUME 11.6 fL (7.4-10.4); MONOCYTES 4.4 % (2-11); NEUTROPHILS 89.7 % (40-80); PLATELET COUNT 268 10x3/uL (130-400); RBC 2.76 10x6/uL (4.20-6.10); RDW 14.6 % (11.5-14.5); WBC 11.7 10x3/uL (4.8-10.8)
[2017-05-10 08:08] LABS: ANION GAP 11.7 mmol/L (8-16); CALCIUM 9.2 mg/dL (8.5-10.1); CREATININE - SERUM 1.1 mg/dL (0.6-1.3); POTASSIUM - SERUM 3.7 mmol/L (3.5-5.1)
--- NOTE | 2017-05-10 08:25 | NUR ---
MORNING MEDS PASSED AT THIS TIME. TOLERATED WELL. BREAKFAST TRAY AT BEDSIDE. MEAL ASSISTANCE PROVIDED BY ROCÍO WINDING RACK OPERATOR. PRN PAIN MEDICATION ADMINISTERED PER PT COMPLAINTS OF 7/10 BACK AND ABD PAIN. WILL REASSESS. BED LOW, CALL LIGHT IN REACH, DENIES NEEDS. CPOC.
[2017-05-10 08:42] VITALS: BP 102/66
[2017-05-10 11:36] VITALS: BP 110/68
--- NOTE | 2017-05-10 13:38 | NUR ---
PRN NYSTATIN AND XANAX ADMINSTERED PER PT AND PATTERN MARKING SUPERVISOR REQUEST.
[2017-05-10 17:30] VITALS: BP 112/64
--- NOTE | 2017-05-10 18:27 | NUR ---
PATIENT RESTING QUIETLY WITH EYES CLOSED. NO SIGNS OF DISTRESS NOTED. CARRIE MAT ALARM ON. BED IN LOWEST POSITION, CALL LIGHT IN REACH. BED RIALS UP X'S 2.
[2017-05-10 20:00] VITALS: BP 172/79
[2017-05-11 04:00] VITALS: BP 116/74
[2017-05-11 06:43] LABS: BASOPHILS 0.1 % (0-2); EOSINOPHILS 0 % (0-7); HEMATOCRIT 28.1 % (42.0-54.0); HEMOGLOBIN 9.5 g/dL (13.5-17.5); IMMATURE GRANULOCYTES 0.9 % (0-5); LYMPHOCYTES 4.7 % (15-50); MCH 33.7 pg (26.0-34.0); MCHC 33.8 g/dL (31.0-37.0); MCV 99.6 fL (80.0-100.0); MEAN PLATELET VOLUME 11.7 fL (7.4-10.4); MONOCYTES 3.3 % (2-11); PLATELET COUNT 266 10x3/uL (130-400); RBC 2.82 10x6/uL (4.20-6.10); RDW 14.4 % (11.5-14.5); WBC 12.2 10x3/uL (4.8-10.8)
[2017-05-11 07:00] LABS: ANION GAP 11.7 mmol/L (8-16); CALCIUM 8.5 mg/dL (8.5-10.1); CARBON DIOXIDE 30.7 mmol/L (21.0-32.0); CREATININE - SERUM 1.1 mg/dL (0.6-1.3)
[2017-05-11 07:04] LABS: POTASSIUM - SERUM 4.4 mmol/L (3.5-5.1)
[2017-05-11 07:10] VITALS: BP 168/65
--- NOTE | 2017-05-11 07:30 | NUR ---
SITTING IN BED, DAUGHTER AT BEDSIDE, DENIES NEEDS, BED LOWEST POSITION, CALL LIGHT IN REACH, WILL CONTINUE TO MONITOR
--- NOTE | 2017-05-11 08:00 | NUR ---
DAUGHTER AND CAREGIVER AT BEDSIDE. DENIES NEEDS AT THIS TIME. CARRIE MAT ALARM ON AND IN USE. RESPIRATIONS EVEN AND NON LABORED. CALL LIGHT IN REACH, WILL CONTINUE WITH PLAN OF CARE.
[2017-05-11] MEDS ORDERED: ENTRESTO 24 MG1 EACH PO (08:57)
[2017-05-11] MEDS ORDERED: ALDACTONE25 MG PO (08:57)
[2017-05-11] MEDS ORDERED: LASIX40 MG PO (08:58)
[2017-05-11] MEDS ORDERED: K-DUR20 MEQ PO (08:58)
[2017-05-11] MEDS ORDERED: MINERAL OIL25 ML PO (09:00)
[2017-05-11] MEDS ORDERED: STERAPRED DS 1010 MG PO (09:01)
--- NOTE | 2017-05-11 10:11 | EC ---
PATIENT:SHANDA THURMAN DATE OF SERVICE: 05/06/17 SEX: M MEDICAL RECORD: [id number] DATE OF : [birth year] LOCATION:[facility] AGE OF PATIENT: 86 ADMISSION DATE: 05/06/17 REFERRING PHYSICIAN: INTERPRETING PHYSICIAN: BIJAN SANTOS MD ECHOCARDIOGRAM REPORT ECHO CHARGES 4 ECHO COMPLETE CLINICAL DIAGNOSIS: PNEUMONIA ECHOCARDIOGRAPHIC MEASUREMENTS (adult normal given) AC root (d.<3.7cm) 3.6 LV Septum d (<1.2 cm> 1.2 Valve Excursion 1.9 LV Septum (systole) 1.6 Left Atria (s.<4.0cm> 3.7 LVPW d(<1.2cm) 1.2 RV (d.<2.3cm) 2.5 LVPW (sytole) 1.9 LV diastole(<5.6CM) 5.7 MV E-F(>70mm/sec) LV systole 4.1 LVOT Diameter 2.1 MV exc.(>10mm) Est.ejection fraction (50-75%) Pericardial Effusion N DOPPLER: LVIT A 148 E 110 LA RVSP 49.2 LVOT 158 AOP1/2T 512.0 Asc. Ao 164 RVOT 87.0 RA PA 100 AV Gradient Peak 11.0 AV Mean 5.5 AV Area 2.9 MV Gradient Peak 8.0 MV Mean 2.5 MV Area COMMENTS: Office Employee: Sukhjinder CORDONOE Electrophysiology Technologist:1 Dr. Santos TAPE# PACS DATE OF SERVICE: 05/06/2017 FINDINGS: 1. Left ventricular chamber size is upper limits of normal, left ventricular systolic function is moderately reduced, overall ejection fraction 30% range. 2. Left atrium is within normal limits at 3.7 cm. Right atrium and right ventricular chamber sizes are mildly dilated. 3. Valvular structures have normal structure and motion. 4. Doppler interrogation reveals mild aortic insufficiency, moderate mitral regurgitation, moderate tricuspid regurgitation, no other valvular insufficiency ECHOCARDIOGRAM REPORT [id number] SHANDA THURMAN or stenosis. Pulmonary systolic pressure is elevated estimated at 49 mmHg. 5. No evidence of pericardial effusion or left ventricular thrombus. TRANSINT:[id number] Voice Confirmation ID: [id number] DOCUMENT ID: [id number] BIJAN SANTOS MD at 1011 CC: [id number] DICTATION DATE: 05/07/1707 CLEAN UP HELPER BANQUET: 05/07/17 1552 ADM IN [facility] [address] [id number]
--- NOTE | 2017-05-11 11:00 | NUR ---
DISCHARGE PAPERS AND INSTRUCTIONS GIVEN TO PT AND DAUGHTER, QUESTIONS ANSWERED, REPORT CALLED TO MAT ROLDAN LPN AT THE [facility], IV REMOVED TIP INTACT, DISCHARGED PER STRETCHER WITH [employer] AND BELONGINGS
--- NOTE | 2017-05-11 11:31 | NUR ---
CM REASSESSMENT NOTE: PATIENT IS DISCHARGING BACK TO THE [facility] TO A PRISON BED BY AMBULANCE.
== END 2017-05-11 11:41 | DRG 291 ==
LOC: D.ER 21:36 → D.MS 05-06 00:32
PROVIDERS: Family Medicine; ADMIT Family Medicine
DX: I50.23 Acute on chronic systolic (congestive) heart failure (principal); J18.9 Pneumonia, unspecified organism; E43 Unspecified severe protein-calorie malnutrition; J44.0 Chronic obstructive pulmonary disease with (acute) lower respiratory infection; I10 Essential (primary) hypertension; I48.91 Unspecified atrial fibrillation; K21.9 Gastro-esophageal reflux disease without esophagitis; K58.9 Irritable bowel syndrome, unspecified; G30.9 Alzheimer's disease, unspecified; F02.80 Dementia in other diseases classified elsewhere, unspecified severity, without behavioral disturbance, psychotic disturbance, mood disturbance, and anxiety; K59.00 Constipation, unspecified; H35.30 Unspecified macular degeneration

== ENCOUNTER 2017-05-15 11:29 | Emergency (ER) | payer MEDICARE, OTHER ==
[2017-05-06 14:52] VITALS: BMI 20.2
[~2017-05-15 11:29] MED LIST changes: +ALDACTONE25 MG PO; +ENTRESTO 24 MG1 EACH PO; +OMNICEF300 MG PO; +STERAPRED DS 1010 MG PO
[2017-05-15 12:24] LABS: APPEARANCE CLEAR (CLEAR); BILIRUBIN NEGATIVE (NEGATIVE); COLOR YELLOW (YELLOW); GLUCOSE NEGATIVE (NEGATIVE); KETONE NEGATIVE (NEGATIVE); LEUKOCYTE ESTERASE NEGATIVE (NEGATIVE); NITRITE NEGATIVE (NEGATIVE); PROTEIN NEGATIVE (NEGATIVE); UROBILINOGEN NORMAL (NORMAL)
[2017-05-15 13:52] LABS: BASOPHILS 0.2 % (0-2); EOSINOPHILS 1.2 % (0-7); HEMATOCRIT 34.6 % (42.0-54.0); HEMOGLOBIN 11.6 g/dL (13.5-17.5); LYMPHOCYTES 20.4 % (15-50); MCH 32.8 pg (26.0-34.0); MCHC 33.5 g/dL (31.0-37.0); MCV 97.7 fL (80.0-100.0); MEAN PLATELET VOLUME 11.8 fL (7.4-10.4); MONOCYTES 9.9 % (2-11); NEUTROPHILS 62.3 % (40-80); RBC 3.54 10x6/uL (4.20-6.10); RDW 14.5 % (11.5-14.5)
[2017-05-15 14:14] LABS: ALBUMIN 3.1 g/dL (3.4-5.0); ALKALINE PHOSPHATASE 87 U/L (46-116); ALT (SGPT) 28 U/L (10-68); BILIRUBIN - TOTAL 0.81 mg/dL (0.2-1.3); CALC OSMOLALITY 266 mosm/kg (275-300); CALCIUM 8.8 mg/dL (8.5-10.1); CARBON DIOXIDE 28.3 mmol/L (21.0-32.0); CHLORIDE - SERUM 96 mmol/L (98-107); CREATININE - SERUM 1.2 mg/dL (0.6-1.3); GLUCOSE 94 mg/dL (74-106); POTASSIUM - SERUM 5.1 mmol/L (3.5-5.1); PROTEIN - SERUM 6.5 g/dL (6.4-8.2); SODIUM 131 mmol/L (136-145); UREA NITROGEN 25 mg/dL (7-18); eGFR NON AFRICAN AMERICAN 61 mL/min (90-120)
[2017-05-15 14:19] LABS: PLATELET COUNT 390 10x3/uL (130-400); PRO BNP 1018 pg/mL (0-450)
[2017-05-15 14:24] LABS: TROPONIN-I < 0.017 ng/mL (0.000-0.060)
[2017-05-15 14:40] LABS: APTT 26.9 SECONDS (22.8-39.4); INR 1.13 (0.85-1.17); PROTIME 14.4 SECONDS (11.6-15.0)
== END 2017-05-15 15:58 | disposition home or self-care (01) ==
LOC: D.ER 11:29
PROVIDERS: Emergency Medicine
DX: I50.9 Heart failure, unspecified (principal); I95.9 Hypotension, unspecified; K21.9 Gastro-esophageal reflux disease without esophagitis; J44.9 Chronic obstructive pulmonary disease, unspecified; I10 Essential (primary) hypertension

== ENCOUNTER 2017-05-23 17:31 | Inpatient (IN) | payer MEDICARE, OTHER ==
[~2017-05-23] VITALS: Ht 170.2 cm; Wt 55.5 kg
[2017-05-23 18:19] LABS: HEMATOCRIT 26.6 % (42.0-54.0); HEMOGLOBIN 9.1 g/dL (13.5-17.5); MCHC 34.2 g/dL (31.0-37.0); MCV 99.3 fL (80.0-100.0); MEAN PLATELET VOLUME 11.5 fL (7.4-10.4); PLATELET COUNT 225 10x3/uL (130-400); RBC 2.68 10x6/uL (4.20-6.10); RDW 14.8 % (11.5-14.5); WBC 21.6 10x3/uL (4.8-10.8)
[2017-05-23 18:40] LABS: EOSINOPHILS 1 % (0-7); LYMPHOCYTES 10 % (15-50); MONOCYTES 4 % (2-11); NEUTROPHILS 82 % (40-80); PLATELET ESTIMATE NORMAL; PLATELET MORPHOLOGY PLT CLUMPS PRESENT
[2017-05-23 19:00] LABS: ALBUMIN 2.6 g/dL (3.4-5.0); ANION GAP 12.4 mmol/L (8-16); BILIRUBIN - TOTAL 0.86 mg/dL (0.2-1.3); CALCIUM 7.9 mg/dL (8.5-10.1); CARBON DIOXIDE 23.7 mmol/L (21.0-32.0); CREATININE - SERUM 2.2 mg/dL (0.6-1.3); PROTEIN - SERUM 5.5 g/dL (6.4-8.2)
[2017-05-23 19:02] LABS: POTASSIUM - SERUM 6.1 mmol/L (3.5-5.1)
[2017-05-23 19:18] LABS: TROPONIN-I 0.121 ng/mL (0.000-0.060); VALPROIC ACID (DEPAKOTE) 1.3 ug/mL (50.0-100.0)
[2017-05-23 21:14] LABS: APPEARANCE CLEAR (CLEAR); BILIRUBIN NEGATIVE (NEGATIVE); COLOR YELLOW (YELLOW); GLUCOSE NEGATIVE (NEGATIVE); KETONE NEGATIVE (NEGATIVE); LEUKOCYTE ESTERASE NEGATIVE (NEGATIVE); NITRITE NEGATIVE (NEGATIVE); PROTEIN NEGATIVE (NEGATIVE); SPECIFIC GRAVITY 1.015 (1.005-1.020); UROBILINOGEN NORMAL (NORMAL)
--- NOTE | 2017-05-23 22:42 | NUR ---
PT ARRIVED VIA STRETCHER FROM ER. NO DISTRESS NOTED. WILL CONITNUE TO MONITOR.
--- NOTE | 2017-05-23 23:42 | NUR ---
SR PER CM HR 79. IV TO RFA WITH NS AT 100CC/HR. PT POOR HISTORIAN. FOLLOWS COMMANDS. ABRASION NOTED TO L BUTTOCKS. SKIN TEARS X3 TO LFA. DRESSING REAPPLIED. SMALL SORE TO R BIG TOE NOTED. O2 3LNC. O2 SAT 98%. LUNGS DIMINISHED IN BASES BILAT. BED ALARM IN USE. SR UP X2, CALL LIGHT WITHIN REACH.
[2017-05-23 23:49] VITALS: BP 99/41; BMI 17.6
[2017-05-24] MEDS ORDERED: KEPPRA250 MG PO (00:27)
[2017-05-24] MEDS ORDERED: PULMICORT0.25 MG/1 INH (00:27)
--- NOTE | 2017-05-24 01:35 | NUR ---
PT RESTING WITH EYES CLOSED. RESP EVEN AND REGULAR. SR UP X2, CALL LIGHT WITHIN REACH AND BED ALARM ON.
--- NOTE | 2017-05-24 01:52 | NUR ---
SCD'S PLACED ON PT.
[2017-05-24 04:00] VITALS: BP 107/53
--- NOTE | 2017-05-24 04:51 | NUR ---
PT REPOSITINED IN BEDFOR COFORT. DENIES ANY DISCOMFORT EXCEPT BEING COLD. BLANKETS X2 FROM WARMER PROVIDED. WILL CONTINUE TO MONITOR.
--- NOTE | 2017-05-24 05:32 | NUR ---
PT YELLING FOR WATER HE IS DRINKING WATER. ATTEMPTED TO EXPLAIN NUMEROUS TIME THAT HE HAS BEEN DRINKING WATER IN BETWEEN YEELING WITHOUT SUCCESS. PT ALSO YELLING HE IS COLD. PT HAS BLANKETS X6 ON BODY AND TEMP IN ROOM SET AT 85. WILL CONTINUE TO MONITOR.
--- NOTE | 2017-05-24 06:35 | NUR ---
VSS THROUGHOUT NIGHT. CM/CAF PER CM. PT DENIED ANY PAIN BUT HAD C/O BEING COLD. DENIES BEING COLD AT THID TIME. NEEDS MET;WILL CONTINUE TO MONITOR.
[2017-05-24 08:09] VITALS: BP 100/55
--- NOTE | 2017-05-24 11:09 | NUR ---
ORIENTED X3. YELLING OUT HELP. CELL CHANGER AT BEDSIDE. COMPLAINS OF PAIN 07/02. NO PAIN MEDICATION ORDERED. PAGE JUAN RAMON FOR ORDER. THICKED WATER ORDERED FROM KITCHEN. CONTINUE PLAN OF CARE. BED LOCKED AND LOW. CALL LIGHT IN REACH. TWO SIDERAILS UP. BED ALARM ON. REFUSE SCDs.
[2017-05-24 12:00] VITALS: BP 95/51
[2017-05-24 13:16] LABS: BASOPHILS 0.1 % (0-2); EOSINOPHILS 0 % (0-7); HEMATOCRIT 25.6 % (42.0-54.0); HEMOGLOBIN 8.8 g/dL (13.5-17.5); IMMATURE GRANULOCYTES 0.7 % (0-5); LYMPHOCYTES 2.7 % (15-50); MCH 34.2 pg (26.0-34.0); MCHC 34.4 g/dL (31.0-37.0); MCV 99.6 fL (80.0-100.0); MEAN PLATELET VOLUME 11.3 fL (7.4-10.4); MONOCYTES 2.7 % (2-11); NEUTROPHILS 93.8 % (40-80); PLATELET COUNT 221 10x3/uL (130-400); RBC 2.57 10x6/uL (4.20-6.10); RDW 14.8 % (11.5-14.5); WBC 16.2 10x3/uL (4.8-10.8)
[2017-05-24 13:24] LABS: ANION GAP 13.4 mmol/L (8-16); CALCIUM 7.8 mg/dL (8.5-10.1); CARBON DIOXIDE 23.8 mmol/L (21.0-32.0); CREATININE - SERUM 1.7 mg/dL (0.6-1.3); POTASSIUM - SERUM 4.2 mmol/L (3.5-5.1)
--- NOTE | 2017-05-24 14:06 | NUR ---
ANXIETY AND PAIN MEDICATION ADMINISTERED PER ORDER. YELLING OUT STOPPED. CAREGIVER AT BEDSIDE. DENIES ANY NEEDS. CONTINUE PLAN OF CARE AND SAFETY PRECAUTIONS. CONTROLLED AFIB 82bpm ON TELEMETRY.
--- NOTE | 2017-05-24 18:08 | NUR ---
ALERT. YELLING OUT "HELP ME." CAREGIVER AT BEDSIDE GIVING BEDBATH. ASK PATIENT TO PLEASE STOP YELLING. PATIENT REPLIES, "OK I'LL TRY," THEN CONTINUES TO YELL. NOT TIME TO GIVE PRN NORCO AND ATIVAN. CONTROLLED AFIB 82bpm ON TELEMETRY. CONTINUE PLAN OF CARE AND SAFETY PRECAUTIONS. NO SCDs. TAKES ELIQUIS.
[2017-05-24 20:00] VITALS: BP 124/64
--- NOTE | 2017-05-24 22:22 | NUR ---
INITIAL ROUNDS COMPELTED AT 1910 HRS. PT PICKING AT DRESSINGS TO L ARM AND BROKE NC. NEW NC APPLIED AND NEW DRESSING PLACED TO SKIN TEAR TO L AC AREA. ASSESSMETN COMPELTED AT 1940 HRS. YEE DRAINING YELLOW URINE. O2 2LNC. PT VERY UNCOOPERATVE WITH O2 SAT. HAD A READING OF 93% EVENTUALLY. CAF PER CM HR 79. LUNGS WITH SCATTERED CRACKLES BILAT. DRESSINGS X2 TO L ARM. SMALL SORE NOTED TO R BIG TOE. ABRASION NOTED TO L BUTTOCKS. EXTREMITIES COOL TO TOUCH. SCD'S REMOVED AND SKIN INSPECTED. NO BREAKDOWN NOTED. SCD'S PLACED BACK ON. IV TO RFA SL. PM MEDS GIVEN. PT CURRENTLY RESTING WITH EYES CLOSED. RESP EVEN AND REGULAR. SR UP X2, CALL LIGHT WITHIN REACH, BED ALARM ON AND CAREGIVER AT BEDSIDE. RESP EVEN AND REGULAR. SR UP X2, CALL LIGHT WITHIN DIALLO, BED ALARM ON AND CAREGIVER AT BEDSIDE.
--- NOTE | 2017-05-24 23:04 | NUR ---
IV TO RFA INFILTRATED. DC'S WITH CATHETER INTACT. NEW IV STARTED # 20 TO LFA WITH ATTEMPT X1. PT TOLERATEDE WELL. SR UP X3, CALL LIGHT WITHIN REACH, BED ALARM ON AND CAREGIVER AT BEDSIDE.
--- NOTE | 2017-05-25 00:20 | NUR ---
PT RESTING WITH EYES CLOSED. RESP DEEP, EVEN AND REGULAR. O2 SAT 96% ON 2.5LNC. WILL CONTINUE TO MONITOR. SR UP X2, CALL LIGHT WITHIN REACH AND BED ALARM ON.
--- NOTE | 2017-05-25 02:02 | NUR ---
PT RESTING WITH EYES CLOSED. RESP EVEN AND REGULAR. SR UP X2, CALL LIGHT WITHIN REACH.
[2017-05-25 04:00] VITALS: BP 106/44
--- NOTE | 2017-05-25 04:58 | NUR ---
PT RESTING WITH EYES CLOSED. RESP EVEN AND REGULAR. SR UP X2, CALL LIGHT WITHIN REACH.
[2017-05-25 05:37] LABS: BASOPHILS 0 % (0-2); EOSINOPHILS 0 % (0-7); HEMATOCRIT 24.1 % (42.0-54.0); HEMOGLOBIN 8.2 g/dL (13.5-17.5); IMMATURE GRANULOCYTES 0.7 % (0-5); LYMPHOCYTES 8.8 % (15-50); MCH 33.7 pg (26.0-34.0); MCV 99.2 fL (80.0-100.0); MEAN PLATELET VOLUME 10.8 fL (7.4-10.4); MONOCYTES 5.5 % (2-11); PLATELET COUNT 194 10x3/uL (130-400); RBC 2.43 10x6/uL (4.20-6.10); WBC 15.2 10x3/uL (4.8-10.8)
[2017-05-25 05:50] LABS: ANION GAP 11.5 mmol/L (8-16); CALCIUM 8.3 mg/dL (8.5-10.1); CARBON DIOXIDE 25.7 mmol/L (21.0-32.0); CREATININE - SERUM 1.5 mg/dL (0.6-1.3); POTASSIUM - SERUM 4.2 mmol/L (3.5-5.1)
--- NOTE | 2017-05-25 06:31 | NUR ---
PT BROKE STAT LOCK AND PULLED DRESSINGS OFF L ARM WITH CAREGIVER AT BEDSIDE. NEW STATLOCK PLACED AND NEW DRESSING APPLIED TO ARM. WILL CONTINUE TO MONITOR.
[2017-05-25 09:13] VITALS: BP 117/64
[2017-05-25 11:59] VITALS: BP 156/60
[2017-05-25 12:16] VITALS: Ht 170.2 cm; Wt 55.5 kg
--- NOTE | 2017-05-25 13:52 | NUR ---
RESTING IN BED. CAREGIVER AT BEDSIDE. PULLED 3rd IV OUT TIP INTACT. ROCEPHIN ANTIBIOTIC CHANGED TO PO PER JUAN RAMON. NO IV APPROVED PER JUAN RAMON. CONTINUE PLAN OF CARE AND SAFETY PERCAUTIONS.
--- NOTE | 2017-05-25 15:09 | NUR ---
Patient Name: SHANDA THURMAN Admission Status: ER Accout number: [id number] Admission Date: 05-23-2017 : 1930 Admission Diagnosis: Attending: REZA Current LOS: 2 Anticipated DC Date: Planned Disposition: Nursing Facility [facility] Primary Insurance: MEDICARE A & B Discharge Planning Comments: CM MET WITH PATIENT AND HIS CAREGIVER ROCÍO OLMSTEAD IN REGARDS TO DISCHARGE PLANNING/NEEDS. PATIENT IS A BIT CONFUSED. MR OLMSTEAD SAID THIS IS NOT HIS NORMAL. PATIENT IS A USP PATIENT AT THE [facility], AND THIS IS WHERE HE WILL BE RETURNING. THE FACILITY WILL TRANSPORT HIM HOME UPON DISCHARGE. ALL DME AND MEDICATIONS ARE PROVIDED BY THE SNF. NO NEEDS ARE VOICED AT THIS TIME. WILL CONTINUE TO MONITOR AND ASSIST NEEDED. Alemite Operator: Jessica Acevedo Is the patient Alert and Oriented? No * How many steps to enter\exit or inside your home? 0 * PCP DR GARCIA * Pharmacy [facility] * Preadmission Environment Second [employer] * Facility Name [facility] * ADLs Total Dependent * Other Equipment MEDICAL EQUIPMENT PROVIDED BY THE FACILITY * List name and contact numbers for known caregivers / representatives who currently or will assist patient after discharge: PRESTON MANCILLA, DTR, RAINER JUÁREZ, GRANDDAUGHTER, ROCÍO OLMSTEAD, PAID CAREGIVER, * Community resources currently utilized None * Additional services required to return to the preadmission environment? No * Can the patient safely return to the preadmission environment? Yes * Has this patient been hospitalized within the prior 30 days at any hospital? Yes
[2017-05-25 16:38] VITALS: BP 104/62
--- NOTE | 2017-05-25 19:25 | NUR ---
RESTING QUIETLY WITH EYES CLOSED. 02 ON AT 2.5L. RR 16 EVEN U/L. AWAKENS EASILY TO VOICE AND TOUCH STIMULI. VERY [place]. TELEMETRY SHOWS 80 CAFIB. YEE INTACT/PATENT. CAREGIVER PRESENT IN ROOM.
--- NOTE | 2017-05-25 20:55 | NUR ---
ADMIN SCHED PO MEDS WITH THICKEN APPLEJUICE, SWALLOWING WITHOUT DIFFICULTY. REPOSITIONED UP IN BED.
[2017-05-25 21:28] VITALS: BP 111/75
--- NOTE | 2017-05-25 22:15 | NUR ---
HOLLERING OUT "OH, OH". ASKED IF IN PAIN, STATED YES, HELP ME. ADMIN TO HIM NORCO 10MG PO WITH SIPS OF THICKEN WATER. REPOSITIONED TO LEFT SIDE.
[2017-05-26 00:44] VITALS: BP 127/47
--- NOTE | 2017-05-26 04:30 | NUR ---
RESTED QUIETLY DURING THE NIGHT. NO S/S OF PAIN OR DISCOMFORT. DOOR LEFT OPEN TO MONITOR CLOSELY.
[2017-05-26 05:25] VITALS: BP 123/57
[2017-05-26 07:44] LABS: BASOPHILS 0 % (0-2); EOSINOPHILS 0.2 % (0-7); HEMATOCRIT 25.3 % (42.0-54.0); HEMOGLOBIN 8.7 g/dL (13.5-17.5); IMMATURE GRANULOCYTES 0.5 % (0-5); LYMPHOCYTES 10.9 % (15-50); MCH 33.3 pg (26.0-34.0); MCHC 34.4 g/dL (31.0-37.0); MONOCYTES 5.5 % (2-11); NEUTROPHILS 82.9 % (40-80); PLATELET COUNT 191 10x3/uL (130-400); RBC 2.61 10x6/uL (4.20-6.10); RDW 14.7 % (11.5-14.5); WBC 14.3 10x3/uL (4.8-10.8)
[2017-05-26 07:45] LABS: MCV 96.9 fL (80.0-100.0)
[2017-05-26 08:00] VITALS: BP 96/53
[2017-05-26 08:15] LABS: ANION GAP 10.4 mmol/L (8-16); CALCIUM 8.3 mg/dL (8.5-10.1); CARBON DIOXIDE 26.3 mmol/L (21.0-32.0); CREATININE - SERUM 1.2 mg/dL (0.6-1.3); POTASSIUM - SERUM 3.7 mmol/L (3.5-5.1)
[2017-05-26 12:00] VITALS: BP 89/53
[2017-05-26] MEDS ORDERED: FERREX 150 PLUS1 CAP PO (13:59)
[2017-05-26] MEDS ORDERED: ZITHROMAX250 MG PO (14:07)
[2017-05-26] MEDS ORDERED: OMNICEF300 MG PO (14:08)
--- NOTE | 2017-05-26 14:41 | NUR ---
CONFUSED. YELLING OUT. ENCOURAGE USING INSIDE VOICE. REMAINS YELLING OUT. MANUAL BP 100/48. CALL TO REPORT MANUAL BP. MEDICATIONS REVIEWED. PLAN TO DC BACK TO [facility].
--- NOTE | 2017-05-26 15:22 | NUR ---
Patient Name: SHANDA THURMAN Encounter No: [id number] : 1930 Primary Insurance: MEDICARE A & B Anticipated DC Date: Planned Disposition: Nursing Facility NIKI Cert External Planned Provider: [facility], [facility] [employer] MEDICAID BED DCP follow-up note: CM RECEIVED DISCHARGE ORDER, MET WITH PT AND CAREGIVER, ROCÍOTHERON OLMSTEAD IN ROOM, DICUSSED DISCHARGE TODAY. ROCÍO IN AGREEMENT WITH DISCHARGE PLAN, HAS DISCUSSED CARE AND PLAN WITH CHARLOTTE ASHLEY. PT TO RETURN TO [facility] TODAY, TRANSPORTS VIA AMBULANCE. IMPORTANT MESSAGE FROM MEDICARE PROVIDED AND DISCUSSED. CM CALLED [facility], [phone], SPOKE TO NAYELI, NOTIFIED OF DISCHARGE TODAY, FAXED DISCHARGE INFORMATION TO [facility] AT [phone]. NURSE REPORT TO BE CALLED TO NAYELI AT [facility], . PT TO TRANSPORT VIA AMBULANCE. Dmitriy Powell, CASE MANAGEMENT
--- NOTE | 2017-05-26 18:28 | NUR ---
DISCHARGE INSTRUCTIONS GIVEN TO ROCOÍ THE CAREGIVER. DC BACK TO [facility]. DISCHARGE PAPERS SIGNED ON CHART. NO IV. DC YEE BULB INTACT. ROCÍO ASSIST WITH DRESSING FOR TRANSPORT. REPORT CALLED TO KASSIE TYLER AT [facility]. [facility] CALLED FOR TRANSPORT. CONTINUE PLAN OF CARE AND SAFETY PRECAUTIONS.
== END 2017-05-26 19:30 | DRG 315 ==
LOC: D.ER 17:31 → D.M2 22:14
PROVIDERS: Family Medicine; ADMIT Family Medicine
PROC: 0T9B70Z Drainage of Bladder with Drainage Device, Via Natural or Artificial Opening (ICD-10-PCS; principal; 2017-05-23)
DX: I95.9 Hypotension, unspecified (principal); N17.9 Acute kidney failure, unspecified; E87.6 Hypokalemia; D72.829 Elevated white blood cell count, unspecified; I48.2 Chronic atrial fibrillation; I10 Essential (primary) hypertension; I25.10 Atherosclerotic heart disease of native coronary artery without angina pectoris; J44.9 Chronic obstructive pulmonary disease, unspecified; K21.9 Gastro-esophageal reflux disease without esophagitis; Z86.73 Personal history of transient ischemic attack (TIA), and cerebral infarction without residual deficits; D50.9 Iron deficiency anemia, unspecified; Z72.0 Tobacco use; H44.9 Unspecified disorder of globe; G30.9 Alzheimer's disease, unspecified; F02.80 Dementia in other diseases classified elsewhere, unspecified severity, without behavioral disturbance, psychotic disturbance, mood disturbance, and anxiety; R55 Syncope and collapse

== ENCOUNTER → 2017-06-01 13:24 | Outpatient (CLI) | payer MEDICARE, OTHER ==
[2017-05-25 12:16] VITALS: BMI 19.4
[~2017-06-01 13:24] MED LIST changes: +FERREX 150 PLUS1 CAP PO; +KEPPRA250 MG PO; +ZITHROMAX250 MG PO
== END | disposition home or self-care (01) ==
LOC: D.RAD 13:24
DX: J18.9 Pneumonia, unspecified organism (principal)

== ENCOUNTER 2017-06-26 19:26 | Inpatient (IN) | payer MEDICARE, OTHER ==
[~2017-06-26] VITALS: Ht 170.2 cm; Wt 64.1 kg
[2017-06-26 20:36] LABS: BASOPHILS 0.1 % (0-2); EOSINOPHILS 0.1 % (0-7); HEMATOCRIT 28.5 % (42.0-54.0); HEMOGLOBIN 9.6 g/dL (13.5-17.5); IMMATURE GRANULOCYTES 0.4 % (0-5); LYMPHOCYTES 10.1 % (15-50); MCH 33.9 pg (26.0-34.0); MCHC 33.7 g/dL (31.0-37.0); MCV 100.7 fL (80.0-100.0); MEAN PLATELET VOLUME 9.9 fL (7.4-10.4); MONOCYTES 7.9 % (2-11); NEUTROPHILS 81.4 % (40-80); PLATELET COUNT 238 10x3/uL (130-400); RBC 2.83 10x6/uL (4.20-6.10); RDW 14.9 % (11.5-14.5); WBC 17.4 10x3/uL (4.8-10.8)
[2017-06-26 20:58] LABS: ALBUMIN 2.3 g/dL (3.4-5.0); ANION GAP 9.2 mmol/L (8-16); BILIRUBIN - TOTAL 0.69 mg/dL (0.2-1.3); CALCIUM 8.2 mg/dL (8.5-10.1); CREATININE - SERUM 1.1 mg/dL (0.6-1.3); POTASSIUM - SERUM 3.2 mmol/L (3.5-5.1); PROTEIN - SERUM 5.9 g/dL (6.4-8.2)
--- NOTE | 2017-06-26 22:11 | NUR ---
RECEIVED REPORT FROM MAT DANIELS IN ER. AWAITING PTS ARRIVAL.
--- NOTE | 2017-06-26 22:32 | NUR ---
PT RECEIVED VIA STRETCHER, EYES CLOSED, ROUSABLE TO MOVEMENT AND VERBAL STIMULI, CONFUSED X 3. PT TRANSFERRED WITHOUT DIFFICULTY. PT IS IN NO ACUTE DISTRESS. CONTINUE TO MONITOR CLOSELY. BED LOW, CALL LIGHT IN REACH, SIDE RAILS X 2, HOB 20 DEGREES, BED ALARM ON.
--- NOTE | 2017-06-26 22:35 | NUR ---
PT IS ALREADY YELLING OUT "HELP" AND IS CONFUSED. HE IS UNABLE TO BE REORIENTED AT THIS TIME. CONTINUE TO MONITOR.
[2017-06-26] MEDS ORDERED: MUCUS RELIEF400 MG PO (22:44)
[2017-06-26] MEDS ORDERED: TRAZODONE HCL50 MG PO ×2 (22:45→22:46)
[2017-06-26] MEDS ORDERED: FERROUS SULFAT325 MG PO (22:49)
--- NOTE | 2017-06-27 00:03 | NUR ---
PT HAS BEEN YELLING OUT UNCONTROLLABLY SINCE ARRIVAL. ER CONTACTED FOR PRN ORDER RX FOR INCREASED AGITATION. PT IS UNABLE TO BE REORIENTED AFTER MULTIPLE ATTEMPTS. A HIRED CAREGIVER, MARY, IS HERE NOW. SHE IS TO BE SITTING WITH PT UNTIL 0700 THIS AM. SHE HAS BEEN ABLE TO CALM HIM AT THIS TIME. WILL CONTINUE TO MONITOR CLOSELY.
[2017-06-27 00:16] VITALS: BP 157/81; BMI 19.3
[2017-06-27 04:00] VITALS: BP 178/102
--- NOTE | 2017-06-27 04:15 | NUR ---
PT HAS REMAINED CALM AND QUIET, RESTING COMFORTABLY, CAREGIVER REMAINS AT BEDSIDE. PT IS IN NO ACUTE DISTRESS. CONTINUE TO MONITOR CLOSELY. BED LOW, CALL LIGHT IN REACH, SIDE RAILS X 2, HOB 25-30 DEGREES, BED ALARM ON.
--- NOTE | 2017-06-27 06:26 | NUR ---
DURING BED BATH, LINEN AND GOWN CHANGE, PT BECAME VERY AGITATED, YELLING UNCONTROLLABLY, UNABLE TO BE REORIENTED, UNABLE TO BE CONSOLED. PT IS UNABLE TO FOLLOW SIMPLE COMMANDS, AND DOES NOT UNDERSTAND THAT HE IS BEING DISRUPTIVE. HALDOL IM GIVEN THAT WAS ORDERED PRN UPON PT ADMISSION. CAREGIVER STILL AT BEDSIDE. CONTINUE TO MONITOR CLOSELY.
--- NOTE | 2017-06-27 07:15 | NUR ---
REPORT RECIEVED. PT YELLING OUT "HELP, ANYONE!" INTRODUCED SELF TO PT AND EXPLAINED THAT I WOULD BE TAKING CARE OF HIM TODAY. PT VERBALIZED UNDERSTANDING, BUT WHEN LEFT ALONE, PT CONTINUES TO YELL OUT. RR EVEN AND UNLABORED, PT CONFUSED. WILL CTM.
[2017-06-27 09:34] VITALS: BP 137/63
--- NOTE | 2017-06-27 11:42 | NUR ---
PT CONTINUES TO YELL OUT FOR HELP WHEN THERE IS NO ONE PRESENT IN THE ROOM. WHEN CAREGIVER IS PRESENT, PT REMAINS MOSTLY CALM.
[2017-06-27 12:38] VITALS: BP 179/88
[2017-06-27 13:39] VITALS: Ht 170.2 cm; Wt 64.1 kg
[2017-06-27 16:48] VITALS: BP 168/78
--- NOTE | 2017-06-27 18:09 | NUR ---
PT CONTINUES TO CALL OUT, RR EVEN AND UNLABORED. CAREGIVER PRESENT IN ROOM. PT REMAINS CONFUSED. WILL GIVE REPORT ON PT CONDITION FOR THE DAY.
--- NOTE | 2017-06-27 18:39 | NUR ---
SPUTUM CULTURE NEEDED, EDUCATED CAREGIVER ON HOW TO COLLECT IF A NURSE OR DINING CAR CONDUCTOR IS NOT PRESENT IN THE ROOM. VERBALIZED UNDERSTANDING.
[2017-06-27 20:00] VITALS: BP 144/63
--- NOTE | 2017-06-27 20:32 | NUR ---
PT LYING IN BED, AWAKE, ALERT, CONFUSED. CAREGIVER ROCÍO AT BEDSIDE PROVIDING ALL PTS NEEDS AT THIS TIME. 21:00 MEDS GIVEN WITH MINIMAL DIFFICULTY, PT DOES HAVE TROUBLE PUSHING TABLETS TO THE BACK TO SWALLOW. HONEY THICK LIQUIDS AT BEDSIDE. CONTINUE TO MONITOR CLOSELY. BED LOW, CALL LIGHT IN REACH, HOWEVER PT IS UNABLE TO UNDERSTAND HOW AND WHEN TO CALL FOR HELP. PT IS YELLING OUT CONSTANTLY, UNABLE TO BE REORIENTED AT THIS TIME. BED ALARM ON.
[2017-06-28 04:00] VITALS: BP 152/70
--- NOTE | 2017-06-28 06:21 | NUR ---
PT RESTING COMFORTABLY, HAS TRANSIENT EPISODES OF YELLING OUT, BUT GOES BACK TO SLEEP. PT IS IN NO ACUTE DISTRESS AT THIS TIME. CONTINUE TO MONITOR CLOSELY. BED LOW, CALL LIGHT IN REACH, SIDE RAILS X 2, HOB 35 DEGREES, BED ALARM ON.
--- NOTE | 2017-06-28 07:50 | NUR ---
REPORT RECIEVED. PT ASLEEP, RR EVEN AND UNLABORED. NAME PLACED ON WHITE BOARD. BED IN LOWEST POSTION, CALL GILBERT IN REACH, WILL CTM.
[2017-06-28 08:00] VITALS: BP 123/67
--- NOTE | 2017-06-28 10:00 | NUR ---
PT HAS BEEN VERY LETHARGIC TODAY. AROUSES TO VOICE AND OPENS EYES TO VOICE. HAS DIFFICULTY STAYING AWAKE AND ANSWERING QUESTIONS. WILL CTM.
[2017-06-28 12:00] VITALS: BP 143/71
[2017-06-28 16:00] VITALS: BP 147/61
--- NOTE | 2017-06-28 17:20 | NUR ---
PT UNABLE TO PROVIDE SPUTUM CULTURE TODAY. WILL CTM.
--- NOTE | 2017-06-28 18:30 | NUR ---
PT AWAKE AND CALLING OUT "HELP." PT WAS LETHARGIC EARLIER TODAY, BUT HAS SINCE BECAME MORE ALERT. CAREGIVER AT BEDSIDE, WILL GIVE REPORT ON PT CONDITION FOR THE DAY.
[2017-06-28 20:00] VITALS: BP 170/70
--- NOTE | 2017-06-28 22:47 | NUR ---
NURSE ROUNDS 20:00 - PT LYING IN BED, EYES CLOSED RESPIRATIONS EVEN AND UNLABORED, IN NO ACUTE DISTRESS. PT IS ROUSABLE TO VERBAL STIMULI, BUT DOES FALL BACK TO SLEEP IMMEDIATELY. CAREGIVER AT BEDSIDE. PT DID ROUSE ENOUGH TO TAKE HIS PO 21:00 MEDICATIONS WITHOUT ANY DIFFICULTY. THERE IS AN ORDER FOR VANCOMYCIN TO BE GIVEN AT 20;00, ZOSYN @ 21:00, AND LEVAQUIN @ 21:00. DUE TO THE TIME REQUIRED FOR EACH INFUSION, I RAN ZOSYN FIRST, NOW LEVAQUIN IS INFUSING, AND WILL RUN VANC AFTER THE LEVAQUIN, IT TAKES VANCOMYCIN 2 + HOURS TO INFUSE. I WILL ALSO RETIME THESE ORDERS SO THERE IS MORE TIME TO INFUSE. NO OTHER NEEDS AT THIS TIME. CONTINUE TO MONITOR CLOSELY. BED LOW, CALL LIGHT IN REACH, SIDE RAILS X 2, HOB 35 DEGREES.
[2017-06-29] VITALS: BP 143/63
--- NOTE | 2017-06-29 06:02 | NUR ---
PT RESTING COMFORTABLY, CAREGIVER GONE. CONTINUE TO MONITOR CLOSELY.
[2017-06-29 06:11] LABS: BASOPHILS 0.2 % (0-2); EOSINOPHILS 0.1 % (0-7); HEMATOCRIT 25.5 % (42.0-54.0); HEMOGLOBIN 8.6 g/dL (13.5-17.5); IMMATURE GRANULOCYTES 0.4 % (0-5); LYMPHOCYTES 12.7 % (15-50); MCH 33.9 pg (26.0-34.0); MCHC 33.7 g/dL (31.0-37.0); MCV 100.4 fL (80.0-100.0); MEAN PLATELET VOLUME 9.6 fL (7.4-10.4); NEUTROPHILS 75.6 % (40-80); PLATELET COUNT 207 10x3/uL (130-400); RBC 2.54 10x6/uL (4.20-6.10); RDW 14.9 % (11.5-14.5); WBC 10.3 10x3/uL (4.8-10.8)
[2017-06-29 06:31] LABS: CALC OSMOLALITY 275 mosm/kg (275-300); CALCIUM 7.9 mg/dL (8.5-10.1); CARBON DIOXIDE 32.2 mmol/L (21.0-32.0); CHLORIDE - SERUM 100 mmol/L (98-107); GLUCOSE 90 mg/dL (74-106); MAGNESIUM - SERUM 1.7 mg/dL (1.8-2.4); PHOSPHOROUS 3.2 mg/dL (2.5-4.9); POTASSIUM - SERUM 3.3 mmol/L (3.5-5.1); SODIUM 138 mmol/L (136-145); UREA NITROGEN 13 mg/dL (7-18); eGFR NON AFRICAN AMERICAN 75 mL/min (90-120)
[2017-06-29 08:00] VITALS: BP 172/94
--- NOTE | 2017-06-29 11:22 | NUR ---
PT RESTING QUIETLY IN BED WITH EYES CLOSED. RR NONLABORED WITH NC @2L IN PLACE. CAREGIVER ROCÍO AT BEDSIDE. NO CURRENT NEEDS IDENTIFIED. WILL CTM.
[2017-06-29 12:00] VITALS: BP 134/52
--- NOTE | 2017-06-29 14:04 | NUR ---
Nutrition follow-up: Visited with pt and caregiver this am. Pt ate 100% of breakfast. Diet: regular puree with honey thick liquids PO intake has been ~100% of most meals Labs reviewed Wt: 123# RDN monitoring pts progress.
--- NOTE | 2017-06-29 14:15 | NUR ---
PT HOLLERING OUT "LORD HELP ME, HELP ME PLEASE" CAREGIVER AT SIDE AND HOLDING PTS HAND HE IS STILL ANXIOUS CURRENTLY. PROVIDED PT WITH PRN XANAX TO HELP WITH ANX/AGITATION. PT NOW ON ELECTROLYTE PROTOCOL AND WAS TREATED WITH POTASSIUM LIQUID FOR K LEVEL OF 3.3, PT ALSO REC'D MAG 400MG TABLET FOR LOW MAG OF 1.7. WILL CONTINUE TO FOLLOW EP AND MONITER. INITIATED PTS IVPB ZOSYN INFUSING VIA R.FA PIV WITH DRSG CDI AND SWAB CASH APPLICATIONS MANAGER IN USE. PT IN BED WITH CAREGIVER AT SIDE NO FURTHER NEEDS NOTED AT THIS TIME. CL IN REACH, BED IN LOWEST, SIDE RAILS X2. WILL CPOC.
--- NOTE | 2017-06-29 14:18 | NUR ---
TREATED PT WITH TYLENOL FOR ELEVATED TEMP OF 99.0 AND PTS SKIN FEELS WARMER THAN USUAL. WILL CTM.
[2017-06-29 16:00] VITALS: BP 162/68
--- NOTE | 2017-06-29 19:24 | NUR ---
REDRAW POTASSIUM 3.4. PROVIDED PT WITH 40MEQ KCL LIQUID MIXED WITH ORANGE JUICE PER EP REPLACEMENT. REDRAW LAB ORDERED FOR 4 HOURS LATER.
[2017-06-29 20:00] VITALS: BP 171/80
--- NOTE | 2017-06-29 22:52 | NUR ---
NURSE ROUNDS 20:00 - PT LYING IN BED, AWAKE, ALERT, CONFUSED, CAREGIVER AT BEDSIDE. PT IS BLIND AND VERY HARD OF HEARING, BUT CAN FOLLOW SIMPLE COMMANDS. PT WAS ABLE TO TAKE HIS PO NIGHTIME MEDS WITH THICKENED LIQUID WITHOUT ANY DIFFICULTY. NO NEEDS AT THIS TIME. CONTINUE TO MONITOR CLOSELY. BED LOW, CALL LIGHT IN REACH, SIDE RAILS X 2, HOB 30 DEGREES, BED ALARM ON.
[2017-06-30] VITALS: BP 162/66
[2017-06-30 04:00] VITALS: BP 116/53
--- NOTE | 2017-06-30 07:15 | NUR ---
RECEIVED REPORT. ASSUMED CARE OF PATIENT. CALL LIGHT WITHIN REACH. PATIENT PLEASANTLY CONFUSED THIS AM. RESTING IN BED, IV FLUIDS AT KVO RATE ORDERED TO RIGHT FOREARM. CAREGIVER, ROCÍO, AT BEDSIDE. NO DISTRESS. REAPPLIED TELEMETRY AT THIS TIME.
[2017-06-30 07:41] LABS: BASOPHILS 0.1 % (0-2); EOSINOPHILS 0.1 % (0-7); HEMATOCRIT 25.3 % (42.0-54.0); HEMOGLOBIN 8.7 g/dL (13.5-17.5); IMMATURE GRANULOCYTES 0.3 % (0-5); LYMPHOCYTES 16.2 % (15-50); MCH 34.4 pg (26.0-34.0); MCHC 34.4 g/dL (31.0-37.0); MEAN PLATELET VOLUME 9.8 fL (7.4-10.4); MONOCYTES 10.9 % (2-11); NEUTROPHILS 72.4 % (40-80); PLATELET COUNT 229 10x3/uL (130-400); RBC 2.53 10x6/uL (4.20-6.10); RDW 14.6 % (11.5-14.5); WBC 11.4 10x3/uL (4.8-10.8)
[2017-06-30 08:00] VITALS: BP 161/78
[2017-06-30 08:16] LABS: CALC OSMOLALITY 272 mosm/kg (275-300); CALCIUM 8.1 mg/dL (8.5-10.1); CARBON DIOXIDE 33.7 mmol/L (21.0-32.0); CHLORIDE - SERUM 101 mmol/L (98-107); GLUCOSE 93 mg/dL (74-106); MAGNESIUM - SERUM 1.8 mg/dL (1.8-2.4); POTASSIUM - SERUM 3.4 mmol/L (3.5-5.1); SODIUM 137 mmol/L (136-145); UREA NITROGEN 10 mg/dL (7-18); eGFR NON AFRICAN AMERICAN 75 mL/min (90-120)
[2017-06-30 12:00] VITALS: BP 185/81
--- NOTE | 2017-06-30 12:43 | NUR ---
MEDICATED FOR ANXIETY AT THIS TIME. CAREGIVER ROCÍO AT BEDSIDE. NO DISTRESS. K+ SUPPLEMENT ADMINISTERED AT THIS TIME PER EP.
--- NOTE | 2017-06-30 15:44 | NUR ---
Patient Name: SHANDA THURMAN Admission Status: ER Accout number: [id number] Admission Date: 06-26-2017 : 1930 Admission Diagnosis:FEVER, UNSPECIFIED Attending: ORIANA Current LOS: 4 Anticipated DC Date: Planned Disposition: Nursing Facility NIKI Cert Primary Insurance: MEDICARE A & B PLANNED EXTERNAL PROVIDER: [facility], [employer] C[employer] MEDICAID BED Discharge Planning Comments: * Is the patient Alert and Oriented? Yes 0 * How many steps to enter\exit or inside your home? NOEN 0 * PCP DR. GARCIA 0 * Pharm[facility] * Preadmission Environment [facility] 0 * Facility Name [facility] 0 * ADLs Total Dependent 0 * Equipment Other 0 * Other Equipment ALL MEDICAL EQUIPMENT PROVIDED BY FACILITY 0 * List name and contact numbers for known caregivers / representatives who currently or will assist patient after discharge: PRESTON MANCILLA, DTR, RAINER JUÁREZ, GRANDDAUGHTER, ROCÍO OLMSTEAD, CAREGIVER, 0 * Community resources currently utilized None 0 * Please name any agencies selected above. NONE 0 * Additional services required to return to the preadmission environment? No 0 * Can the patient safely return to the preadmission environment? Yes 0 * Has this patient been hospitalized within the prior 30 days at any hospital? Yes 0 CM MET WITH PT AND CAREGIVER ROCÍO IN ROOM TO DISCUSS DISCHARGE PLANNING AND NEEDS. PT YELLING OUT WITH EYES CLOSED. ROCÍO REPORTS PT STILL LIVING AT [facility]; THE PLAN IS FOR PT TO RETURN TO [facility] FOR CONTINUED [facility] CARE AT DISCHARGE. ROCÍO REPORTS PT IS BACK IN THE HOSPITAL FOR PNEUMONIA AGAIN. ALL MEDICAL EQUIPMENT NEEDED IS PROVIDED BY THE [facility]. CM SPOKE TO JEFFREY, CLINICAL LIAISON FOR THE [facility], CONFIRMED PT TO BE CUSTODIAL CARE RESIDENT AND THE [facility] WILL ACCEPT BACK AT DISCHARGE. FOR DISCHARGE TO THE [facility], FAX DISCHARGE INFORMATION TO THE [facility] AT [phone]; NURSE REPORT TO BE CALLED TO THE [facility] AT [phone]. PT TO TRANSPORT VIA AMBULANCE. Chief Of Field Operations: Dmitriy Powell
[2017-06-30 16:00] VITALS: BP 167/72
--- NOTE | 2017-06-30 17:01 | NUR ---
CAREGIVER AT BEDSIDE FEEDING PATIENT PM MEAL. NO DISTRESS. IV FLUIDS REMAIN AT KVO RATE. DENIES NEEDS AT THIS TIME.
--- NOTE | 2017-06-30 19:26 | NUR ---
REPORT GIVEN TO ONCOMING NURSE. NO DISTRESS.
--- NOTE | 2017-06-30 19:30 | NUR ---
REPORT RECIEVED. PT RESTING QUIETLY, CAREGIVER AT BEDSIDE. RR EVEN AND UNLABORED. NC ON PT DELIVERING O2 AT 2L. CAREGIVER EXPRESSED CONCERN THAT PT HAS NOT HAD BM SINCE ADMISSION. REQUESTED THAT A SUPPOSITORY BE ORDERED TO AID IN HAVING BM. WILL FOLLOW UP. WILL CTM.
[2017-07-01 04:00] VITALS: BP 166/74
--- NOTE | 2017-07-01 05:17 | NUR ---
PT STILL HAS NOT HAD BM, WILL PASS ALONG TO DAY SHIFT TO ASK MD FOR ORDER FOR SUPPOSITORY PER REQUEST OF CAREGIVER.
[2017-07-01 06:44] LABS: BASOPHILS 0.2 % (0-2); EOSINOPHILS 0.2 % (0-7); HEMATOCRIT 25.5 % (42.0-54.0); HEMOGLOBIN 8.7 g/dL (13.5-17.5); IMMATURE GRANULOCYTES 0.7 % (0-5); LYMPHOCYTES 20.5 % (15-50); MCH 33.9 pg (26.0-34.0); MCHC 34.1 g/dL (31.0-37.0); MCV 99.2 fL (80.0-100.0); MEAN PLATELET VOLUME 10.7 fL (7.4-10.4); NEUTROPHILS 67.4 % (40-80); PLATELET COUNT 258 10x3/uL (130-400); RBC 2.57 10x6/uL (4.20-6.10); RDW 14.8 % (11.5-14.5)
[2017-07-01 06:51] LABS: WBC 8.5 10x3/uL (4.8-10.8)
[2017-07-01 06:56] LABS: CALC OSMOLALITY 272 mosm/kg (275-300); CALCIUM 8.2 mg/dL (8.5-10.1); CARBON DIOXIDE 34.4 mmol/L (21.0-32.0); CHLORIDE - SERUM 99 mmol/L (98-107); CREATININE - SERUM 0.8 mg/dL (0.6-1.3); GLUCOSE 89 mg/dL (74-106); POTASSIUM - SERUM 3.8 mmol/L (3.5-5.1); SODIUM 138 mmol/L (136-145); UREA NITROGEN 8 mg/dL (7-18); eGFR NON AFRICAN AMERICAN > 90 mL/min (90-120)
[2017-07-01 08:00] VITALS: BP 171/85
--- NOTE | 2017-07-01 08:23 | NUR ---
AM ROUNDS - PT IS AWAKE IN BED WITH CAREGIVER AT BEDSIDE. MONITOR SHOWING SR, HR 83. SIDE RAILS UP X2. IV TO RIGHT FA, NS AT 30CC/HR. O2 AT 2L VIA NC. CAREGIVER IS CONCERNED ABOUT PT NOT HAVING A BM IN 4 DAYS. WILL CONTINUE TO MONITOR
[2017-07-01 12:00] VITALS: BP 183/87
--- NOTE | 2017-07-01 15:33 | NUR ---
PT IS IN BED AND YELLING OUT. CAREGIVER AT BEDSIDE. PT IS CONFUSED. NO FUTHER NEEDS AT THIS TIME. WILL CONTINUE TO MONITOR
--- NOTE | 2017-07-01 19:20 | NUR ---
AWAKE/ALERT, RECEIVING UPDRAFT TX. IV IN RT FA INTACT WITH NS INFUSING AT 30ML/HR. TELEMETRY LEADS IN PLACE, SHOWS 88 SR ON MONITOR. CAREGIVER PRESENT IN ROOM.
--- NOTE | 2017-07-01 20:10 | NUR ---
ADMIN SCHED PO MEDS WITH THICKEN WATER, SWALLOWING WITHOUT DIFFICULTY. CAREGIVER CHANGED HIM FOR INCONTINENCE OF URINE. ASSISTED WITH PULLING UP IN BED. ADMIN XANAX 0.25 MG FOR CONTINUALLY HOLLERING "HELP ME". CAREGIVER ABLE TO CALM HIM. REPOSITIONED HIM ON LEFT SIDE.
[2017-07-02 01:39] VITALS: BP 129/66
[2017-07-02 05:32] VITALS: BP 141/69
[2017-07-02 06:01] LABS: BASOPHILS 0.1 % (0-2); EOSINOPHILS 0.2 % (0-7); HEMATOCRIT 25.2 % (42.0-54.0); HEMOGLOBIN 8.7 g/dL (13.5-17.5); IMMATURE GRANULOCYTES 0.5 % (0-5); LYMPHOCYTES 15.2 % (15-50); MCH 34.1 pg (26.0-34.0); MCHC 34.5 g/dL (31.0-37.0); MCV 98.8 fL (80.0-100.0); MONOCYTES 11.6 % (2-11); NEUTROPHILS 72.4 % (40-80); PLATELET COUNT 244 10x3/uL (130-400); RBC 2.55 10x6/uL (4.20-6.10); RDW 14.5 % (11.5-14.5)
[2017-07-02 06:11] LABS: WBC 11.8 10x3/uL (4.8-10.8)
[2017-07-02 06:25] LABS: CALCIUM 8.4 mg/dL (8.5-10.1); CARBON DIOXIDE 31.4 mmol/L (21.0-32.0); CREATININE - SERUM 1.2 mg/dL (0.6-1.3); POTASSIUM - SERUM 3.4 mmol/L (3.5-5.1)
--- NOTE | 2017-07-02 07:35 | NUR ---
REPORT RECIEVED, PT RESTING QUIETLY, RR EVEN AND UNLABORED. CHECKED AM LABS THIS MORNING AND K+ IS 3.4. WILL REPLACE WITH 40MEQ OF ORAL POTASSIUM. WILL CTM.
[2017-07-02 10:22] VITALS: BP 153/70
--- NOTE | 2017-07-02 10:55 | NUR ---
PTS IV LEAKING. IV CATHETER REMOVED WITH CATHETER TIP INTACT. WILL RESTITE NEW IV AND CONT IV ABX.
--- NOTE | 2017-07-02 11:34 | NUR ---
PT VERY AGITATED, YELLS CONSTANTLY. JANES DANIELS, ATTEMPTED TO START IV X2 STICKS. SHE WAS UNSUCCSESSFUL. CONTACTED JESU LEBLANC RN FOR IV START. WILL CTM.
[2017-07-02] MEDS ORDERED: AUGMENTIN 875-11 TAB PO (11:43)
--- NOTE | 2017-07-02 11:45 | NUR ---
JESU LEBLANC RESTARTED 22G IV IN LEFT HAND. ABX RESTARTED, WILL CTM.
[2017-07-02 12:17] VITALS: BP 183/80
--- NOTE | 2017-07-02 14:11 | NUR ---
PT DISCHARGED. IV REMOVED WITH CATHETER TIP INTACT. TELEMETRY BOX REMOVED AND RETURNED TO SHOE MAKER. CAREGIVER IN ROOM GETTING PT DRESSED. WILL CALL REPORT TO [facility] ABOUT PT HOSPITAL STAY. WILL CALL [facility] FOR AMBULANCE TRANSPORT.
--- NOTE | 2017-07-02 15:25 | NUR ---
Patient Name: SHANDA THURMAN Encounter No: [id number] : 1930 Primary Insurance: MEDICARE A & B Anticipated DC Date: 07-02-2017 Planned Disposition: Nursing Facility NIKI Cert External Planned Provider: [facility], [employer] MEDICAID BED DCP follow-up note: CM CALLED JEFFREY CLINICAL LIAISON FOR [facility], , NOTIFIED OF DISCHARGE TODAY, [facility] TO ACCEPT BACK TODAY. CM FAXED DISCHARGE INFORMATION TO THE [facility] AT [phone]. ROCÍO, CAREGIVER NOTIFIED AND REPORTS FAMILY HAS BEEN NOTIFIED OF DISCHARGE PLAN BACK TO [facility] FOR TODAY, IMPORTANT MESSAGE FROM MEDICARE PROVIDED AND EXPLAINED. FOR DISCHARGE TO THE [facility], NURSE REPORT TO BE CALLED TO THE [facility] AT [phone]. PT TO TRANSPORT VIA AMBULANCE. ACCOUNT MANAGEMENT SPECIALIST NOTIFIED. [address], CASE MANAGEMENT
== END 2017-07-02 15:15 | DRG 177 ==
LOC: D.ER 19:26 → D.M2 21:09
PROVIDERS: Family Medicine; Internal Medicine Pulmonary Disease; ADMIT Family Medicine
DX: J69.0 Pneumonitis due to inhalation of food and vomit (principal); G93.41 Metabolic encephalopathy; J44.0 Chronic obstructive pulmonary disease with (acute) lower respiratory infection; I50.32 Chronic diastolic (congestive) heart failure; J98.11 Atelectasis; F05 Delirium due to known physiological condition; J15.6 Pneumonia due to other Gram-negative bacteria; J15.212 Pneumonia due to Methicillin resistant Staphylococcus aureus; E78.5 Hyperlipidemia, unspecified; I48.2 Chronic atrial fibrillation; G30.9 Alzheimer's disease, unspecified; F02.80 Dementia in other diseases classified elsewhere, unspecified severity, without behavioral disturbance, psychotic disturbance, mood disturbance, and anxiety; D50.9 Iron deficiency anemia, unspecified; E87.6 Hypokalemia; I25.10 Atherosclerotic heart disease of native coronary artery without angina pectoris; G47.00 Insomnia, unspecified; I35.1 Nonrheumatic aortic (valve) insufficiency; H35.30 Unspecified macular degeneration; H40.9 Unspecified glaucoma; K21.9 Gastro-esophageal reflux disease without esophagitis; G62.9 Polyneuropathy, unspecified; N40.0 Benign prostatic hyperplasia without lower urinary tract symptoms; F32.9 Major depressive disorder, single episode, unspecified; Z86.73 Personal history of transient ischemic attack (TIA), and cerebral infarction without residual deficits; Z85.46 Personal history of malignant neoplasm of prostate; Z85.47 Personal history of malignant neoplasm of testis; Z99.81 Dependence on supplemental oxygen; Z95.1 Presence of aortocoronary bypass graft

== ENCOUNTER 2017-09-15 10:21 | Inpatient (IN) | payer MEDICARE, OTHER ==
[~2017-09-15 10:21] MED LIST changes: +AUGMENTIN 875-11 TAB PO; +TRAZODONE HCL50 MG PO
[2017-09-15 11:32] LABS: ALBUMIN 2.9 g/dL (3.4-5.0); ALKALINE PHOSPHATASE 114 U/L (46-116); ALT (SGPT) 15 U/L (10-68); BILIRUBIN - TOTAL 0.94 mg/dL (0.2-1.3); CALC OSMOLALITY 274 mosm/kg (275-300); CALCIUM 8.7 mg/dL (8.5-10.1); CARBON DIOXIDE 33.3 mmol/L (21.0-32.0); CHLORIDE - SERUM 98 mmol/L (98-107); GLUCOSE 101 mg/dL (74-106); POTASSIUM - SERUM 4.1 mmol/L (3.5-5.1); PROTEIN - SERUM 6.6 g/dL (6.4-8.2); SODIUM 137 mmol/L (136-145); UREA NITROGEN 16 mg/dL (7-18); eGFR NON AFRICAN AMERICAN 75 mL/min (90-120)
[2017-09-15 11:33] LABS: HEMATOCRIT 32.9 % (42.0-54.0); HEMOGLOBIN 11.1 g/dL (13.5-17.5); MCH 33.4 pg (26.0-34.0); MCHC 33.7 g/dL (31.0-37.0); MCV 99.1 fL (80.0-100.0); MEAN PLATELET VOLUME 10.3 fL (7.4-10.4); PLATELET COUNT 396 10x3/uL (130-400); RBC 3.32 10x6/uL (4.20-6.10); RDW 13.7 % (11.5-14.5); WBC 24.3 10x3/uL (4.8-10.8)
[2017-09-15 12:15] LABS: LYMPHOCYTES 7 % (15-50); MONOCYTES 6 % (2-11); NEUTROPHILS 86 % (40-80); PLATELET ESTIMATE INCREASED
[2017-09-15 15:43] LABS: APPEARANCE CLEAR (CLEAR); BILIRUBIN NEGATIVE (NEGATIVE); COLOR YELLOW (YELLOW); GLUCOSE NEGATIVE (NEGATIVE); KETONE NEGATIVE (NEGATIVE); NITRITE NEGATIVE (NEGATIVE); PROTEIN TRACE mg/dL (NEGATIVE); RED CELLS - URINE 0-5 /hpf (0-5); SPECIFIC GRAVITY 1.015 (1.005-1.020); UROBILINOGEN NORMAL (NORMAL)
[2017-09-15 15:44] LABS: BACTERIA MODERATE /hpf (NONE SEEN); WHITE CELLS - URINE 25-50 /hpf (0-5); YEAST >1+ WITH HYPHAE /hpf (NONE SEEN)
[2017-09-15 16:20] VITALS: BP 123/89
[2017-09-15 19:30] VITALS: BP 115/73
--- NOTE | 2017-09-15 19:30 | NUR ---
REC'D DURING WALKING ROUNDS AN 87 Y/O W/M PER SERVICES DR. DOHERTY. AUTO PARTS CLERK AT BEDSIDE. PT REMAINS CONFUSED SR UP X2 CALL LIGHT WITHIN REACH. IV PATENT LEFT ARM OF NS AT 50CC'S/HR SITE CLEAR. YEE TO BEDSIDE DRAINAGE WITH GREYSON COLORED URINE. YEE CLAMPED FOR UA SPECIMEN.
--- NOTE | 2017-09-15 20:30 | NUR ---
MEDS GIVEN VT MAR.
--- NOTE | 2017-09-15 22:15 | NUR ---
INC STOOL CLEANED AND DRIED WITH LINENS CHANGED.
[2017-09-15 23:30] VITALS: BP 146/71
--- NOTE | 2017-09-16 00:45 | NUR ---
PT RESTLESS PULLING AT YEE TUBING YELLS VERY CONFUSED PLACED A CALL TO ANSWERING SERVICE FOR PRODUCT SAFETY EXPERT CRUSHER SUPERVISOR. STATES IT IS JUAN RAMON. AWITING RETURN CALL. PT'S ANXIETY AND SLEEP MEDS WERE PLACED ON HOLD ON ADMIT.
--- NOTE | 2017-09-16 01:00 | NUR ---
PLACED SECOND CALL TO JUAN RAMON PORTER. NO RETURN CALL.
--- NOTE | 2017-09-16 01:30 | NUR ---
PLACED THIRD CALL NOW TO SHANELLE WORKDAY SENIOR ASSOCIATE. AWAITING RETURN CALL.
--- NOTE | 2017-09-16 02:00 | NUR ---
STILL NO RETURN CALL FROM EITHER SHANELLE OR JUAN RAMON. ANSWERING SERVICE STATES WILL NOTIFY DR. DOHERTY PLASTIC PRESS OPERATOR FOR ER DEPT. AWAITING RETURN CALL.
--- NOTE | 2017-09-16 02:46 | NUR ---
STILL NO RETURN CALL. PT REMAINS CONFUSED AND PULLING AT TUBES.
--- NOTE | 2017-09-16 03:27 | NUR ---
IV INFILTRATED RESITED TO LEFT WRIST #22G. ANGIOCATH X1 ATTEMPT RESUMED IV FLUIDS.
[2017-09-16 03:30] VITALS: BP 163/80
--- NOTE | 2017-09-16 04:50 | NUR ---
NO RETURN CALL FROM EITHER ANP Idalmis OR DR. DOHERTY IN REGARD TO PATIENT'S ANXIETY MEDS OR SLEEP MEDS.
[2017-09-16 06:49] LABS: BASOPHILS 0 % (0-2); EOSINOPHILS 0 % (0-7); HEMOGLOBIN 10.2 g/dL (13.5-17.5); IMMATURE GRANULOCYTES 0.5 % (0-5); LYMPHOCYTES 5.3 % (15-50); MCH 33.4 pg (26.0-34.0); MCV 98.4 fL (80.0-100.0); MEAN PLATELET VOLUME 10.6 fL (7.4-10.4); MONOCYTES 3.7 % (2-11); NEUTROPHILS 90.5 % (40-80); PLATELET COUNT 310 10x3/uL (130-400); RBC 3.05 10x6/uL (4.20-6.10); RDW 13.8 % (11.5-14.5); WBC 26.4 10x3/uL (4.8-10.8)
[2017-09-16 07:22] LABS: ALBUMIN 2.5 g/dL (3.4-5.0); ANION GAP 9.3 mmol/L (8-16); CALCIUM 8.6 mg/dL (8.5-10.1); CARBON DIOXIDE 31.1 mmol/L (21.0-32.0); CREATININE - SERUM 1.1 mg/dL (0.6-1.3); PROTEIN - SERUM 6.6 g/dL (6.4-8.2)
[2017-09-16 07:24] LABS: POTASSIUM - SERUM 3.4 mmol/L (3.5-5.1)
--- NOTE | 2017-09-16 07:30 | NUR ---
RECIEVED PT DURING WALKING ROUNDS. PT RESTING IN BED WITH COMPLAINTS OF NECK PAIN OF A 8 ON A SCALE OF 1-10. MEDICATION TO BE ADMINISTERED PER ORDER. PT ORIENTED TO SELF ONLY. ASSESSMENT DONE PER FLOWSHEET. BED IN LOW POSITION AND CALL LIGHT WITHIN REACH. WILL CONTINUE TO MONITOR.
[2017-09-16 08:10] VITALS: BP 185/82
--- NOTE | 2017-09-16 09:58 | NUR ---
Patient Name: SHANDA THURMAN Admission Status: ER Accout number: [id number] Admission Date: 09-15-2017 : 1930 Admission Diagnosis: Attending: MALAIKA DOHERTY Current LOS: 1 Anticipated DC Date: Planned Disposition: Nursing Facility NIKI Cert Primary Insurance: MEDICARE A & B Discharge Planning Comments: CM met with patient to assess discharge planning needs. Patient would not answer any questions, but patients caregiver (Jomar) was there. Jomar stated that he is with Mr Thurman 12-13 hours a day and that he is a residential resident at the [facility]. He has lived there for over 4 years and the discharge plan is to return there. CM will continue to follow and assist with discharge planning needs. PCP: [facility] Brissa Thurman Marketing Intelligence Manager: Patricia Martin * Is the patient Alert and Oriented? Yes 0 * PCP Bernardino 0 * Pharmacy [facility] 0 * Preadmission Environment [facility] 0 * Facility Name [facility] 0 * ADLs Total Dependent 0 * List name and contact numbers for known caregivers / representatives who currently or will assist patient after discharge: Jomar (caregiver) 12-13 hours a day Brissa Thurman (daughter) 0 * Additional services required to return to the preadmission environment? No 0 * Can the patient safely return to the preadmission environment? Yes 0 * Has this patient been hospitalized within the prior 30 days at any hospital? No 0 Grand Total: 0
[2017-09-16 12:11] VITALS: BP 145/71
--- NOTE | 2017-09-16 12:27 | NUR ---
Rehab Prescreening Consult recieved and the chart has been reviewed. According to the PT notes he was yelling out and uncooperative with the eval. He does not meet criteria at this point. Will discuss with the CM Lacey Martin RN. Abena Lugo RN Clinical Liaison, Rehab
[2017-09-16 14:24] VITALS: BMI 18.1
--- NOTE | 2017-09-16 17:37 | NUR ---
OT NOTE: PT COMPLETED BED MOB WITH MOD A. THANK YOU, JAMAL BARBOSA/Gosia
[2017-09-16 17:43] VITALS: BP 165/79
[2017-09-16 19:30] VITALS: BP 162/78
--- NOTE | 2017-09-17 02:00 | NUR ---
PT IN BED WITH NO NEEDS. SITTER IS AT THE BEDSIDE. SIDE RAILS X 2. BED ALARM ON. BED LOW. CALL LIGHT IN REACH.
[2017-09-17 04:00] VITALS: BP 144/64; BP 144/648
[2017-09-17 06:16] LABS: ALBUMIN 2.1 g/dL (3.4-5.0); BILIRUBIN - TOTAL 0.7 mg/dL (0.2-1.3); CALCIUM 8.5 mg/dL (8.5-10.1); CARBON DIOXIDE 28.1 mmol/L (21.0-32.0); CREATININE - SERUM 1.1 mg/dL (0.6-1.3); MAGNESIUM - SERUM 1.8 mg/dL (1.8-2.4); POTASSIUM - SERUM 3.1 mmol/L (3.5-5.1); PROTEIN - SERUM 5.9 g/dL (6.4-8.2)
[2017-09-17 06:49] LABS: BASOPHILS 0.1 % (0-2); EOSINOPHILS 0.1 % (0-7); HEMATOCRIT 25.6 % (42.0-54.0); HEMOGLOBIN 8.7 g/dL (13.5-17.5); IMMATURE GRANULOCYTES 0.3 % (0-5); MCH 33.6 pg (26.0-34.0); MCV 98.8 fL (80.0-100.0); MEAN PLATELET VOLUME 10.8 fL (7.4-10.4); MONOCYTES 5.8 % (2-11); NEUTROPHILS 85.7 % (40-80); PLATELET COUNT 290 10x3/uL (130-400); RBC 2.59 10x6/uL (4.20-6.10); RDW 14.1 % (11.5-14.5)
[2017-09-17 06:52] LABS: WBC 17.8 10x3/uL (4.8-10.8)
--- NOTE | 2017-09-17 07:00 | NUR ---
REPORT RECIEVED ASSUMED CARE. PATIENT IN BED WITH IV OUT. LEFT ARM RED AND SWOLLEN. NIGHT NURSE STATED IV WAS PULLED OUT DURING BATH. PATIENT HAS DRESSING OVER SKIN TEAR ON WRIST. NO COMPLAINTS OR SIGNS OF DISTRESS. SITTER AT BEDSIDE.
--- NOTE | 2017-09-17 08:45 | NUR ---
IV RESTARTED BY JESU VASCULAR NURSE.
[2017-09-17 09:22] VITALS: BP 155/70
--- NOTE | 2017-09-17 09:30 | NUR ---
PATIENT PLACED ON DROPLET ISO FOR POSSIBLE MRSA IN SPUTUM
[2017-09-17 12:39] VITALS: BP 163/77
--- NOTE | 2017-09-17 13:06 | NUR ---
OT NOTE: PT ALERT AND CONFUSED; PRACTICED BED MOB WITH EXTENSIVE ASSIST
--- NOTE | 2017-09-17 14:00 | NUR ---
PATIENT IN BED WITH IV AND CATHETER INTACT. SITTER AT BEDSIDE. CALL LIGHT WITHIN REACH.
[2017-09-17 15:59] VITALS: BP 128/73
--- NOTE | 2017-09-17 18:00 | NUR ---
CATHETER BULB FLUID TAKEN OUT AND NEW FLUID REPLACED AT THIS TIME DUE TO CATHETER TAKEN. PATIENT CHANGED BY NURSE AND SITTER. PATIENT HAS NO COMPLAINTS. IV INTACT. CALL LIGHT WITHIN REACH.
--- NOTE | 2017-09-17 19:00 | NUR ---
REPORT RECEIVED AND CARE OF PT ASSUMED. PT LYING IN SUPINE POSITION WITH EYES CLOSED. IV IN RIGHT HAND PATENT WITH NS INFUSING AT KVO. SITTER IS AT BEDSIDE. YEE CATHETER DRAINING TO GRAVITY WITH YELLOW URINE IN COLLECTION BAG. WILL MONITOR CLOSLEY FOR NEEDS.
--- NOTE | 2017-09-17 19:27 | NUR ---
OT NOTE: PT COMPLETED BED MOB WITH MIN A. PT COMPLETED BUE AROM EXS FOR INCREASED I WITH ADLS. THANK YOU, JAMAL BARBOSA/Gosia
[2017-09-17 20:00] VITALS: BP 165/82
--- NOTE | 2017-09-17 20:52 | NUR ---
HS MEDICATIONS GIVEN WITH HELP OF SITTER. WILL CONTINUE TO MONITOR FOR NEEDS.
[2017-09-18 04:00] VITALS: BP 161/71
[2017-09-18 06:14] LABS: BASOPHILS 0 % (0-2); EOSINOPHILS 0.1 % (0-7); HEMATOCRIT 27.6 % (42.0-54.0); HEMOGLOBIN 9.2 g/dL (13.5-17.5); IMMATURE GRANULOCYTES 0.2 % (0-5); LYMPHOCYTES 7.5 % (15-50); MCH 33.5 pg (26.0-34.0); MCHC 33.3 g/dL (31.0-37.0); MCV 100.4 fL (80.0-100.0); MEAN PLATELET VOLUME 10.8 fL (7.4-10.4); MONOCYTES 6.4 % (2-11); NEUTROPHILS 85.8 % (40-80); PLATELET COUNT 303 10x3/uL (130-400); RBC 2.75 10x6/uL (4.20-6.10); RDW 14.1 % (11.5-14.5); WBC 14.5 10x3/uL (4.8-10.8)
[2017-09-18 07:00] LABS: ALBUMIN 2.1 g/dL (3.4-5.0); ALKALINE PHOSPHATASE 89 U/L (46-116); ALT (SGPT) 10 U/L (10-68); CALC OSMOLALITY 280 mosm/kg (275-300); CALCIUM 8.7 mg/dL (8.5-10.1); CARBON DIOXIDE 32.4 mmol/L (21.0-32.0); CHLORIDE - SERUM 102 mmol/L (98-107); GLUCOSE 114 mg/dL (74-106); POTASSIUM - SERUM 3.3 mmol/L (3.5-5.1); PRO BNP 9845 pg/mL (0-450); PROTEIN - SERUM 6.1 g/dL (6.4-8.2); SODIUM 140 mmol/L (136-145); UREA NITROGEN 15 mg/dL (7-18); eGFR NON AFRICAN AMERICAN 75 mL/min (90-120)
--- NOTE | 2017-09-18 07:00 | NUR ---
REPORT RECIEVED ASSUMED CARE. PATIENT IN BED WITH IV INTACT. NO COMPLAINTS. YEE INTACT. EXCEL EXPERT AT BEDSIDE. CALL LIGHT WITHIN REACH.
[2017-09-18 08:38] VITALS: BP 159/75
--- NOTE | 2017-09-18 12:57 | NUR ---
NUTRITION F/U CHART REVIEWED. PT NOW IN ISOLATION. CAREGIVER IN ROOM REPORTS PT WITH 75% INTAKE LUNCH. WILL CONTINUE TO PROVIDE PUREED DIET, MONITOR PO INTAKE. RD FOLLOWING
[2017-09-18 13:01] VITALS: BP 137/66
[2017-09-18 16:18] VITALS: BP 162/82
--- NOTE | 2017-09-18 18:55 | NUR ---
PATIENT IN BED WITH IV AND YEE INTACT. NO COMPLAINTS AT THIS TIME. CAREGIVER AT BEDSIDE. CALL LIGHT WITHIN REACH.
--- NOTE | 2017-09-18 19:00 | NUR ---
REPORT RECEIVED AND CARE OF PT ASSUMED. PT LYING IN SUPINE POSITION PROPPED TO LEFT SIDE WITH PILLOWS PER TURN SCHEDULE. IV IN RIGHT HAND PATENT WITH NS INFUSING AT KVO. YEE CATHETER DRAINING TO GRAVITY WITH YELLOW URINE IN COLLECTION BAG. TELEMETRY IN USE AND READING 78 SR W/ OCC PAC'S AT THIS ASSESSMENT. WILL MONITOR CLOSELY FOR NEEDS. SITTER AT BEDSIDE.
[2017-09-18 20:00] VITALS: BP 155/80
--- NOTE | 2017-09-18 20:06 | NUR ---
HS MEDICATION GIVEN WITH ASSISTANCE OF SITTER. WILL CONTINUE TO MONITOR FOR NEEDS.
[2017-09-19] VITALS: BP 143/79
--- NOTE | 2017-09-19 00:33 | NUR ---
PT RESTING QUIETLY IN SUPINE POSITOIN PROPPED ONTO THE RIGHT SIDE PER TURN SCHEDULE. BREATHING UNLABORED WITH EASY RESPIRATIONS. WILL CONTINUE TO MONITOR FOR NEEDS.
[2017-09-19 05:18] LABS: BASOPHILS 0.1 % (0-2); EOSINOPHILS 0.3 % (0-7); HEMATOCRIT 27.9 % (42.0-54.0); HEMOGLOBIN 9.2 g/dL (13.5-17.5); IMMATURE GRANULOCYTES 0.3 % (0-5); LYMPHOCYTES 11.6 % (15-50); MCH 33.1 pg (26.0-34.0); MCV 100.4 fL (80.0-100.0); MEAN PLATELET VOLUME 10.5 fL (7.4-10.4); MONOCYTES 10.6 % (2-11); NEUTROPHILS 77.1 % (40-80); PLATELET COUNT 318 10x3/uL (130-400); RBC 2.78 10x6/uL (4.20-6.10); WBC 11.6 10x3/uL (4.8-10.8)
[2017-09-19 05:46] LABS: ALKALINE PHOSPHATASE 87 U/L (46-116); ALT (SGPT) 11 U/L (10-68); CALC OSMOLALITY 274 mosm/kg (275-300); CALCIUM 8.7 mg/dL (8.5-10.1); CARBON DIOXIDE 33.2 mmol/L (21.0-32.0); CHLORIDE - SERUM 100 mmol/L (98-107); CREATININE - SERUM 0.9 mg/dL (0.6-1.3); GLUCOSE 104 mg/dL (74-106); PROTEIN - SERUM 6.1 g/dL (6.4-8.2); SODIUM 137 mmol/L (136-145); UREA NITROGEN 14 mg/dL (7-18); VANCOMYCIN - TROUGH 29.4 ug/mL (10.0-20.0); eGFR NON AFRICAN AMERICAN 85 mL/min (90-120)
[2017-09-19 05:51] LABS: POTASSIUM - SERUM 3.8 mmol/L (3.5-5.1)
[2017-09-19 06:00] VITALS: BP 149/73
--- NOTE | 2017-09-19 07:07 | NUR ---
REPORT RECEIVED FROM MANAGER SECURITY NURSE. CALL LIGHT IN REACH.
--- NOTE | 2017-09-19 07:56 | NUR ---
ASSESSMENT COMPLETED. CAREGIVER VERY CONCERNED ABOUT NONSTOP SHAKING IN PATIENT'S BILATERAL UPPER EXTREMIIES. STATES DAUGHTER WOULD LIKE A CT SCAN. WILL SPEAK WITH MD ABOUT IT WHEN HE COMES TO SEE PATIENT. YEE CATH DRAINING TO GRAVITY. BED ALARM ON. CALL LIGHT IN REACH. WILL CONTINUE WITH PLAN OF CARE.
--- NOTE | 2017-09-19 08:30 | NUR ---
SITTER AT BEDSIDE. NO NEEDS VOICED OR DISTRESS NOTED. CALL LIGHT IN REACH.
[2017-09-19 08:42] VITALS: BP 162/88
--- NOTE | 2017-09-19 10:34 | NUR ---
TYLENOL PO WITH AM MEDS ADMINISTERED. SITTER IN ROOM. CALL LIGHT IN REACH.
--- NOTE | 2017-09-19 12:30 | NUR ---
CAREGIVEN IN ROOM ATTEMPTING TO FEED PATIENT.
[2017-09-19 12:52] VITALS: BP 155/79
--- NOTE | 2017-09-19 14:50 | NUR ---
TO CT VIA BED.
--- NOTE | 2017-09-19 15:10 | NUR ---
BACK IN ROOM AT THIS TIME.
--- NOTE | 2017-09-19 16:03 | NUR ---
AFTERNOON MEDS PO. DRSG TO IV CHANGED PER CAREGIVER REQUEST.
[2017-09-19 16:04] VITALS: BP 158/84
--- NOTE | 2017-09-19 16:45 | NUR ---
PHONE CONSENT RECEIVED FROM DAUGHTER FOR BLOOD. WITNESSED PER NKIIARN, AND MYSELF.
[2017-09-19 16:50] VITALS: BP 148/78
--- NOTE | 2017-09-19 16:50 | NUR ---
PRBC UNIT 1 INITIATED @ 100 CC/HR. VS WNL. CALL LIGHT IN REACH.
--- NOTE | 2017-09-19 16:50 | NUR ---
PRBCS VERIFIED WITH FARRAH MCDANIEL LPN. BLOOD PRODUCTS GIVEN PER PROTOCOL. BED IN LOW POSITION AND NURSE AT BEDSIDE. WILL CONTINUE TO MONITOR.
--- NOTE | 2017-09-19 18:38 | NUR ---
BLOOD STILL INFUSING. VS WNL. NO DISTRESS NOTED AT THIS TIME. CALL LIGHT IN REACH.
--- NOTE | 2017-09-19 19:00 | NUR ---
REPORT RECEIVED AND CARE OF PT ASSUMED. PT LYING IN LOW GONZALES'S POSITION WITH EYES CLOSED. IV IN RIGHT HAND PATENT WITH NS INFUSING AT KVO. YEE CATHETER DRAINING TO GRAVITY WITH YELLOW URINE IN COLLECTION BAG. SITTER IS AT BEDSIDE. WILL MONITOR FOR NEEDS.
--- NOTE | 2017-09-19 19:20 | NUR ---
PRBC INFUSION COMPLETE. VITALS STABLE AND PT IS AFEBRILE.
--- NOTE | 2017-09-19 20:57 | NUR ---
HS MEDICATION GIVEN WITH ASSISSTANCE OF CAREGIVER. WILL CONTINUE TO MONITOR FOR NEEDS. PT TURNED PER TURN SCHEDULE.
[2017-09-20] VITALS: BP 133/68
--- NOTE | 2017-09-20 00:15 | NUR ---
PT RESGINT QUIETLY IN SUPINE POSITION WITH UNLABORED BREATHING. SIDE RAILS UP X3 FOR SAFETY.
[2017-09-20 04:00] VITALS: BP 128/70
--- NOTE | 2017-09-20 05:11 | NUR ---
PT RESTING ON RIGHT SIDE PROPPED WITH PILLOWS, WITH EYES CLOSED AND EASY RESPIRATIONS. IV PATENT. WILL CONTINUE TO MONITOR CLOSELY FOR NEEDS.
[2017-09-20 05:16] LABS: BASOPHILS 0.2 % (0-2); HEMATOCRIT 32.6 % (42.0-54.0); HEMOGLOBIN 10.9 g/dL (13.5-17.5); IMMATURE GRANULOCYTES 0.8 % (0-5); MCH 32.5 pg (26.0-34.0); MCHC 33.4 g/dL (31.0-37.0); MEAN PLATELET VOLUME 10.8 fL (7.4-10.4); MONOCYTES 11.2 % (2-11); NEUTROPHILS 72.8 % (40-80); PLATELET COUNT 330 10x3/uL (130-400); RDW 16.3 % (11.5-14.5); WBC 9.8 10x3/uL (4.8-10.8)
[2017-09-20 05:18] LABS: MCV 97.3 fL (80.0-100.0); RBC 3.35 10x6/uL (4.20-6.10)
[2017-09-20 05:41] LABS: ALBUMIN 2.1 g/dL (3.4-5.0); ALKALINE PHOSPHATASE 88 U/L (46-116); ALT (SGPT) 11 U/L (10-68); CALC OSMOLALITY 272 mosm/kg (275-300); CALCIUM 8.8 mg/dL (8.5-10.1); CARBON DIOXIDE 29.9 mmol/L (21.0-32.0); CHLORIDE - SERUM 100 mmol/L (98-107); CREATININE - SERUM 0.9 mg/dL (0.6-1.3); GLUCOSE 93 mg/dL (74-106); POTASSIUM - SERUM 3.8 mmol/L (3.5-5.1); PROTEIN - SERUM 6.4 g/dL (6.4-8.2); SODIUM 136 mmol/L (136-145); UREA NITROGEN 16 mg/dL (7-18); VANCOMYCIN - RANDOM 23.4 ug/mL (10.0-20.0); eGFR NON AFRICAN AMERICAN 85 mL/min (90-120)
--- NOTE | 2017-09-20 07:13 | NUR ---
IV BLEEDING. REMOVED WITH CATHETER TIP INTACT. RE-SITED TO RIGHT FA ON 2ND STICK...NOTICED BLOOD PULSING IN TUBE...REMOVED AND PLACED PRESSURE DRESSING TO CONTROL BLEEDING. DAY SHIFT NURSE TO RE-SITE.
--- NOTE | 2017-09-20 07:15 | NUR ---
LYING IN BED,WITHOUT DISTRESS.CAREGIVER AT BEDSIDE.FALL PREVENTION IN PLACE WITH CARRIE MAT AND BED ALARM IN PLACE.CALL LIGHT IN PLACE
[2017-09-20 09:33] VITALS: BP 127/75
[2017-09-20 12:09] VITALS: BP 137/68
--- NOTE | 2017-09-20 19:00 | NUR ---
REPORT RECEIVED AND CARE OF PT ASSUMED. PT LYING IN SEMI GONZALES'S POSITION WITH EYES CLOSED. O2 IN USE VIA NC AT 3.5 L. IV IN LEFT FA PATENT WITH NS INFUSING AT KVO. CAREGIVER IS AT BEDSIDE. WILL MONITOR CLOSLEY FOR NEEDS.
--- NOTE | 2017-09-20 19:26 | NUR ---
REMAINS WITHOUT CHANGE FROM INITIAL SHIFT ASSESSMENT.CONT PLAN OF CARE
[2017-09-20 20:00] VITALS: BP 164/81
--- NOTE | 2017-09-20 20:40 | NUR ---
HS MEDICATIONS GIVEN. WILL CONTINUE TO MONITOR FOR NEEDS. CAREGIVER REMAINS AT BEDSIDE.
[2017-09-21] VITALS: BP 156/83
--- NOTE | 2017-09-21 03:06 | NUR ---
PT AGGITATED AND PULLING ON TUBES. GAVE XANAX 0.25 MG PO AND TYLENOL 650 MG PO PER REQUEST FROM CAREGIVER, PER PRN ORDERS. WILL MONITOR FOR EFFECTIVENESS.
--- NOTE | 2017-09-21 03:07 | NUR ---
PT BATHED AND ALL LINENS AND GOWN CHANGED. WILL CONTINUE TO MONITOR FOR NEEDS.
[2017-09-21 05:47] LABS: BASOPHILS 0.2 % (0-2); EOSINOPHILS 0.4 % (0-7); HEMATOCRIT 32.9 % (42.0-54.0); HEMOGLOBIN 10.9 g/dL (13.5-17.5); IMMATURE GRANULOCYTES 0.8 % (0-5); MCH 32.3 pg (26.0-34.0); MCHC 33.1 g/dL (31.0-37.0); MCV 97.6 fL (80.0-100.0); MEAN PLATELET VOLUME 10.6 fL (7.4-10.4); MONOCYTES 9.4 % (2-11); NEUTROPHILS 76.2 % (40-80); PLATELET COUNT 323 10x3/uL (130-400); RBC 3.37 10x6/uL (4.20-6.10); RDW 15.5 % (11.5-14.5); WBC 11.3 10x3/uL (4.8-10.8)
[2017-09-21 06:25] LABS: ALBUMIN 2.3 g/dL (3.4-5.0); ALKALINE PHOSPHATASE 92 U/L (46-116); ALT (SGPT) 11 U/L (10-68); CALC OSMOLALITY 275 mosm/kg (275-300); CALCIUM 9.1 mg/dL (8.5-10.1); CARBON DIOXIDE 29.1 mmol/L (21.0-32.0); CHLORIDE - SERUM 101 mmol/L (98-107); GLUCOSE 104 mg/dL (74-106); PROTEIN - SERUM 6.6 g/dL (6.4-8.2); SODIUM 137 mmol/L (136-145); UREA NITROGEN 18 mg/dL (7-18); VANCOMYCIN - TROUGH 16.9 ug/mL (10.0-20.0); eGFR NON AFRICAN AMERICAN 75 mL/min (90-120)
--- NOTE | 2017-09-21 08:21 | NUR ---
AWAKE AND ALERT. ORIENTED TO SELF THIS AM. CAREGIVER AT BEDSIDE. LUNGS ARE CLEAR BILATERALLY, NO COUGH NOTED. SKIN IS INTACT WITHOUT REDNESS. IV TO LEFT FOREARM IS PATENT WITHOUT REDNESS AT INSERTION SITE. DENIES NEEDS. YEE PATENT WITH CLEAR YELLOW URINE. CAREGIVER ASSISTED WITH BREAKFAST.
[2017-09-21 08:30] VITALS: BP 171/91
--- NOTE | 2017-09-21 10:00 | NUR ---
WORKED WITH PT AT THIS TIME. CAREGIVER IN ROOM.
--- NOTE | 2017-09-21 12:15 | NUR ---
LUNCH SERVED IN ROOM. ATE ALL OF MEAL WITH CAREGIVERS ASSISTANCE. DENIES NEEDS.
[2017-09-21 13:25] VITALS: BP 164/83
--- NOTE | 2017-09-21 15:00 | NUR ---
RESTING QUIETLY WITH EYES CLOSED. NO NEEDS NOTED.
[2017-09-21 16:00] VITALS: BP 168/90
--- NOTE | 2017-09-21 16:51 | NUR ---
SPOKE WITH DR. EDWARDS ON PHONE HE DOES NOT WANT LOVENOX AT THIS TIME. SCD'S PLACED AT THIS TIME.
--- NOTE | 2017-09-21 18:00 | NUR ---
ATE ALL OF SUPPER WITH CAREGIVER FEEDING HIM. NO CHANGES NOTED. DENIES NEEDS.
[2017-09-21 20:00] VITALS: BP 169/88
--- NOTE | 2017-09-21 20:00 | NUR ---
ASSESSMENT PER FLOWSHEET. IV PATENT LEFT FOREARM SITE CLEAR. NS INFUSING AT 20CC'S/HR.CAREGIVER AT BEDSIDE. MEDS GIVEN PER JAN. SR UP X2 CALL LIGHT WITHIN REACH BED ALARM BED ACTIVATED.
--- NOTE | 2017-09-21 21:57 | NUR ---
EYES CLOSED RESPIRATIONS WITH EASE AND UNLABORED.
--- NOTE | 2017-09-22 00:54 | NUR ---
EYES CLOSED RESPIRATIONS WITH EASE AND UNLABORED.
--- NOTE | 2017-09-22 03:44 | NUR ---
EYES CLOSED RESPIRATIONS WITH EASE AND UNLABORED. CAREGIVER AT BEDSIDE. BED ALARM ON
[2017-09-22 04:00] VITALS: BP 155/82
--- NOTE | 2017-09-22 05:35 | NUR ---
SITTER HAS LEFT THE ROOM. PT STARTING TO GET MORE CONFUSED. MEDS GIVEN PER JAN. PT PULLING AT YEE TUBING AND MONITOR WIRES. MONITOR WIRES/PATCHES HAVE BEEN REPLACED PORT CXR DONE AND LAB DRAWN. BED ALARM ON.
[2017-09-22 06:25] LABS: BASOPHILS 0.2 % (0-2); HEMATOCRIT 32.7 % (42.0-54.0); HEMOGLOBIN 10.7 g/dL (13.5-17.5); IMMATURE GRANULOCYTES 1.2 % (0-5); LYMPHOCYTES 16.4 % (15-50); MCH 31.9 pg (26.0-34.0); MCHC 32.7 g/dL (31.0-37.0); MCV 97.6 fL (80.0-100.0); MEAN PLATELET VOLUME 10.4 fL (7.4-10.4); MONOCYTES 9.2 % (2-11); PLATELET COUNT 314 10x3/uL (130-400); RBC 3.35 10x6/uL (4.20-6.10); RDW 15.1 % (11.5-14.5); WBC 11.3 10x3/uL (4.8-10.8)
--- NOTE | 2017-09-22 06:27 | NUR ---
BED BATH GIVEN PER SOIL ENGINEER.
[2017-09-22 07:07] LABS: ALBUMIN 2.3 g/dL (3.4-5.0); ANION GAP 11.1 mmol/L (8-16); BILIRUBIN - TOTAL 0.5 mg/dL (0.2-1.3); CALCIUM 8.9 mg/dL (8.5-10.1); CARBON DIOXIDE 28.9 mmol/L (21.0-32.0); CREATININE - SERUM 1.1 mg/dL (0.6-1.3); PROTEIN - SERUM 6.4 g/dL (6.4-8.2)
--- NOTE | 2017-09-22 07:30 | NUR ---
AWAKE AND ALERT. ORIENTED TO SELF ONLY. CAREGIVER IN ROOM. LUNGS ARE CLEAR BUT SLIGHTLY DIMINISHED IN BILATERAL LOWER LOBES, OCCASSIONAL DRY COUGH NOTED. SKIN IS INTACT WITHOUT REDNESS. DENIES NEEDS. YEE PATENT WITH TEA COLORED URINE. IV TO LEFT FOREARM IS PATENT WTIHOUT REDNESS AT INSERTION SITE.
[2017-09-22 09:05] VITALS: BP 153/77
--- NOTE | 2017-09-22 10:00 | NUR ---
RESTING QUIETLY IN BED WITH EYES CLOSED. NO NEEDS NOTED.
[2017-09-22 11:35] VITALS: BP 146/82
--- NOTE | 2017-09-22 12:15 | NUR ---
LUNCH SERVED IN ROOM. ATE ALL OF MEAL WITH CAREGIVER FEEDING HIM. NO NEEDS NOTED.
--- NOTE | 2017-09-22 15:00 | NUR ---
SCD'S IN PLACE. NO NEEDS EXPRESSED. CAREGIVER IN ROOM.
[2017-09-22 16:12] VITALS: BP 140/72
--- NOTE | 2017-09-22 18:20 | NUR ---
ATE ALL OF SUPPER. NO CHANGES NOTED. DENIES NEEDS.
[2017-09-22 20:00] VITALS: BP 144/73
--- NOTE | 2017-09-22 20:00 | NUR ---
ASSESSMENT PER FLOWSHEET. CONFUSED. SITTER AT BEDSIDE. BED BATH GIVEN WITH LINENS CHANGED. YEE TO BEDSIDE DRAINAGE WITH YELLOW URINE. CARRIE BEDALARM MAT ON SR UP X3. CALL LIGHT WITHIN REACH. TELM. SHOWS SR WITH HR 70.
--- NOTE | 2017-09-22 20:30 | NUR ---
MEDS GIVEN PO TOLERATED WELL.TYLENOL 650MG PO GIVEN FOR GENERALIZED DISCOMFORT.
--- NOTE | 2017-09-22 23:10 | NUR ---
EYES CLOSED RESPIRATIONS WITH EASE AND UNLABORED.
[2017-09-23] VITALS: BP 139/77
--- NOTE | 2017-09-23 00:19 | NUR ---
TURNED TO RT SIDE EYES CLOSED RES[IRATIONS WITH EASE AND UNLABORED.
--- NOTE | 2017-09-23 02:45 | NUR ---
TURNED TO LEFT SIDE EYES CLOSED RESPIRATIONS WITH EASE AND UNLABORED.
--- NOTE | 2017-09-23 04:48 | NUR ---
EYES CLOSED RESPIRATIONS WITH EASE AND UNLABORED.
[2017-09-23 05:09] LABS: BASOPHILS 0.2 % (0-2); EOSINOPHILS 1.6 % (0-7); HEMOGLOBIN 10.6 g/dL (13.5-17.5); IMMATURE GRANULOCYTES 1.7 % (0-5); LYMPHOCYTES 18.6 % (15-50); MCH 32.5 pg (26.0-34.0); MCHC 33.1 g/dL (31.0-37.0); MCV 98.2 fL (80.0-100.0); MEAN PLATELET VOLUME 10.6 fL (7.4-10.4); MONOCYTES 10.6 % (2-11); NEUTROPHILS 67.3 % (40-80); PLATELET COUNT 292 10x3/uL (130-400); RBC 3.26 10x6/uL (4.20-6.10); RDW 14.9 % (11.5-14.5)
[2017-09-23 05:16] LABS: WBC 8.3 10x3/uL (4.8-10.8)
[2017-09-23 05:25] LABS: ALBUMIN 2.1 g/dL (3.4-5.0); ALKALINE PHOSPHATASE 84 U/L (46-116); ALT (SGPT) 10 U/L (10-68); BILIRUBIN - TOTAL 0.44 mg/dL (0.2-1.3); CALC OSMOLALITY 272 mosm/kg (275-300); CALCIUM 8.4 mg/dL (8.5-10.1); CARBON DIOXIDE 30.5 mmol/L (21.0-32.0); CHLORIDE - SERUM 101 mmol/L (98-107); GLUCOSE 90 mg/dL (74-106); POTASSIUM - SERUM 3.7 mmol/L (3.5-5.1); PROTEIN - SERUM 6.1 g/dL (6.4-8.2); SODIUM 136 mmol/L (136-145); UREA NITROGEN 16 mg/dL (7-18)
[2017-09-23 05:30] LABS: CREATININE - SERUM 0.8 mg/dL (0.6-1.3); eGFR NON AFRICAN AMERICAN > 90 mL/min (90-120)
--- NOTE | 2017-09-23 07:25 | NUR ---
SLEEPING AT THIS TIME WITH RESPIRATIONS EVEN AND NON LABORED. ROCÍO, CAREGIVER, AT BEDSIDE. CALL LIGHT IN REACH AND CARRIE ALARM IN USE. WILL CONTINUE WITH PLAN OF CARE.
[2017-09-23 08:37] VITALS: BP 181/82
--- NOTE | 2017-09-23 09:19 | NUR ---
SCHEDULED MEDICATIONS ADMINISTERD AT THIS TIME. TAKEN WITHOUT DIFFICULTY. PRN TYLENOL ADMINISTERED FOR PAIN IN SHOULERS. 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 CAREGIVER AT BEDSIDE. IV PATENT AND CALL LIGHT IN REACH. CARRIE ALARM IN USE AND CALL LIGHT IN REACH, WILL CONTINUE WITH PLAN OF CARE.
--- NOTE | 2017-09-23 11:00 | NUR ---
YEE CATHETER CLAMPED AT THIS TIME FOR BLADDER TRAINING.
--- NOTE | 2017-09-23 11:45 | NUR ---
HAD BM AT THIS TIME. CLEANED UP BY CAREGIVER AT THIS TIME. DENIES NEEDS AT PRESENT. WILL CONTINUE WITH PLAN OF CARE.
[2017-09-23 12:11] VITALS: BP 131/72
--- NOTE | 2017-09-23 12:37 | NUR ---
NUTRITION F/U CAHRT REVIEWED, PT REMAINS IN ISOLATION WITH CAREGIVER AT BEDSIDE. CURRENTLY EATING LUNCH. PO INTAKE GOOD PER CAREGIVER REPORT. WILL CONTINUE TO PROVIDE DIET, MONITOR INTAKE. RD FOLLOWING
[2017-09-23] MEDS ORDERED: DIFLUCAN100 MG PO (12:51)
[2017-09-23] MEDS ORDERED: KEPPRA250 MG PO (12:52)
[2017-09-23] MEDS ORDERED: MUCINEX600 MG PO (12:52)
[2017-09-23] MEDS ORDERED: TESSALON PERLE100 MG PO (12:52)
[2017-09-23] MEDS ORDERED: FLORAJEN3 CAPS460 MG PO (12:52)
[2017-09-23] MEDS ORDERED: PROTONIX40 MG PO (12:53)
[2017-09-23] MEDS ORDERED: VANCOMYCIN 1 GM/1 G1 IV (13:21)
--- NOTE | 2017-09-23 13:52 | NUR ---
SCHEDULED VANCOMYCIN ADMINISTERED AT THIS TIME PER ORDER. IV TO LEFT FOREARM D/C WITH CATH TIP INTACT. UP IN CHAIR PER PHYSICAL THERAPY. YEE UNCLAMPED AND 150-200 ML OF URINE DRAINED INTO YEE BAG. YEE RE-CLAMPED FOR BLADDER TRAINING. CAREGIVER REMAINS AT BEDSIDE. CALL LIGHT IN REACH, WILL CONTINUE WITH PLAN OF CARE.
--- NOTE | 2017-09-23 14:34 | NUR ---
PATIENT BEING DISCHARGED TODAY VIA EMS BACK TO THE [facility]. DAUGHTER CALLED AND MESSAGE LEFT. CAREGIVER ROCÍO AT BEDSIDE.
--- NOTE | 2017-09-23 14:38 | NUR ---
PT WILL GO TO A CASH GRAIN GROWER BED
--- NOTE | 2017-09-23 15:57 | NUR ---
REPORT CALLED TO KASSIE PURDY AT [facility], .
--- NOTE | 2017-09-23 16:30 | NUR ---
YEE CATHETER D/C WITH CATH TIP INTACT.
--- NOTE | 2017-09-23 17:00 | NUR ---
CALLED TO ARRANGE TRANSPORT FOR PT TO THE [facility] BY [facility].
--- NOTE | 2017-09-23 19:45 | NUR ---
ASSESSMENT PER FLOWSHEET. LEFT UPPER ARM MIDLINE CATHETER PATENT SALINE LOCKED. DRESSED AND READY FOR DISCHARGE TO THE [facility] WAITING ON AMBULANCE. MEDS GIVEN PER JAN. C/O HEADACHE TYLENOL 650MG PO GIVEN FOR HEADACHE.CAREGIVER AT BEDSIDE.
--- NOTE | 2017-09-23 20:44 | NUR ---
AMBULANCE SERVICE HERE FOR TRANSFER TO THE [facility].
== END 2017-09-23 20:53 | DRG 177 ==
LOC: D.ER 10:21 → D.MS 13:33
PROVIDERS: Emergency Medicine; Internal Medicine Pulmonary Disease; ADMIT Family Medicine
PROC: 05HF33Z Insertion of Infusion Device into Left Cephalic Vein, Percutaneous Approach (ICD-10-PCS; principal; 2017-09-23)
PROC: B54NZZA Ultrasonography of Left Upper Extremity Veins, Guidance (ICD-10-PCS; 2017-09-23)
DX: J69.0 Pneumonitis due to inhalation of food and vomit (principal); G93.41 Metabolic encephalopathy; R53.2 Functional quadriplegia; I50.32 Chronic diastolic (congestive) heart failure; J44.1 Chronic obstructive pulmonary disease with (acute) exacerbation; G91.2 (Idiopathic) normal pressure hydrocephalus; N39.0 Urinary tract infection, site not specified; J15.212 Pneumonia due to Methicillin resistant Staphylococcus aureus; F01.50 Vascular dementia, unspecified severity, without behavioral disturbance, psychotic disturbance, mood disturbance, and anxiety; G30.9 Alzheimer's disease, unspecified; F02.80 Dementia in other diseases classified elsewhere, unspecified severity, without behavioral disturbance, psychotic disturbance, mood disturbance, and anxiety; Z99.81 Dependence on supplemental oxygen; I48.2 Chronic atrial fibrillation; N40.0 Benign prostatic hyperplasia without lower urinary tract symptoms; D50.9 Iron deficiency anemia, unspecified; I25.10 Atherosclerotic heart disease of native coronary artery without angina pectoris; K21.9 Gastro-esophageal reflux disease without esophagitis; I48.91 Unspecified atrial fibrillation

== ENCOUNTER 2017-11-13 19:33 | Inpatient (IN) | payer MEDICARE, OTHER ==
[~2017-11-13] VITALS: Ht 170.2 cm; Wt 55.1 kg
--- NOTE | ~2017-11-13 | CN ---
PATIENT NAME:SHANDA THURMAN MEDICAL RECORD: [id number] : 32 LOCATION:[facility] D.[id number] ADMIT DATE: 11/13/17 ACCOUNT: [id number] CONSULTING PHYSICIAN: BOBBI MARTINO MD REFERRING PHYSICIAN: BECKY CLEANING MD DATE OF CONSULTATION: 11/14/2017 CONSULT REQUESTING PHYSICIAN: Becky Cleaning MD REASON FOR CONSULTATION: Dyspnea. HISTORY OF PRESENT ILLNESS: Mr. Thurman is an 87-year-old gentleman, very well known to our service with a history of dementia, prison resident. The history was taken from the caregiver. The patient was brought into the hospital for worsening shortness of breath, there were no fever or chills, no night sweats though most of the people has got flu in the prison. His chest radiograph and CT scan, which showed large right pleural effusion with elevated BNP of above 50,000, there are no associated leukocytosis. REVIEW OF SYSTEMS: As in history of present illness. PAST MEDICAL HISTORY: 1. COPD. 2. Chronic hypoxic respiratory failure. 3. History of CVA. 4. Neuropathy. 5. Seizure disorder. 6. Dementia. PAST SURGICAL HISTORY: 1. He has a TURP. 2. CABG. 3. Hip surgery. 4. Cholecystectomy. ALLERGIES: He is allergic to AMIODARONE, MULTAQ, ADVAIR. MEDICATIONS: He is on Lasix IV, albuterol and ipratropium nebulizer, Brovana nebulizer, his other medication is reviewed. PERSONAL AND SOCIAL HISTORY: The patient is a prison resident. He is an ex-smoker. FAMILY HISTORY: Noncontributory. PHYSICAL EXAMINATION: GENERAL: Now, the patient is lying comfortably in bed. He is not in acute distress. VITAL SIGNS: The blood pressure is 162/87, pulse is 82, respirations is 19, temperature is 97.2, SpO2 is 98% on 3 liters nasal cannula. HEENT: Conjunctivae is pink, sclerae nonicteric. NECK: Supple, no JVD. CHEST: There is dullness on percussion at the right base with absent breath sounds. There are bilateral crackles. No wheezing. HEART: Rhythm regular, normal sounds with grade 2/6 systolic murmur. CONSULT REPORT [id number] SHANDA THURMAN ABDOMEN: Soft, bowel sounds present. No hepatosplenomegaly. RECTAL: Deferred. EXTREMITIES: No cyanosis, no clubbing. There is pedal edema. SKIN: Warm, normal turgor. CENTRAL NERVOUS SYSTEM: There is no obvious cranial nerve abnormality, but the patient is confused. IMAGING: CT scan of the chest: There is compressive atelectasis of the right lung. There is a large pleural effusion with a small on the left side with increase in interstitial markings with cardiomegaly. OTHER LABORATORY DATA: CBC: The WBC is 6.6, hemoglobin 10.5, hematocrit 33.4, the platelet count 226. Chemistry: Sodium 149, potassium is 3.8, bicarb is 39.4, BUN is 19, creatinine is 1.1. IMPRESSION: 1. [id number] hypoxic respiratory failure. 2. Right more than left pleural effusion. 3. Atelectasis, right lower lobe. 4. Congestive heart failure with elevated proBNP above 50,000. 5. Hypernatremia, possible underlying dehydration. RECOMMENDATION: 1. I will discontinue IV fluids normal saline. 2. Continue Lasix 20 mg b.i.d. 3. Follow up labs. Continue albuterol/ipratropium nebulizer. I will doubt pneumonia. I will hold on empiric antibiotic at this stage. 4. Proceed with a right-sided thoracentesis, order for the fluid and the test has been requested. Dr. Cleaning, thank you for involving me in the care of Mr. Thurman. TRANSINT:[id number] Voice Confirmation ID: [id number] DOCUMENT ID: [id number] BOBBI MARTINO MD at 1406 CC: [id number] DICTATION DATE: 11/14/17 1344 MINISTER: 11/14/17 1459 ADM IN [place] [id number] [place] [address]
[~2017-11-13 19:33] MED LIST changes: +DIFLUCAN100 MG PO; +MUCINEX600 MG PO; +TESSALON PERLE100 MG PO; +VANCOMYCIN 1 GM/1 G1 IV
[2017-11-13 21:14] LABS: BASOPHILS 0.3 % (0-2); EOSINOPHILS 0.2 % (0-7); HEMATOCRIT 33.4 % (42.0-54.0); HEMOGLOBIN 10.5 g/dL (13.5-17.5); IMMATURE GRANULOCYTES 0.2 % (0-5); MCH 32.8 pg (26.0-34.0); MCHC 31.4 g/dL (31.0-37.0); MCV 104.4 fL (80.0-100.0); MEAN PLATELET VOLUME 11.3 fL (7.4-10.4); MONOCYTES 9.5 % (2-11); NEUTROPHILS 60.8 % (40-80); RDW 16.1 % (11.5-14.5); WBC 6.6 10x3/uL (4.8-10.8)
[2017-11-13 21:15] LABS: ALBUMIN 2.4 g/dL (3.4-5.0); ANION GAP 5.4 mmol/L (8-16); BILIRUBIN - TOTAL 0.84 mg/dL (0.2-1.3); CALCIUM 8.3 mg/dL (8.5-10.1); CARBON DIOXIDE 39.4 mmol/L (21.0-32.0); CREATININE - SERUM 1.1 mg/dL (0.6-1.3); POTASSIUM - SERUM 3.8 mmol/L (3.5-5.1); PROTEIN - SERUM 6.1 g/dL (6.4-8.2)
[2017-11-13 21:19] LABS: PLATELET COUNT 226 10x3/uL (130-400)
[2017-11-13 21:22] LABS: TROPONIN-I 0.056 ng/mL (0.000-0.060)
[2017-11-13 21:37] LABS: APPEARANCE CLEAR (CLEAR); BILIRUBIN NEGATIVE (NEGATIVE); COLOR YELLOW (YELLOW); GLUCOSE NEGATIVE (NEGATIVE); KETONE NEGATIVE (NEGATIVE); NITRITE NEGATIVE (NEGATIVE); PROTEIN TRACE mg/dL (NEGATIVE); SPECIFIC GRAVITY 1.015 (1.005-1.020); UROBILINOGEN NORMAL (NORMAL)
[2017-11-13 21:38] LABS: BACTERIA FEW /hpf (NONE SEEN); RED CELLS - URINE OCC /hpf (0-5); WHITE CELLS - URINE 0-5 /hpf (0-5)
[2017-11-14] VITALS (7 sets, daily range): BP systolic 144–167; BP diastolic 83–105; BMI 19.5
[2017-11-15] VITALS: BP 143/63
[2017-11-15 04:00] VITALS: BP 197/77
[2017-11-15 06:05] LABS: BASOPHILS 0.1 % (0-2); EOSINOPHILS 0.2 % (0-7); HEMATOCRIT 33.4 % (42.0-54.0); HEMOGLOBIN 10.7 g/dL (13.5-17.5); IMMATURE GRANULOCYTES 0.2 % (0-5); LYMPHOCYTES 16.3 % (15-50); MCV 103.1 fL (80.0-100.0); MEAN PLATELET VOLUME 11.6 fL (7.4-10.4); MONOCYTES 6.7 % (2-11); NEUTROPHILS 76.5 % (40-80); PLATELET COUNT 259 10x3/uL (130-400); RBC 3.24 10x6/uL (4.20-6.10); RDW 15.8 % (11.5-14.5)
[2017-11-15 06:18] LABS: WBC 8.3 10x3/uL (4.8-10.8)
[2017-11-15 06:22] LABS: APTT 31.2 SECONDS (22.8-39.4); INR 1.25 (0.85-1.17); PROTIME 15.3 SECONDS (11.6-15.0)
[2017-11-15 06:46] LABS: CALC OSMOLALITY 286 mosm/kg (275-300); CALCIUM 8.6 mg/dL (8.5-10.1); CARBON DIOXIDE 39.1 mmol/L (21.0-32.0); CHLORIDE - SERUM 102 mmol/L (98-107); GLUCOSE 87 mg/dL (74-106); SODIUM 144 mmol/L (136-145); UREA NITROGEN 16 mg/dL (7-18); eGFR NON AFRICAN AMERICAN 75 mL/min (90-120)
[2017-11-15 06:49] LABS: POTASSIUM - SERUM 3.2 mmol/L (3.5-5.1)
[2017-11-15 07:15] LABS: PRO BNP 42431 pg/mL (0-450)
[2017-11-15 08:00] VITALS: BP 170/85
[2017-11-15 09:01] VITALS: Ht 170.2 cm; Wt 55.1 kg
[2017-11-15 12:43] VITALS: BP 151/77
[2017-11-15 16:42] VITALS: BP 144/52
[2017-11-15 20:36] VITALS: BP 130/67
[2017-11-16 01:20] VITALS: BP 143/71
[2017-11-16 05:31] VITALS: BP 140/68
[2017-11-16 06:06] LABS: BASOPHILS 0.1 % (0-2); EOSINOPHILS 0.2 % (0-7); HEMATOCRIT 32.8 % (42.0-54.0); HEMOGLOBIN 10.5 g/dL (13.5-17.5); IMMATURE GRANULOCYTES 0.2 % (0-5); LYMPHOCYTES 10.3 % (15-50); MCH 32.8 pg (26.0-34.0); MCV 102.5 fL (80.0-100.0); MEAN PLATELET VOLUME 11.3 fL (7.4-10.4); MONOCYTES 7.8 % (2-11); NEUTROPHILS 81.4 % (40-80); PLATELET COUNT 246 10x3/uL (130-400); RDW 15.3 % (11.5-14.5)
[2017-11-16 06:34] LABS: CALC OSMOLALITY 288 mosm/kg (275-300); CALCIUM 8.6 mg/dL (8.5-10.1); CHLORIDE - SERUM 104 mmol/L (98-107); GLUCOSE 89 mg/dL (74-106); POTASSIUM - SERUM 3.5 mmol/L (3.5-5.1); SODIUM 145 mmol/L (136-145); UREA NITROGEN 16 mg/dL (7-18); eGFR NON AFRICAN AMERICAN 75 mL/min (90-120)
[2017-11-16 06:35] LABS: PRO BNP 37605 pg/mL (0-450)
[2017-11-16 06:37] LABS: INR 1.17 (0.85-1.17); PROTIME 14.5 SECONDS (11.6-15.0)
[2017-11-16 08:20] VITALS: BP 136/72
[2017-11-16 11:15] VITALS: BP 128/74
[2017-11-16 15:45] VITALS: BP 110/72
[2017-11-16 19:00] VITALS: BP 144/111
[2017-11-17 04:00] VITALS: BP 131/65
[2017-11-17 06:00] LABS: BASOPHILS 0.1 % (0-2); EOSINOPHILS 0.1 % (0-7); HEMATOCRIT 31.4 % (42.0-54.0); HEMOGLOBIN 10.2 g/dL (13.5-17.5); IMMATURE GRANULOCYTES 0.3 % (0-5); LYMPHOCYTES 9.5 % (15-50); MCH 33.1 pg (26.0-34.0); MCHC 32.5 g/dL (31.0-37.0); MCV 101.9 fL (80.0-100.0); MEAN PLATELET VOLUME 11.6 fL (7.4-10.4); MONOCYTES 9.1 % (2-11); NEUTROPHILS 80.9 % (40-80); PLATELET COUNT 256 10x3/uL (130-400); RBC 3.08 10x6/uL (4.20-6.10); RDW 15.3 % (11.5-14.5); WBC 11.4 10x3/uL (4.8-10.8)
[2017-11-17 06:45] LABS: ANION GAP 7.9 mmol/L (8-16); CALCIUM 8.9 mg/dL (8.5-10.1); CARBON DIOXIDE 36.4 mmol/L (21.0-32.0); CREATININE - SERUM 1.1 mg/dL (0.6-1.3); POTASSIUM - SERUM 3.3 mmol/L (3.5-5.1)
[2017-11-17 07:55] VITALS: BP 159/70
[2017-11-17 08:14] LABS: APTT 31.2 SECONDS (22.8-39.4); INR 1.1 (0.85-1.17); PROTIME 13.8 SECONDS (11.6-15.0)
[2017-11-17 11:52] VITALS: BP 161/87
[2017-11-17 12:42] LABS: PROTEIN - BODY FLUID 2.9 G/DL
[2017-11-17 13:45] LABS: MACROPHAGES BF 46 %; MESOTHELIALS BF 6 %; NEUT - BF 4 %
[2017-11-17 16:11] VITALS: BP 159/87
[2017-11-17 21:08] VITALS: BP 123/60
[2017-11-18 01:58] VITALS: BP 137/70
[2017-11-18 04:21] VITALS: BP 156/60
[2017-11-18 05:31] LABS: BASOPHILS 0.1 % (0-2); EOSINOPHILS 0.2 % (0-7); HEMATOCRIT 34.4 % (42.0-54.0); HEMOGLOBIN 11.1 g/dL (13.5-17.5); IMMATURE GRANULOCYTES 0.3 % (0-5); LYMPHOCYTES 9.1 % (15-50); MCHC 32.3 g/dL (31.0-37.0); MCV 102.4 fL (80.0-100.0); MEAN PLATELET VOLUME 11.8 fL (7.4-10.4); MONOCYTES 9.7 % (2-11); NEUTROPHILS 80.6 % (40-80); PLATELET COUNT 246 10x3/uL (130-400); RBC 3.36 10x6/uL (4.20-6.10); RDW 15.3 % (11.5-14.5); WBC 9.6 10x3/uL (4.8-10.8)
[2017-11-18 06:02] LABS: CALC OSMOLALITY 287 mosm/kg (275-300); CALCIUM 9.3 mg/dL (8.5-10.1); CARBON DIOXIDE 39.7 mmol/L (21.0-32.0); CHLORIDE - SERUM 102 mmol/L (98-107); GLUCOSE 109 mg/dL (74-106); POTASSIUM - SERUM 3.1 mmol/L (3.5-5.1); PRO BNP 24079 pg/mL (0-450); SODIUM 142 mmol/L (136-145); eGFR NON AFRICAN AMERICAN 75 mL/min (90-120)
[2017-11-18 06:05] LABS: UREA NITROGEN 23 mg/dL (7-18)
[2017-11-18 07:57] VITALS: BP 158/86
[2017-11-18 11:45] VITALS: BP 136/73
[2017-11-18 15:14] LABS: FUNGUS STAIN Final report (())
[2017-11-18 15:49] VITALS: BP 118/69
[2017-11-18 19:09] LABS: AFB SPECIMEN PROCESSING Not Indicated (())
[2017-11-18 21:32] VITALS: BP 126/65
[2017-11-19 03:27] VITALS: BP 145/67
[2017-11-19 04:56] LABS: BASOPHILS 0.1 % (0-2); EOSINOPHILS 0.2 % (0-7); HEMATOCRIT 33.8 % (42.0-54.0); HEMOGLOBIN 10.8 g/dL (13.5-17.5); IMMATURE GRANULOCYTES 0.4 % (0-5); LYMPHOCYTES 9.9 % (15-50); MCH 32.9 pg (26.0-34.0); MEAN PLATELET VOLUME 11.8 fL (7.4-10.4); MONOCYTES 8.5 % (2-11); NEUTROPHILS 80.9 % (40-80); PLATELET COUNT 264 10x3/uL (130-400); RBC 3.28 10x6/uL (4.20-6.10); RDW 15.1 % (11.5-14.5)
[2017-11-19 05:28] LABS: ANION GAP 5.3 mmol/L (8-16); CALCIUM 9.3 mg/dL (8.5-10.1); CREATININE - SERUM 1.1 mg/dL (0.6-1.3); POTASSIUM - SERUM 3.3 mmol/L (3.5-5.1)
[2017-11-19 07:48] VITALS: BP 130/67
[2017-11-19 11:32] VITALS: BP 109/52
[2017-11-19 15:58] VITALS: BP 137/81
[2017-11-19 20:06] VITALS: BP 139/64
[2017-11-20] VITALS: BP 142/70
[2017-11-20 06:10] VITALS: BP 144/91
[2017-11-20 07:49] VITALS: BP 132/75
[2017-11-20 11:23] VITALS: BP 157/78
[2017-11-20 15:03] LABS: BASOPHILS 0.1 % (0-2); EOSINOPHILS 0 % (0-7); HEMATOCRIT 34.6 % (42.0-54.0); HEMOGLOBIN 10.9 g/dL (13.5-17.5); IMMATURE GRANULOCYTES 0.3 % (0-5); LYMPHOCYTES 8.1 % (15-50); MCH 32.8 pg (26.0-34.0); MCHC 31.5 g/dL (31.0-37.0); MCV 104.2 fL (80.0-100.0); MEAN PLATELET VOLUME 11.8 fL (7.4-10.4); MONOCYTES 8.2 % (2-11); NEUTROPHILS 83.3 % (40-80); PLATELET COUNT 275 10x3/uL (130-400); RBC 3.32 10x6/uL (4.20-6.10); RDW 15.3 % (11.5-14.5)
[2017-11-20 15:13] LABS: WBC 14.5 10x3/uL (4.8-10.8)
[2017-11-20 15:28] LABS: ANION GAP 8.2 mmol/L (8-16); CALCIUM 9.8 mg/dL (8.5-10.1); CREATININE - SERUM 1.3 mg/dL (0.6-1.3); POTASSIUM - SERUM 3.5 mmol/L (3.5-5.1)
[2017-11-20 15:33] LABS: CARBON DIOXIDE 41.3 mmol/L (21.0-32.0)
[2017-11-20 16:45] VITALS: BP 112/63
[2017-11-20 20:45] VITALS: BP 137/64
[2017-11-21 08:07] VITALS: BP 121/66
[2017-11-21 11:22] VITALS: BP 118/60
[2017-11-21 15:25] VITALS: BP 130/78
[2017-11-22 05:35] LABS: BASOPHILS 0.1 % (0-2); EOSINOPHILS 0 % (0-7); HEMATOCRIT 36.3 % (42.0-54.0); HEMOGLOBIN 11.3 g/dL (13.5-17.5); IMMATURE GRANULOCYTES 0.6 % (0-5); LYMPHOCYTES 8.8 % (15-50); MCH 32.8 pg (26.0-34.0); MCHC 31.1 g/dL (31.0-37.0); MCV 105.5 fL (80.0-100.0); MEAN PLATELET VOLUME 11.7 fL (7.4-10.4); MONOCYTES 10.7 % (2-11); NEUTROPHILS 79.8 % (40-80); PLATELET COUNT 313 10x3/uL (130-400); RBC 3.44 10x6/uL (4.20-6.10); RDW 15.5 % (11.5-14.5); WBC 15.5 10x3/uL (4.8-10.8)
[2017-11-22 06:05] LABS: CALCIUM 9.9 mg/dL (8.5-10.1); CARBON DIOXIDE 39.3 mmol/L (21.0-32.0); CREATININE - SERUM 1.6 mg/dL (0.6-1.3); POTASSIUM - SERUM 3.3 mmol/L (3.5-5.1)
[2017-11-22 08:12] VITALS: BP 150/79
[2017-11-22 11:30] VITALS: BP 149/82
[2017-11-22 15:40] VITALS: BP 97/69
[2017-11-22 21:52] VITALS: BP 131/67
[2017-12-15 07:27] LABS: FUNGUS MYCOLOGY CULTURE Final report (())
[2018-01-05 13:16] LABS: ACID FAST CULTURE Negative (()); ACID FAST SMEAR Negative (())
== END 2017-11-23 02:56 | DRG 177 ==
LOC: D.ER 19:33 → OBSVTIME 21:50 → D.M2 21:50
PROVIDERS: Emergency Medicine; Family Medicine; General Practice; Internal Medicine Pulmonary Disease
PROC: 0W993ZZ Drainage of Right Pleural Cavity, Percutaneous Approach (ICD-10-PCS; principal; 2017-11-17 08:30)
DX: J15.6 Pneumonia due to other Gram-negative bacteria (principal); J96.21 Acute and chronic respiratory failure with hypoxia; G93.41 Metabolic encephalopathy; I50.21 Acute systolic (congestive) heart failure; J44.1 Chronic obstructive pulmonary disease with (acute) exacerbation; J44.0 Chronic obstructive pulmonary disease with (acute) lower respiratory infection; E87.0 Hyperosmolality and hypernatremia; J90 Pleural effusion, not elsewhere classified; G91.2 (Idiopathic) normal pressure hydrocephalus; I50.9 Heart failure, unspecified; G30.9 Alzheimer's disease, unspecified; F02.80 Dementia in other diseases classified elsewhere, unspecified severity, without behavioral disturbance, psychotic disturbance, mood disturbance, and anxiety; G40.909 Epilepsy, unspecified, not intractable, without status epilepticus; G62.9 Polyneuropathy, unspecified; I25.10 Atherosclerotic heart disease of native coronary artery without angina pectoris; I48.91 Unspecified atrial fibrillation; K21.9 Gastro-esophageal reflux disease without esophagitis; I11.0 Hypertensive heart disease with heart failure; Z66 Do not resuscitate; H35.30 Unspecified macular degeneration; Z86.73 Personal history of transient ischemic attack (TIA), and cerebral infarction without residual deficits